=== PATIENT | male | born 1960 | race Caucasian/White ===

== ENCOUNTER 2019-07-23 12:56 | Inpatient (IN) ==
[2019-07-23] MEDS ORDERED: 0.9 % SODIUM CHLORIDE 1,000 ML IV ONE ×2 (13:24→16:03)
[2019-07-23] MEDS ORDERED: cefTRIAXone 2 GM in DEXTROSE 5% IN WATER 50 ML IV ONE (13:26)
--- NOTE | 2019-07-23 13:49 | XRay Report ---
HISTORY: Chest pain, fever and dyspnea FINDINGS: Heart is mildly enlarged and has increased in size since 02/08/17. Lung volumes are relatively small. There is a generalized haziness in the lung parenchyma bilaterally, most apparent around the didi and in the right lower thorax. No pleural effusion is present. There is no lobar consolidation. IMPRESSION: Cardiomegaly with mild congestive heart failure. Superimposed pneumonia cannot be excluded. Interpreted and Authenticated by: Max Chin 07/23/19
--- NOTE | 2019-07-23 13:59 | Emergency Department Note ---
Fever HPI - General Chief Complaint: Fever Stated Complaint: Fever, N/V/D Time Seen by Provider: 07/23/19 13:19 Source: EMS Mode of arrival: ambulatory Limitations: no limitations - History of Present Illness HPI Narrative: 59-year-old patient presenting to the emergency department chief complaint of altered mentation. Historical clues assessed for include recent febrile illness, history of organ failure, patient has been ill recently but per his but more acutely over today. Patient is confused at time of evaluation and history is limited. There are no exacerbating or ameliorating factors identified at this time. Time course is acute significantly worse today. - Related Data Home Medications Medication Instructions Recorded Confirmed Aspirin [Ecotrin] 81 mg PO DAILY 04/10/15 07/21/19 acetaminophen 500 mg tablet 1,000 mg PO Q6H PRN 05/26/15 07/21/19 blood sugar diagnostic See Dose Instructions .ROUTE 05/26/15 07/21/19 .MEDSUPPLY urea 40 % topical cream 1 applic TOPICAL QDAY 05/26/15 07/21/19 tramadol 100 mg tablet,extended 100 mg PO QDAY PRN 01/20/19 07/21/19 release 24 hr insulin glargine 100 unit/mL 45 unit SUB-Q QHS ml 07/21/19 07/21/19 subcutaneous solution Lisinopril [Zestril] 10 mg PO PRN PRN 07/23/19 Previous Rx's Medication Instructions Recorded fenofibrate nanocrystallized 48 mg 48 mg PO QDAY #90 tab 05/21/18 tablet cholecalciferol (vitamin D3) 50 4,000 unit PO QDAY #30 cap 07/21/19 mcg (2,000 unit) capsule furosemide 20 mg tablet 20 mg PO QAM PRN #90 tab 07/21/19 Allergies Allergy/AdvReac Type Severity Reaction Status Date / Time Penicillins Allergy Severe Anaphylaxis Verified 07/21/19 09:01 bisoprolol Allergy Intermediate leg Verified 07/21/19 09:01 swelling and SOB iodine Allergy Mild Hives Verified 07/21/19 09:01 niacin AdvReac Severe Verified 07/23/19 17:06 NSAIDS (Non-Steroidal AdvReac Severe Verified 07/23/19 17:06 Anti-Inflamma Tetanus Vaccines and Toxoid AdvReac Severe Nausea, Verified 07/21/19 09:01 [Tetanus Vaccines & Toxoid] Shortness of breath, Swelling adhesive tape AdvReac Intermediate Rash Verified 07/21/19 09:01 bacitracin AdvReac Intermediate Rash Verified 07/21/19 09:01 codeine AdvReac Intermediate vomit Verified 07/21/19 09:01 doxycycline AdvReac Intermediate Verified 07/23/19 17:06 levofloxacin AdvReac Intermediate Verified 07/23/19 17:06 minocycline AdvReac Intermediate Verified 07/23/19 17:06 Sulfa (Sulfonamide AdvReac Intermediate Verified 07/23/19 17:06 Antibiotics) hydrocodone AdvReac Mild vomit Verified 07/21/19 09:01 Review of Systems All systems ED: reviewed and negative except as stated. Fever PMH - Past Medical History PMFSH Narrative: All Active Problems (Last Reviewed 07/21/19 @ 09:02 by Elba Clement SURGICAL AIDE) Anemia in chronic kidney disease (Chronic) Vitamin D deficiency (Chronic) Chronic kidney disease (CKD) stage G3a/A3, moderately decreased glomerular filtration rate (GFR) between 45-59 mL/min/1.73 square meter and albuminuria creatinine ratio greater than 300 mg/g (Chronic) Community acquired bacterial pneumonia (Acute) Ataxia (Acute) Lower leg edema (Chronic) Pes planus of left foot (Chronic) Pes planus of right foot (Chronic) Chronic skin ulcer (Chronic) Edema, lower extremity (Chronic) Diabetic ulcer of left foot (Chronic) Venous stasis (Chronic) 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 other part of lower leg (Chronic) Bronchitis (Acute) Hypertension (Chronic ~2018) CKD (chronic kidney disease) stage 3, GFR 30-59 ml/min (Chronic) Polyneuropathy in diabetes (Chronic 09/20/10) Nephritis and nephropathy (Chronic) Mononeuritis (Chronic) Hemorrhagic condition (Chronic) Impotence, organic (Chronic) Fatigue (Chronic) Edema (Chronic) Cellulitis (Chronic) Tobacco use (Chronic) Obesity (Chronic) 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) Osteoarthritis (Chronic) Essential (primary) hypertension (Chronic) Onychomycosis (Chronic) Fissure in skin (Chronic) Callus of foot (Chronic) History of amputation of lesser toe of right foot (Chronic) Amputated great toe of left foot (Chronic) Chronic ulcer of left foot limited to breakdown of skin (Chronic) Diabetic neuropathy (Chronic) 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) Laceration of left foot without foreign body (Chronic) Laceration (Acute) Medical history: Reports: DM, hypertension, other Psychiatric history: Reports: no psych history Family history: Reports: no significant family history - Social History smoking status: Never smoker Alcohol use: Reports: None Drug use: Reports: none Physical Exam General: confused, inappropriate; febrile and tachycardic General: Alert, interactive, appropriate Head: Atraumatic, normocephalic Eyes: Extraocular movements intact, sclera anicteric, no conjunctival injection Ears: Pinnae normal, no discharge Mouth: Oral mucosa moist, no acute swelling or evidence of infection Nares: No nasal discharge, patent bilaterally Neck: Trachea midline, full range of motion Chest: Symmetrical chest wall rise, breathing normally; nonlabored respirations Cardiovascular: Patient with excellent perfusion to the extremities; with tachycardia Skin: Patient without area of erythema, patient is without rash, no ascending lymphangitis or lymphadenopathy Extremities: Full range of motion joints, no obvious deformities Neuro: Alert, confused, cranial nerves II through XII grossly intact, patient without lateralizing findings such as weakness, or abnormal reflexes Psychiatric: disoriented, without hallucinations Limitations: no limitations Course Vital Signs Temperature 104.4 F H 07/23/19 12:59 Pulse Rate 127 H 07/23/19 12:59 Respiratory Rate 28 H 07/23/19 12:59 Blood Pressure 121/111 07/23/19 12:59 Pulse Oximetry (%) 94 07/23/19 12:59 Temperature 97.6 F 07/24/19 00:03 Pulse Rate 84 07/24/19 02:01 Respiratory Rate 28 H 07/23/19 21:32 Blood Pressure 138/75 07/24/19 02:01 Pulse Oximetry (%) 97 07/24/19 02:01 Fever - MDM Narrative Medical decision making narrative: 59-year-old patient presenting to the emergency department chief complaint of altered mental status. Patient's recent medical history is evaluated for infectious illnesses, history of organ failure, medication list, drug/alcohol history, and depression patient's mental status made them unable to provide significant clues to current symptoms differential diagnosis included but not limited to stroke, intracranial hemorrhage, electrolyte derangement, DKA/HHS, sepsis, toxicology including alcohol and overdose, status epilepticus. Patient's vital signs as well as what minimal history is available per EMS patient fits criteria for acute sepsis without hypotension/septic shock. Patient is febrile oxygenation in the mid 80s. Full septic work-up is ordered. Bolus of fluid is administered Rocephin 2 g IV is administered as soon as blood cultures were obtained. Supplemental oxygen initiated. Patient was confused on presentation. This case was presented to the hospitalist who came quickly to the emergency department to admit the patient. - Lab Data Result diagrams: 07/23/19 13:40 07/23/19 13:40 Lab Results 07/23/19 07/23/19 07/23/19 Range/Units 13:33 13:40 13:40 WBC 15.7 H (4.50-11.00) K/mcL RBC 4.41 L (4.63-6.08) M/mcL Hgb 13.0 L (13.7-17.5) g/dL Hct 37.8 L (40.1-51.0) % MCV 85.7 (80.0-100.0) fL MCH 29.5 (26.0-34.0) pg MCHC 34.4 (31.0-36.0) g/dL RDW 13.3 (11.5-14.5) % Plt Count 230 (140-440) K/mcL MPV 11.6 H (7.4-10.4) fL Gran % 91.8 H (38.0-78.0) % Lymph % (Auto) 3.2 L (15.5-49.0) % [place] % (Auto) 4.6 (1.0-12.0) % Eos % (Auto) 0.1 (0.0-7.0) % Baso % (Auto) 0.3 (0.0-2.0) % Gran # 14.42 H (1.80-8.00) K/mcL Lymph # (Auto) 0.51 L (1.50-4.80) K/mcL [place] # (Auto) 0.72 (0.10-0.90) K/mcL Eos # (Auto) 0.01 (0.00-0.70) K/mcL Baso # (Auto) 0.04 (0.00-0.30) K/mcL PT (11.9-14.5) sec INR (0.9-1.1) D-Dimer (0.00-0.40) ug/ml ABG Methemoglobin (0.4-1.5) % VBG pH (7.32-7.42) U VBG pCO2 (41.0-51.0) mmHg VBG pO2 (25-40) mmHg VBG HCO3 (24.0-28.0) mmol/L VBG Total CO2 (25.0-29.0) mmol/L VBG O2 Saturation (40.0-70.0) % VBG Base Excess (-2.0-2.0) VBG Lactic Acid (0.5-2.0) mmol/L Carboxyhemoglobin (0.0-1.5) % THgb Total Hemoglobin (13.5-16.5) gm/dL O2 Delivery Level Sodium 139 (133-145) mmol/L Potassium 4.5 (3.3-5.1) mmol/L Chloride 101 (96-108) mmol/L Carbon Dioxide 23 (22-30) mmol/L Anion Gap 15.0 (8-16) BUN 33 H (6-20) mg/dl Creatinine 1.6 H (0.7-1.2) mg/dl GFR Calculation 47 Glucose 272 H (70-105) mg/dL Hemoglobin A1c 12.3 H (4.0-6.0) % HGB Estim Average Glucose 306 mg/dL Calcium 9.2 (8.6-10.4) mg/dl Total Bilirubin 0.5 (0.0-1.0) mg/dL AST 25 (0-37) U/l ALT 20 (0-40) U/l Alkaline Phosphatase 130 H (39-117) U/L NT-Pro-B Natriuret Pep 1456.0 H (0-125) pg/ml Total Protein 6.5 (5.9-8.4) gm/dL Albumin 3.5 (3.2-5.2) gm/dL Globulin 3.0 (2.2-3.7) gm/dL Albumin/Globulin Ratio 1.2 (1.0-2.3) 07/23/19 07/23/19 07/23/19 Range/Units 13:40 13:40 13:40 WBC (4.50-11.00) K/mcL RBC (4.63-6.08) M/mcL Hgb (13.7-17.5) g/dL Hct (40.1-51.0) % MCV (80.0-100.0) fL MCH (26.0-34.0) pg MCHC (31.0-36.0) g/dL RDW (11.5-14.5) % Plt Count (140-440) K/mcL MPV (7.4-10.4) fL Gran % (38.0-78.0) % Lymph % (Auto) (15.5-49.0) % [place] % (Auto) (1.0-12.0) % Eos % (Auto) (0.0-7.0) % Baso % (Auto) (0.0-2.0) % Gran # (1.80-8.00) K/mcL Lymph # (Auto) (1.50-4.80) K/mcL [place] # (Auto) (0.10-0.90) K/mcL Eos # (Auto) (0.00-0.70) K/mcL Baso # (Auto) (0.00-0.30) K/mcL PT 14.7 H (11.9-14.5) sec INR 1.1 (0.9-1.1) D-Dimer 1.09 H (0.00-0.40) ug/ml ABG Methemoglobin 0.3 L (0.4-1.5) % VBG pH 7.40 (7.32-7.42) U VBG pCO2 38.7 L (41.0-51.0) mmHg VBG pO2 40 (25-40) mmHg VBG HCO3 23.5 L (24.0-28.0) mmol/L VBG Total CO2 24.7 L (25.0-29.0) mmol/L VBG O2 Saturation 74.4 H (40.0-70.0) % VBG Base Excess -1.1 (-2.0-2.0) VBG Lactic Acid 1.4 (0.5-2.0) mmol/L Carboxyhemoglobin 3.7 H (0.0-1.5) % THgb Total Hemoglobin 12.7 L (13.5-16.5) gm/dL O2 Delivery Level Not Reportable Sodium (133-145) mmol/L Potassium (3.3-5.1) mmol/L Chloride (96-108) mmol/L Carbon Dioxide (22-30) mmol/L Anion Gap (8-16) BUN (6-20) mg/dl Creatinine (0.7-1.2) mg/dl GFR Calculation Glucose (70-105) mg/dL Hemoglobin A1c (4.0-6.0) % HGB Estim Average Glucose mg/dL Calcium (8.6-10.4) mg/dl Total Bilirubin (0.0-1.0) mg/dL AST (0-37) U/l ALT (0-40) U/l Alkaline Phosphatase (39-117) U/L NT-Pro-B Natriuret Pep (0-125) pg/ml Total Protein (5.9-8.4) gm/dL Albumin (3.2-5.2) gm/dL Globulin (2.2-3.7) gm/dL Albumin/Globulin Ratio (1.0-2.3) Critical Care Time Critical Care Time: Yes Total Critical Care Time: 61 Attestation: This critical care time was direct patient care exclusive of other procedures. Disposition Pt seen by ROTARY CUTTER OPERATOR/PA only: No Clinical Impression: Sepsis Qualifiers: Sepsis type: sepsis due to unspecified organism Sepsis acute organ dysfunction status: with acute organ dysfunction Disposition: Xfer As Inpt ([facility]) Condition: Critical
[2019-07-23 14:08] LABS: ABG Methemoglobin 0.3 % (0.4-1.5); Total Hemoglobin 12.7 gm/dL (13.5-16.5); VBG Base Excess -1.1 (-2.0-2.0); VBG HCO3 23.5 mmol/L (24.0-28.0); VBG Oxygen Saturation 74.4 % (40.0-70.0); VBG PCO2 38.7 mmHg (41.0-51.0); VBG PO2 40 mmHg (25-40); VBG Total CO2 24.7 mmol/L (25.0-29.0)
[2019-07-23 14:15] LABS: Basophils # (Auto) 0.04 K/mcL (0.00-0.30); Basophils % (Auto) 0.3 % (0.0-2.0); Eosinophils # (Auto) 0.01 K/mcL (0.00-0.70); Eosinophils % (Auto) 0.1 % (0.0-7.0); Granulocytes % (Auto) 91.8 % (38.0-78.0); Hematocrit 37.8 % (40.1-51.0); Lymphocytes # (Auto) 0.51 K/mcL (1.50-4.80); Lymphocytes % (Auto) 3.2 % (15.5-49.0); Mean Cell Volume 85.7 fL (80.0-100.0); Mean Corpuscular HGB Conc 34.4 g/dL (31.0-36.0); Mean Platelet Volume 11.6 fL (7.4-10.4); Monocytes # (Auto) 0.72 K/mcL (0.10-0.90); Monocytes % (Auto) 4.6 % (1.0-12.0); Platelet Count 230 K/mcL (140-440); RBC 4.41 M/mcL (4.63-6.08); Red Cell Distribution Width 13.3 % (11.5-14.5); WBC 15.7 K/mcL (4.50-11.00)
[2019-07-23 14:49] LABS: INR 1.1 (0.9-1.1); Prothrombin Time 14.7 sec (11.9-14.5)
[2019-07-23 15:56] LABS: ALT/SGPT 20 U/l (0-40); AST/SGOT 25 U/l (0-37); Albumin 3.5 gm/dL (3.2-5.2); Albumin/Globulin Ratio 1.2 (1.0-2.3); Alkaline Phosphatase 130 U/L (39-117); Bilirubin,Total 0.5 mg/dL (0.0-1.0); Blood Urea Nitrogen 33 mg/dl (6-20); Calcium 9.2 mg/dl (8.6-10.4); Carbon Dioxide 23 mmol/L (22-30); Chloride 101 mmol/L (96-108); Glomerular Filtration Rate 47; Glucose 272 mg/dL (70-105)
[2019-07-23] MEDS ORDERED: ACETAMINOPHEN 325 MG TABLET PO ONE (16:19)
[2019-07-23] MEDS ORDERED: DEXTROSE 31 GM ORAL.SUSP PO PRN ×2 (20:31→21:23)
[2019-07-23] MEDS ORDERED: ONDANSETRON 4 MG/2 ML VIAL IV PRN ×2 (20:31→21:23)
[2019-07-23] MEDS ORDERED: DEXTROSE 50% 50 ML VIAL IV PRN ×2 (20:31→21:23)
[2019-07-23] MEDS ORDERED: cefTRIAXone 2 GM in DEXTROSE 5% IN WATER 50 ML IV SCH (20:45)
[2019-07-23] MEDS ORDERED: HEPARIN 5,000 UNIT/ML VIAL SQ SCH (21:00)
[2019-07-23] MEDS ORDERED: LEVOFLOXACIN 750 MG/150 ML BAG IV SCH ×2 (21:00)
[2019-07-23] MEDS ORDERED: DOCUSATE SODIUM 100 MG CAPSULE PO SCH (21:00)
[2019-07-23] MEDS ORDERED: INSULIN LISPRO 1 UNIT/0.01 ML UNIT SQ SCH (21:00)
--- NOTE | 2019-07-23 21:07 | Internal Med History&Physical ---
Medical - H&P: HPI Patient information: Note initiated : 07/23/19 at 8:56 pm Service Date, if different from initiated Date: [] Patient: Ross Mcgee 59 y/o M admitted on for Fever, N/V/D. Chief Complaint: [ams x 1 day] History of present illness: Mr. Mcgee is a 59 year old M with a past medical history of CKD, CHF, diabetes type 2, high blood pressure, and tobacco use who presented to the ER due to altered mental status. When I saw this patient in the ER, he could answer questions appropriately. Medical history is obtained from the ER physician and patient self. As per patient, he has been having fever over the past couple of days but today he was found to have AMS at times. Otherwise, he denies headache, dizziness, chest pain, shortness of breath, abdominal pain, nausea, vomiting, diarrhea, or dysuria. No cough or sore throat. In the ER, T-max 194.4. Chest x-ray showed CHF and possible pneumonia. 1 dose of ceftriaxone was given. COVID-19 swab was sent. When I saw this patient in the ER, other than the symptoms mentioned above, he was fine. He was allowed to go home and did not want to be admitted. After explanation, patient change his mind. Patient denies recent travel or sick c ontact. Review of systems: positive for fever and ams. all other systems were reviewed and are negative. Medical - H&P: PMH Family history: reviewed and not pertinent (Mother had diabetes and father had a cancer.) Have you smoked in the last 12 months: No Drug use: none Alcohol use: none Medical - H&P: Meds Home Medications Medication Instructions Recorded Confirmed Type Aspirin [Ecotrin] 81 mg PO DAILY 04/10/15 07/21/19 History acetaminophen 500 mg tablet 1,000 mg PO Q6H PRN 05/26/15 07/21/19 History blood sugar diagnostic See Dose Instructions .ROUTE 05/26/15 07/21/19 History .MEDSUPPLY urea 40 % topical cream 1 applic TOPICAL QDAY 05/26/15 07/21/19 History fenofibrate nanocrystallized 48 mg 48 mg PO QDAY #90 tab 05/21/18 07/21/19 Rx tablet tramadol 100 mg tablet,extended 100 mg PO QDAY PRN 01/20/19 07/21/19 History release 24 hr cholecalciferol (vitamin D3) 50 4,000 unit PO QDAY #30 cap 07/21/19 07/21/19 Rx mcg (2,000 unit) capsule furosemide 20 mg tablet 20 mg PO QAM PRN #90 tab 07/21/19 07/21/19 Rx insulin glargine 100 unit/mL 45 unit SUB-Q QHS ml 07/21/19 07/21/19 History subcutaneous solution Lisinopril [Zestril] 10 mg PO PRN PRN 07/23/19 History Allergies Allergy/AdvReac Type Severity Reaction Status Date / Time Penicillins Allergy Severe Anaphylaxis Verified 07/21/19 09:01 bisoprolol Allergy Intermediate leg Verified 07/21/19 09:01 swelling and SOB iodine Allergy Mild Hives Verified 07/21/19 09:01 niacin AdvReac Severe Verified 07/23/19 17:06 NSAIDS (Non-Steroidal AdvReac Severe Verified 07/23/19 17:06 Anti-Inflamma Tetanus Vaccines and Toxoid AdvReac Severe Nausea, Verified 07/21/19 09:01 [Tetanus Vaccines & Toxoid] Shortness of breath, Swelling adhesive tape AdvReac Intermediate Rash Verified 07/21/19 09:01 bacitracin AdvReac Intermediate Rash Verified 07/21/19 09:01 codeine AdvReac Intermediate vomit Verified 07/21/19 09:01 doxycycline AdvReac Intermediate Verified 07/23/19 17:06 levofloxacin AdvReac Intermediate Verified 07/23/19 17:06 minocycline AdvReac Intermediate Verified 07/23/19 17:06 Sulfa (Sulfonamide AdvReac Intermediate Verified 07/23/19 17:06 Antibiotics) hydrocodone AdvReac Mild vomit Verified 07/21/19 09:01 Medical - H&P: Exam - Constitutional Vitals: Temp Pulse Resp BP Pulse Ox 99.3 F H 92 H 28 H 125/69 100 07/23/19 19:11 07/23/19 19:37 07/23/19 12:59 07/23/19 20:16 07/23/19 19:37 - Other Additional findings: General - No acute distress Eyes - PERRLA, EOM intact ENT no rhinorrhea, no noticeable or palpable swelling, no redness or rash around throat or on face Neck supple, no JVD, no thyromegaly Respiratory: Lungs -clear, no wheezing or crackles. Cardiovascular - RRR no m/r/g, GI - Normal bowel sounds, no distended, soft. Extremeties - No edema, cyanosis or clubbing. S/p amputation of right 5th toe and left 1st toe. there is a 5x 4 cm shallow ulcer covered by purulent secretion. Surrounding skin and soft tissue erythema. Hemo/lymphatic/immune no lymphadenopathy Neurological Alert and oriented x 3, no focal neurological deficits. Psychiatry flat affect Medical - H&P: Reslt - Labs CBC & Chem 7: 07/23/19 13:40 07/23/19 13:40 Labs: Short CBC 07/23/19 Range/Units 13:40 WBC 15.7 H (4.50-11.00) K/mcL Hgb 13.0 L (13.7-17.5) g/dL Hct 37.8 L (40.1-51.0) % Plt Count 230 (140-440) K/mcL BMP 07/23/19 13:40 Sodium 139 Potassium 4.5 Chloride 101 Carbon Dioxide 23 BUN 33 H Creatinine 1.6 H Glucose 272 H Calcium 9.2 Liver Function 07/23/19 Range/Units 13:40 Total Bilirubin 0.5 (0.0-1.0) mg/dL AST 25 (0-37) U/l ALT 20 (0-40) U/l Alkaline Phosphatase 130 H (39-117) U/L Albumin 3.5 (3.2-5.2) gm/dL - ABG Interpretation ABG results: 07/23/19 13:40 ABG Methemoglobin 0.3 L VBG pH 7.40 VBG pCO2 38.7 L VBG pO2 40 VBG HCO3 23.5 L VBG Total CO2 24.7 L VBG O2 Saturation 74.4 H VBG Base Excess -1.1 Medical - H&P: A/P - Narrative A/P Narrative: Assessment: 1. Encephalopathy G93.40 2. Sepsis, possibly due to cellulitis of left leg 3. Pneumonia J18.9 4. Elevation of D-dimer R79.89 5. Ulcer and cellulitis of left leg L03.116 6. CKD stage 3A N18.3 7. CHF exacerbation, BNP 1456 I50.9 8. Fever, Covid 19 viral syndrome? 9. 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 Tobacco use Z72.0 11. HTN 12. S/p amputation of right 5th toe and left 1st toe Z89.412 Plan: 1. AMS could be due to sepsis. CT of head UDS 2. Blood culture and wound care Wound care Levaquin 750 milligrams IV every 48 (allergic to penicillin) 3. Chest x-ray showed possible pneumonia Sputum culture Levaquin Covid 19 was sent special precaution. 4. Mild elevation of d-dimer Ultrasound Doppler Legs to r/o DVT Patient has CKD, is not a good candidate for CT angio chest. No V/Q scan available. I feel that the chance of PE is not high. Patient does not like to be transferred to the hospital and agreed to be observed without anticoagulation. 5. BNP 1456 echo troponin Intake and output Daily weight No Lasix at this moment due to sepsis 6. Home medications include Lantus 45 units daily I would like to start him on Lantus 40 units daily insulin ss Hemoglobin A1c in the morning Adjust insulin based on glucose level 7. Smoking cessation counseled. Nicotine patch if necessary 8. Lisinopril 10 mg is on hold in case he has LESVIA Blood pressure is not high now. monitor 9. DVT prophylaxis: Heparin 10. CODE STATUS: DNR/DNI May need to discuss with /family since he has encephalopathy. But I feel he answers my questions appropriately.
[2019-07-23] MEDS ORDERED: ALBUTEROL SULFATE 200 PUFF INHALER INH PRN (21:23)
[2019-07-23] MEDS ORDERED: 0.9 % SODIUM CHLORIDE 10 ML SYRINGE IV SCH (22:00)
[2019-07-23 22:34] LABS: Hemoglobin A1C 12.3 % HGB (4.0-6.0)
[2019-07-23] MEDS: 0.9 % SODIUM CHLORIDE 10 ML SYRINGE IV SCH (23:08)
[2019-07-24] MEDS: 0.9 % SODIUM CHLORIDE 10 ML SYRINGE IV SCH ×3 (05:24→22:17)
[2019-07-24 06:39] LABS: Basophils # (Auto) 0.02 K/mcL (0.00-0.30); Basophils % (Auto) 0.2 % (0.0-2.0); Eosinophils # (Auto) 0.07 K/mcL (0.00-0.70); Eosinophils % (Auto) 0.7 % (0.0-7.0); Hematocrit 34.2 % (40.1-51.0); Hemoglobin 11.6 g/dL (13.7-17.5); Lymphocytes # (Auto) 0.67 K/mcL (1.50-4.80); Lymphocytes % (Auto) 6.8 % (15.5-49.0); Mean Cell Volume 86.8 fL (80.0-100.0); Mean Corpuscular HGB Conc 33.9 g/dL (31.0-36.0); Mean Platelet Volume 11.2 fL (7.4-10.4); Monocytes # (Auto) 0.91 K/mcL (0.10-0.90); Monocytes % (Auto) 9.3 % (1.0-12.0); Platelet Count 190 K/mcL (140-440); RBC 3.94 M/mcL (4.63-6.08); Red Cell Distribution Width 13.3 % (11.5-14.5); WBC 9.8 K/mcL (4.50-11.00)
[2019-07-24 07:07] LABS: ALT/SGPT 16 U/l (0-40); AST/SGOT 23 U/l (0-37); Albumin 2.7 gm/dL (3.2-5.2); Alkaline Phosphatase 100 U/L (39-117); Bilirubin,Total 0.3 mg/dL (0.0-1.0); Blood Urea Nitrogen 30 mg/dl (6-20); C-Reactive Protein 16.4 mg/dl (0.0-0.8); Calcium 8.2 mg/dl (8.6-10.4); Carbon Dioxide 21 mmol/L (22-30); Chloride 100 mmol/L (96-108); Globulin 2.7 gm/dL (2.2-3.7); Glomerular Filtration Rate 55; Glucose 130 mg/dL (70-105); Phosphorous 3.1 mg/dL (2.7-4.5)
[2019-07-24 07:25] LABS: CRP,High Sensitivity 191.4 mg/L (1.0-3.0)
[2019-07-24] MEDS ORDERED: PANTOPRAZOLE 40 MG TABLET PO SCH ×2 (07:30)
[2019-07-24] MEDS ORDERED: INSULIN LISPRO 1 UNIT/0.01 ML UNIT SQ SCH (07:30)
--- NOTE | 2019-07-24 08:01 | Cat Scan Report ---
History: Altered mental status TECHNIQUE: The brain was imaged without contrast at 2.5 mm intervals. The radiation exposure was limited using dose reduction technology. FINDINGS: No evidence of infarct, hemorrhage, edema, mass effect, degenerative change or developmental anomaly. The ventricles and cisterns are normal. The bone windows show no skull lesion. There has been no significant change since 10/11/18. IMPRESSION: normal exam Interpreted and Authenticated by: Max Chin 07/24/19
--- NOTE | 2019-07-24 08:03 | Ultrasound Report ---
History: Elevated serum d-dimer level FINDINGS: There is normal augmentation and compressibility in the deep veins and saphenous veins in both legs from the groin through the calf. Doppler shows normal waveform patterns. The patient was technically difficult to scan due to body habitus. IMPRESSION: No evidence of deep venous thrombosis in either leg Interpreted and Authenticated by: Max Chin 07/24/19
[2019-07-24] MEDS ORDERED: 0.9 % SODIUM CHLORIDE 1,000 ML IV SCH (08:30)
[2019-07-24] MEDS ORDERED: HEPARIN 5,000 UNIT/ML VIAL SQ SCH (09:00)
[2019-07-24] MEDS ORDERED: DOCUSATE SODIUM 100 MG CAPSULE PO SCH (09:00)
[2019-07-24] MEDS ORDERED: INSULIN GLARGINE, HUMAN 1 UNIT/0.01 ML SQ SCH (09:00)
[2019-07-24] MEDS ORDERED: DEXTROSE 31 GM ORAL.SUSP PO PRN (09:50)
[2019-07-24] MEDS ORDERED: DEXTROSE 50% 50 ML VIAL IV PRN (09:50)
[2019-07-24] MEDS ORDERED: ALBUTEROL SULFATE 200 PUFF INHALER INH PRN (09:50)
[2019-07-24] MEDS ORDERED: ONDANSETRON 4 MG/2 ML VIAL IV PRN (09:50)
[2019-07-24] MEDS ORDERED: MAGNESIUM SULFATE 2 GM/50 ML BAG IV ONE (10:09)
[2019-07-24] MEDS: 0.9 % SODIUM CHLORIDE 1,000 ML IV SCH (10:32)
[2019-07-24] MEDS: INSULIN LISPRO 1 UNIT/0.01 ML UNIT SQ SCH ×3 (12:53→21:15)
[2019-07-24] MEDS ORDERED: LEVOFLOXACIN 750 MG/150 ML BAG IV SCH (14:00)
[2019-07-24 14:33] LABS: Amphetamine Screen,Urine NONE DETECTED (NONDETECTED); Barbiturate Screen,Urine NONE DETECTED (NONDETECTED); Benzodiazepines Screen,Urine NONE DETECTED (NONDETECTED); Cannabinoid Screen,Urine NONE DETECTED (NONDETECTED); Cocaine Screen,Urine NONE DETECTED (NONDETECTED); Opiate Screen,Urine NONE DETECTED (NONDETECTED); Oxycodone, Urine Screen NONE DETECTED (NONDETECTED); Phencyclidine Screen,Urine NONE DETECTED (NONDETECTED)
[2019-07-24] MEDS: LEVOFLOXACIN 750 MG/150 ML BAG IV SCH (14:53)
[2019-07-24] MEDS ORDERED: IOPAMIDOL 100 ML BOTTLE IV ONE (14:55)
[2019-07-24 14:56] LABS: Appearance,Urine CLEAR; Bacteria,Urine 0 /hpf (0); Bilirubin,Urine NEG (NEG); Color,Urine YELLOW; Culture Indicated,Urine NO; Glucose,Urine (UA) >=500 mg/dL (NEG); Ketones,Urine NEG (NEG); Leukocyte Esterase,Urine NEG /uL (NEG); Nitrate,Urine NEG (NEG); Protein,Urine >=500 mg/dL (NEG); Specific Gravity,Urine 1.017 (1.000-1.035); Urine Blood 0.2 mg/dL (<0.03); Urine RBC 4 /hpf (0-1); Urine Squamous Epithelial Cell 1 /hpf (0-4); Urine WBC 1 /hpf (0-4); Urobilinogen,Urine NEG (NEG)
--- NOTE | 2019-07-24 15:14 | Cat Scan Report ---
History: Shortness of breath, fever and elevated serum d-dimer level TECHNIQUE: The procedure and risks including allergic reaction and kidney failure following contrast administration were explained to the patient. He understands and consented. Patient was hydrated both orally and intravenously prior to the procedure. 48 cc of nonionic Isovue 370 was injected intravenously. Arterial phase images were acquired. Sagittal, coronal and axial MIPS images were created. The radiation exposure was limited using dose reduction technology. FINDINGS: The pulmonary arteries are normal with no intraluminal filling defects. The aorta is normal in caliber. There are few scattered plaques along the wall of the aorta and in the coronary arteries. Heart size is within normal limits. No pleural or pericardial effusion are present. There are a few linear bands of scar tissue in both lungs and there is mild pleural thickening along the minor fissure. There are couple small calcified granulomata in the lungs. There are large bulky densely calcified lymph nodes in the mediastinum. The largest is in the right upper thorax along the right side of the trachea and it measures 2.4 x 2.5 cm. There are smaller calcified lymph nodes in the didi, right side greater than left. Multiple calcified granulomata are present in the spleen and there are couple in the liver. There is no evidence of pneumonia or pulmonary mass. Arthritis and disc degeneration as present throughout the spine. There are large anterior bridging osteophytes throughout the mid and lower thoracic spine.. IMPRESSION: No evidence of pulmonary emboli Old granulomatous disease which is probably due to a fungal infection or less likely tuberculosis. Mild atherosclerotic coronary artery disease Interpreted and Authenticated by: Max Chin 07/24/19
[2019-07-24] MEDS ORDERED: FUROSEMIDE 20 MG TABLET PO PRN (16:20)
--- NOTE | 2019-07-24 16:25 | Internal Med Progress Note ---
Medical - PN: Subj Patient information: Note initiated : 07/24/19 at 4:21 pm Service Date, if different from initiated Date: [] Patient: Ross Mcgee 59 y/o M admitted on 07/23/19 for Fever, N/V/D. Chief Complaint: [] Interval history: Mr. Mcgee is a 59 year old M with a past medical history of CKD, CHF, diabetes type 2, high blood pressure, and tobacco use who presented to the ER due to altered mental status. When I saw this patient in the ER, he could answer questions appropriately. Medical history is obtained from the ER physician and patient self. As per patient, he has been having fever over the past couple of days but today he was found to have AMS at times. Otherwise, he denies headache, dizziness, chest pain, shortness of breath, abdominal pain, nausea, vomiting, diarrhea, or dysuria. No cough or sore throat. In the ER, T-max 194.4. Chest x-ray showed CHF and possible pneumonia. 1 dose of ceftriaxone was given. COVID-19 swab was sent. When I saw this patient in the ER, other than the symptoms mentioned above, he was fine. He was allowed to go home and did not want to be admitted. After explanation, patient change his mind. Patient denies recent travel or sick contact. 07/23 Today he dose not have any complaints. Denies shortness of breath, headache, dizziness, chest pain, cough, nausea, vomiting, fever, or chills. Blood pressure mildly elevated. Otherwise vital signs are stable. Afebrile. WBC normalized today Creatinine went down to 1.4 Troponin 0 0.05 and 0.04 Review of systems: positive for fever and ams. all other systems were reviewed and are negative. - Constitutional Vitals: Vital Signs Temp Pulse Resp BP Pulse Ox 98.7 F 93 H 16 147/98 98 07/24/19 12:00 07/24/19 04:01 07/24/19 12:00 07/24/19 12:00 07/24/19 12:00 Period Temp Pulse Resp BP Sys/Vincent Pulse Ox Last 24 Hr 97.6 F-104.6 F 79-125 15-28 105-183/60-98 91-100 Intake and Output 07/24/19 07/24/19 07/24/19 05:59 13:59 21:59 Intake Total 570 1010 Output Total 2 1400 Balance 568 -390 Weight 124.511 kg Patient Weight 07/25/19 05:59 Weight 124.511 kg Intake & Output: Intake & Output 07/24/19 07/24/19 07/24/19 05:59 13:59 21:59 Intake Total 570 1010 Output Total 2 1400 Balance 568 -390 Weight 124.511 kg Intake: IV 150 50 Oral 420 960 Output: Void Amount 1400 # of times incontinent of urine 2 Other: Meal Lunch Percent of Meal Consumed 100% Urine Appearance Clear Urine Color Dark April Stool Size Smear # Bowel Movements 2 # of times incontinent of 1 Bowels - Additional findings Additional findings: General - No acute distress Eyes - PERRLA, EOM intact ENT no rhinorrhea, no noticeable or palpable swelling, no redness or rash around throat or on face Neck supple, no JVD, no thyromegaly Respiratory: Lungs -clear, no wheezing or crackles. Cardiovascular - RRR no m/r/g, GI - Normal bowel sounds, no distended, soft. Extremeties - No edema, cyanosis or clubbing. S/p amputation of right 5th toe and left 1st toe. there is a 5x 4 cm shallow ulcer covered by purulent secretion. Surrounding skin and soft tissue erythema (improving). Hemo/lymphatic/immune no lymphadenopathy Neurological Alert and oriented x 3, no focal neurological deficits. Psychiatry flat affect Medical - PN: Obj Da - Labs CBC & Chem 7: 07/24/19 04:45 07/24/19 04:45 Labs: Abnormal Lab Results 07/24/19 07/24/19 07/24/19 13:30 04:45 04:45 WBC RBC Hgb Hct MPV Gran % Lymph % (Auto) Gran # Lymph # (Auto) Dickens # (Auto) PT D-Dimer ABG Methemoglobin VBG pCO2 VBG HCO3 VBG Total CO2 VBG O2 Saturation Carboxyhemoglobin Total Hemoglobin Sodium 132 L Carbon Dioxide 21 L BUN 30 H Creatinine 1.4 H Glucose 130 H Hemoglobin A1c Calcium 8.2 L Magnesium 1.3 L Alkaline Phosphatase Troponin T 0.04 H* C-Reactive Protein 16.4 H C-React Prot High Sens 191.4 H NT-Pro-B Natriuret Pep Total Protein 5.4 L Albumin 2.7 L Urine Protein >=500 A Urine Glucose (UA) >=500 A Urine Occult Blood 0.2 A Urine RBC 4 H 07/24/19 07/23/19 07/23/19 04:45 22:05 13:40 WBC RBC 3.94 L Hgb 11.6 L Hct 34.2 L MPV 11.2 H Gran % 83.0 H Lymph % (Auto) 6.8 L Gran # 8.13 H Lymph # (Auto) 0.67 L Dickens # (Auto) 0.91 H PT D-Dimer ABG Methemoglobin 0.3 L VBG pCO2 38.7 L VBG HCO3 23.5 L VBG Total CO2 24.7 L VBG O2 Saturation 74.4 H Carboxyhemoglobin 3.7 H Total Hemoglobin 12.7 L Sodium Carbon Dioxide BUN Creatinine Glucose Hemoglobin A1c Calcium Magnesium Alkaline Phosphatase Troponin T 0.05 H* C-Reactive Protein C-React Prot High Sens NT-Pro-B Natriuret Pep Total Protein Albumin Urine Protein Urine Glucose (UA) Urine Occult Blood Urine RBC 07/23/19 07/23/19 07/23/19 13:40 13:40 13:40 WBC 15.7 H RBC 4.41 L Hgb 13.0 L Hct 37.8 L MPV 11.6 H Gran % 91.8 H Lymph % (Auto) 3.2 L Gran # 14.42 H Lymph # (Auto) 0.51 L Dick[place] # (Auto) PT 14.7 H D-Dimer 1.09 H ABG Methemoglobin VBG pCO2 VBG HCO3 VBG Total CO2 VBG O2 Saturation Carboxyhemoglobin Total Hemoglobin Sodium Carbon Dioxide BUN 33 H Creatinine 1.6 H Glucose 272 H Hemoglobin A1c Calcium Magnesium Alkaline Phosphatase 130 H Troponin T C-Reactive Protein C-React Prot High Sens NT-Pro-B Natriuret Pep 1456.0 H Total Protein Albumin Urine Protein Urine Glucose (UA) Urine Occult Blood Urine RBC 07/23/19 13:33 WBC RBC Hgb Hct MPV Gran % Lymph % (Auto) Gran # Lymph # (Auto) Dick[place] # (Auto) PT D-Dimer ABG Methemoglobin VBG pCO2 VBG HCO3 VBG Total CO2 VBG O2 Saturation Carboxyhemoglobin Total Hemoglobin Sodium Carbon Dioxide BUN Creatinine Glucose Hemoglobin A1c 12.3 H Calcium Magnesium Alkaline Phosphatase Troponin T C-Reactive Protein C-React Prot High Sens NT-Pro-B Natriuret Pep Total Protein Albumin Urine Protein Urine Glucose (UA) Urine Occult Blood Urine RBC Meds: Medications Albuterol Sulfate (Ventolin) 1 puff INH Q4HP PRN PRN Reason: Shortness Of Breath Carvedilol (Coreg) 6.25 mg PO BIDCC [facility]WAD Dextrose (Dextrose 50%) 0 ml IV UD PRN PRN Reason: Hypoglycemia Diagnostic Test (Pha) (Accu-Chek) 1 each FS ACHS [facility] Last Admin: 07/24/19 12:50 Dose: 1 each Documented by: Docusate Sodium (Colace) 100 mg PO BID [facility] Furosemide (Lasix) 20 mg PO QAM PRN PRN Reason: edema Glucose (Insta-Glucose) 15 gm PO PRN PRN PRN Reason: Hypoglycemia Heparin Sodium (Porcine) (Heparin) 5,000 unit SQ Q12 [facility] Levofloxacin (Levaquin) 750 mg in 150 mls @ 100 mls/hr IV Q24H [facility] Last Admin: 07/24/19 14:53 Dose: 100 mls/hr Documented by: Sodium Chloride (Sodium Chloride 0.9%) 1,000 mls @ 50 mls/hr IV .Q20H [facility] Last Admin: 07/24/19 10:32 Dose: 50 mls/hr Documented by: Insulin Glargine (Lantus) 40 unit SQ DAILY [facility] Insulin Human Lispro (Humalog) 0 unit SQ [facility]; Protocol Last Admin: 07/24/19 12:53 Dose: 3 units Documented by: Non-Formulary Medication (Aspirin [Ecotrin]) 81 mg PO DAILY [facility] Ondansetron HCl (Zofran) 4 mg IV Q6HP PRN; Protocol PRN Reason: Nausea And Vomiting Pantoprazole Sodium (Protonix) 40 mg PO QAMAC [facility] Sodium Chloride (Saline Flush) 10 ml IV Q8 [facility] Last Admin: 07/24/19 14:53 Dose: 10 ml Documented by: - ABG Interpretation ABG results: 07/23/19 13:40 ABG Methemoglobin 0.3 L VBG pH 7.40 VBG pCO2 38.7 L VBG pO2 40 VBG HCO3 23.5 L VBG Total CO2 24.7 L VBG O2 Saturation 74.4 H VBG Base Excess -1.1 Medical - PN: A/P - Time Spent With Patient Total time spent is greater than 50% in coordination of care (as documented) at patient's floor/unit and/or counseling patient: - Narrative A/P Narrative: Assessment: 1. Encephalopathy G93.40 2. Sepsis, possibly due to cellulitis of left leg 3. Pneumonia J18.9 4. Elevation of D-dimer R79.89 5. Ulcer and cellulitis of left leg L03.116 6. CKD stage 3A N18.3 7. CHF exacerbation, BNP 1456 I50.9 8. Fever, Covid 19 viral syndrome? 9. 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 Tobacco use Z72.0 11. HTN 12. S/p amputation of right 5th toe and left 1st toe Z89.412 13. Elevation of troponin Plan: 1. AMS could be due to sepsis, improved/resolved CT of head - negative UDS -negative 2. Blood culture and wound care - Wound care Levaquin 750 milligrams IV every 24hrs (allergic to penicillin) 3. Chest x-ray showed possible pneumonia Sputum culture no growth so far Levaquin Covid 19 was sent special precaution. 4. Mild elevation of d-dimer Ultrasound Doppler Legs to r/o DVT Patient has CKD. Contacted Dr. Ordaz and Dr. Gordon at [facility] for possibility of V/Q scan if they can accept pt to their hospital. They felt pt should have CT angio chest. Discussed with pt who agreed to have CT angio chest. Pt fully understood the risk for renal failure due to contrast. Gentle IVF (he possibly has CHF) CT angio chest - NO PE, but showed old granulomatous disease which is probably due to a fungal infection or less likely tuberculosis. 5. BNP 1456 echo pending Daily weight intake and output 6. troponin 0.05, 0.4. No ST elevation The elevation of trop could most likely be due to LESVIA, sepsis. Continue aspirin and added lipitor Continue home Lasix 20mg po daily 6. Home medications include Lantus 45 units daily I would like to start him on Lantus 40 units daily insulin ss Hemoglobin A1c 12.3 Adjust insulin based on glucose level 7. Smoking cessation counseled. Nicotine patch if necessary 8. Lisinopril 10 mg is on hold in case he has LESVIA Blood pressure is not high now. monitor 9. DVT prophylaxis: Heparin 10. CODE STATUS: DNR/DNI May need to discuss with /family since he has encephalopathy. But I feel he answers my questions appropriately. Medical - PN: Qual - VTE Deep Vein Thrombosis/Pulmonary Embolism Present on Admission: No
[2019-07-24] MEDS: CARVEDILOL 6.25 MG TABLET PO SCH (17:10)
[2019-07-24] MEDS: DOCUSATE SODIUM 100 MG CAPSULE PO SCH (21:15)
[2019-07-24] MEDS: HEPARIN 5,000 UNIT/ML VIAL SQ SCH (22:20)
[2019-07-25] MEDS: 0.9 % SODIUM CHLORIDE 10 ML SYRINGE IV SCH ×2 (05:38→16:52)
[2019-07-25 06:38] LABS: Basophils # (Auto) 0.01 K/mcL (0.00-0.30); Basophils % (Auto) 0.1 % (0.0-2.0); Eosinophils # (Auto) 0.25 K/mcL (0.00-0.70); Eosinophils % (Auto) 3.3 % (0.0-7.0); Granulocytes % (Auto) 71.1 % (38.0-78.0); Hematocrit 33.3 % (40.1-51.0); Hemoglobin 11.1 g/dL (13.7-17.5); Lymphocytes # (Auto) 1.03 K/mcL (1.50-4.80); Lymphocytes % (Auto) 13.5 % (15.5-49.0); Mean Cell Volume 86.9 fL (80.0-100.0); Mean Corpuscular HGB Conc 33.3 g/dL (31.0-36.0); Mean Platelet Volume 11.8 fL (7.4-10.4); Monocytes # (Auto) 0.92 K/mcL (0.10-0.90); Platelet Count 190 K/mcL (140-440); RBC 3.83 M/mcL (4.63-6.08); Red Cell Distribution Width 13.5 % (11.5-14.5); WBC 7.7 K/mcL (4.50-11.00)
[2019-07-25 06:54] LABS: ALT/SGPT 14 U/l (0-40); AST/SGOT 19 U/l (0-37); Albumin 2.4 gm/dL (3.2-5.2); Albumin/Globulin Ratio 0.8 (1.0-2.3); Alkaline Phosphatase 94 U/L (39-117); Bilirubin,Total 0.2 mg/dL (0.0-1.0); Blood Urea Nitrogen 32 mg/dl (6-20); Calcium 8.1 mg/dl (8.6-10.4); Carbon Dioxide 21 mmol/L (22-30); Chloride 98 mmol/L (96-108); Glomerular Filtration Rate 47; Glucose 245 mg/dL (70-105)
[2019-07-25] MEDS ORDERED: PANTOPRAZOLE 40 MG TABLET PO SCH (07:30)
[2019-07-25] MEDS: INSULIN LISPRO 1 UNIT/0.01 ML UNIT SQ SCH ×2 (07:39→12:20)
[2019-07-25] MEDS: CARVEDILOL 6.25 MG TABLET PO SCH (08:22)
[2019-07-25] MEDS: HEPARIN 5,000 UNIT/ML VIAL SQ SCH (08:22)
[2019-07-25] MEDS: DOCUSATE SODIUM 100 MG CAPSULE PO SCH (08:22)
[2019-07-25] MEDS ORDERED: ASPIRIN 81 MG TAB.CHEW PO SCH (09:00)
[2019-07-25] MEDS ORDERED: INSULIN GLARGINE, HUMAN 1 UNIT/0.01 ML SQ SCH (09:00)
[2019-07-25] MEDS ORDERED: ATORVASTATIN 40 MG TABLET PO SCH (09:00)
[2019-07-25] MEDS: 0.9 % SODIUM CHLORIDE 1,000 ML IV SCH (09:43)
--- NOTE | 2019-07-25 12:49 | Discharge Summary ---
Medical - DS: Prov Patient information: Note initiated : 07/25/19 at 12:47 pm Service Date, if different from initiated Date: [] Patient: Ross Mcgee 59 y/o M admitted on 07/23/19 for Fever, N/V/D. Chief Complaint: [] Refer to H&P by Jacqueline Newberry M.D.> 07/23/19 Mr. Mcgee is a 59 year old M with a past medical history of CKD, CHF, diabetes type 2, high blood pressure, and tobacco use who presented to the ER due to altered mental status. When I saw this patient in the ER, he could answer questions appropriately. Medical history is obtained from the ER physician and patient self. As per patient, he has been having fever over the past couple of days but today he was found to have AMS at times. Otherwise, he denies headache, dizziness, chest pain, shortness of breath, abdominal pain, nausea, vomiting, diarrhea, or dysuria. No cough or sore throat. In the ER, T-max 194.4. Chest x-ray showed CHF and possible pneumonia. 1 dose of ceftriaxone was given. COVID-19 swab was sent. When I saw this patient in the ER, other than the symptoms mentioned above, he was fine. He was allowed to go home and did not want to be admitted. After explanation, patient change his mind. Patient denies recent travel or sick contact. Date of admission: 07/23/19 21:16 Discharge date: 07/25/19 Primary care physician: Elba Bridges Consults: 07/23/19 Consult to Physician [CONS] Stat Comment: Consulting Provider: Jacqueline Newebrry Reason For Exam: Physician to Consult Medical - DS: Meds - Discharge Medications Prescriptions: Insulin Lispro [Humalog] See Protocol SQ ACHS #100 unit Transmission Status: Pending to [facility] Cephalexin [Keflex] 500 mg PO QID 7 Days #28 cap Transmission Status: Pending to [facility] Atorvastatin [Lipitor] 40 mg PO DAILY #30 tab Transmission Status: Pending to [facility] Doxycycline [Vibramycin] 100 mg PO Q12H 7 Days #14 tab Transmission Status: Pending to [facility] Active and Home Medications: Home Medications Aspirin [Ecotrin] 81 mg PO DAILY 04/10/15 [History Confirmed 07/24/19 Last Taken 07/23/19 08:00] acetaminophen 500 mg tablet 1,000 mg PO Q6H PRN 05/26/15 [History Confirmed 07/24/19 Last Taken 07/22/19 20:00] blood sugar diagnostic 1 each SQ 5XD 05/26/15 [History Confirmed 07/24/19 Last Taken 07/22/19 20:00] fenofibrate nanocrystallized 48 mg tablet 48 mg PO QDAY #90 tab 05/21/18 [Rx Confirmed 07/24/19 Last Taken 07/22/19 08:00] cholecalciferol (vitamin D3) 50 mcg (2,000 unit) capsule 4,000 unit PO QDAY #30 cap 07/21/19 [Rx Confirmed 07/24/19 Last Taken 07/22/19 08:00] furosemide 20 mg tablet 20 mg PO QAM PRN #90 tab 07/21/19 [Rx Confirmed 07/24/19 Last Taken 07/22/19 08:00] insulin glargine 100 unit/mL subcutaneous solution 40 unit SUB-Q QHS ml 07/21/19 [History Confirmed 07/24/19 Last Taken 07/22/19 08:00] Lisinopril [Zestril] 10 mg PO PRN PRN 07/23/19 [History Confirmed 07/24/19 Last Taken 07/22/19 08:00] Carvedilol [Coreg] 6.25 mg PO BIDCC 07/24/19 [History Confirmed 07/24/19 Last Taken 07/22/19 20:00] Cephalexin [Keflex] 500 mg PO BID 07/24/19 [History Confirmed 07/24/19 Last Taken 07/22/19 08:00] Medical - DS: Hosp Hospital Course: Mr. Mcgee is a 59 year old M with a past medical history of CKD, CHF, diabetes type 2, high blood pressure, and tobacco use who presented to the ER due to altered mental status. When I saw this patient in the ER, he could answer questions appropriately. Medical history is obtained from the ER physician and patient self. As per patient, he has been having fever over the past couple of days but today he was found to have AMS at times. Otherwise, he denies headache, dizziness, chest pain, shortness of breath, abdominal pain, nausea, vomiting, diarrhea, or dysuria. No cough or sore throat. In the ER, T-max 194.4. Chest x-ray showed CHF and possible pneumonia. 1 dose of ceftriaxone was given. COVID-19 swab was sent. When I saw this patient in the ER, other than the symptoms mentioned above, he was fine. He was allowed to go home and did not want to be admitted. After explanation, patient change his mind. Patient denies recent travel or sick contact. 1. Encephalopathy G93.40, resolved. CT of head - negative UDS -negative 2. Sepsis, possibly due to cellulitis of legs 3. Ulcer of left leg and cellulitis of both legs Blood culture - no growth wound culture - presumptive beta strep and staphy aureus. Sensitivity pending Discussed with ID Dr. Frankel, who suggested doxycycline 100mg bid and keflex 500mg qid x 5-7 days. Wound care Discussed with wound care Dr. Clements who will see pt on Saturday (07/26) in office. Discontinued Levaquin 750 milligrams IV every 24hrs (allergic to penicillin) 3. Pneumonia J18.9 Afebrile, SpO2 > 95% on RM. WBC normalized. Chest x-ray showed possible pneumonia Covid 19 was sent, result pending special precaution, He needs to quarantine at home. continue abx mentioned above. 4. Elevation of D-dimer R79.89 Ultrasound Doppler Legs to r/o DVT CT angio chest - NO PE, but showed old granulomatous disease which is probably due to a fungal infection or less likely tuberculosis. f/u with pcp 5. CKD stage 3A N18.3 Creatinine 1.6 today. Creatinine has been 1.3-1.9 since 06/06/2016. avoid nephrotoxic meds monitor renal function 6. CHF exacerbation, BNP 1456 I50.9 echo - EF 60-65% Daily weight intake and output 7. Fever, Covid 19 viral syndrome? afebrile, wbc normalized. 8. 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 Tobacco use Z72.0 Smoking cessation counseled. 10. HTN 11. S/p amputation of right 5th toe and left 1st toe Z89.412 12. Elevation of troponin 6. troponin 0.05, 0.4. No ST elevation The elevation of trop could most likely be due to LESVIA, sepsis. He does not want to be transferred to another hospital for further workup and treatment. Continue aspirin and added lipitor f/u with cardiology magali and pcp 07/23 Today he dose not have any complaints. Denies shortness of breath, headache, dizziness, chest pain, cough, nausea, vomiting, fever, or chills. Blood pressure mildly elevated. Otherwise vital signs are stable. Afebrile. WBC normalized today Creatinine went down to 1.4 Troponin 0 0.05 and 0.04 07/24 Pt feels very fine. Does not have medical complaints. Denies headache, dizziness, chest pain, shortness of breath, abdominal pain, nausea, vomiting, fever, chills, dysuria, or cough. Vital signs are stable. Leukocytosis is resolved. Creatinine 1.6. He really wants to go home. Other than home he does not want to go to anywhere else. He told me that his can take care of him and he has home health available. He is independent and can take care of himself too. COVID-19 test results pending. 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 Clements on 07/27/2019. As per ID Dr. Frankel, he will be dicharged on doxycycline and keflex. wound care positive for presumptive beta strep and staphy aureus. Sensitivity pending. Needs to adjust abx based on sensitivity. he needs to be quarantined at home. Repeat renal function and electrolytes in 3 days. Call pcp for medical issues. Discharge diagnosis: Sepsis and cellulitis of legs - Time Spent with Patient Total time spent providing and/or coordinating discharge services: Greater than 30 minutes Medical - DS: Exam - Constitutional Vitals: Vital Signs Temp Pulse Resp BP Pulse Ox 07/25/19 11:32 97.2 F 74 14 148/82 100 07/25/19 08:18 98.8 F 16 148/88 95 07/25/19 04:01 98.8 F 141/76 95 07/25/19 00:01 136/78 07/24/19 23:58 98.7 F 86 16 130/73 98 07/24/19 23:53 86 130/73 98 07/24/19 20:00 95 07/24/19 18:55 100.5 F H 97 H 18 156/87 07/24/19 18:51 98 H 156/87 98 07/24/19 17:01 169/89 07/24/19 16:55 98.7 F 150/85 Intake and Output 07/24/19 07/25/19 07/25/19 21:59 05:59 13:59 Intake Total 510 0 2180 Output Total 750 375 750 Balance -240 -375 1430 Intake: IV 150 1000 Sodium Chloride 0.9% 1,000 ml @ 1000 50 mls/hr IV .Q20H FAWAD Rx#: [id number] Oral 360 0 1180 Output: Void Amount 750 375 750 Other: Meal Dinner Breakfast Percent of Meal Consumed 100% 100% Feeding Ability Independent Urine Appearance Clear Urine Color Dark Yellow Stool Size Small Stool Color Brown Stool Consistency Soft Formed # Bowel Movements 1 Weight 126.28 kg - Other Additional findings: General - No acute distress Eyes - PERRLA, EOM intact ENT no rhinorrhea, no noticeable or palpable swelling, no redness or rash around throat or on face Neck supple, no JVD, no thyromegaly Respiratory: Lungs -clear, no wheezing or crackles. Cardiovascular - RRR no m/r/g, GI - Normal bowel sounds, no distended, soft. Extremeties - No edema, cyanosis or clubbing. S/p amputation of right 5th toe and left 1st toe. there is a 5x 4 cm shallow ulcer covered by purulent secretion. Surrounding skin and soft tissue erythema (improving). Right lower leg erythema. Hemo/lymphatic/immune no lymphadenopathy Neurological Alert and oriented x 3, no focal neurological deficits. Psychiatry flat affect Medical - DS: Data Labs on day of discharge: Labs from last 24 hours 07/25/19 07/25/19 07/25/19 04:50 04:50 04:50 WBC 7.7 RBC 3.83 L Hgb 11.1 L Hct 33.3 L MCV 86.9 MCH 29.0 MCHC 33.3 RDW 13.5 Plt Count 190 MPV 11.8 H Gran % 71.1 Lymph % (Auto) 13.5 L [place] % (Auto) 12.0 Eos % (Auto) 3.3 Baso % (Auto) 0.1 Gran # 5.44 Lymph # (Auto) 1.03 L [place] # (Auto) 0.92 H Eos # (Auto) 0.25 Baso # (Auto) 0.01 Sodium 131 L Potassium 4.1 Chloride 98 Carbon Dioxide 21 L Anion Gap 12.0 BUN 32 H Creatinine 1.6 H GFR Calculation 47 Glucose 245 H Calcium 8.1 L Magnesium 1.9 Total Bilirubin 0.2 AST 19 ALT 14 Alkaline Phosphatase 94 Total Protein 5.4 L Albumin 2.4 L Globulin 3.0 Albumin/Globulin Ratio 0.8 L Urine Color Urine Appearance Urine pH Ur Specific [place] Urine Protein Urine Glucose (UA) Urine Ketones Urine Occult Blood Urine Nitrate Urine Bilirubin Urine Urobilinogen Ur Leukocyte Esterase Urine RBC Urine WBC Ur Squamous Epith Cells Urine Bacteria Ur Culture Indicated? Urine Opiates Screen Ur Oxycodone Screen Urine Methadone Screen Ur Barbiturates Screen Ur Phencyclidine Scrn Ur Amphetamines Screen U Benzodiazepines Scrn Urine Cocaine Screen U Marijuana (THC) Screen 07/24/19 07/23/19 13:30 13:30 WBC RBC Hgb Hct MCV MCH MCHC RDW Plt Count MPV Gran % Lymph % (Auto) [place] % (Auto) Eos % (Auto) Baso % (Auto) Gran # Lymph # (Auto) [place] # (Auto) Eos # (Auto) Baso # (Auto) Sodium Potassium Chloride Carbon Dioxide Anion Gap BUN Creatinine GFR Calculation Glucose Calcium Magnesium Total Bilirubin AST ALT Alkaline Phosphatase Total Protein Albumin Globulin Albumin/Globulin Ratio Urine Color Yellow Urine Appearance Clear Urine pH 5.0 Ur Specific [place] 1.017 Urine Protein >=500 A Urine Glucose (UA) >=500 A Urine Ketones Neg Urine Occult Blood 0.2 A Urine Nitrate Neg Urine Bilirubin Neg Urine Urobilinogen Neg Ur Leukocyte Esterase Neg Urine RBC 4 H Urine WBC 1 Ur Squamous Epith Cells 1 Urine Bacteria 0 Ur Culture Indicated? No Urine Opiates Screen None detected Ur Oxycodone Screen None detected Urine Methadone Screen None detected Ur Barbiturates Screen None detected Ur Phencyclidine Scrn None detected Ur Amphetamines Screen None detected U Benzodiazepines Scrn None detected Urine Cocaine Screen None detected U Marijuana (THC) Screen None detected Preliminary micro results at discharge 07/24/19 08:45 Wound Culture - Preliminary Leg - Lower Left Presumptive beta strep Staphylococcus aureus 07/23/19 13:40 Blood Culture - Preliminary Blood 07/23/19 14:14 Blood Culture - Preliminary Blood Medical - DS: A/P - Patient/Caregiver Discharge Instructions Activity: increase activity as tolerated Diet: Cardiac, Consistent Carbohydrate - Follow up Plan Follow up with: Elba Bridges ARNP [Primary Care Provider] - cardiology [Other] (in one week or sooner. ) wound care Dr. Clements [Other] (On Saturday (07/27/2019). Need to call his office to confirm a time on Saturday. ) Disposition: Home, Self-Care Prognosis: Fair Rehab Potential: Fair Medical - DS: Qual - VTE Deep Vein Thrombosis/Pulmonary Embolism Present on Admission: No
[2019-07-25] MEDS: LEVOFLOXACIN 750 MG/150 ML BAG IV SCH (14:13)
--- NOTE | 2019-07-26 10:18 | Event Note ---
Wound culture came back today - MRSA, sensitive to clindamycin and resistant to tetracycline. Mr. Mcgee was discharged on doxycycline and Keflex yesterday. Discussed with ID Dr. Frankel, we will discontinue doxycycline and start clindamycin 600 mg every 8 hours. Reached and updated and explained the result to her. Explained the new treatment regimen to her. I also advised her that Mr. Mcgee needs to see these doctors as I told him yesterday. will ask pharmacy to deliver the abx to them and she will call these doctors tomorrow am (today is Saturday). Prescription was sent to pharmacy.
== END 2019-07-25 16:00 | disposition home or self-care (01) | DRG 871 ==
LOC: ED 12:56 → ICU 21:16
PROVIDERS: ADMIT Internal Medicine; ATTEND Internal Medicine

== ENCOUNTER 2021-10-20 07:23 | Inpatient (IN) ==
--- NOTE | 2021-10-20 08:08 | Emergency Department Note ---
HPI General Chief complaint: Urogenital-Male Stated complaint: Swollen testicles Time Seen by Provider: 10/20/21 08:06 Source: EMS Mode of arrival: EMS Limitations: no limitations History of Present Illness HPI Narrative: Narrative: Patient is a 61-year-old male with a complex medical history who presents to the emergency department due to concerns for bleeding from the scrotum. Patient was seen multiple times recently due to penile and scrotal swelling, and concern for cellulitis of the scrotum and perineum. Patient received multiple days of IV antibiotics, and took oral antibiotics after that. Patient states that he had been feeling well, but this morning when he got up noticed a pool of blood in the toilet bowl from his scrotum. He states that the swelling has decreased and stayed the same since decrease of swelling. He does endorse some chills and a brief episode of lightheadedness yesterday. He denies any other symptoms at this time. Importantly, patient previously refused to be admitted, and return to the emergency department for 4 days for IV antibiotics prior to being transitioned to oral antibiotics. At that time patient's erythema and swelling had decreased significantly. Patient states that he took the oral antibiotics as prescribed and through completion of therapy. Related Data Home Medications Medication Instructions Recorded Confirmed blood sugar diagnostic (Contour 05/26/15 04/20/21 Next Test Strips) diltiazem HCl 180 mg capsule,24 180 mg PO QDAY 04/20/21 07/24/21 hr,extended release ondansetron 4 mg disintegrating 4 mg PO Q8H PRN 04/20/21 07/24/21 tablet tamsulosin 0.4 mg capsule 0.8 mg PO QDAY 04/20/21 07/24/21 tramadol 100 mg tablet 50 mg PO Q6H PRN 04/20/21 07/24/21 ascorbic acid (vitamin C) 1,000 mg 1 g PO Q6H 07/24/21 07/24/21 tablet aspirin 81 mg tablet,delayed 81 mg PO QDAY 07/24/21 07/24/21 release atorvastatin 20 mg tablet 20 mg PO QHS 07/24/21 07/24/21 bethanechol chloride 10 mg tablet 30 mg PO QDAY 07/24/21 07/24/21 cholecalciferol (vitamin D3) 125 125 mcg PO QDAY 07/24/21 07/24/21 mcg (5,000 unit) tablet cilostazol 50 mg tablet 50 mg PO BID 07/24/21 07/24/21 clopidogrel 75 mg tablet (Plavix) 75 mg PO QDAY 07/24/21 07/24/21 furosemide 80 mg tablet 80 mg PO QDAY 07/24/21 07/24/21 insulin aspart U-100 100 unit/mL 1 sliding scale dose subcut 07/24/21 07/24/21 (3 mL) subcutaneous pen (Novolog USEASDIRECTD Flexpen U-100 Insulin aspart) insulin glargine 100 unit/mL (3 See Rx Instructions .Route .COMPLEX 07/24/21 07/24/21 mL) subcutaneous pen (Basaglar KwikPen U-100 Insulin) paroxetine HCl 25 mg 75 mg PO QAM 07/24/21 07/24/21 tablet,extended release 24 hr Previous Rx's Medication Instructions Recorded clindamycin HCl 150 mg capsule 450 mg PO TID #45 caps 10/08/21 Allergies Allergy/AdvReac Type Severity Reaction Status Date / Time Penicillins Allergy Severe Anaphylaxis Verified 10/20/21 07:26 bisoprolol Allergy Intermediate leg Verified 10/20/21 07:26 swelling and SOB iodine Allergy Mild Hives Verified 10/20/21 07:26 niacin AdvReac Severe Rash Verified 10/20/21 07:26 NSAIDS (Non-Steroidal AdvReac Severe Gastrointestinal Verified 10/20/21 07:26 Anti-Inflamma Upset Sulfa (Sulfonamide AdvReac Severe Hives Verified 10/20/21 07:26 Antibiotics) Tetanus Vaccines and Toxoid AdvReac Severe Nausea, Verified 10/20/21 07:26 [Tetanus Vaccines & Toxoid] Shortness of breath, Swelling adhesive tape AdvReac Intermediate Rash Verified 10/20/21 07:26 bacitracin AdvReac Intermediate Rash Verified 10/20/21 07:26 codeine AdvReac Intermediate vomit Verified 10/20/21 07:26 hydrocodone AdvReac Mild vomit Verified 10/20/21 07:26 doxycycline AdvReac Unknown Unknown Verified 10/20/21 07:26 levofloxacin AdvReac Unknown Unknown Verified 10/20/21 07:26 minocycline AdvReac Unknown Unknown Verified 10/20/21 07:26 Review of Systems ROS ROS Narrative: Narrative: Constitutional: Denies fever or weakness Eyes: Denies eye pain or vision change ENT ED: Denies throat pain, hearing loss or rhinorrhea Cardiovascular: Denies chest pain, dyspnea on exertion, orthopnea or edema Respiratory: Denies shortness of breath or cough Gastrointestinal: Denies abdominal pain, nausea, vomiting, diarrhea or constipation Genitourinary: Denies dysuria or frequency Musculoskeletal: Denies back pain or myalgia Integumentary: Denies rash or lesions Neurological: Denies headache, weakness, numbness or confusion Psychiatric: Denies anxiety, suicidal thoughts or homicidal thoughts Endocrine: Denies fatigue or polyuria Hematological/Lymphatic: Denies easy bleeding or easy bruising PFSH Narrative Patient History Narrative: Narrative: Medical/Surgical/Family History All Active Problems (Updated 10/20/21 @ 16:27 by Horacio Smith MD) Cellulitis (Acute) Laceration (Acute) Laceration of left foot without foreign body (Chronic) 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) Diabetic neuropathy (Chronic) Chronic ulcer of left foot limited to breakdown of skin (Chronic) Amputated great toe of left foot (Chronic) History of amputation of lesser toe of right foot (Chronic) Callus of foot (Chronic) Fissure in skin (Chronic) Onychomycosis (Chronic) Essential (primary) hypertension (Chronic) Osteoarthritis (Chronic) 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) Obesity (Chronic) Tobacco use (Chronic) Cellulitis (Chronic) Edema (Chronic) Fatigue (Chronic) Impotence, organic (Chronic) Hemorrhagic condition (Chronic) Mononeuritis (Chronic) Nephritis and nephropathy (Chronic) Polyneuropathy in diabetes (Chronic 09/20/10) CKD (chronic kidney disease) stage 3, GFR 30-59 ml/min (Chronic) Hypertension (Chronic ~2017) Bronchitis (Acute) 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 other part of lower leg (Chronic) Venous stasis (Chronic) Diabetic ulcer of left foot (Chronic) Edema, lower extremity (Chronic) Chronic skin ulcer (Chronic) Pes planus of right foot (Chronic) Pes planus of left foot (Chronic) Community acquired bacterial pneumonia (Acute) Lower leg edema (Chronic) Ataxia (Acute) Chronic kidney disease (CKD) stage G3a/A3, moderately decreased glomerular filtration rate (GFR) between 45-59 mL/min/1.73 square meter and albuminuria creatinine ratio greater than 300 mg/g (Chronic) Vitamin D deficiency (Chronic) Anemia in chronic kidney disease (Chronic) Sepsis (Acute) CKD stage G4/A1, GFR 15-29 and albumin creatinine ratio <30 mg/g (Acute) CKD stage G4/A3, GFR 15-29 and albumin creatinine ratio >300 mg/g (Chronic) Nephrotic range proteinuria (Acute) Scrotum swelling (Acute) Balanitis (Acute) Cellulitis (Acute) Cellulitis (Acute) Cellulitis (Acute) Receiving intravenous antibiotic treatment as outpatient (Acute) Cellulitis (Acute) Receiving intravenous antibiotic treatment as outpatient (Acute) Encounter for wound re-check (Acute) Anemia due to stage 4 chronic kidney disease (Acute) Medical History (Updated 10/20/21 @ 16:27 by Horacio Smith MD) Amputated great toe of left foot Bronchitis Callus of foot bilateral Cellulitis Chronic skin ulcer Chronic ulcer of left foot limited to breakdown of skin Diabetic neuropathy Diabetic ulcer of left foot Edema Edema, lower extremity Essential (primary) hypertension Fatigue Fissure in skin Hemorrhagic condition Hypertension (~2017) Impotence, organic Laceration Laceration of left foot without foreign body Methicillin susceptible Staphylococcus aureus infection as the cause of diseases classified elsewhere Mononeuritis Nephritis and nephropathy Obesity Onychomycosis toenails Osteoarthritis Pes planus of left foot Pes planus of right foot Polyneuropathy in diabetes (09/20/10) Tobacco use Type 2 diabetes mellitus with other diabetic neurological complication (~1993) Diabetes diagnosed ~25 years ago. 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 other part of lower leg Venous stasis Surgical History (Updated 05/04/20 @ 08:21 by [employer]) History of amputation of lesser toe of right foot Apr 2008 & Oct 2009 - L great toe (Apr 2008), then R (5th) little toe and distal metatarsal amputation in Oct 2009 History of carpal tunnel release of both wrists 1994 History of knee surgery 1992 & 1993 History of tonsillectomy 1965 Family History Mother Diabetes mellitus Cardiac disease Heart failure Father Malignant neoplasm Grandmother (Maternal) Alzheimer's disease Social History Smoking Status: Never smoker Alcohol Intake Frequency: a few times a week Exam Narrative Narrative: Narrative: General Limitations: no limitations General appearance: Present alert and in no apparent distress; Absent anxious or appears intoxicated Head Head: Present atraumatic and normocephalic Eye Eye: Present PERRL and EOMI; Absent scleral icterus ENT ENT: Present mucous membranes moist; Absent nasal congestion Neck Neck: Present full ROM; Absent tenderness Chest Chest: Present normal inspection and symmetric chest wall rise Respiratory Respiratory: Present normal lung sounds bilaterally; Absent respiratory distress or accessory muscle use Cardiovascular Cardiovascular: Present regular rate, normal rhythm and normal heart sounds Adbominal Abdominal: Present soft and normal bowel sounds; Absent distention or tenderness : Present testicular tenderness, scrotal swelling and other (Erythema of testicles and penis) Extremities Extremities: Present normal inspection and full ROM; Absent tenderness Back Back: Present normal inspection and full ROM; Absent tenderness Neurological Neurological: Present alert, oriented X3, CN II-XII intact, normal gait and reflexes normal; Absent motor sensory deficit Psychiatric Psychiatric: Present normal affect and normal mood Skin Skin: Present warm (WNL), dry and erythema (In the groin and lower abdomen) Course Vital Signs Vital signs: Vital Signs Temperature 98.3 F 10/20/21 07:26 Pulse Rate 99 H 10/20/21 07:26 Respiratory Rate 18 10/20/21 07:26 Blood Pressure 146/68 10/20/21 07:26 Pulse Oximetry (%) 96 10/20/21 07:26 Oxygen Delivery Method 10/20/21 07:26 Temperature 98.3 F 10/20/21 07:26 Pulse Rate 95 H 10/20/21 09:32 Respiratory Rate 18 10/20/21 07:26 Blood Pressure 146/72 10/20/21 07:47 Pulse Oximetry (%) 91 10/20/21 09:32 Oxygen Delivery Method 10/20/21 07:26 [facility] Narrative Medical decision making narrative: Narrative: Patient is a 61-year-old male who presents to the emergency department due to concern for bleeding from his scrotum. Patient is found to have concerning cellulitic infection of the groin and lower abdomen. This has worsened since he was seen previously. Patient at this time he is agreeable to admission, but wants to know how long. I have told him that I am not sure exactly how long he would require admission, but that we could talk to the hospitalist and potentially to a surgical team if he requires surgery. I have started patient on vancomycin, clindamycin, and cefepime. CT scan again does not demonstrate soft tissue gas, but show spread of what appears to be cellulitic infection. I have spoken to Dr. Azevedo who agreed to see the patient. Dr. Azevedo has seen the patient and states that there is not a need for surgical i ntervention at this time. I spoke with Dr. Turcios who is concerned this patient may need an infectious disease specialist. I have spoken to an infectious disease specialist in [place] who feels the patient has been started on appropriate antibiotics and states that she does not feel that patient would benefit from an infectious disease consult at this time. I spoke with Dr. Palomo who agreed to follow along with the patient in case patient required surgical intervention at some time. I again spoke with Dr. Turcios who agreed to see this patient to evaluate for admission. Lab Data Result diagrams: 10/20/21 08:49 Labs: Lab Results 10/20/21 10/20/21 10/20/21 Range/Units 08:25 08:49 08:49 WBC 9.4 (4.5-11.0) K/mcL RBC 3.27 L (4.63-6.08) M/mcL Hgb 8.8 L (13.7-17.5) g/dL Hct 28.6 L (40.1-51.0) % POC Hct 28.0 L (41-55) MCV 87.5 (80.0-100.0) fL MCH 26.9 (26.0-34.0) pg MCHC 30.8 L (31.0-36.0) g/dL RDW 14.6 H (11.5-14.5) % Plt Count 289 (140-440) K/mcL MPV 10.3 (7.4-10.4) fL Immature Gran % (Auto) 0.5 (0.0-0.5) % Neut % (Auto) 79.4 H (38.0-78.0) % Lymph % (Auto) 6.0 L (15.5-49.0) % Finney % (Auto) 7.4 (1.0-12.0) % Eos % (Auto) 6.2 (0.0-7.0) % Baso % (Auto) 0.5 (0.0-2.0) % Lymph # (Auto) 0.57 L (1.50-4.80) K/mcL Finney # (Auto) 0.70 (0.10-0.90) K/mcL Eos # (Auto) 0.58 (0.00-0.70) K/mcL Baso # (Auto) 0.05 (0.00-0.30) K/mcL Immature Gran # 0.05 (0.00-0.05) K/mcl Absolute Neutrophils 7.48 (1.80-8.00) K/mcL POC Sodium 141 (133-145) POC Potassium 4.8 (3.3-5.1) POC Chloride 108 (96-108) POC Total CO2 25.0 (22-30) POC BUN 43 H (6-20) POC Creatinine 2.4 H (0.6-1.2) POC Glucose 124 H (70-105) POC WB Ioniz Calcium 1.21 (1.16-1.32) Procalcitonin 0.14 H (<0.10) ng/mL Urine Color Urine Appearance (Clear) Urine pH (5.0-9.0) Ur Specific [place] (1.000-1.035) Urine Protein (Negative) mg/dL Urine Glucose (UA) (Negative) mg/dL Urine Ketones (Negative) mg/dL Urine Occult Blood (Negative) eduardo/mcL Urine Nitrate (Negative) Urine Bilirubin (Negative) mg/dL Urine Urobilinogen mg/dL Ur Leukocyte Esterase (Negative) /uL Urine RBC (0-1) /hpf Urine WBC (0-4) /hpf Ur Squamous Epith Cells (0-4) /hpf Urine Bacteria (0) /hpf Hyaline Casts (0-2) /lph Ur Culture Indicated? 10/20/21 Range/Units 09:12 WBC (4.5-11.0) K/mcL RBC (4.63-6.08) M/mcL Hgb (13.7-17.5) g/dL Hct (40.1-51.0) % POC Hct (41-55) MCV (80.0-100.0) fL MCH (26.0-34.0) pg MCHC (31.0-36.0) g/dL RDW (11.5-14.5) % Plt Count (140-440) K/mcL MPV (7.4-10.4) fL Immature Gran % (Auto) (0.0-0.5) % Neut % (Auto) (38.0-78.0) % Lymph % (Auto) (15.5-49.0) % Finney % (Auto) (1.0-12.0) % Eos % (Auto) (0.0-7.0) % Baso % (Auto) (0.0-2.0) % Lymph # (Auto) (1.50-4.80) K/mcL Finney # (Auto) (0.10-0.90) K/mcL Eos # (Auto) (0.00-0.70) K/mcL Baso # (Auto) (0.00-0.30) K/mcL Immature Gran # (0.00-0.05) K/mcl Absolute Neutrophils (1.80-8.00) K/mcL POC Sodium (133-145) POC Potassium (3.3-5.1) POC Chloride (96-108) POC Total CO2 (22-30) POC BUN (6-20) POC Creatinine (0.6-1.2) POC Glucose (70-105) POC WB Ioniz Calcium (1.16-1.32) Procalcitonin (<0.10) ng/mL Urine Color Yellow Urine Appearance Clear (Clear) Urine pH 5.0 (5.0-9.0) Ur Specific [place] 1.025 (1.000-1.035) Urine Protein 100 mg/dl A (Negative) mg/dL Urine Glucose (UA) Negative (Negative) mg/dL Urine Ketones Negative (Negative) mg/dL Urine Occult Blood Large A (Negative) eduardo/mcL Urine Nitrate Negative (Negative) Urine Bilirubin Negative (Negative) mg/dL Urine Urobilinogen Normal mg/dL Ur Leukocyte Esterase Negative (Negative) /uL Urine RBC > 182 H (0-1) /hpf Urine WBC 9 H (0-4) /hpf Ur Squamous Epith Cells 0 (0-4) /hpf Urine Bacteria None (0) /hpf Hyaline Casts 1 (0-2) /lph Ur Culture Indicated? No ED POC Tests ED POC Tests: VANNESSA - SARS Antigen Negative Discharge Plan Patient/Caregiver Discharge Instructions Pt seen by [employer]/PA only: No Clinical Impression: Cellulitis Patient Disposition: Xfer As Inpt ([facility]) Follow up with: Elba Bridges ARNP [Primary Care Provider] - Prescriptions: No Action (DME) blood sugar diagnostic [Contour Next Test Strips] strip 1 each SQ 5XD Label Comments: 3-4 times daily and as needed Rx Instructions: check blood sugars before meals and at bed time. tramadol 100 mg tablet 50 mg PO Q6H PRN tamsulosin 0.4 mg capsule 0.8 mg PO QDAY diltiazem HCl 180 mg capsule,extended release 24 hr 180 mg PO QDAY ondansetron 4 mg tablet,disintegrating 4 mg PO Q8H PRN furosemide 80 mg tablet 80 mg PO QDAY insulin aspart U-100 [Novolog Flexpen U-100 Insulin] 100 unit/mL (3 mL) insulin pen 1 sliding scale dose subcut USEASDIRECTD paroxetine HCl 25 mg tablet extended release 24 hr 75 mg PO QAM ascorbic acid (vitamin C) 1,000 mg tablet 1 g PO Q6H Basaglar KwikPen U-100 Insulin 100 unit/mL (3 mL) insulin pen See Rx Instructions .ROUTE .COMPLEX Rx Instructions: Inject 40-50 units SQ HS; cilostazol 50 mg tablet 50 mg PO BID atorvastatin 20 mg tablet 20 mg PO QHS aspirin 81 mg tablet,delayed release (DR/EC) 81 mg PO QDAY cholecalciferol (vitamin D3) 125 mcg (5,000 unit) tablet 125 mcg PO QDAY bethanechol chloride 10 mg tablet 30 mg PO QDAY clopidogrel [Plavix] 75 mg tablet 75 mg PO QDAY clindamycin HCl 150 mg capsule 450 mg PO TID Qty: 45 0RF
[2021-10-20] MEDS ORDERED: CLINDAMYCIN 900 MG in DEXTROSE 5% IN WATER 50 ML IV ONE (08:18)
[2021-10-20] MEDS ORDERED: CEFEPIME 2 GM VIAL IV ONE (08:18)
[2021-10-20] MEDS ORDERED: VANCOMYCIN 2,000 MG in 0.9 % SODIUM CHLORIDE 500 ML IV ONE (08:18)
[2021-10-20 08:29] LABS: POC Calcium, Ionized 1.21 (1.16-1.32); POC Creatinine 2.4 (0.6-1.2); POC Potassium 4.8 (3.3-5.1)
[2021-10-20] MEDS ORDERED: DEXTROSE 5% IN WATER 50 ML IV ONE (08:39)
[2021-10-20] MEDS ORDERED: 0.9 % SODIUM CHLORIDE 500 ML IV ONE (08:46)
[2021-10-20 09:29] LABS: Basophils # (Auto) 0.05 K/mcL (0.00-0.30); Basophils % (Auto) 0.5 % (0.0-2.0); Eosinophils # (Auto) 0.58 K/mcL (0.00-0.70); Eosinophils % (Auto) 6.2 % (0.0-7.0); Hematocrit 28.6 % (40.1-51.0); Hemoglobin 8.8 g/dL (13.7-17.5); Lymphocytes # (Auto) 0.57 K/mcL (1.50-4.80); Mean Cell Volume 87.5 fL (80.0-100.0); Mean Corpuscular HGB Conc 30.8 g/dL (31.0-36.0); Mean Platelet Volume 10.3 fL (7.4-10.4); Monocytes % (Auto) 7.4 % (1.0-12.0); Neutrophils % (Auto) 79.4 % (38.0-78.0); Platelet Count 289 K/mcL (140-440); RBC 3.27 M/mcL (4.63-6.08); Red Cell Distribution Width 14.6 % (11.5-14.5); WBC 9.4 K/mcL (4.5-11.0)
[2021-10-20 10:19] LABS: Appearance,Urine Clear (Clear); Bilirubin,Urine Negative (Negative); Color,Urine Yellow; Culture Indicated,Urine No; Glucose,Urine (UA) Negative (Negative); Ketones,Urine Negative (Negative); Leukocyte Esterase,Urine Negative /uL (Negative); Nitrate,Urine Negative (Negative); Specific Gravity,Urine 1.025 (1.000-1.035); Urine Blood Large ery/mcL (Negative); Urine Hyaline Cast 1 /lph (0-2); Urine RBC > 182 /hpf (0-1); Urine Squamous Epithelial Cell 0 /hpf (0-4); Urine WBC 9 /hpf (0-4); Urobilinogen,Urine Normal
--- NOTE | 2021-10-20 10:59 | Cat Scan Report ---
CLINICAL INFORMATION: Lower abdominal and pelvic wall cellulitis-progressing COMPARISON: Abdomen and pelvic CT 10/05/2021. TECHNIQUE: 0.625 mm helical slices were obtained from the mid heart through the subtrochanteric regions. Following reconstruction, 2.5 mm sagittal, coronal and axial reformatted images were processed and reviewed at bone and soft tissue windows.The exam was performed using radiation dose optimization techniques including, but not limited to, automated exposure control, adjustment of the mA and/or kV according to patient size and use of iterative reconstruction technique. FINDINGS: The lung bases show a new small patchy groundglass infiltrate in the medial posterior basilar segment left lower lobe.. No effusions. The visualized heart is grossly normal. Abdominal images show the noncontrasted gallbladder and bile ducts, liver, both kidneys, adrenal glands, pancreas and aorta are normal in size configuration and attenuation. Calcified granulomas again seen within the spleen-no significant splenic abnormality. There is no free air, free fluid or adenopathy. A vague 11 cm region of increased attenuation seen in the central mesenteric fat may indicate panniculitis. Pelvic images show a Shepherd catheter normally positioned within the urinary bladder which is decompressed-no gross abnormality in the urinary bladder. Prostate and seminal vesicles are unremarkable. Large bilateral hydroceles are unchanged in the scrotal region. There are few sigmoid diverticuli, but no evidence of diverticulitis. The remaining large bowel, appendix region, small bowel and stomach are normal. Bone windows show chronic bilateral L5-S1 spondylolysis with grade 2 spondylolisthesis and anterior/posterior fusion. There is 14 mm of L5 anterior subluxation results in moderate IV foraminal narrowing and impingement exiting L5 nerve roots. Subluxation is unchanged from the preoperative 2017 CT. Moderate subcutaneous edema or inflammation scattered throughout the lower abdominal and pelvic matos shows modest increase since the previous exam. There is no focal fluid collections. No evidence of gas within the inflammation. IMPRESSION: 1. Large bilateral hydroceles within the scrotal region-stable. These may be simple or complicated (i.e. infection). 2. Vague 10 cm region of increased attenuation the central mesenteric fat-possible panniculitis. 3. Moderate cellulitis in Camper's fascia in the lower abdominal and pelvic matos. Moderate increased since previous study. There is no evidence of discrete abscess or gas to suggest gas-forming organism. 4. L5-S1 spondylolysis with grade 2 spondylolisthesis treated with anterior/posterior fusion. There is persistent severe IV foraminal narrowing with impingement of the exiting L5 nerve roots. Interpreted and Authenticated by: Brandon Roy 10/20/21
--- NOTE | 2021-10-20 14:09 | Urology Consult Note ---
HPI Data of Consult Primary Care Provider: Elba Bridges Consult Narrative Patient Information: Note initiated : 10/20/21 at 2:02 pm Service Date, if different from initiated Date: [] Patient: Ross Mcgee 61 y/o M admitted on for Swollen testicles. 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) Diabetic neuropathy (Chronic) Chronic ulcer of left foot limited to breakdown of skin (Chronic) Amputated great toe of left foot (Chronic) History of amputation of lesser toe of right foot (Chronic) Callus of foot (Chronic) Fissure in skin (Chronic) Onychomycosis (Chronic) Essential (primary) hypertension (Chronic) Osteoarthritis (Chronic) 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) Obesity (Chronic) Tobacco use (Chronic) Cellulitis (Chronic) Edema (Chronic) Fatigue (Chronic) Impotence, organic (Chronic) Hemorrhagic condition (Chronic) Mononeuritis (Chronic) Nephritis and nephropathy (Chronic) Polyneuropathy in diabetes (Chronic 09/20/10) CKD (chronic kidney disease) stage 3, GFR 30-59 ml/min (Chronic) Hypertension (Chronic ~2017) Bronchitis (Acute) 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 other part of lower leg (Chronic) Venous stasis (Chronic) Diabetic ulcer of left foot (Chronic) Edema, lower extremity (Chronic) Chronic skin ulcer (Chronic) Pes planus of right foot (Chronic) Pes planus of left foot (Chronic) Community acquired bacterial pneumonia (Acute) Lower leg edema (Chronic) Ataxia (Acute) Chronic kidney disease (CKD) stage G3a/A3, moderately decreased glomerular filtration rate (GFR) between 45-59 mL/min/1.73 square meter and albuminuria creatinine ratio greater than 300 mg/g (Chronic) Vitamin D deficiency (Chronic) Anemia in chronic kidney disease (Chronic) Sepsis (Acute) CKD stage G4/A1, GFR 15-29 and albumin creatinine ratio <30 mg/g (Acute) CKD stage G4/A3, GFR 15-29 and albumin creatinine ratio >300 mg/g (Chronic) Nephrotic range proteinuria (Acute) Scrotum swelling (Acute) Balanitis (Acute) Cellulitis (Acute) Cellulitis (Acute) Cellulitis (Acute) Receiving intravenous antibiotic treatment as outpatient (Acute) Cellulitis (Acute) Receiving intravenous antibiotic treatment as outpatient (Acute) Encounter for wound re-check (Acute) Anemia due to stage 4 chronic kidney disease (Acute) Medical History (Updated 10/19/21 @ 16:17 by Jayme Franco MD) Amputated great toe of left foot Bronchitis Callus of foot bilateral Cellulitis Chronic skin ulcer Chronic ulcer of left foot limited to breakdown of skin Diabetic neuropathy Diabetic ulcer of left foot Edema Edema, lower extremity Essential (primary) hypertension Fatigue Fissure in skin Hemorrhagic condition Hypertension (~2017) Impotence, organic Laceration Laceration of left foot without foreign body Methicillin susceptible Staphylococcus aureus infection as the cause of diseases classified elsewhere Mononeuritis Nephritis and nephropathy Obesity Onychomycosis toenails Osteoarthritis Pes planus of left foot Pes planus of right foot Polyneuropathy in diabetes (09/20/10) Tobacco use Type 2 diabetes mellitus with other diabetic neurological complication (~1993) Diabetes diagnosed ~25 years ago. 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 other part of lower leg Venous stasis Surgical History (Updated 05/04/20 @ 08:21 by [employer]) History of amputation of lesser toe of right foot Apr 2008 & Oct 2009 - L great toe (Apr 2008), then R (5th) little toe and distal metatarsal amputation in Oct 2009 History of carpal tunnel release of both wrists 1994 History of knee surgery 1992 & 1993 History of tonsillectomy 1966 Family History Mother Diabetes mellitus Cardiac disease Heart failure Father Malignant neoplasm Grandmother (Maternal) Alzheimer's disease Social History marital status: occupational status: unemployed smoking status: Never smoker alcohol intake frequency: a few times a week MEDS/ALLERGIES Home Medications and Allergies Home Medications Medication Instructions Recorded Confirmed Type blood sugar diagnostic (Contour 05/26/15 04/20/21 History Next Test Strips) diltiazem HCl 180 mg capsule,24 180 mg PO QDAY 04/20/21 07/24/21 History hr,extended release ondansetron 4 mg disintegrating 4 mg PO Q8H PRN 04/20/21 07/24/21 History tablet tamsulosin 0.4 mg capsule 0.8 mg PO QDAY 04/20/21 07/24/21 History tramadol 100 mg tablet 50 mg PO Q6H PRN 04/20/21 07/24/21 History ascorbic acid (vitamin C) 1,000 mg 1 g PO Q6H 07/24/21 07/24/21 History tablet aspirin 81 mg tablet,delayed 81 mg PO QDAY 07/24/21 07/24/21 History release atorvastatin 20 mg tablet 20 mg PO QHS 07/24/21 07/24/21 History bethanechol chloride 10 mg tablet 30 mg PO QDAY 07/24/21 07/24/21 History cholecalciferol (vitamin D3) 125 125 mcg PO QDAY 07/24/21 07/24/21 History mcg (5,000 unit) tablet cilostazol 50 mg tablet 50 mg PO BID 07/24/21 07/24/21 History clopidogrel 75 mg tablet (Plavix) 75 mg PO QDAY 07/24/21 07/24/21 History furosemide 80 mg tablet 80 mg PO QDAY 07/24/21 07/24/21 History insulin aspart U-100 100 unit/mL 1 sliding scale dose subcut 07/24/21 07/24/21 History (3 mL) subcutaneous pen (Novolog USEASDIRECTD Flexpen U-100 Insulin aspart) insulin glargine 100 unit/mL (3 See Rx Instructions .Route .COMPLEX 07/24/21 07/24/21 History mL) subcutaneous pen (Basaglar KwikPen U-100 Insulin) paroxetine HCl 25 mg 75 mg PO QAM 07/24/21 07/24/21 History tablet,extended release 24 hr clindamycin HCl 150 mg capsule 450 mg PO TID #45 caps 10/08/21 Rx Allergies Allergy/AdvReac Type Severity Reaction Status Date / Time Penicillins Allergy Severe Anaphylaxis Verified 10/20/21 07:26 bisoprolol Allergy Intermediate leg Verified 10/20/21 07:26 swelling and SOB iodine Allergy Mild Hives Verified 10/20/21 07:26 niacin AdvReac Severe Rash Verified 10/20/21 07:26 NSAIDS (Non-Steroidal AdvReac Severe Gastrointestinal Verified 10/20/21 07:26 Anti-Inflamma Upset Sulfa (Sulfonamide AdvReac Severe Hives Verified 10/20/21 07:26 Antibiotics) Tetanus Vaccines and Toxoid AdvReac Severe Nausea, Verified 10/20/21 07:26 [Tetanus Vaccines & Toxoid] Shortness of breath, Swelling adhesive tape AdvReac Intermediate Rash Verified 10/20/21 07:26 bacitracin AdvReac Intermediate Rash Verified 10/20/21 07:26 codeine AdvReac Intermediate vomit Verified 10/20/21 07:26 hydrocodone AdvReac Mild vomit Verified 10/20/21 07:26 doxycycline AdvReac Unknown Unknown Verified 10/20/21 07:26 levofloxacin AdvReac Unknown Unknown Verified 10/20/21 07:26 minocycline AdvReac Unknown Unknown Verified 10/20/21 07:26 Physical Examination Vital Signs Vital signs: Temp Pulse Resp BP Pulse Ox O2 Del Method 98.3 F 95 H 18 146/72 91 10/20/21 07:26 10/20/21 09:32 10/20/21 07:26 10/20/21 07:47 10/20/21 09:32 10/20/21 07:26 Results Labs Result diagrams: 10/20/21 08:49 Labs: Abnormal lab results 10/20/21 10/20/21 10/20/21 Range/Units 08:25 08:49 08:49 RBC 3.27 L (4.63-6.08) M/mcL Hgb 8.8 L (13.7-17.5) g/dL Hct 28.6 L (40.1-51.0) % POC Hct 28.0 L (41-55) MCHC 30.8 L (31.0-36.0) g/dL RDW 14.6 H (11.5-14.5) % Neut % (Auto) 79.4 H (38.0-78.0) % Lymph % (Auto) 6.0 L (15.5-49.0) % Lymph # (Auto) 0.57 L (1.50-4.80) K/mcL POC BUN 43 H (6-20) POC Creatinine 2.4 H (0.6-1.2) POC Glucose 124 H (70-105) Procalcitonin 0.14 H (<0.10) ng/mL Urine Protein (Negative) mg/dL Urine Occult Blood (Negative) eduardo/mcL Urine RBC (0-1) /hpf Urine WBC (0-4) /hpf 10/20/21 Range/Units 09:12 RBC (4.63-6.08) M/mcL Hgb (13.7-17.5) g/dL Hct (40.1-51.0) % POC Hct (41-55) MCHC (31.0-36.0) g/dL RDW (11.5-14.5) % Neut % (Auto) (38.0-78.0) % Lymph % (Auto) (15.5-49.0) % Lymph # (Auto) (1.50-4.80) K/mcL POC BUN (6-20) POC Creatinine (0.6-1.2) POC Glucose (70-105) Procalcitonin (<0.10) ng/mL Urine Protein 100 mg/dl A (Negative) mg/dL Urine Occult Blood Large A (Negative) eduardo/mcL Urine RBC > 182 H (0-1) /hpf Urine WBC 9 H (0-4) /hpf All other labs normal. A/P Assessment and plan (1) Cellulitis: Status: Acute Time Spent With Patient Time: Total time spent is greater than 50% in coordination of care (as documented) at patient's floor/unit and/or counseling patient:
--- NOTE | 2021-10-20 14:16 | Urology Consult Note ---
HPI Data of Consult Primary Care Provider: Elba Bridges Consult Narrative Patient Information: Note initiated : 10/20/21 at 2:14 pm Service Date, if different from initiated Date: [] Patient: Ross Mcgee 61 y/o M admitted on for Swollen testicles. Chief Complaint: [] Patient is a 61-year-old diabetic male seen approximately 2 weeks ago with scrotal edema and cellulitis. He was treated with several days of IV a ntibiotics through the emergency room and then subsequently placed on oral antibiotics. Patient states he finished the oral antibiotics about 5 days ago and at that time things had improved quite a bit. However over the next several days the swelling worsened as well as some pain. Patient has a chronic indwelling Shepherd catheter for somewhat unclear reasons. He states it was mainly because he was having difficulty holding a urinal to his penis due to the swelling. He states that prior to 2 months ago he was voiding on his own without difficulty with a good urinary stream. He has not had a fever. His white count is normal. His creatinine is 2.4. 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) Obesity (Chronic) Tobacco use (Chronic) Cellulitis (Chronic) Edema (Chronic) Fatigue (Chronic) Impotence, organic (Chronic) Hemorrhagic condition (Chronic) Mononeuritis (Chronic) Nephritis and nephropathy (Chronic) Polyneuropathy in diabetes (Chronic 09/20/10) CKD (chronic kidney disease) stage 3, GFR 30-59 ml/min (Chronic) Hypertension (Chronic ~2017) Bronchitis (Acute) 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 other part of lower leg (Chronic) Venous stasis (Chronic) Diabetic ulcer of left foot (Chronic) Edema, lower extremity (Chronic) Chronic skin ulcer (Chronic) Pes planus of right foot (Chronic) Pes planus of left foot (Chronic) Community acquired bacterial pneumonia (Acute) Lower leg edema (Chronic) Ataxia (Acute) Chronic kidney disease (CKD) stage G3a/A3, moderately decreased glomerular filtration rate (GFR) between 45-59 mL/min/1.73 square meter and albuminuria creatinine ratio greater than 300 mg/g (Chronic) Vitamin D deficiency (Chronic) Anemia in chronic kidney disease (Chronic) Sepsis (Acute) CKD stage G4/A1, GFR 15-29 and albumin creatinine ratio <30 mg/g (Acute) CKD stage G4/A3, GFR 15-29 and albumin creatinine ratio >300 mg/g (Chronic) Nephrotic range proteinuria (Acute) Scrotum swelling (Acute) Balanitis (Acute) Cellulitis (Acute) Cellulitis (Acute) Cellulitis (Acute) Receiving intravenous antibiotic treatment as outpatient (Acute) Cellulitis (Acute) Receiving intravenous antibiotic treatment as outpatient (Acute) Encounter for wound re-check (Acute) Anemia due to stage 4 chronic kidney disease (Acute) Medical History (Updated 10/19/21 @ 16:17 by Jayme Franco MD) Amputated great toe of left foot Bronchitis Callus of foot bilateral Cellulitis Chronic skin ulcer Chronic ulcer of left foot limited to breakdown of skin Diabetic neuropathy Diabetic ulcer of left foot Edema Edema, lower extremity Essential (primary) hypertension Fatigue Fissure in skin Hemorrhagic condition Hypertension (~2018) Impotence, organic Laceration Laceration of left foot without foreign body Methicillin susceptible Staphylococcus aureus infection as the cause of diseases classified elsewhere Mononeuritis Nephritis and nephropathy Obesity Onychomycosis toenails Osteoarthritis Pes planus of left foot Pes planus of right foot Polyneuropathy in diabetes (09/20/10) Tobacco use Type 2 diabetes mellitus with other diabetic neurological complication (~1993) Diabetes diagnosed ~25 years ago. 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 other part of lower leg Venous stasis Surgical History (Updated 05/04/20 @ 08:21 by [employer]) History of amputation of lesser toe of right foot Apr 2008 & Oct 2009 - L great toe (Apr 2008), then R (5th) little toe and distal metatarsal amputation in Oct 2009 History of carpal tunnel release of both wrists 1994 History of knee surgery 1992 & 1993 History of tonsillectomy 1966 Family History Mother Diabetes mellitus Cardiac disease Heart failure Father Malignant neoplasm Grandmother (Maternal) Alzheimer's disease Social History marital status: occupational status: unemployed smoking status: Never smoker alcohol intake frequency: a few times a week MEDS/ALLERGIES Home Medications and Allergies Home Medications Medication Instructions Recorded Confirmed Type blood sugar diagnostic (Contour 05/26/15 04/20/21 History Next Test Strips) diltiazem HCl 180 mg capsule,24 180 mg PO QDAY 04/20/21 07/24/21 History hr,extended release ondansetron 4 mg disintegrating 4 mg PO Q8H PRN 04/20/21 07/24/21 History tablet tamsulosin 0.4 mg capsule 0.8 mg PO QDAY 04/20/21 07/24/21 History tramadol 100 mg tablet 50 mg PO Q6H PRN 04/20/21 07/24/21 History ascorbic acid (vitamin C) 1,000 mg 1 g PO Q6H 07/24/21 07/24/21 History tablet aspirin 81 mg tablet,delayed 81 mg PO QDAY 07/24/21 07/24/21 History release atorvastatin 20 mg tablet 20 mg PO QHS 07/24/21 07/24/21 History bethanechol chloride 10 mg tablet 30 mg PO QDAY 07/24/21 07/24/21 History cholecalciferol (vitamin D3) 125 125 mcg PO QDAY 07/24/21 07/24/21 History mcg (5,000 unit) tablet cilostazol 50 mg tablet 50 mg PO BID 07/24/21 07/24/21 History clopidogrel 75 mg tablet (Plavix) 75 mg PO QDAY 07/24/21 07/24/21 History furosemide 80 mg tablet 80 mg PO QDAY 07/24/21 07/24/21 History insulin aspart U-100 100 unit/mL 1 sliding scale dose subcut 07/24/21 07/24/21 History (3 mL) subcutaneous pen (Novolog USEASDIRECTD Flexpen U-100 Insulin aspart) insulin glargine 100 unit/mL (3 See Rx Instructions .Route .COMPLEX 05/09/22 05/09/22 History mL) subcutaneous pen (Basaglar KwikPen U-100 Insulin) paroxetine HCl 25 mg 75 mg PO QAM 07/24/21 07/24/21 History tablet,extended release 24 hr clindamycin HCl 150 mg capsule 450 mg PO TID #45 caps 10/08/21 Rx Allergies Allergy/AdvReac Type Severity Reaction Status Date / Time Penicillins Allergy Severe Anaphylaxis Verified 10/20/21 07:26 bisoprolol Allergy Intermediate leg Verified 10/20/21 07:26 swelling and SOB iodine Allergy Mild Hives Verified 10/20/21 07:26 niacin AdvReac Severe Rash Verified 10/20/21 07:26 NSAIDS (Non-Steroidal AdvReac Severe Gastrointestinal Verified 10/20/21 07:26 Anti-Inflamma Upset Sulfa (Sulfonamide AdvReac Severe Hives Verified 10/20/21 07:26 Antibiotics) Tetanus Vaccines and Toxoid AdvReac Severe Nausea, Verified 10/20/21 07:26 [Tetanus Vaccines & Toxoid] Shortness of breath, Swelling adhesive tape AdvReac Intermediate Rash Verified 10/20/21 07:26 bacitracin AdvReac Intermediate Rash Verified 10/20/21 07:26 codeine AdvReac Intermediate vomit Verified 10/20/21 07:26 hydrocodone AdvReac Mild vomit Verified 10/20/21 07:26 doxycycline AdvReac Unknown Unknown Verified 10/20/21 07:26 levofloxacin AdvReac Unknown Unknown Verified 10/20/21 07:26 minocycline AdvReac Unknown Unknown Verified 10/20/21 07:26 Physical Examination Vital Signs Vital signs: Temp Pulse Resp BP Pulse Ox O2 Del Method 98.3 F 95 H 18 146/72 91 10/20/21 07:26 10/20/21 09:32 10/20/21 07:26 10/20/21 07:47 10/20/21 09:32 10/20/21 07:26 Results Labs Result diagrams: 10/20/21 08:49 Labs: Abnormal lab results 10/20/21 10/20/21 10/20/21 Range/Units 08:25 08:49 08:49 RBC 3.27 L (4.63-6.08) M/mcL Hgb 8.8 L (13.7-17.5) g/dL Hct 28.6 L (40.1-51.0) % POC Hct 28.0 L (41-55) MCHC 30.8 L (31.0-36.0) g/dL RDW 14.6 H (11.5-14.5) % Neut % (Auto) 79.4 H (38.0-78.0) % Lymph % (Auto) 6.0 L (15.5-49.0) % Lymph # (Auto) 0.57 L (1.50-4.80) K/mcL POC BUN 43 H (6-20) POC Creatinine 2.4 H (0.6-1.2) POC Glucose 124 H (70-105) Procalcitonin 0.14 H (<0.10) ng/mL Urine Protein (Negative) mg/dL Urine Occult Blood (Negative) eduardo/mcL Urine RBC (0-1) /hpf Urine WBC (0-4) /hpf 10/20/21 Range/Units 09:12 RBC (4.63-6.08) M/mcL Hgb (13.7-17.5) g/dL Hct (40.1-51.0) % POC Hct (41-55) MCHC (31.0-36.0) g/dL RDW (11.5-14.5) % Neut % (Auto) (38.0-78.0) % Lymph % (Auto) (15.5-49.0) % Lymph # (Auto) (1.50-4.80) K/mcL POC BUN (6-20) POC Creatinine (0.6-1.2) POC Glucose (70-105) Procalcitonin (<0.10) ng/mL Urine Protein 100 mg/dl A (Negative) mg/dL Urine Occult Blood Large A (Negative) eduardo/mcL Urine RBC > 182 H (0-1) /hpf Urine WBC 9 H (0-4) /hpf All other labs normal. A/P Time Spent With Patient Time: Total time spent is greater than 50% in coordination of care (as documented) at patient's floor/unit and/or counseling patient:
--- NOTE | 2021-10-20 14:29 | Urology Consult Note ---
HPI Data of Consult Consult date: 10/20/21 Primary Care Provider: Elba Bridges Consult Narrative Patient Information: Note initiated : 10/20/21 at 2:22 pm Service Date, if different from initiated Date: [] Patient: Ross Mcgee 61 y/o M Chief Complaint: [] Patient is seen and today for genital swelling and lower abdominal/genital cellulitis. He was seen approximately 2 weeks with similar symptoms. He was treated with IV antibiotics as an outpatient through the emergency room and then switched over to oral antibiotics. Patient states the condition improved significantly but he completed the antibiotics about 5 days ago and the last couple days he has worsened. He has increased swelling and pain in the genital area. He had a Shepherd catheter placed (which was changed last ER visit about 2 weeks ago) a couple months ago for unclear reasons. He states prior to that he was voiding spontaneously with a good urinary stream. However he found it very difficult to manage with his swelling as he could not fit his penis into a urinal. He has morbid obesity, diabetes, status post BKA and uses a wheelchair. Mobility is somewhat challenging. He states he has a shower at home he is able to transfer to and bathe. He has not had a fever and is afebrile here in the emergency room. White blood cell count is normal at 9.4 and creatinine stable at 2.4. A CT scan was obtained which shows no subcu air, abscess, or other surgical problem. He is being admitted to internal medicine for management of cellulitis. 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) Diabetic neuropathy (Chronic) Chronic ulcer of left foot limited to breakdown of skin (Chronic) Amputated great toe of left foot (Chronic) History of amputation of lesser toe of right foot (Chronic) Callus of foot (Chronic) Fissure in skin (Chronic) Onychomycosis (Chronic) Essential (primary) hypertension (Chronic) Osteoarthritis (Chronic) 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) Obesity (Chronic) Tobacco use (Chronic) Cellulitis (Chronic) Edema (Chronic) Fatigue (Chronic) Impotence, organic (Chronic) Hemorrhagic condition (Chronic) Mononeuritis (Chronic) Nephritis and nephropathy (Chronic) Polyneuropathy in diabetes (Chronic 09/20/10) CKD (chronic kidney disease) stage 3, GFR 30-59 ml/min (Chronic) Hypertension (Chronic ~2018) Bronchitis (Acute) 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 other part of lower leg (Chronic) Venous stasis (Chronic) Diabetic ulcer of left foot (Chronic) Edema, lower extremity (Chronic) Chronic skin ulcer (Chronic) Pes planus of right foot (Chronic) Pes planus of left foot (Chronic) Community acquired bacterial pneumonia (Acute) Lower leg edema (Chronic) Ataxia (Acute) Chronic kidney disease (CKD) stage G3a/A3, moderately decreased glomerular filtration rate (GFR) between 45-59 mL/min/1.73 square meter and albuminuria creatinine ratio greater than 300 mg/g (Chronic) Vitamin D deficiency (Chronic) Anemia in chronic kidney disease (Chronic) Sepsis (Acute) CKD stage G4/A1, GFR 15-29 and albumin creatinine ratio <30 mg/g (Acute) CKD stage G4/A3, GFR 15-29 and albumin creatinine ratio >300 mg/g (Chronic) Nephrotic range proteinuria (Acute) Scrotum swelling (Acute) Balanitis (Acute) Cellulitis (Acute) Cellulitis (Acute) Cellulitis (Acute) Receiving intravenous antibiotic treatment as outpatient (Acute) Cellulitis (Acute) Receiving intravenous antibiotic treatment as outpatient (Acute) Encounter for wound re-check (Acute) Anemia due to stage 4 chronic kidney disease (Acute) Medical History (Updated 10/19/21 @ 16:17 by Jayme Franco MD) Amputated great toe of left foot Bronchitis Callus of foot bilateral Cellulitis Chronic skin ulcer Chronic ulcer of left foot limited to breakdown of skin Diabetic neuropathy Diabetic ulcer of left foot Edema Edema, lower extremity Essential (primary) hypertension Fatigue Fissure in skin Hemorrhagic condition Hypertension (~2018) Impotence, organic Laceration Laceration of left foot without foreign body Methicillin susceptible Staphylococcus aureus infection as the cause of diseases classified elsewhere Mononeuritis Nephritis and nephropathy Obesity Onychomycosis toenails Osteoarthritis Pes planus of left foot Pes planus of right foot Polyneuropathy in diabetes (09/20/10) Tobacco use Type 2 diabetes mellitus with other diabetic neurological complication (~1993) Diabetes diagnosed ~25 years ago. 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 other part of lower leg Venous stasis Surgical History (Updated 05/04/20 @ 08:21 by cartmi NV) History of amputation of lesser toe of right foot Apr 2008 & Oct 2009 - L great toe (Apr 2008), then R (5th) little toe and distal metatarsal amputation in Oct 2009 History of carpal tunnel release of both wrists 1994 History of knee surgery 1992 & 1993 History of tonsillectomy 1966 Family History Mother Diabetes mellitus Cardiac disease Heart failure Father Malignant neoplasm Grandmother (Maternal) Alzheimer's disease Social History marital status: occupational status: unemployed smoking status: Never smoker alcohol intake frequency: a few times a week MEDS/ALLERGIES Home Medications and Allergies Home Medications Medication Instructions Recorded Confirmed Type blood sugar diagnostic (Contour 05/26/15 04/20/21 History Next Test Strips) diltiazem HCl 180 mg capsule,24 180 mg PO QDAY 04/20/21 07/24/21 History hr,extended release ondansetron 4 mg disintegrating 4 mg PO Q8H PRN 04/20/21 07/24/21 History tablet tamsulosin 0.4 mg capsule 0.8 mg PO QDAY 04/20/21 07/24/21 History tramadol 100 mg tablet 50 mg PO Q6H PRN 04/20/21 07/24/21 History ascorbic acid (vitamin C) 1,000 mg 1 g PO Q6H 07/24/21 07/24/21 History tablet aspirin 81 mg tablet,delayed 81 mg PO QDAY 07/24/21 07/24/21 History release atorvastatin 20 mg tablet 20 mg PO QHS 07/24/21 07/24/21 History bethanechol chloride 10 mg tablet 30 mg PO QDAY 07/24/21 07/24/21 History cholecalciferol (vitamin D3) 125 125 mcg PO QDAY 07/24/21 07/24/21 History mcg (5,000 unit) tablet cilostazol 50 mg tablet 50 mg PO BID 07/24/21 07/24/21 History clopidogrel 75 mg tablet (Plavix) 75 mg PO QDAY 07/24/21 07/24/21 History furosemide 80 mg tablet 80 mg PO QDAY 07/24/21 07/24/21 History insulin aspart U-100 100 unit/mL 1 sliding scale dose subcut 07/24/21 07/24/21 History (3 mL) subcutaneous pen (Novolog USEASDIRECTD Flexpen U-100 Insulin aspart) insulin glargine 100 unit/mL (3 See Rx Instructions .Route .COMPLEX 07/24/21 07/24/21 History mL) subcutaneous pen (Basaglar KwikPen U-100 Insulin) paroxetine HCl 25 mg 75 mg PO QAM 07/24/21 07/24/21 History tablet,extended release 24 hr clindamycin HCl 150 mg capsule 450 mg PO TID #45 caps 10/08/21 Rx Allergies Allergy/AdvReac Type Severity Reaction Status Date / Time Penicillins Allergy Severe Anaphylaxis Verified 10/20/21 07:26 bisoprolol Allergy Intermediate leg Verified 10/20/21 07:26 swelling and SOB iodine Allergy Mild Hives Verified 10/20/21 07:26 niacin AdvReac Severe Rash Verified 10/20/21 07:26 NSAIDS (Non-Steroidal AdvReac Severe Gastrointestinal Verified 10/20/21 07:26 Anti-Inflamma Upset Sulfa (Sulfonamide AdvReac Severe Hives Verified 10/20/21 07:26 Antibiotics) Tetanus Vaccines and Toxoid AdvReac Severe Nausea, Verified 10/20/21 07:26 [Tetanus Vaccines & Toxoid] Shortness of breath, Swelling adhesive tape AdvReac Intermediate Rash Verified 10/20/21 07:26 bacitracin AdvReac Intermediate Rash Verified 10/20/21 07:26 codeine AdvReac Intermediate vomit Verified 10/20/21 07:26 hydrocodone AdvReac Mild vomit Verified 10/20/21 07:26 doxycycline AdvReac Unknown Unknown Verified 10/20/21 07:26 levofloxacin AdvReac Unknown Unknown Verified 10/20/21 07:26 minocycline AdvReac Unknown Unknown Verified 10/20/21 07:26 Physical Examination Vital Signs Vital signs: Temp Pulse Resp BP Pulse Ox O2 Del Method 98.3 F 95 H 18 146/72 91 10/20/21 07:26 10/20/21 09:32 10/20/21 07:26 10/20/21 07:47 10/20/21 09:32 10/20/21 07:26 Genitourinary Genitourinary (Male): Present other (Scrotal and genital exam reveals a significantly swollen and erythematous scrotum which engulfs penis. Examination of the perineum reveals no necrotic skin and I do not palpate any fluctuance.) Integumentary Integumentary: Present other (There is some erythema of the suprapubic skin up several inches on the abdomen. No crepitus or skin breakdown. There is some slight superficial skin breakdown in his left groin area.) Results Labs Result diagrams: 10/20/21 08:49 Labs: Abnormal lab results 10/20/21 10/20/21 10/20/21 Range/Units 08:25 08:49 08:49 RBC 3.27 L (4.63-6.08) M/mcL Hgb 8.8 L (13.7-17.5) g/dL Hct 28.6 L (40.1-51.0) % POC Hct 28.0 L (41-55) MCHC 30.8 L (31.0-36.0) g/dL RDW 14.6 H (11.5-14.5) % Neut % (Auto) 79.4 H (38.0-78.0) % Lymph % (Auto) 6.0 L (15.5-49.0) % Lymph # (Auto) 0.57 L (1.50-4.80) K/mcL POC BUN 43 H (6-20) POC Creatinine 2.4 H (0.6-1.2) POC Glucose 124 H (70-105) Procalcitonin 0.14 H (<0.10) ng/mL Urine Protein (Negative) mg/dL Urine Occult Blood (Negative) eduardo/mcL Urine RBC (0-1) /hpf Urine WBC (0-4) /hpf 10/20/21 Range/Units 09:12 RBC (4.63-6.08) M/mcL Hgb (13.7-17.5) g/dL Hct (40.1-51.0) % POC Hct (41-55) MCHC (31.0-36.0) g/dL RDW (11.5-14.5) % Neut % (Auto) (38.0-78.0) % Lymph % (Auto) (15.5-49.0) % Lymph # (Auto) (1.50-4.80) K/mcL POC BUN (6-20) POC Creatinine (0.6-1.2) POC Glucose (70-105) Procalcitonin (<0.10) ng/mL Urine Protein 100 mg/dl A (Negative) mg/dL Urine Occult Blood Large A (Negative) eduardo/mcL Urine RBC > 182 H (0-1) /hpf Urine WBC 9 H (0-4) /hpf All other labs normal. A/P Assessment and plan (1) Cellulitis: Status: Chronic Plan 61-year-old diabetic male with lower abdominal and genital cellulitis and edema with no evidence of necrotic tissue or abscess. I would recommend: #1 remove and replace Shepherd catheter. Hopefully we can perhaps get rid of this during this admission and perform a voiding trial if his swelling goes down. #2 scrotal elevation with a hand towel #3 local hygiene-showers, baths, or sitz bath's depending on what is available. #4 IV antibiotics and diabetic sisi gement At this time there is no indication for surgical treatment. I will follow him with you Time Spent With Patient Time: Total time spent is greater than 50% in coordination of care (as documented) at patient's floor/unit and/or counseling patient:
--- NOTE | 2021-10-20 16:34 | Internal Med History&Physical ---
HPI History of Present Illness Patient information: Note initiated : 10/20/21 at 4:26 pm Service Date, if different from initiated Date: [] Patient: Ross Mcgee 61 y/o M admitted on for Swollen testicles. Chief Complaint: [Scrotal pain] Chief complaint: Scrotal pain History of present illness: Mr. 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 Of note, the patient does have a chronic Shepherd in place which she states was causing significant pain today. Patient denies any fevers, chills, nausea or vomiting. The patient called EMS today and came to the ER for further management and evaluation. On arrival he was hemodynamically stable and afebrile. The patient was recently hospitalized October 05 for perineal pain and was found to have large bilateral hydrocele within the scrotal region. He was treated with 4 days of parenteral antibiotics and then transition to oral antibiotics. He states that he recently ran out as his oral antibiotic regimen. Thereafter, the infection seem to be coming back he states. Urology assessed the patient this morning and believes that there was no reason for surgical intervention and did not believe that this was necrotizing fasciitis. The ER physician called [facility] and spoke to the infectious disease specialist who did not believe a transfer was warranted and instead recommended care at our hospital. The hospitalist service was asked admit the patient for further management and evaluation of his suspected scrotal cellulitis. Review of Systems All systems: reviewed and no additional remarkable complaints except as stated Constitutional Constitutional: Present as per HPI EENT Eyes: Present as per HPI; Absent blurry vision Cardiovascular Cardiovascular: Present as per HPI; Absent chest pain, dyspnea, dyspnea on exertion, leg edema or palpatations Respiratory Respiratory: Present as per HPI; Absent cough, dyspnea, dyspnea on exertion, wheezing or stridor Gastrointestinal Gastrointestinal: Present as per HPI; Absent abdominal pain, diarrhea, dysphagia, hematemesis, melena, nausea or vomiting Genitourinary Genitourinary: as per HPI, scrotal swelling and testicular pain Musculoskeletal Musculoskeletal: Present as per HPI; Absent joint swelling, limited range of motion, muscle cramps, muscle weakness or myalgias Integumentary Integumentary: Present as per HPI and erythema; Absent new lesions, rash or wounds Neurological Neurological: Present as per HPI; Absent abnormal gait, behavioral changes, focal weakness, headache(s), loss of vision, numbness, sensory deficit or syncope Endocrine Endocrine: Absent change in body appearance, fatigue or heat intolerance Hematologic/Lymphatic Hematologic/Lymphatic: Present as per HPI PFSH PFSH All Active Problems (Updated 10/20/21 @ 16:32 by Carmen Turcios MD) Morbid obesity (Acute) Shepherd catheter in place (Acute) Cellulitis (Acute) Laceration (Acute) Laceration of left foot without foreign body (Chronic) 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) Diabetic neuropathy (Chronic) Chronic ulcer of left foot limited to breakdown of skin (Chronic) Amputated great toe of left foot (Chronic) History of amputation of lesser toe of right foot (Chronic) Callus of foot (Chronic) Fissure in skin (Chronic) Onychomycosis (Chronic) Essential (primary) hypertension (Chronic) Osteoarthritis (Chronic) 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) Obesity (Chronic) Tobacco use (Chronic) Cellulitis (Chronic) Edema (Chronic) Fatigue (Chronic) Impotence, organic (Chronic) Hemorrhagic condition (Chronic) Mononeuritis (Chronic) Nephritis and nephropathy (Chronic) Polyneuropathy in diabetes (Chronic 09/20/10) CKD (chronic kidney disease) stage 3, GFR 30-59 ml/min (Chronic) Hypertension (Chronic ~2017) Bronchitis (Acute) 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 other part of lower leg (Chronic) Venous stasis (Chronic) Diabetic ulcer of left foot (Chronic) Edema, lower extremity (Chronic) Chronic skin ulcer (Chronic) Pes planus of right foot (Chronic) Pes planus of left foot (Chronic) Community acquired bacterial pneumonia (Acute) Lower leg edema (Chronic) Ataxia (Acute) Chronic kidney disease (CKD) stage G3a/A3, moderately decreased glomerular filtration rate (GFR) between 45-59 mL/min/1.73 square meter and albuminuria creatinine ratio greater than 300 mg/g (Chronic) Vitamin D deficiency (Chronic) Anemia in chronic kidney disease (Chronic) Sepsis (Acute) CKD stage G4/A1, GFR 15-29 and albumin creatinine ratio <30 mg/g (Acute) CKD stage G4/A3, GFR 15-29 and albumin creatinine ratio >300 mg/g (Chronic) Nephrotic range proteinuria (Acute) Scrotum swelling (Acute) Balanitis (Acute) Cellulitis (Acute) Cellulitis (Acute) Cellulitis (Acute) Receiving intravenous antibiotic treatment as outpatient (Acute) Cellulitis (Acute) Receiving intravenous antibiotic treatment as outpatient (Acute) Encounter for wound re-check (Acute) Anemia due to stage 4 chronic kidney disease (Acute) Medical History (Updated 10/20/21 @ 16:32 by Carmen Turcios MD) Amputated great toe of left foot Bronchitis Callus of foot bilateral Cellulitis Chronic skin ulcer Chronic ulcer of left foot limited to breakdown of skin Diabetic neuropathy Diabetic ulcer of left foot Edema Edema, lower extremity Essential (primary) hypertension Fatigue Fissure in skin Hemorrhagic condition Hypertension (~2017) Impotence, organic Laceration Laceration of left foot without foreign body Methicillin susceptible Staphylococcus aureus infection as the cause of diseases classified elsewhere Mononeuritis Nephritis and nephropathy Obesity Onychomycosis toenails Osteoarthritis Pes planus of left foot Pes planus of right foot Polyneuropathy in diabetes (09/20/10) Tobacco use Type 2 diabetes mellitus with other diabetic neurological complication (~1993) Diabetes diagnosed ~25 years ago. 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 other part of lower leg Venous stasis Surgical History (Updated 05/04/20 @ 08:21 by [employer]) History of amputation of lesser toe of right foot Apr 2008 & Oct 2009 - L great toe (Apr 2008), then R (5th) little toe and distal metatarsal amputation in Oct 2009 History of carpal tunnel release of both wrists 1994 History of knee surgery 1992 & 1993 History of tonsillectomy 1966 Family History Mother Diabetes mellitus Cardiac disease Heart failure Father Malignant neoplasm Grandmother (Maternal) Alzheimer's disease Social History marital status: occupational status: unemployed smoking status: Never smoker alcohol intake frequency: a few times a week MEDS/ALLERGIES Home Medications and Allergies Home Medications Medication Instructions Recorded Confirmed Type blood sugar diagnostic (Contour 05/26/15 04/20/21 History Next Test Strips) diltiazem HCl 180 mg capsule,24 180 mg PO QDAY 04/20/21 07/24/21 History hr,extended release ondansetron 4 mg disintegrating 4 mg PO Q8H PRN 04/20/21 07/24/21 History tablet tamsulosin 0.4 mg capsule 0.8 mg PO QDAY 04/20/21 07/24/21 History tramadol 100 mg tablet 50 mg PO Q6H PRN 04/20/21 07/24/21 History ascorbic acid (vitamin C) 1,000 mg 1 g PO Q6H 07/24/21 07/24/21 History tablet aspirin 81 mg tablet,delayed 81 mg PO QDAY 07/24/21 07/24/21 History release atorvastatin 20 mg tablet 20 mg PO QHS 07/24/21 07/24/21 History bethanechol chloride 10 mg tablet 30 mg PO QDAY 07/24/21 07/24/21 History cholecalciferol (vitamin D3) 125 125 mcg PO QDAY 07/24/21 07/24/21 History mcg (5,000 unit) tablet cilostazol 50 mg tablet 50 mg PO BID 07/24/21 07/24/21 History clopidogrel 75 mg tablet (Plavix) 75 mg PO QDAY 07/24/21 07/24/21 History furosemide 80 mg tablet 80 mg PO QDAY 07/24/21 07/24/21 History insulin aspart U-100 100 unit/mL 1 sliding scale dose subcut 07/24/21 07/24/21 History (3 mL) subcutaneous pen (Novolog USEASDIRECTD Flexpen U-100 Insulin aspart) insulin glargine 100 unit/mL (3 See Rx Instructions .Route .COMPLEX 07/24/21 07/24/21 History mL) subcutaneous pen (Basaglar KwikPen U-100 Insulin) paroxetine HCl 25 mg 75 mg PO QAM 07/24/21 07/24/21 History tablet,extended release 24 hr clindamycin HCl 150 mg capsule 450 mg PO TID #45 caps 10/08/21 Rx Allergies Allergy/AdvReac Type Severity Reaction Status Date / Time Penicillins Allergy Severe Anaphylaxis Verified 10/20/21 07:26 bisoprolol Allergy Intermediate leg Verified 10/20/21 07:26 swelling and SOB iodine Allergy Mild Hives Verified 10/20/21 07:26 niacin AdvReac Severe Rash Verified 10/20/21 07:26 NSAIDS (Non-Steroidal AdvReac Severe Gastrointestinal Verified 10/20/21 07:26 Anti-Inflamma Upset Sulfa (Sulfonamide AdvReac Severe Hives Verified 10/20/21 07:26 Antibiotics) Tetanus Vaccines and Toxoid AdvReac Severe Nausea, Verified 10/20/21 07:26 [Tetanus Vaccines & Toxoid] Shortness of breath, Swelling adhesive tape AdvReac Intermediate Rash Verified 10/20/21 07:26 bacitracin AdvReac Intermediate Rash Verified 10/20/21 07:26 codeine AdvReac Intermediate vomit Verified 10/20/21 07:26 hydrocodone AdvReac Mild vomit Verified 10/20/21 07:26 doxycycline AdvReac Unknown Unknown Verified 10/20/21 07:26 levofloxacin AdvReac Unknown Unknown Verified 10/20/21 07:26 minocycline AdvReac Unknown Unknown Verified 10/20/21 07:26 EXAM Constitutional Vitals: Temp Pulse Resp BP Pulse Ox O2 Del Method 98.3 F 95 H 18 146/72 91 10/20/21 07:26 10/20/21 09:32 10/20/21 07:26 10/20/21 07:47 10/20/21 09:32 10/20/21 07:26 General appearance: morbidly obese Head Head exam: Present atraumatic, normal inspection and normocephalic Eye Eye exam: Present EOMI, normal appearance and PERRL; Absent conjunctival injection ENT ENT exam: Present normal exam; Absent mucous membranes dry Neck Neck exam: Present full ROM; Absent lymphadenopathy Respiratory Respiratory exam: Present normal respiratory exam and CTAB; Absent decreased breath sounds, respiratory distress or wheezes Cardiovascular Cardiovascular exam: Present normal rate and rhythm and RRR; Absent JVD GI/Abdominal GI/Abdominal exam: Present normal bowel sounds, soft and distended; Absent diminished bowel sounds, guarding, mass, rebound or tenderness exam: Present scrotal swelling External exam: Present erythema Neurological Exam Neurological exam: Present alert, CN II-XII intact and oriented X3 Psychiatric Psychiatric exam: Present normal affect and normal mood Skin Skin exam: Present intact and warm; Absent erythema, pallor, petechiae or rash DATA Data Completed and Pending Labs: Labs from last 24 hours 10/20/21 10/20/21 10/20/21 09:12 08:49 08:49 WBC 9.4 RBC 3.27 L Hgb 8.8 L Hct 28.6 L POC Hct MCV 87.5 MCH 26.9 MCHC 30.8 L RDW 14.6 H Plt Count 289 MPV 10.3 Immature Gran % (Auto) 0.5 Neut % (Auto) 79.4 H Lymph % (Auto) 6.0 L [place] % (Auto) 7.4 Eos % (Auto) 6.2 Baso % (Auto) 0.5 Lymph # (Auto) 0.57 L [place] # (Auto) 0.70 Eos # (Auto) 0.58 Baso # (Auto) 0.05 Immature Gran # 0.05 Absolute Neutrophils 7.48 POC Sodium POC Potassium POC Chloride POC Total CO2 POC BUN POC Creatinine POC Glucose POC WB Ioniz Calcium Procalcitonin 0.14 H Urine Color Yellow Urine Appearance Clear Urine pH 5.0 Ur Specific [place] 1.025 Urine Protein 100 mg/dl A Urine Glucose (UA) Negative Urine Ketones Negative Urine Occult Blood Large A Urine Nitrate Negative Urine Bilirubin Negative Urine Urobilinogen Normal Ur Leukocyte Esterase Negative Urine RBC > 182 H Urine WBC 9 H Ur Squamous Epith Cells 0 Urine Bacteria None Hyaline Casts 1 Ur Culture Indicated? No 10/20/21 08:25 WBC RBC Hgb Hct POC Hct 28.0 L MCV MCH MCHC RDW Plt Count MPV Immature Gran % (Auto) Neut % (Auto) Lymph % (Auto) [place] % (Auto) Eos % (Auto) Baso % (Auto) Lymph # (Auto) [place] # (Auto) Eos # (Auto) Baso # (Auto) Immature Gran # Absolute Neutrophils POC Sodium 141 POC Potassium 4.8 POC Chloride 108 POC Total CO2 25.0 POC BUN 43 H POC Creatinine 2.4 H POC Glucose 124 H POC WB Ioniz Calcium 1.21 Procalcitonin Urine Color Urine Appearance Urine pH Ur Specific [place] Urine Protein Urine Glucose (UA) Urine Ketones Urine Occult Blood Urine Nitrate Urine Bilirubin Urine Urobilinogen Ur Leukocyte Esterase Urine RBC Urine WBC Ur Squamous Epith Cells Urine Bacteria Hyaline Casts Ur Culture Indicated? Impressions Impressions: CT abdomen and pelvis today IMPRESSION: 1. Large bilateral hydroceles within the scrotal region-stable. These may be simple or complicated (i.e. infection). 2. Vague 10 cm region of increased attenuation the central mesenteric fat-possible panniculitis. 3. Moderate cellulitis in Camper's fascia in the lower abdominal and pelvic matos. Moderate increased since previous study. There is no evidence of discrete abscess or gas to suggest gas-forming organism. 4. L5-S1 spondylolysis with grade 2 spondylolisthesis treated with anterior/posterior fusion. There is persistent severe IV foraminal narrowing with impingement of the exiting L5 nerve roots. A/P Assessment and plan (1) Cellulitis: Status: Acute (2) 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 (3) Chronic ulcer of left foot limited to breakdown of skin: Status: Chronic (4) Diabetic neuropathy: Status: Chronic (5) Tobacco use: Status: Chronic (6) Scrotum swelling: Status: Acute (7) Shepherd catheter in place: Status: Acute (8) Morbid obesity: Status: Acute Narrative A/P Narrative: The patient has multiple risk factors for an accelerated and poorly healing unde rlying infection including brittle diabetes, poor hygiene, ongoing cigarette smoking, and likely component of peripheral vascular disease. The patient does not have evidence of systemic disease as he is afebrile with a normal white blood cell count. There is no evidence of gangrene or crepitus on physical examination. General surgery will follow to see if any surgical intervention is necessary in the coming days. Urology believes that surgical intervention was not necessary at this time. We will start the patient on cefepime, clindamycin and vancomycin. The patient does have penicillin allergy. We will follow-up on his urine and blood cultures. Due to scrotal edema he will be started on Lasix 40 mg IV every 8 hours. His home medication list reconciliation is pending. Time Spent With Patient Time: Total time spent is greater than 50% in coordination of care (as documented) at patient's floor/unit and/or counseling patient: Total time spent with greater than 50% in coordination of care (as documented) at patient's floor/unit and/or counseling patient:: Greater than 70 minutes
[2021-10-20] MEDS ORDERED: DEXTROSE 50% 50 ML VIAL IV PRN (17:36)
[2021-10-20] MEDS ORDERED: CLINDAMYCIN 300 MG in DEXTROSE 5% IN WATER 50 ML IV SCH (17:36)
[2021-10-20] MEDS ORDERED: morphine 4 MG/ML VIAL IV PRN (17:36)
[2021-10-20] MEDS ORDERED: DEXTROSE 31 GM ORAL.SUSP PO PRN (17:36)
[2021-10-20] MEDS: INSULIN LISPRO 1 UNIT/0.01 ML UNIT SQ SCH ×2 (17:50→20:28)
[2021-10-20] MEDS: SENNOSIDES 1 TABLET PO SCH (20:07)
[2021-10-20] MEDS: DOCUSATE SODIUM 100 MG CAPSULE PO SCH (20:07)
[2021-10-20] MEDS: CLINDAMYCIN 600 MG in DEXTROSE 5% IN WATER 50 ML IV SCH (20:29)
[2021-10-20] MEDS: CEFEPIME 2 GM VIAL IV SCH (21:28)
[2021-10-20] MEDS: FUROSEMIDE 40 MG/4 ML VIAL IV SCH (21:30)
[2021-10-20] MEDS: ACETAMINOPHEN 325 MG TABLET PO PRN (23:21)
[2021-10-21] MEDS: CLINDAMYCIN 600 MG in DEXTROSE 5% IN WATER 50 ML IV SCH ×2 (00:23→05:59)
[2021-10-21] MEDS: 0.9 % SODIUM CHLORIDE 10 ML SYRINGE IV SCH ×4 (00:23→21:27)
[2021-10-21 06:03] LABS: Basophils # (Auto) 0.03 K/mcL (0.00-0.30); Basophils % (Auto) 0.5 % (0.0-2.0); Eosinophils # (Auto) 0.42 K/mcL (0.00-0.70); Eosinophils % (Auto) 6.4 % (0.0-7.0); Hematocrit 28.7 % (40.1-51.0); Hemoglobin 8.7 g/dL (13.7-17.5); Lymphocytes # (Auto) 0.65 K/mcL (1.50-4.80); Lymphocytes % (Auto) 9.8 % (15.5-49.0); Mean Cell Volume 90.5 fL (80.0-100.0); Mean Corpuscular HGB Conc 30.3 g/dL (31.0-36.0); Mean Platelet Volume 10.3 fL (7.4-10.4); Monocytes % (Auto) 7.6 % (1.0-12.0); Neutrophils % (Auto) 75.2 % (38.0-78.0); Platelet Count 246 K/mcL (140-440); RBC 3.17 M/mcL (4.63-6.08); Red Cell Distribution Width 14.8 % (11.5-14.5); WBC 6.6 K/mcL (4.5-11.0)
[2021-10-21 06:52] LABS: Blood Urea Nitrogen 47 mg/dL (6-20); Calcium 8.7 mg/dL (8.6-10.4); Carbon Dioxide 23 mmol/L (22-30); Chloride 105 mmol/L (96-108); Glomerular Filtration Rate 32; Glucose 180 mg/dL (70-105)
[2021-10-21] MEDS: FUROSEMIDE 40 MG/4 ML VIAL IV SCH ×3 (07:08→21:46)
[2021-10-21] MEDS: INSULIN LISPRO 1 UNIT/0.01 ML UNIT SQ SCH ×5 (07:40→23:25)
[2021-10-21] MEDS ORDERED: VANCOMYCIN PER PHARMACY IV SCH (09:00)
--- NOTE | 2021-10-21 09:19 | Internal Med Progress Note ---
SUBJECTIVE Subjective Patient information: Note initiated : 10/21/21 at 9:17 am Service Date, if different from initiated Date: [] Patient: Ross Mcgee 61 y/o M admitted on 10/20/21 for Swollen testicles. Chief Complaint: [Scrotal pain, edema] Principal diagnosis: Perineal cellulitis, morbid obesity, chronic Shepherd catheter Interval history: The patient was resting in bed. He is wheezing and complaining of a cough. We discussed adding nebulizers. Overall, the patient feels well. Constitutional Vitals: Vital Signs Temp Pulse Resp BP Pulse Ox O2 Del Method O2 Flow Rate 97.9 F 88 16 177/81 94 2 10/21/21 08:00 10/21/21 03:40 10/21/21 08:00 10/21/21 08:00 10/21/21 08:00 10/21/21 08:00 10/21/21 08:00 Period Temp Pulse Resp BP Sys/Vincent Pulse Ox O2 Del Method O2 Flow Rate Last 24 Hr 97.9 F-101.1 F 88-108 16-20 123-177/69-81 90-94 Nasal Cannula-Room Air 2 Intake and Output 10/20/21 10/21/21 10/21/21 21:59 05:59 13:59 Intake Total 534 554 54 Output Total 700 600 Balance -166 -46 54 Weight 148.778 kg Intake & Output: Intake & Output 10/20/21 10/21/21 10/21/21 21:59 05:59 13:59 Intake Total 534 554 54 Output Total 700 600 Balance -166 -46 54 Weight 148.778 kg Intake: IV 54 54 54 Cleocin 600 mg In Dextrose 5% 54 54 54 in Water 50 ml @ 100 mls/hr IV Q6H PENDING SALE TO [facility] Rx#:[id number] Oral 480 500 Output: Urine Catheter Amount 700 600 Other: Meal Dinner Percent of Meal Consumed 100% Feeding Ability Independent Urine Appearance Clear Clear Urine Color Yellow Yellow Head Head exam: Present atraumatic and normal inspection Eye Eye exam: Present normal appearance ENT ENT exam: Present mucous membranes moist, normal exam and normal external ear exam Neck Neck exam: Present normal inspection Respiratory Respiratory exam: Present wheezes Cardiovascular Cardiovascular exam: Present normal rate and rhythm GI/Abdominal GI/Abdominal exam: Present normal bowel sounds and distended Back Exam Back exam: Present normal inspection Neurological Exam Neurological exam: Present alert and oriented X3 Skin Skin exam: Present intact and warm OBJ DATA Labs CBC & Chem 7: 10/21/21 05:05 10/21/21 05:05 Labs: Abnormal Lab Results 10/21/21 10/21/21 10/20/21 05:05 05:05 09:12 RBC 3.17 L Hgb 8.7 L Hct 28.7 L POC Hct MCHC 30.3 L RDW 14.8 H Neut % (Auto) Lymph % (Auto) 9.8 L Lymph # (Auto) 0.65 L POC BUN BUN 47 H Creatinine 2.2 H POC Creatinine Glucose 180 H POC Glucose C-Reactive Protein 8.30 H Procalcitonin Urine Protein 100 mg/dl A Urine Occult Blood Large A Urine RBC > 182 H Urine WBC 9 H 10/20/21 10/20/21 10/20/21 08:49 08:49 08:25 RBC 3.27 L Hgb 8.8 L Hct 28.6 L POC Hct 28.0 L MCHC 30.8 L RDW 14.6 H Neut % (Auto) 79.4 H Lymph % (Auto) 6.0 L Lymph # (Auto) 0.57 L POC BUN 43 H BUN Creatinine POC Creatinine 2.4 H Glucose POC Glucose 124 H C-Reactive Protein Procalcitonin 0.14 H Urine Protein Urine Occult Blood Urine RBC Urine WBC Meds: Medications Acetaminophen (Acetaminophen 325 Mg Tablet) 650 mg PO Q6HP PRN; Protocol PRN Reason: Per Pain Protocol/Fever > 101 Last Admin: 10/20/21 23:21 Dose: 650 mg Albuterol/Ipratropium (Ipratropium/Albuterol 3 Ml Ampul.Neb) 3 ml NEB Q6HRT [facility] Budesonide (Budesonide 0.5 Mg/2 Ml Ampul.Neb) 0.5 mg NEB Q12 [facility] Cefepime HCl (Cefepime 2 Gm Vial) 2 gm IV Q12H [facility]; Protocol Last Admin: 10/20/21 21:28 Dose: 2 gm Clindamycin HCl (Clindamycin 150 Mg Capsule) 600 mg PO Q6H [facility]WAD Dextrose (Dextrose 50% 50 Ml Vial) 0 ml IV UD PRN PRN Reason: Per Sliding Scale Diagnostic Test (Pha) (Accu-Chek 1 Each Strip) 1 each FS ACHS FAWAD Last Admin: 10/21/21 07:40 Dose: 1 each Docusate Sodium (Docusate Sodium 100 Mg Capsule) 100 mg PO BID PENDING SALE TO [facility] Last Admin: 10/20/21 20:07 Dose: Not Given Enoxaparin Sodium (Enoxaparin 40 Mg/0.4 Ml Syringe) 40 mg SQ DAILY PENDING SALE TO [facility] Furosemide (Furosemide 40 Mg/4 Ml Vial) 40 mg IV Q8 PENDING SALE TO [facility] Last Admin: 10/21/21 07:08 Dose: 40 mg Glucose (Dextrose 31 Gm Oral.Susp) 15 gm PO PRN PRN PRN Reason: Hypoglycemia Vancomycin HCl 1,500 mg/ (Sodium Chloride) 500 mls @ 333.3 mls/hr IV Q12H PENDING SALE TO [facility] Insulin Human Lispro (Insulin Lispro 1 Unit/0.01 Ml Unit) 0 unit SQ [facility]; Protocol Last Admin: 10/21/21 07:40 Dose: 2 units Morphine Sulfate (Morphine 4 Mg/Ml Vial) 4 mg IV Q4HP PRN; Protocol PRN Reason: Per Pain Protocol Ondansetron HCl (Ondansetron 4 Mg/2 Ml Vial) 4 mg IV Q6HP PRN PRN Reason: Nausea And Vomiting Senna (Sennosides 1 Tablet) 2 tab PO HS PENDING SALE TO [facility] Last Admin: 10/20/21 20:07 Dose: Not Given Sodium Chloride (0.9 % Sodium Chloride 10 Ml Syringe) 10 ml IV Q8 PENDING SALE TO [facility] Last Admin: 10/21/21 07:08 Dose: 10 ml Vancomycin HCl (Vancomycin Per Pharmacy) 1 order IV UD PENDING SALE TO [facility]; Protocol A/P Assessment and plan (1) Cellulitis: Status: Acute (2) 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 (3) Chronic ulcer of left foot limited to breakdown of skin: Status: Chronic (4) Diabetic neuropathy: Status: Chronic (5) Tobacco use: Status: Chronic (6) Scrotum swelling: Status: Acute (7) Shepherd catheter in place: Status: Acute (8) Morbid obesity: Status: Acute Narrative A/P Narrative: The patient has multiple risk factors for an accelerated and poorly healing underlying infection including brittle diabetes, poor hygiene, ongoing cigarette smoking, and likely component of peripheral vascular disease. The patient does not have evidence of systemic disease as he is afebrile with a normal white blood cell count. There is no evidence of gangrene or crepitus on physical examination. General surgery will follow to see if any surgical intervention is necessary in the coming days. Urology believes that surgical intervention was not necessary at this time. We will start the patient on cefepime, clindamycin and vancomycin. The patient does have penicillin allergy. We will follow-up on his urine and blood cultures. Due to scrotal edema he will be started on Lasix 40 mg IV every 8 hours. His home medication list reconciliation is pending. 10/21: The patient was febrile overnight with a T-max of 101. His white blood cell count remains within normal limits. On examination, it appears as though the swelling and erythema is slowly subsiding. We will continue Lasix 40 mg IV every 8 hours as his creatinine is holding steady at 2.2. As he is a former smoker, we will start duo nebs and Pulmicort. Time Spent With Patient Time: Total time spent is greater than 50% in coordination of care (as documented) at patient's floor/unit and/or counseling patient: Total time spent with greater than 50% in coordination of care (as documented) at patient's floor/unit and/or counseling patient:: 25 - 35 minutes QUALITY VTE Deep Vein Thrombosis/Pulmonary Embolism Present on Admission: No
[2021-10-21] MEDS: CEFEPIME 2 GM VIAL IV SCH ×2 (09:40→21:27)
[2021-10-21] MEDS: ENOXAPARIN 40 MG/0.4 ML SYRINGE SQ SCH (09:41)
[2021-10-21] MEDS: DOCUSATE SODIUM 100 MG CAPSULE PO SCH ×2 (09:41→21:16)
[2021-10-21] MEDS: VANCOMYCIN 1,500 MG in 0.9 % SODIUM CHLORIDE 500 ML IV SCH ×2 (09:42→21:19)
[2021-10-21] MEDS: CLINDAMYCIN 150 MG CAPSULE PO SCH ×3 (12:15→23:30)
[2021-10-21] MEDS: IPRATROPIUM/ALBUTEROL 3 ML AMPUL.NEB NEB SCH ×2 (13:19→18:14)
--- NOTE | 2021-10-21 13:26 | Urology Progress Note ---
SUBJECTIVE Subjective Patient information: Note initiated : 10/21/21 at 1:17 pm Service Date, if different from initiated Date: [] Patient: Ross Mcgee 61 y/o M admitted on 10/20/21 for Swollen testicles. Chief Complaint: [] Pt notes he is feeling significantly better today. Hutchins catheter was changed last pm Principal diagnosis: Perineal cellulitis, morbid obesity, chronic Hutchins catheter Constitutional Vitals: Vital Signs Temp Pulse Resp BP Pulse Ox O2 Del Method O2 Flow Rate 98.9 F 88 20 171/80 96 2 10/21/21 12:00 10/21/21 03:40 10/21/21 12:00 10/21/21 12:00 10/21/21 12:00 10/21/21 12:00 10/21/21 12:00 Period Temp Pulse Resp BP Sys/Vincent Pulse Ox O2 Del Method O2 Flow Rate Last 24 Hr 97.9 F-101.1 F 88-108 16-20 123-177/69-81 91-96 Nasal Cannula- Room Air 2-2 Intake and Output 10/20/21 10/21/21 10/21/21 21:59 05:59 13:59 Intake Total 534 554 794 Output Total 700 600 800 Balance -166 -46 -6 Weight 148.778 kg Intake & Output: Intake & Output 10/20/21 10/21/21 10/21/21 21:59 05:59 13:59 Intake Total 534 554 794 Output Total 700 600 800 Balance -166 -46 -6 Weight 148.778 kg Intake: IV 54 54 554 Cleocin 600 mg In Dextrose 5% 54 54 54 in Water 50 ml @ 100 mls/hr IV Q6H [facility]WAD Rx#:[id number] Vancomycin 1,500 mg In Sodium 500 Chloride 0.9% 500 ml @ 333.3 mls/hr IV Q12H [facility]WAD Rx#: [id number] Oral 480 500 240 Output: Urine Catheter Amount 700 600 800 Other: Meal Dinner Breakfast Percent of Meal Consumed 100% 100% Feeding Ability Independent Independent Urine Appearance Clear Clear Clear Urine Color Yellow Yellow Yellow Additional comments: Redness on pts low abd and scrotum improved. He does have a small pressure necrosis area on L prepuce from hutchins catheter. Edema of scrotum relatively unchanged but less tender on exam. A/P Narrative A/P Narrative: 61 year old diabetic male with scrotal and lower abdominal edema and likely cellulitis. I think the edema is likely largely cardiogenic and he is being diuresed. This will take a long time to resolve if ever. Pt also has edema in lower abdomen and extremities. I think the cellulitis is improving. Local hygiene important as well as scrotal elevation. Ideally is would be best to get rid of hutchins cath although with present swelling voiding into any vessel is difficult for pt. Make sure catheter is not tight in tether causing pressure on penis/foreskin. Time Spent With Patient Time: Total time spent is greater than 50% in coordination of care (as documented) at patient's floor/unit and/or counseling patient:
--- OUTSIDE RECORDS SUMMARY | 2021-10-21 16:39 | External Medical Summary ---
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 K/mcL 70 ' [facility] K/mcL Lab: [address], [place] Whole Baso # 0.03 0.00-0. Final Patholog ists Blood K/mcL 20 ' [facility] K/mcL Lab: [address], [place] 09/02/2020 CMP, Serum or Plasma High Glucose,ran 241 70-105 Final Pathologists Plasma dom mg/dL mg/dL ' [facility]: [address], [place] Plasma High Blood Urea 29 mg/dL 6-20 Final Pat hologists Nitrogen mg/dL ' Region al Lab: [address], [place] Plasma High Creatinine 1.8 0.7-1.2 Final Path ologists mg/dL mg/dL ' [facility]: [address], [place] Plasma Sodium 140 133-145 Final Patholog ists mmol/L mmol/L ' [facility]: [address], [place] Plasma Potassium 4.3 3.3-5.1 Final Patho logists mmol/L mmol/L ' [facility]: [address], [place] Plasma Cl 104 96-108 Final Pathologis ts mmol/L mmol/L ' [facility]: [address], [place] Plasma Carbon 26 22-30 Final Pathologi sts Dioxide mmol/L mmol/L ' [facility] Lab: [address], [place] Plasma Anion Gap 10.0 8.0-16. Final Patho logists 0 ' [facility]: [address], [place] Plasma Calcium 9.1 8.6-10. Final Patholo gists mg/dL 4 mg/dL ' [facility]: [address], [place] Plasma Total 5.9 5.9-8.4 Final Pathologi sts Protein gm/dL gm/dL ' [facility]: [address], [place] Plasma Low Albumin 2.9 3.2-5.2 Final Patholo gists gm/dL gm/dL ' [facility]: [address], [place] Plasma Globulin 3.0 2.2-3.7 Final Pathol ogists gm/dL gm/dL ' [facility]: [address], [place] Plasma Alb/glob 1.0 1.0-2.3 Final Pathol ogists Ratio ' [facility]: [address], [place] Plasma Bilirubin,t <0.2 0.1-1.0 Final Pat hologists otal mg/dL mg/dL ' [facility] Lab: [address], [place] Plasma AST/SGOT 16 U/L <40 U/L Final Pathol ogists ' [facility] Lab: [address], [place] Plasma ALT/SGPT 12 U/L <40 U/L Final Pathol ogists ' [facility]: [address], [place] Plasma High Alkaline 142 U/L 39-117 Final Pathol ogists Phosphatase U/L ' [facility] Lab: [address], [place] Plasma Glomerular 41 Final Patho logists Filtration ' Keisha onal Rate Lab: [address], [place] 09/02/2020 C-reactive Plasma High C-reactive 7.10 0.03-0. Fin al Pathologists Protein, Protein mg/dL 80 ' Regio nal Quantitative mg/dL Lab: [address], [place] 09/02/2020 ESR Whole High Erythrocyte 93 mm/HR 0-15 Final Pathologists (Erythrocyte Blood Sed Rate mm/HR ' [facility] Sedimentation Lab : [address]), [place] 06/24/2020 Culture, No Wound observation recorded. 06/06/2020 Culture, TIS Source bone Final Pat hologists Tissue ' [facility] Lab: [address], [place] TIS Specimen other Final Patholo gists Description ' [facility] Lab: [address], [place] TIS gram Stain Final Patho logists Result ' [facility]: [address], [place] TIS Quantity of Final Path ologists Growth ' [facility]: [address], [place] TIS Result rifampin Final Patholo gists Comment should ' Regiona l not BE Lab: [address], [place] alone for antimicr obial therapy. TIS Quantity of light Final Path ologists Growth growth ' Regional (isolate Lab: [address], [place] TIS Result Final Pathologi sts ' [facility] Lab: [address], [place] 05/30/2020 CMP, Serum or Plasma High Glucose,ran 280 70-105 Final Pathologists Plasma dom mg/dL mg/dL ' [facility]: [address], [place] Plasma High Blood Urea 48 mg/dL 6-20 Final Pat hologists Nitrogen mg/dL ' Region al Lab: [address], [place] Plasma High Creatinine 2.0 0.7-1.2 Final Path ologists mg/dL mg/dL ' [facility]: [address], [place] Plasma Sodium 134 133-145 Final Patholog ists mmol/L mmol/L ' [facility]: [address], [place] Plasma High Potassium 5.7 3.3-5.1 Final Patho logists mmol/L mmol/L ' [facility] Lab: [address], [place] Plasma Chloride 100 96-108 Final Patholo gists mmol/L mmol/L ' [facility]: [address], [place] Plasma Carbon 27 22-30 Final Pathologi sts Dioxide mmol/L mmol/L ' [facility] Lab: [address], [place] Plasma Low Anion Gap 7.0 8.0-16. Final Patho logists 0 ' [facility]: [address], [place] Plasma Calcium 9.4 8.6-10. Final Patholo gists mg/dL 4 mg/dL ' [facility]: [address], [place] Plasma Total 6.2 5.9-8.4 Final Pathologi sts Protein gm/dL gm/dL ' [facility]: [address], [place] Plasma Low Albumin 2.9 3.2-5.2 Final Patholo gists gm/dL gm/dL ' [facility]: [address], [place] Plasma Globulin 3.3 2.2-3.7 Final Pathol ogists gm/dL gm/dL ' [facility]: [address], [place] Plasma Low Alb/glob 0.9 1.0-2.3 Final Pathol ogists Ratio ' [facility]: [address], [place] Plasma Bilirubin,t <0.2 0.1-1.0 Final Pat hologists otal mg/dL mg/dL ' [facility]: [address], [place] Plasma AST/SGOT 17 U/L <40 U/L Final Pathol ogists ' [facility] Lab: [address], [place] Plasma ALT/SGPT 7 U/L <40 U/L Final Pathol ogists ' [facility]: [address], [place] Plasma Alkaline 108 U/L 39-117 Final Pathol ogists Phosphatase U/L ' [facility] Lab: [address], [place] Plasma Glomerular 36 Final Patho logists Filtration ' Keisha onal Rate Lab: [address], [place] 05/30/2020 C-reactive Plasma High C-reactive 12.10 0.03-0. Fin al Pathologists Protein, Protein mg/dL 80 ' Regio nal Quantitative mg/dL Lab: [address], [place] 05/30/2020 CBC W/ Auto Whole Wbc 7.6 4.5-11. Final Pathologists Diff Blood K/mcL 0 K/mcL ' [facility] Lab: [address], [place] Whole Low Rbc 3.35 4.50-5. Final Pathologi sts Blood M/mcL 90 ' Regional M/mcL Lab: [address], [place] Whole Low Hgb 9.7 g/dL 13.5-16 Final Patholo gists Blood .5 g/dL ' [facility] Lab: [address], [place] Whole Low Hct 30.4 % 41.0-55 Final Pathologi sts Blood .0 % ' [facility]: [address], [place] Whole Mcv 90.7 fL 80.0-10 Final Patholog ists Blood 0.0 fL ' [facility]: [address], [place] Whole Mch 29.0 pg 26.0-34 Final Patholog ists Blood .0 pg ' [facility]: [address], [place] Whole Mchc 31.9 31.0-36 Final Pathologi sts Blood g/dL .0 g/dL ' [facility] Lab: [address], [place] Whole Rdw 13.6 % 11.5-14 Final Pathologi sts Blood .5 % ' [facility]: [address], [place] Whole [address]t CT 382 140-440 Final Patholog ists Blood K/mcL K/mcL ' [facility]: [address], [place] Whole High Mpv 10.7 fL 7.4-10. Final Patholog ists Blood 4 fL ' [facility]: [address], [place] Whole Neut % 73.9 % 38.0-78 Final Patholog ists Blood .0 % ' [facility]: [address], [place] Whole Low Lymph % 11.6 % 15.0-49 Final Patholo gists Blood .0 % ' [facility]: [address], [place] Whole Murray % 7.9 % 1.0-12. Final Patholog ists Blood 0 % ' [facility]: [address], [place] Whole Eos % 6.1 % 0.0-7.0 Final Pathologi sts Blood % ' [facility]: [address], [place] Whole Baso % 0.5 % 0.0-2.0 Final Patholog ists Blood % ' [facility]: [address], [place] Whole Absolute 5.60 1.80-8. Final Pathol ogists Blood Neutrophil K/mcL 00 ' Keisha onal Count K/mcL Lab: [address], [place] Whole Low Lymph # 0.88 1.50-4. Final Patholo gists Blood K/mcL 80 ' Regional K/mcL Lab: [address], [place] Whole Murray # 0.60 0.10-0. Final Patholog ists Blood K/mcL 90 ' [facility] K/mcL Lab: [address], [place] Whole Eos # 0.46 0.00-0. Final Pathologi sts Blood K/mcL 70 ' Regional K/mcL Lab: [address], [place] Whole Baso # 0.04 0.00-0. Final Patholog ists Blood K/mcL 20 ' [facility] K/mcL Lab: [address], [place] 05/30/2020 Estradiol, Plasma Estradiol 35.1 11.3-43 Kelsy l Pathologists Serum pg/mL .2 ' Regional pg/mL Lab: [address], [place] 05/05/2020 CMP, Serum or Plasma High Glucose,ran 116 70-105 Final Pathologists Plasma dom mg/dL mg/dL ' [facility]: [address], [place] Plasma High Blood Urea 28 mg/dL 6-20 Final Pat hologists Nitrogen mg/dL ' Region al Lab: [address], [place] Plasma High Creatinine 1.6 0.7-1.2 Final Path ologists mg/dL mg/dL ' [facility]: [address], [place] Plasma Sodium 140 133-145 Final Patholog ists mmol/L mmol/L ' [facility]: [address], [place] Plasma Potassium 4.4 3.3-5.1 Final Patho logists mmol/L mmol/L ' [facility]: [address], [place] Plasma Chloride 105 96-108 Final Patholo gists mmol/L mmol/L ' [facility]: [address], [place] Plasma Carbon 27 22-30 Final Pathologi sts Dioxide mmol/L mmol/L ' [facility] Lab: [address], [place] Plasma Anion Gap 8.0 8.0-16. Final Patho logists 0 ' [facility]: [address], [place] Plasma Calcium 9.2 8.6-10. Final Patholo gists mg/dL 4 mg/dL ' [facility]: [address], [place] Plasma Total 6.3 5.9-8.4 Final Pathologi sts Protein gm/dL gm/dL ' [facility]: [address], [place] Plasma Albumin 3.3 3.2-5.2 Final Patholo gists gm/dL gm/dL ' [facility]: [address], [place] Plasma Globulin 3.0 2.2-3.7 Final Pathol ogists gm/dL gm/dL ' [facility]: [address], [place] Plasma Alb/glob 1.1 1.0-2.3 Final Pathol ogists Ratio ' [facility]: [address], [place] Plasma Bilirubin,t 0.3 0.1-1.0 Final Pat hologists otal mg/dL mg/dL ' [facility] Lab: [address], [place] Plasma AST/SGOT 19 U/L <40 U/L Final Pathol ogists ' [facility]: [address], [place] Plasma ALT/SGPT 15 U/L <40 U/L Final Pathol ogists ' [facility]: [address], [place] Plasma High Alkaline 128 U/L 39-117 Final Pathol ogists Phosphatase U/L ' [facility] Lab: [address], [place] Plasma Glomerular 47 Final Patho logists Filtration ' Keisha onal Rate Lab: [address], [place] 05/05/2020 C-reactive Plasma High C-reactive 2.20 0.03-0. Fin al Pathologists Protein, Protein mg/dL 80 ' Regio nal Quantitative mg/dL Lab: [address], [place] 05/05/2020 Hemoglobin Superna High Hemoglobin 8.6 % 4.0-6.0 Fi nal Pathologists a1C + Average te a1C HGB % HGB ' R egional Glucose, QN, Lab: [address], [place] on Superna Estimated 200 Final Patho logists te Average mg/dL ' Regiona l Glucose Lab: [address], [place] 05/05/2020 ESR Whole High Erythrocyte 51 mm/HR 0-15 Final Pathologists (Erythrocyte Blood Sed Rate mm/HR ' [facility] Sedimentation Lab : [address]), Blood St, [place] 05/05/2020 CBC W/ Manual Whole Wbc 6.5 4.5-11. Final Pathologists Diff Blood K/mcL 0 K/mcL ' [facility] Lab: [address], [place] Whole Low Rbc 4.38 4.50-5. Final Pathologi sts Blood M/mcL 90 ' Regional M/mcL Lab: [address], [place] Whole Low Hgb 12.5 13.5-16 Final Pathologi sts Blood g/dL .5 g/dL ' [facility] Lab: [address], [place] Whole Low Hct 38.8 % 41.0-55 Final Pathologi sts Blood .0 % ' [facility]: [address], [place] Whole Mcv 88.6 fL 80.0-10 Final Patholog ists Blood 0.0 fL ' [facility]: [address], [place] Whole Mch 28.5 pg 26.0-34 Final Patholog ists Blood .0 pg ' [facility] Lab: [address], [place] Whole Mchc 32.2 31.0-36 Final Pathologi sts Blood g/dL .0 g/dL ' [facility] Lab: [address], [place] Whole Rdw 13.4 % 11.5-14 Final Pathologi sts Blood .5 % ' [facility] Lab: [address], [place] Whole [address]t CT 281 140-440 Final Patholog ists Blood K/mcL K/mcL ' [facility] Lab: [address], [place] Whole High Mpv 10.6 fL 7.4-10. Final Patholog ists Blood 4 fL ' [facility] Lab: [address], [place] Whole Segmented 74 % 38-78 % Final Patho logists Blood Neutrophils ' [facility] Lab: [address], [place] Whole Lymphocyte 15 % 15-49 % Final Path ologists Blood ' [facility]: [address], [place] Whole Monocyte 7 % 1-12 % Final Patholo gists Blood ' [facility] Lab: [address], [place] Whole Eosinophil 4 % 0-7 % Final Patho logists Blood ' [facility] Lab: [address], [place] Whole Platelet normal normal Final Patholo gists Blood Estimate ' Region al Lab: [address], [place] Whole RBC normal normal Final Pathologis ts Blood Morphology ' Keisha onal Lab: [address], [place] Past Encounters 10/18/2021 Diabetic Foot Ulcer; Type 2 Diabetes Nora litus; Varicose Veins of Lower Extremity; Peripheral Vascular Disease; At Risk of Nutritional Deficit; Osteomyelitis Missy Thompson, TURPENTINER: [address] [place] [address] [place] [phone], Ph. 10/11/2021 Diabetic Foot Ulcer; Type 2 Diabetes Nora litus; Varicose Veins of Lower Extremity; Peripheral Vascular Disease; At Risk of Nutritional Deficit; Osteomyelitis Missy Thompson, TURPENTINER: [address] [place] [address] [place] [phone], Ph. 10/04/2021 Diabetic Foot Ulcer; Type 2 Diabetes Nora litus; Varicose Veins of Lower Extremity; Peripheral Vascular Disease; At Risk of Nutritional Deficit; Loida Thompson, TURPENTINER: [address] [place] [address] [place] [phone], Ph. 09/27/2021 Stasis Dermatitis and Venous Ulcer of Lo wer Extremity Due to Chronic Peripheral Venous Hypertension Missy Thompson, TURPENTINER: [address] [place] [address] [place] [id number], Ph. 09/15/2021 Stasis Dermatitis and Venous Ulcer of Lo wer Extremity Due to Chronic Peripheral Venous Hypertension; Diabetic Foot Ulcer; Type 2 Diabetes Mellitus; Varicose Veins of Lower Extremity; Peripheral Vascular Disease; At Risk of Nutritional Deficit ; Osteomyelitis Missy Thompson, TURPENTINER: [address] [place], [place] [address], [place] [phone], Ph. 09/08/2021 Diabetic Foot Ulcer; Type 2 Diabetes Nora litus; Varicose Veins of Lower Extremity; Peripheral Vascular Disease; At Risk of Nutritional Deficit; Osteomyelitis Missy Thompson, TURPENTINER: [address] [place], [place] [id number] [phone], Ph. 08/30/2021 Diabetic Foot Ulcer; Type 2 Diabetes Nora litus; Varicose Veins of Lower Extremity; Peripheral Vascular Disease; At Risk of Nutritional Deficit; Osteomyelitis Missy Thompson, TURPENTINER: [address] [place], [place] [id number], [place] [phone], Ph. 08/25/2021 Stasis Dermatitis and Venous Ulcer of Lo wer Extremity Due to Chronic Peripheral Venous Hypertension; Delayed Healing of Surgical Wound Missy Thompson, TURPENTINER: [address] [place], [place] [id number], [place] [phone], Ph. 08/18/2021 Diabetic Foot Ulcer; Type 2 Diabetes Nora litus; Varicose Veins of Lower Extremity; Peripheral Vascular Disease; At Risk of Nutritional Deficit; Osteomyelitis Missy Thompson, TURPENTINER: [address] [place], [place] [id number], [place] [phone], Ph. 08/11/2021 Stasis Dermatitis and Venous Ulcer of Lo wer Extremity Due to Chronic Peripheral Venous Hypertension; Delayed Healing of Surgical Wound Missy Thompson, TURPENTINER: [address] [place], [place] [id number], [place] [phone], Ph. 08/04/2021 Diabetic Foot Ulcer; Type 2 Diabetes Nora litus; Varicose Veins of Lower Extremity; Peripheral Vascular Disease; At Risk of Nutritional Deficit; Osteomyelitis Missy Thompson, TURPENTINER: [address] [place] [id number], [place] [phone], Ph. 08/02/2021 Type 2 Diabetes Mellitus; Varicose Veins of Lower Extremity; Peripheral Vascular Disease; At Risk of Nutritional Deficit; Osteomyelitis; Diabetic Foot Ulcer Missy Thompson TURPENTINER: [address] [place] [id number] [place] [phone], Ph. 07/27/2021 Peripheral Vascular Disease; Diabetic Fo ot Ulcer; Osteomyelitis of Ankle AND/OR Foot; Rupture of Achilles Tendon Suraj Moore MD: [address] [place], [place] [id number] [phone], Ph. 07/25/2021 Delayed Healing of Surgical Wound; Type 2 Diabetes Mellitus; Varicose Veins of Lower Extremity; Peripheral Vascular Disease; At Risk of Nutritional Deficit; Osteomyelitis; Diabetic Foot Ulcer; Local Infection of Wound Missy Thompson NP: [address] [place] [id number] [place] [phone], Ph. 07/18/2021 Type 2 Diabetes Mellitus; Varicose Veins of Lower Extremity; Peripheral Vascular Disease; At Risk of Nutritional Deficit; Osteomyelitis; Diabetic Foot Ulcer Missy Thompson NP: [address] [place] [id number] [place] [phone], Ph. 07/11/2021 Delayed Healing of Surgical Wound; Press ure Ulcer of Heel Missy Thompson NP: [address] [place] [id number] [place] [phone], Ph. 07/04/2021 Delayed Healing of Surgical Wound; Press ure Ulcer of Heel; Type 2 Diabetes Mellitus; Varicose Veins of Lower Extremity; Peripheral Vascular Disease; At Risk of Nutritional Deficit; Osteomyelitis Missy Thompson TURPENTINER: [address] [place] [id number] [place] [phone], Ph. 06/27/2021 Pressure Ulcer of Heel; Delayed Healing of Surgical Wound; Type 2 Diabetes Mellitus; Varicose Veins of Lower Extremity; Peripheral Vascular Disease; At Risk of Nutritional Deficit; Osteomyelitis Missy Thompson TURPENTINER: [address] [place] [id number] [place] [phone], Ph. 06/20/2021 Pressure Ulcer of Heel; Delayed Healing of Surgical Wound; Mixed Arteriovenous Leg Ulcer; Type 2 Diabetes Mellitus; Varicose Veins of Lower Extremity; Peripheral Vascular Disease; At Risk of Nutritional Deficit; Osteomyelitis Missy Thompson TURPENTINER: [address] [place] [id number] [place] [phone], Ph. 06/13/2021 Delayed Healing of Surgical Wound Missy Thompson NP: [address] [place] [id number] [place] [phone], Ph. 06/06/2021 Delayed Healing of Surgical Wound; Press ure Ulcer of Heel; Mixed Arteriovenous Leg Ulcer; Type 2 Diabetes Mellitus; Varicose Veins of Lower Extremity; Peripheral Vascular Disease; At Risk of Nutritional Deficit; Osteomyelitis Missy Thompson TURPENTINER: [address] [place] [address] [place] [phone], Ph. 05/31/2021 Delayed Healing of Surgical Wound; Press ure Ulcer of Heel; Mixed Arteriovenous Leg Ulcer; Type 2 Diabetes Mellitus; Varicose Veins of Lower Extremity; Peripheral Vascular Disease; At Risk of Nutritional Deficit; Osteomyelitis Missy Thompson TURPENTINER: [address] [place] [address] [place] [phone], Ph. 05/22/2021 Peripheral Vascular Disease; Delayed Hea ling of Surgical Wound; Ulcer of Left Foot Due to Type 2 Diabetes Mellitus Suraj Moore MD: [address] [place] [address] [place] [id number], Ph. 05/19/2021 Pressure Ulcer of Heel; Mixed Arterioven ous Leg Ulcer; Delayed Healing of Surgical Wound; Type 2 Diabetes Mellitus; Varicose Veins of Lower Extremity; Peripheral Vascular Disease; At Risk of Nutritional Deficit; Osteomyelitis; Partial Thickness Burn Missy Thompson TURPENTINER: [address] [place] [address] [place] [phone], Ph. 05/11/2021 Pressure Ulcer of Heel; Mixed Arterioven ous Leg Ulcer; Delayed Healing of Surgical Wound; Type 2 Diabetes Mellitus; Varicose Veins of Lower Extremity; Peripheral Vascular Disease; At Risk of Nutritional Deficit; Osteomyelitis Missy Thompson TURPENTINER: [address] [place] [address] [place] [phone], Ph. 05/03/2021 Delayed Healing of Surgical Wound; Mixed Arteriovenous Leg Ulcer; Type 2 Diabetes Mellitus; Varicose Veins of Lower Extremity; Peripheral Vascular Disease; At Risk of Nutritional Deficit; Pressure Ulcer of Heel Missy Thompson TURPENTINER: [address] [place] [address] [place] [phone], Ph. 04/26/2021 Delayed Healing of Surgical Wound; Mixed Arteriovenous Leg Ulcer; Type 2 Diabetes Mellitus; Varicose Veins of Lower Extremity; Peripheral Vascular Disease; At Risk of Nutritional Deficit; Pressure Ulcer of Heel Missy Thompson, TURPENTINER: [address] [place] [address], [place] [phone], Ph. 04/19/2021 Delayed Healing of Surgical Wound; Mixed Arteriovenous Leg Ulcer; Type 2 Diabetes Mellitus; Varicose Veins of Lower Extremity; Peripheral Vascular Disease; At Risk of Nutritional Deficit; Pressure Ulcer of Heel Missy Thompson, TURPENTINER: [address] [place] [id number], [place] [phone], Ph. 04/12/2021 Delayed Healing of Surgical Wound; Mixed Arteriovenous Leg Ulcer; Type 2 Diabetes Mellitus; Varicose Veins of Lower Extremity; Peripheral Vascular Disease; At Risk of Nutritional Deficit; Pressure Ulcer of Heel Missy Thompson, TURPENTINER: [address] [place] [id number], [place] [phone], Ph. 03/27/2021 Delayed Healing of Surgical Wound; Mixed Arteriovenous Leg Ulcer; Type 2 Diabetes Mellitus; Varicose Veins of Lower Extremity; Peripheral Vascular Disease; At Risk of Nutritional Deficit; Pressure Ulcer of Heel Missy Thompson, TURPENTINER: [address] [place] [id number], [place] [phone], Ph. 03/20/2021 Delayed Healing of Surgical Wound; Mixed Arteriovenous Leg Ulcer; Type 2 Diabetes Mellitus; Varicose Veins of Lower Extremity; Peripheral Vascular Disease; At Risk of Nutritional Deficit Missy Ambroseer, TURPENTINER: [address] [place] [id number], [place] [phone], Ph. 02/03/2021 Diabetic Foot Ulcer; Type 2 Diabetes Nora litus; Varicose Veins of Lower Extremity; Peripheral Vascular Disease; At Risk of Nutritional Deficit Missy Thompson, TURPENTINER: [address] [place] [id number], [place] [phone], Ph. 01/27/2021 Diabetic Foot Ulcer; Type 2 Diabetes Nora litus; Varicose Veins of Lower Extremity; Peripheral Vascular Disease; At Risk of Nutritional Deficit Missy Thompson, TURPENTINER: [address] [place] [id number], [place] [phone], Ph. 01/20/2021 Diabetic Foot Ulcer; Type 2 Diabetes Nora litus; Varicose Veins of Lower Extremity; Peripheral Vascular Disease; At Risk of Nutritional Deficit Missy Thompson TURPENTINER: [address] [place], [place] [id number], [place] [phone], Ph. 01/12/2021 Diabetic Foot Ulcer; Type 2 Diabetes Nora litus; Varicose Veins of Lower Extremity; Peripheral Vascular Disease; At Risk of Nutritional Deficit Missy Thompson TURPENTINER: [address] [place], [place] [id number], [place] [phone], Ph. 11/25/2020 Diabetic Foot Ulcer; Methicillin Resista nt Staphylococcus Aureus Infection; Osteomyelitis; Type 2 Diabetes Mellitus; Varicose Veins of Lower Extremity; Peripheral Vascular Disease; At Risk of Nutritional Deficit Missy Thompson TURPENTINER: [address] [place], [place] [id number], [place] [phone], Ph. 11/18/2020 Diabetic Foot Ulcer; Methicillin Resista nt Staphylococcus Aureus Infection; Osteomyelitis; Type 2 Diabetes Mellitus; Varicose Veins of Lower Extremity; Peripheral Vascular Disease; At Risk of Nutritional Deficit Missy Thompson TURPENTINER: [address] [place], [place] [id number], [place] [phone], Ph. 11/18/2020 Osteomyelitis Catrachito Galloway MD: [address] [place] [address] [place] [phone], Ph. 11/11/2020 Diabetic Foot Ulcer; Methicillin Resista nt Staphylococcus Aureus Infection; Osteomyelitis; Type 2 Diabetes Mellitus; Varicose Veins of Lower Extremity; Peripheral Vascular Disease; At Risk of Nutritional Deficit; Onychomycosis Missy Thompson TURPENTINER: [address] [place] [address] [place] [phone], Ph. 11/04/2020 Diabetic Foot Ulcer; Methicillin Resista nt Staphylococcus Aureus Infection; Osteomyelitis; Type 2 Diabetes Mellitus; Varicose Veins of Lower Extremity; Peripheral Vascular Disease; At Risk of Nutritional Deficit Missy Thompson NP: [address] [place], [place] [id number], [place] [id number], Ph. 10/31/2020 Diabetic Foot Ulcer; Methicillin Resista nt Staphylococcus Aureus Infection; Osteomyelitis; Type 2 Diabetes Mellitus; Varicose Veins of Lower Extremity; Peripheral Vascular Disease; At Risk of Nutritional Deficit Missy Thompson TURPENTINER: [address] [place] [address] [place] [phone], Ph. 10/28/2020 Diabetic Foot Ulcer; Methicillin Resista nt Staphylococcus Aureus Infection; Osteomyelitis; Type 2 Diabetes Mellitus; Varicose Veins of Lower Extremity; Peripheral Vascular Disease; At Risk of Nutritiona l Deficit; Stasis Dermatitis and Venous Ulcer of Lower Extremity Due to Chronic Peripheral Venous Hypertension Missy Thompson TURPENTINER: [address] [place] [address] [place] [id number], Ph. 10/28/2020 Osteomyelitis; Dependent Edema; Type 2 D iabetes Mellitus Catrachito Galloway MD: [address] [place] [address] [place] [id number], Ph. 10/21/2020 Diabetic Foot Ulcer; Methicillin Resista nt Staphylococcus Aureus Infection; Osteomyelitis; Type 2 Diabetes Mellitus; Varicose Veins of Lower Extremity; Peripheral Vascular Disease; At Risk of Nutritiona l Deficit; Stasis Dermatitis and Venous Ulcer of Lower Extremity Due to Chronic Peripheral Venous Hypertension Missy Thompson TURPENTINER: [address] [place] [address] [place] [phone], Ph. 10/14/2020 Diabetic Foot Ulcer; Methicillin Resista nt Staphylococcus Aureus Infection; Osteomyelitis; Type 2 Diabetes Mellitus; Varicose Veins of Lower Extremity; Peripheral Vascular Disease; At Risk of Nutritiona l Deficit; Stasis Dermatitis and Venous Ulcer of Lower Extremity Due to Chronic Peripheral Venous Hypertension Missy Thompson TURPENTINER: [address] [place] [address] [place] [id number], Ph. 10/14/2020 Osteomyelitis; Chronic Kidney Disease St age 5; Type 2 Diabetes Mellitus Catrachito Galloway MD: [address] [place] [address] [place] [id number], Ph. 10/03/2020 Diabetic Foot Ulcer; Methicillin Resista nt Staphylococcus Aureus Infection; Osteomyelitis; Type 2 Diabetes Mellitus; Varicose Veins of Lower Extremity; Peripheral Vascular Disease; At Risk of Nutritiona l Deficit; Stasis Dermatitis and Venous Ulcer of Lower Extremity Due to Chronic Peripheral Venous Hypertension Missy Thompson TURPENTINER: [address] [place] [address] [place] [phone], Ph. 10/03/2020 Osteomyelitis; Chronic Kidney Disease St age 5; Dependent Edema; ESR Raised; Type 2 Diabetes Mellitus Catrachito Galloway MD: [address] [place] [address] [place] [id number], Ph. 09/26/2020 Diabetic Foot Ulcer; Peripheral Vascular Disease; Amputated Big Toe Suraj Moore MD: [address] [place], [place] [id number] [id number], Ph. 09/26/2020 Diabetic Foot Ulcer; Methicillin Resista nt Staphylococcus Aureus Infection; Osteomyelitis; Type 2 Diabetes Mellitus; Varicose Veins of Lower Extremity; Peripheral Vascular Disease; At Risk of Nutritiona l Deficit; Stasis Dermatitis and Venous Ulcer of Lower Extremity Due to Chronic Peripheral Venous Hypertension Missy Thompson NP: [address] [place] [id number] [place] [id number], Ph. 09/15/2020 Diabetic Foot Ulcer; Methicillin Resista nt Staphylococcus Aureus Infection; Osteomyelitis; Type 2 Diabetes Mellitus; Varicose Veins of Lower Extremity; Peripheral Vascular Disease; At Risk of Nutritiona l Deficit; Stasis Dermatitis and Venous Ulcer of Lower Extremity Due to Chronic Peripheral Venous Hypertension Leisa Mcneil MD: [address] [place], [place] [id number], [place] [id number], Ph. 09/09/2020 Diabetic Foot Ulcer; Methicillin Resista nt Staphylococcus Aureus Infection; Osteomyelitis; Type 2 Diabetes Mellitus; Varicose Veins of Lower Extremity; Peripheral Vascular Disease; At Risk of Nutritiona l Deficit; Stasis Dermatitis and Venous Ulcer of Lower Extremity Due to Chronic Peripheral Venous Hypertension Missy Thompson NP: [address] [place] [id number] [place] [id number], Ph. 09/02/2020 Diabetic Foot Ulcer; Methicillin Resista nt Staphylococcus Aureus Infection; Osteomyelitis; Type 2 Diabetes Mellitus; Varicose Veins of Lower Extremity; Peripheral Vascular Disease; At Risk of Nutritional Deficit Missy Thompson NP: [address] [place] [id number] [place] [id number], Ph. 08/26/2020 Diabetic Foot Ulcer; Methicillin Resista nt Staphylococcus Aureus Infection; Osteomyelitis; Type 2 Diabetes Mellitus; Varicose Veins of Lower Extremity; Peripheral Vascular Disease; At Risk of Nutritional Deficit Missy Thompson NP: [address] [place], [place] [id number], [place] [phone], Ph. 08/22/2020 Diabetic Foot Ulcer; Cellulitis of Lower Limb; Methicillin Resistant Staphylococcus Aureus Infection; Osteomyelitis; Type 2 Diabetes Mellitus; Varicose Veins of Lower Extremity; Peripheral Vascular Disease; At Risk of Nutritional Deficit Missy Thompson TURPENTINER: [address] [place], [place] [id number], [place] [phone], Ph. 08/01/2020 Diabetic Foot Ulcer; Cellulitis of Lower Limb; Methicillin Resistant Staphylococcus Aureus Infection; Osteomyelitis; Type 2 Diabetes Mellitus; Varicose Veins of Lower Extremity; Peripheral Vascular Disease; At Risk of Nutritional Deficit Missy Thompson TURPENTINER: [address] [place], [place] [id number], [place] [phone], Ph. 07/25/2020 Diabetic Foot Ulcer; Cellulitis of Lower Limb; Methicillin Resistant Staphylococcus Aureus Infection; Osteomyelitis; Type 2 Diabetes Mellitus; Varicose Veins of Lower Extremity; Peripheral Vascular Disease; At Risk of Nutritional Deficit Missy Thompson TURPENTINER: [address] [place] [address] [place] [id number], Ph. 07/25/2020 Osteomyelitis; History of Amputation of Right Lesser Toe; Dependent Edema; Methicillin Resistant Staphylococcus Aureus Infection; Type 2 Diabetes Mellitus; Chronic Kidney Disease Stage 3 Catrachito Galloway MD: [address] [place] [address], [place] [phone], Ph. 07/18/2020 Diabetic Foot Ulcer; Cellulitis of Lower Limb; Methicillin Resistant Staphylococcus Aureus Infection; Osteomyelitis; Type 2 Diabetes Mellitus; Varicose Veins of Lower Extremity; Peripheral Vascular Disease; At Risk of Nutritional Deficit Missy Thompson TURPENTINER: [address] [place] [address] [place] [phone], Ph. 07/11/2020 Diabetic Foot Ulcer; Cellulitis of Lower Limb; Methicillin Resistant Staphylococcus Aureus Infection; Osteomyelitis; Type 2 Diabetes Mellitus; Varicose Veins of Lower Extremity; Peripheral Vascular Disease; At Risk of Nutritional Deficit Missy Thompson TURPENTINER: [address] [place] [address] [place] [phone], Ph. 07/11/2020 Peripheral Vascular Disease; Chronic Kid jerry Disease; Edema of Lower Extremity; Complication Due to Diabetes Mellitus Suraj Moore MD: [address] [place] [place] [id number] [place] [address], Ph. 07/04/2020 Osteomyelitis; Morbid Obesity; Methicill in Resistant Staphylococcus Aureus Infection; Dependent Edema; Chronic Kidney Disease Stage 3 Catrachito Galloway MD: [address] [place] [address], [place] [id number], Ph. 07/04/2020 Diabetic Foot Ulcer; Methicillin Resista nt Staphylococcus Aureus Infection; Osteomyelitis; Type 2 Diabetes Mellitus; Varicose Veins of Lower Extremity; Peripheral Vascular Disease; At Risk of Nutritional Deficit Missy Thompson NP: [address] [place] [address] [place] [phone], Ph. 06/27/2020 Osteomyelitis; Cellulitis of Lower Limb; Diabetic Foot Ulcer; Type 2 Diabetes Mellitus; Varicose Veins of Lower Extremity; Peripheral Vascular Disease; At Risk of Nutritional Deficit; Methicillin Resistant Staphylococcus Aureus Infection Missy Thompson NP: [address] [place] [address] [place] [phone], Ph. 06/22/2020 Osteomyelitis; Methicillin Resistant Sta phylococcus Aureus Infection; Chronic Kidney Disease Stage 3; Type 2 Diabetes Mellitus; Morbid Obesity; ESR Raised Catrachito Galloway MD: [address] [place] [address], [place] [id number], Ph. 06/20/2020 Osteomyelitis; Cellulitis of Lower Limb; Diabetic Foot Ulcer; Type 2 Diabetes Mellitus; Varicose Veins of Lower Extremity; Peripheral Vascular Disease; At Risk of Nutritional Deficit Missy Thompson TURPENTINER: [address] [place] [address], [place] [id number], Ph. 06/13/2020 Diabetic Foot Ulcer; Osteomyelitis; Cell ulitis of Lower Limb; Type 2 Diabetes Mellitus; Varicose Veins of Lower Extremity; Peripheral Vascular Disease; At Risk of Nutritional Deficit; Stasis Dermatitis and Venous Ulcer of Lower Extremity Due to Chronic Peripheral Venous Hypertension Leisa Mcneil MD: [address] [place] [address] [place] [phone], Ph. 06/06/2020 Osteomyelitis; Cellulitis of Lower Limb; Diabetic Foot Ulcer; Type 2 Diabetes Mellitus; Varicose Veins of Lower Extremity; Peripheral Vascular Disease; At Risk of Nutritional Deficit Missy Thompson TURPENTINER: [address] [place] [id number] [place] [address], Ph. 05/30/2020 Cellulitis of Lower Limb; Diabetic Foot Ulcer; Type 2 Diabetes Mellitus; Varicose Veins of Lower Extremity; Peripheral Vascular Disease Missy Thompson TURPENTINER: [address] [place] [address] [place] [address], Ph. 05/16/2020 Diabetic Foot Ulcer; Type 2 Diabetes Nora litus; Varicose Veins of Lower Extremity; Peripheral Vascular Disease Missy Thompson TURPENTINER: [address] [place] [address] [place] [address], Ph. 05/09/2020 Diabetic Foot Ulcer; Type 2 Diabetes Nora litus; Varicose Veins of Lower Extremity; Cellulitis of Lower Limb; Peripheral Vascular Disease Missy Thompson TURPENTINER: [address] [place] [address] [place] [address], Ph. 05/05/2020 Peripheral Vascular Disease; Stasis Derm atitis and Venous Ulcer of Lower Extremity Due to Chronic Peripheral Venous Hypertension Suraj Moore MD: [address] [place] [address] [place] [address], Ph. 05/02/2020 Diabetic Foot Ulcer; Type 2 Diabetes Nora litus; Varicose Veins of Lower Extremity; Onychomycosis; Cellulitis of Lower Limb; Peripheral Vascular Disease; Nausea Missy Thompson TURPENTINER: [address] [place] [address] [place] [address], Ph. 04/25/2020 Diabetic Foot Ulcer; Type 2 Diabetes Nora litus; Varicose Veins of Lower Extremity; Onychomycosis; Cellulitis of Lower Limb; Peripheral Vascular Disease Missy Thompson TURPENTINER: [address] [place] [address] [place] [address], Ph. Social History Tobacco Smoking Status Never Smoker Vaccine List None recorded. Plan of Care Patient Instructions Return to clinic 1 week Elevate your legs above your heart do th is 3-4 times a day for about 10-15 minutes minimum. Get prompt medical attention if any the following occur: An increase in redness or swelling. Red streaks in the skin leading away fro m the wound. An increase in pain or swelling at or ar ound the wound. Fever over 100.0 F orally. New odor or drainage from the wound bed. A compression wrap has been placed on on e or both of your legs today. Keep the wraps on and dry. If compression wraps feel tight or painf ul, it is a signal to elevate your legs to help reduce swelling. If you experience numbness or tingling i n the feet or legs elevate your legs for 30 minutes above the heart. If the sensation does not go away, remov e the compression wraps and notify the wound care clinic. If the compression wrap slides down the leg and causes pain, use blunt and scissors and cut a slit at the top. If the wrap "slips or bunches up" causing pain, remove the wrap and contact the wound care clinic. The wound care clinic staff can be reach ed at [phone] through from8 AM to 4 PMand Saturday from 8 AM to noon. Return to clinic 1 week Elevate your legs above your heart do th is 3-4 times a day for about 10-15 minutes minimum. Get prompt medical attention if any the following occur: An increase in redness or swelling. Red streaks in the skin leading away fro m the wound. An increase in pain or swelling at or ar ound the wound. Fever over 100.0 F orally. New odor or drainage from the wound bed. A compression wrap has been placed on on e or both of your legs today. Keep the wraps on and dry. If compression wraps feel tight or painf ul, it is a signal to elevate your legs to help reduce swelling. If you experience numbness or tingling i n the feet or legs elevate your legs for 30 minutes above the heart. If the sensation does not go away, remov e the compression wraps and notify the wound care clinic. If the compression wrap slides down the leg and causes pain, use blunt and scissors and cut a slit at the top. If the wrap "slips or bunches up" causing pain, remove the wrap and contact the wound care clinic. The wound care clinic staff can be reach ed at [phone] through from8 AM to 4 PMand Saturday from 8 AM to noon. Return to clinic 1 week BMP 09/27/2021 Elevate your legs above your heart do th is 3-4 times a day for about 10-15 minutes minimum. Get prompt medical attention if any the following occur: An increase in redness or swelling. Red streaks in the skin leading away fro m the wound. An increase in pain or swelling at or ar ound the wound. Fever over 100.0 F orally. New odor or drainage from the wound bed. A compression wrap has been placed on on e or both of your legs today. Keep the wraps on and dry. If compression wraps feel tight or painf ul, it is a signal to elevate your legs to help reduce swelling. If you experience numbness or tingling i n the feet or legs elevate your legs for 30 minutes above the heart. If the sensation does not go away, remov e the compression wraps and notify the wound care clinic. If the compression wrap slides down the leg and causes pain, use blunt and scissors and cut a slit at the top. If the wrap "slips or bunches up" causing pain, remove the wrap and contact the wound care clinic. The wound care clinic staff can be reach ed at [phone] through from8 AM to 4 PMand Saturday from 8 AM to noon. Get prompt medical attention if any the following occur: An increase in redness or swelling. Red streaks in the skin leading away fro m the wound. An increase in pain or swelling at or ar ound the wound. Fever over 100.0 F orally. New odor or drainage from the wound bed. Wound VAC patient instructions Remember to keep the wound VAC plugged a nd whenever you are sitting or in bed for a long period of time so the battery stays charged. The battery should last from 8-10 hours. Your wound VAC supplies will be sent to you. Remember to take a sponge and a canister to each of your visits here at the wound care clinic for your wound VAC dressing changes. You may shower but do not get the connor e wet. Leave your dressing in place. You may cover with Saran wrap and secure with tape to further protect the dressing. Do not scrub your dressing. If the machine stops functioning, and yo u are unable to reobtain seal after 2 hours remove foam and apply moistened gauze to the wound bed until the wound VAC dressing can be reapplied. Notify the wound clinic for instructions at [phone] . The clinic is open Saturday through from 8 AM till 5 PM and Saturday from 8 AM until noon. A compression wrap has been placed on on e or both of your legs today. Keep the wraps on and dry. If compression wraps feel tight or painf ul, it is a signal to elevate your legs to help reduce swelling. If you experience numbness or tingling i n the feet or legs elevate your legs for 30 minutes above the heart. If the sensation does not go away, remov e the compression wraps and notify the wound care clinic. If the compression wrap slides down the leg and causes pain, use blunt and scissors and cut a slit at the top. If the wrap "slips or bunches up" causing pain, remove the wrap and contact the wound care clinic. The wound care clinic staff can be reach ed at [phone] Saturday through from 8 AM to 4 PM and Saturday from 8 AM to noon. Return to clinic 1 week Keflex 500 mg four times a day BMP 09/27/2021 Elevate your legs above your heart do th is 3-4 times a day for about 10-15 minutes minimum. Get prompt medical attention if any the following occur: An increase in redness or swelling. Red streaks in the skin leading away fro m the wound. An increase in pain or swelling at or ar ound the wound. Fever over 100.0 F orally. New odor or drainage from the wound bed. A compression wrap has been placed on on e or both of your legs today. Keep the wraps on and dry. If compression wraps feel tight or painf ul, it is a signal to elevate your legs to help reduce swelling. If you experience numbness or tingling i n the feet or legs elevate your legs for 30 minutes above the heart. If the sensation does not go away, remov e the compression wraps and notify the wound care clinic. If the compression wrap slides down the leg and causes pain, use blunt and scissors and cut a slit at the top. If the wrap "slips or bunches up" causing pain, remove the wrap and contact the wound care clinic. The wound care clinic staff can be reach ed at [phone] through from8 AM to 4 PMand Saturday from 8 AM to noon. Wound VAC patient instructions Remember to keep the wound VAC plugged a nd whenever you are sitting or in bed for a long period of time so the battery stays charged. The battery should last from 8-10 hours. Your wound VAC supplies will be sent to you. Remember to take a sponge and a canister to each of your visits here at the wound care clinic for your wound VAC dressing changes. You may shower but do not get the connor e wet. Leave your dressing in place. You may cover with Saran wrap and secure with tape to further protect the dressing. Do not scrub your dressing. If the machine stops functioning, and yo u are unable to reobtain seal after 2 hours remove foam and apply moistened gauze to the wound bed until the wound VAC dressing can be reapplied. Notify the wound clinic for instructions at [phone] . The clinic is open Saturday through from 8 AM till 5PM and Saturday from8 AM until noon. Return to clinic 1 week Keflex 500 mg four times a day Elevate your legs above your heart do th is 3-4 times a day for about 10-15 minutes minimum. Get prompt medical attention if any the following occur: An increase in redness or swelling. Red streaks in the skin leading away fro m the wound. An increase in pain or swelling at or ar ound the wound. Fever over 100.0 F orally. New odor or drainage from the wound bed. A compression wrap has been placed on on e or both of your legs today. Keep the wraps on and dry. If compression wraps feel tight or painf ul, it is a signal to elevate your legs to help reduce swelling. If you experience numbness or tingling i n the feet or legs elevate your legs for 30 minutes above the heart. If the sensation does not go away, remov e the compression wraps and notify the wound care clinic. If the compression wrap slides down the leg and causes pain, use blunt and scissors and cut a slit at the top. If the wrap "slips or bunches up" causing pain, remove the wrap and contact the wound care clinic. The wound care clinic staff can be reach ed at [phone] through from8 AM to 4 PMand Saturday from 8 AM to noon. Wound VAC patient instructions Remember to keep the wound VAC plugged a nd whenever you are sitting or in bed for a long period of time so the battery stays charged. The battery should last from 8-10 hours. Your wound VAC supplies will be sent to you. Remember to take a sponge and a canister to each of your visits here at the wound care clinic for your wound VAC dressing changes. You may shower but do not get the connor e wet. Leave your dressing in place. You may cover with Saran wrap and secure with tape to further protect the dressing. Do not scrub your dressing. If the machine stops functioning, and yo u are unable to reobtain seal after 2 hours remove foam and apply moistened gauze to the wound bed until the wound VAC dressing can be reapplied. Notify the wound clinic for instructions at [phone] . The clinic is open Saturday through from 8 AM till 5PM and Saturday from8 AM until noon. Return to clinic 1 week Keflex 500 mg four times a day Elevate your legs above your heart do th is 3-4 times a day for about 10-15 minutes minimum. Get prompt medical attention if any the following occur: An increase in redness or swelling. Red streaks in the skin leading away fro m the wound. An increase in pain or swelling at or ar ound the wound. Fever over 100.0 F orally. New odor or drainage from the wound bed. A compression wrap has been placed on on e or both of your legs today. Keep the wraps on and dry. If compression wraps feel tight or painf ul, it is a signal to elevate your legs to help reduce swelling. If you experience numbness or tingling i n the feet or legs elevate your legs for 30 minutes above the heart. If the sensation does not go away, remov e the compression wraps and notify the wound care clinic. If the compression wrap slides down the leg and causes pain, use blunt and scissors and cut a slit at the top. If the wrap "slips or bunches up" causing pain, remove the wrap and contact the wound care clinic. The wound care clinic staff can be reach ed at [phone] through from8 AM to 4 PMand Saturday from 8 AM to noon. Wound VAC patient instructions Remember to keep the wound VAC plugged a nd whenever you are sitting or in bed for a long period of time so the battery stays charged. The battery should last from 8-10 hours. Your wound VAC supplies will be sent to you. Remember to take a sponge and a canister to each of your visits here at the wound care clinic for your wound VAC dressing changes. You may shower but do not get the connor e wet. Leave your dressing in place. You may cover with Saran wrap and secure with tape to further protect the dressing. Do not scrub your dressing. If the machine stops functioning, and yo u are unable to reobtain seal after 2 hours remove foam and apply moistened gauze to the wound bed until the wound VAC dressing can be reapplied. Notify the wound clinic for instructions at [phone] . The clinic is open Saturday through from 8 AM till 5PM and Saturday from8 AM until noon. Return to clinc as scheduled Get prompt medical attention if any the following occur: An increase in redness or swelling. Red streaks in the skin leading away fro m the wound. An increase in pain or swelling at or ar ound the wound. Fever over 100.0 F orally. New odor or drainage from the wound bed. Return to clinic 1 week Continue on your ciprofloxacin as instru cted Elevate your legs above your heart do th is 3-4 times a day for about 10-15 minutes minimum. Get prompt medical attention if any the following occur: An increase in redness or swelling. Red streaks in the skin leading away fro m the wound. An increase in pain or swelling at or ar ound the wound. Fever over 100.0 F orally. New odor or drainage from the wound bed. A compression wrap has been placed on on e or both of your legs today. Keep the wraps on and dry. If compression wraps feel tight or painf ul, it is a signal to elevate your legs to help reduce swelling. If you experience numbness or tingling i n the feet or legs elevate your legs for 30 minutes above the heart. If the sensation does not go away, remov e the compression wraps and notify the wound care clinic. If the compression wrap slides down the leg and causes pain, use blunt and scissors and cut a slit at the top. If the wrap "slips or bunches up" causing pain, remove the wrap and contact the wound care clinic. The wound care clinic staff can be reach ed at [phone] through from8 AM to 4 PMand Saturday from 8 AM to noon. Wound VAC patient instructions Remember to keep the wound VAC plugged a nd whenever you are sitting or in bed for a long period of time so the battery stays charged. The battery should last from 8-10 hours. Your wound VAC supplies will be sent to you. Remember to take a sponge and a canister to each of your visits here at the wound care clinic for your wound VAC dressing changes. You may shower but do not get the connor e wet. Leave your dressing in place. You may cover with Saran wrap and secure with tape to further protect the dressing. Do not scrub your dressing. If the machine stops functioning, and yo u are unable to reobtain seal after 2 hours remove foam and apply moistened gauze to the wound bed until the wound VAC dressing can be reapplied. Notify the wound clinic for instructions at [phone] . The clinic is open Saturday through from 8 AM till 5PM and Saturday from8 AM until noon. Return to clinic 1 week Continue on your ciprofloxacin as instru cted Elevate your legs above your heart do th is 3-4 times a day for about 10-15 minutes minimum. Get prompt medical attention if any the following occur: An increase in redness or swelling. Red streaks in the skin leading away fro m the wound. An increase in pain or swelling at or ar ound the wound. Fever over 100.0 F orally. New odor or drainage from the wound bed. A compression wrap has been placed on on e or both of your legs today. Keep the wraps on and dry. If compression wraps feel tight or painf ul, it is a signal to elevate your legs to help reduce swelling. If you experience numbness or tingling i n the feet or legs elevate your legs for 30 minutes above the heart. If the sensation does not go away, remov e the compression wraps and notify the wound care clinic. If the compression wrap slides down the leg and causes pain, use blunt and scissors and cut a slit at the top. If the wrap "slips or bunches up" causing pain, remove the wrap and contact the wound care clinic. The wound care clinic staff can be reach ed at [phone] through from8 AM to 4 PMand Saturday from 8 AM to noon. Wound VAC patient instructions Remember to keep the wound VAC plugged a nd whenever you are sitting or in bed for a long period of time so the battery stays charged. The battery should last from 8-10 hours. Your wound VAC supplies will be sent to you. Remember to take a sponge and a canister to each of your visits here at the wound care clinic for your wound VAC dressing changes. You may shower but do not get the connor e wet. Leave your dressing in place. You may cover with Saran wrap and secure with tape to further protect the dressing. Do not scrub your dressing. If the machine stops functioning, and yo u are unable to reobtain seal after 2 hours remove foam and apply moistened gauze to the wound bed until the wound VAC dressing can be reapplied. Notify the wound clinic for instructions at [phone] . The clinic is open Saturday through from 8 AM till 5PM and Saturday from8 AM until noon. Return to clinic 1 week Continue on your ciprofloxacin as instru cted Elevate your legs above your heart do th is 3-4 times a day for about 10-15 minutes minimum. Get prompt medical attention if any the following occur: An increase in redness or swelling. Red streaks in the skin leading away fro m the wound. An increase in pain or swelling at or ar ound the wound. Fever over 100.0 F orally. New odor or drainage from the wound bed. A compression wrap has been placed on on e or both of your legs today. Keep the wraps on and dry. If compression wraps feel tight or painf ul, it is a signal to elevate your legs to help reduce swelling. If you experience numbness or tingling i n the feet or legs elevate your legs for 30 minutes above the heart. If the sensation does not go away, remov e the compression wraps and notify the wound care clinic. If the compression wrap slides down the leg and causes pain, use blunt and scissors and cut a slit at the top. If the wrap "slips or bunches up" causing pain, remove the wrap and contact the wound care clinic. The wound care clinic staff can be reach ed at [phone] through from8 AM to 4 PMand Saturday from 8 AM to noon. Wound VAC patient instructions Remember to keep the wound VAC plugged a nd whenever you are sitting or in bed for a long period of time so the battery stays charged. The battery should last from 8-10 hours. Your wound VAC supplies will be sent to you. Remember to take a sponge and a canister to each of your visits here at the wound care clinic for your wound VAC dressing changes. You may shower but do not get the connor e wet. Leave your dressing in place. You may cover with Saran wrap and secure with tape to further protect the dressing. Do not scrub your dressing. If the machine stops functioning, and yo u are unable to reobtain seal after 2 hours remove foam and apply moistened gauze to the wound bed until the wound VAC dressing can be reapplied. Notify the wound clinic for instructions at [phone] . The clinic is open Saturday through from 8 AM till 5PM and Saturday from8 AM until noon. Return to clinic 1 week Continue on your ciprofloxacin as instru cted Elevate your legs above your heart do th is 3-4 times a day for about 10-15 minutes minimum. Get prompt medical attention if any the following occur: An increase in redness or swelling. Red streaks in the skin leading away fro m the wound. An increase in pain or swelling at or ar ound the wound. Fever over 100.0 F orally. New odor or drainage from the wound bed. A compression wrap has been placed on on e or both of your legs today. Keep the wraps on and dry. If compression wraps feel tight or painf ul, it is a signal to elevate your legs to help reduce swelling. If you experience numbness or tingling i n the feet or legs elevate your legs for 30 minutes above the heart. If the sensation does not go away, remov e the compression wraps and notify the wound care clinic. If the compression wrap slides down the leg and causes pain, use blunt and scissors and cut a slit at the top. If the wrap "slips or bunches up" causing pain, remove the wrap and contact the wound care clinic. The wound care clinic staff can be reach ed at [phone] through from8 AM to 4 PMasaturday from 8 AM to noon. Return to clinic 1 week MRI tomorrow as scheduled start cefdinir as instructed Elevate your legs above your heart do th is 3-4 times a day for about 10-15 minutes minimum. You have been prescribed Cefdinir today: Take this medication by mouth with or wi thout food as directed For the best effect, take this antibioti c at evenly spaced times. To help you remember, take this medication at the same time(s) every day. Continue to use this medication until th e full prescribed amount is finished even if symptoms disappear after a few days. Stopping the medication too early may allow bacteria to continue to grow, which may result in a relapse of the infection. Some medications can bind with cefdinir preventing its full absorption. If you take antacids containing magnesium or aluminum, iron supplements, or vitamin/mineral products, take them at least 2 hours apart from cefdinir. Get prompt medical attention if any the following occur: An increase in redness or swelling. Red streaks in the skin leading away fro m the wound. An increase in pain or swelling at or ar ound the wound. Fever over 100.0 F orally. New odor or drainage from the wound bed. A compression wrap has been placed on on e or both of your legs today. Keep the wraps on and dry. If compression wraps feel tight or painf ul, it is a signal to elevate your legs to help reduce swelling. If you experience numbness or tingling i n the feet or legs elevate your legs for 30 minutes above the heart. If the sensation does not go away, remov e the compression wraps and notify the wound care clinic. If the compression wrap slides down the leg and causes pain, use blunt and scissors and cut a slit at the top. If the wrap "slips or bunches up" causing pain, remove the wrap and contact the wound care clinic. The wound care clinic staff can be reach ed at [phone] through from8 AM to 4 PMand Saturday from 8 AM to noon. Return to clinic as scheduled-1 week Home health will continue to change her dressings in between clinic visits A compression wrap has been placed on on e or both of your legs today. Keep the wraps on and dry. If compression wraps feel tight or painf ul, it is a signal to elevate your legs to help reduce swelling. If you experience numbness or tingling i n the feet or legs elevate your legs for 30 minutes above the heart. If the sensation does not go away, remov e the compression wraps and notify the wound care clinic. If the compression wrap slides down the leg and causes pain, use blunt and scissors and cut a slit at the top. If the wrap "slips or bunches up" causing pain, remove the wrap and contact the wound care clinic. The wound care clinic staff can be reach ed at [phone] through from8 AM to 4 PMasaturday from 8 AM to noon. Get prompt medical attention if any the following occur: An increase in redness or swelling. Red streaks in the skin leading away fro m the wound. An increase in pain or swelling at or ar ound the wound. Fever over 100.0 F orally. New odor or drainage from the wound bed. Return to clinic as scheduled-1 week Home health will continue to change her dressings in between clinic visits A compression wrap has been placed on on e or both of your legs today. Keep the wraps on and dry. If compression wraps feel tight or painf ul, it is a signal to elevate your legs to help reduce swelling. If you experience numbness or tingling i n the feet or legs elevate your legs for 30 minutes above the heart. If the sensation does not go away, remov e the compression wraps and notify the wound care clinic. If the compression wrap slides down the leg and causes pain, use blunt and scissors and cut a slit at the top. If the wrap "slips or bunches up" causing pain, remove the wrap and contact the wound care clinic. The wound care clinic staff can be reach ed at [phone] through from8 AM to 4 PMand Saturday from 8 AM to noon. Return to clinic as scheduled-1 week Home health will continue to change her dressings in between clinic visits Make Appointment with [facility] for prosthetic to right leg. A compression wrap has been placed on on e or both of your legs today. Keep the wraps on and dry. If compression wraps feel tight or painf ul, it is a signal to elevate your legs to help reduce swelling. If you experience numbness or tingling i n the feet or legs elevate your legs for 30 minutes above the heart. If the sensation does not go away, remov e the compression wraps and notify the wound care clinic. If the compression wrap slides down the leg and causes pain, use blunt and scissors and cut a slit at the top. If the wrap "slips or bunches up" causing pain, remove the wrap and contact the wound care clinic. The wound care clinic staff can be reach ed at [phone] through from8 AM to 4 PMasaturday from 8 AM to noon. Return to clinic as scheduled-1 week Home health will continue to change her dressings in between clinic visits Make Appointment with [facility] for prosthetic to right leg. A compression wrap has been placed on on e or both of your legs today. Keep the wraps on and dry. If compression wraps feel tight or painf ul, it is a signal to elevate your legs to help reduce swelling. If you experience numbness or tingling i n the feet or legs elevate your legs for 30 minutes above the heart. If the sensation does not go away, remov e the compression wraps and notify the wound care clinic. If the compression wrap slides down the leg and causes pain, use blunt and scissors and cut a slit at the top. If the wrap "slips or bunches up" causing pain, remove the wrap and contact the wound care clinic. The wound care clinic staff can be reach ed at [phone] through from8 AM to 4 PMand Saturday from 8 AM to noon. Return to clinic as scheduled Home health will continue to change her dressings in between clinic visits Make Appointment with [facility] for prosthetic to right leg. A compression wrap has been placed on on e or both of your legs today. Keep the wraps on and dry. If compression wraps feel tight or painf ul, it is a signal to elevate your legs to help reduce swelling. If you experience numbness or tingling i n the feet or legs elevate your legs for 30 minutes above the heart. If the sensation does not go away, remov e the compression wraps and notify the wound care clinic. If the compression wrap slides down the leg and causes pain, use blunt and scissors and cut a slit at the top. If the wrap "slips or bunches up" causing pain, remove the wrap and contact the wound care clinic. The wound care clinic staff can be reach ed at [phone] through from8 AM to 4 PMasaturday from 8 AM to noon. Return to clinic as scheduled Home health will continue to change her dressings in between clinic visits A compression wrap has been placed on on e or both of your legs today. Keep the wraps on and dry. If compression wraps feel tight or painf ul, it is a signal to elevate your legs to help reduce swelling. If you experience numbness or tingling i n the feet or legs elevate your legs for 30 minutes above the heart. If the sensation does not go away, remov e the compression wraps and notify the wound care clinic. If the compression wrap slides down the leg and causes pain, use blunt and scissors and cut a slit at the top. If the wrap "slips or bunches up" causing pain, remove the wrap and contact the wound care clinic. The wound care clinic staff can be reach ed at [phone] through from8 AM to 4 PMand Saturday from 8 AM to noon. Return to clinic as scheduled Home health will continue to change her dressings in between clinic visits A compression wrap has been placed on on e or both of your legs today. Keep the wraps on and dry. If compression wraps feel tight or painf ul, it is a signal to elevate your legs to help reduce swelling. If you experience numbness or tingling i n the feet or legs elevate your legs for 30 minutes above the heart. If the sensation does not go away, remov e the compression wraps and notify the wound care clinic. If the compression wrap slides down the leg and causes pain, use blunt and scissors and cut a slit at the top. If the wrap "slips or bunches up" causing pain, remove the wrap and contact the wound care clinic. The wound care clinic staff can be reach ed at [phone] through from8 AM to 4 PMand Saturday from 8 AM to noon. return to clinic 1 week Home health will continue to dress in be tween clinic visits. A compression wrap has been placed on on e or both of your legs today. Keep the wraps on and dry. If compression wraps feel tight or painf ul, it is a signal to elevate your legs to help reduce swelling. If you experience numbness or tingling i n the feet or legs elevate your legs for 30 minutes above the heart. If the sensation does not go away, remov e the compression wraps and notify the wound care clinic. If the compression wrap slides down the leg and causes pain, use blunt and scissors and cut a slit at the top. If the wrap "slips or bunches up" causing pain, remove the wrap and contact the wound care clinic. The wound care clinic staff can be reach ed at [phone] through from8 AM to 4 PMand Saturday from 8 AM to noon. return to clinic 1 week Home health will continue to dress in be tween clinic visits. A compression wrap has been placed on on e or both of your legs today. Keep the wraps on and dry. If compression wraps feel tight or painf ul, it is a signal to elevate your legs to help reduce swelling. If you experience numbness or tingling i n the feet or legs elevate your legs for 30 minutes above the heart. If the sensation does not go away, remov e the compression wraps and notify the wound care clinic. If the compression wrap slides down the leg and causes pain, use blunt and scissors and cut a slit at the top. If the wrap "slips or bunches up" causing pain, remove the wrap and contact the wound care clinic. The wound care clinic staff can be reach ed at [phone] through from8 AM to 4 PMand Saturday from 8 AM to noon. return to clinic 1 week A compression wrap has been placed on on e or both of your legs today. Keep the wraps on and dry. If compression wraps feel tight or painf ul, it is a signal to elevate your legs to help reduce swelling. If you experience numbness or tingling i n the feet or legs elevate your legs for 30 minutes above the heart. If the sensation does not go away, remov e the compression wraps and notify the wound care clinic. If the compression wrap slides down the leg and causes pain, use blunt and scissors and cut a slit at the top. If the wrap "slips or bunches up" causing pain, remove the wrap and contact the wound care clinic. The wound care clinic staff can be reach ed at [phone] through from8 AM to 4 PMand Saturday from 8 AM to noon. return to clinic 1 week A compression wrap has been placed on on e or both of your legs today. Keep the wraps on and dry. If compression wraps feel tight or painf ul, it is a signal to elevate your legs to help reduce swelling. If you experience numbness or tingling i n the feet or legs elevate your legs for 30 minutes above the heart. If the sensation does not go away, remov e the compression wraps and notify the wound care clinic. If the compression wrap slides down the leg and causes pain, use blunt and scissors and cut a slit at the top. If the wrap "slips or bunches up" causing pain, remove the wrap and contact the wound care clinic. The wound care clinic staff can be reach ed at [phone] through from8 AM to 4 PMand Saturday from 8 AM to noon. return to clinic 1 week Wound VAC patient instructions Remember to keep the wound VAC plugged a nd whenever you are sitting or in bed for a long period of time so the battery stays charged. The battery should last from 8-10 hours. Your wound VAC supplies will be sent to you. Remember to take a sponge and a canister to each of your visits here at the wound care clinic for your wound VAC dressing changes. You may shower but do not get the connor e wet. Leave your dressing in place. You may cover with Saran wrap and secure with tape to further protect the dressing. Do not scrub your dressing. If the machine stops functioning, and yo u are unable to re obtain seal after 2 hours remove foam and apply moistened gauze to the wound bed until the wound VAC dressing can be reapplied. Notify the wo d clinic for instructions at 551 9. The clinic is open Saturday through from 8 AM till 5PM and Saturday from8 AM until noon. A compression wrap has been placed on on e or both of your legs today. Keep the wraps on and dry. If compression wraps feel tight or painf ul, it is a signal to elevate your legs to help reduce swelling. If you experience numbness or tingling i n the feet or legs elevate your legs for 30 minutes above the heart. If the sensation does not go away, remov e the compression wraps and notify the wound care clinic. If the compression wrap slides down the leg and causes pain, use blunt and scissors and cut a slit at the top. If the wrap "slips or bunches up" causing pain, remove the wrap and contact the wound care clinic. The wound care clinic staff can be reach ed at [phone] through from8 AM to 4 PMand Saturday from 8 AM to noon. return to clinic 2 weeks Wound VAC patient instructions Remember to keep the wound VAC plugged a nd whenever you are sitting or in bed for a long period of time so the battery stays charged. The battery should last from 8-10 hours. Your wound VAC supplies will be sent to you. Remember to take a sponge and a canister to each of your visits here at the wound care clinic for your wound VAC dressing changes. You may shower but do not get the connor e wet. Leave your dressing in place. You may cover with Saran wrap and secure with tape to further protect the dressing. Do not scrub your dressing. If the machine stops functioning, and yo u are unable to re obtain seal after 2 hours remove foam and apply moistened gauze to the wound bed until the wound VAC dressing can be reapplied. Notify the wo d clinic for instructions at 762 9. The clinic is open Saturday through from 8 AM till 5PM and Saturday from8 AM until noon. A compression wrap has been placed on on e or both of your legs today. Keep the wraps on and dry. If compression wraps feel tight or painf ul, it is a signal to elevate your legs to help reduce swelling. If you experience numbness or tingling i n the feet or legs elevate your legs for 30 minutes above the heart. If the sensation does not go away, remov e the compression wraps and notify the wound care clinic. If the compression wrap slides down the leg and causes pain, use blunt and scissors and cut a slit at the top. If the wrap "slips or bunches up" causing pain, remove the wrap and contact the wound care clinic. The wound care clinic staff can be reach ed at [phone] through from8 AM to 4 PMand Saturday from 8 AM to noon. return to clinic 2 weeks Wound VAC patient instructions Remember to keep the wound VAC plugged a nd whenever you are sitting or in bed for a long period of time so the battery stays charged. The battery should last from 8-10 hours. Your wound VAC supplies will be sent to you. Remember to take a sponge and a canister to each of your visits here at the wound care clinic for your wound VAC dressing changes. You may shower but do not get the connor e wet. Leave your dressing in place. You may cover with Saran wrap and secure with tape to further protect the dressing. Do not scrub your dressing. If the machine stops functioning, and yo u are unable to re obtain seal after 2 hours remove foam and apply moistened gauze to the wound bed until the wound VAC dressing can be reapplied. Notify the woun d clinic for instructions at [phone]. The clinic is open Saturday through from 8 AM till 5PM and Saturday from8 AM until noon. A compression wrap has been placed on on e or both of your legs today. Keep the wraps on and dry. If compression wraps feel tight or painf ul, it is a signal to elevate your legs to help reduce swelling. If you experience numbness or tingling i n the feet or legs elevate your legs for 30 minutes above the heart. If the sensation does not go away, remov e the compression wraps and notify the wound care clinic. If the compression wrap slides down the leg and causes pain, use blunt and scissors and cut a slit at the top. If the wrap "slips or bunches up" causing pain, remove the wrap and contact the wound care clinic. The wound care clinic staff can be reach ed at [phone] through from8 AM to 4 PMand Saturday from 8 AM to noon. return to clinic 2 weeks Wound VAC patient instructions Remember to keep the wound VAC plugged a nd whenever you are sitting or in bed for a long period of time so the battery stays charged. The battery should last from 8-10 hours. Your wound VAC supplies will be sent to you. Remember to take a sponge and a canister to each of your visits here at the wound care clinic for your wound VAC dressing changes. You may shower but do not get the connor e wet. Leave your dressing in place. You may cover with Saran wrap and secure with tape to further protect the dressing. Do not scrub your dressing. If the machine stops functioning, and yo u are unable to re obtain seal after 2 hours remove foam and apply moistened gauze to the wound bed until the wound VAC dressing can be reapplied. Notify the woun d clinic for instructions at /[id number] 9. The clinic is open Saturday through from 8 AM till 5PM and Saturday from8 AM until noon. A compression wrap has been placed on on e or both of your legs today. Keep the wraps on and dry. If compression wraps feel tight or painf ul, it is a signal to elevate your legs to help reduce swelling. If you experience numbness or tingling i n the feet or legs elevate your legs for 30 minutes above the heart. If the sensation does not go away, remov e the compression wraps and notify the wound care clinic. If the compression wrap slides down the leg and causes pain, use blunt and scissors and cut a slit at the top. If the wrap "slips or bunches up" causing pain, remove the wrap and contact the wound care clinic. The wound care clinic staff can be reach ed at [phone] through from8 AM to 4 PMand Saturday from 8 AM to noon. return to clinic 1 week Wound VAC patient instructions Remember to keep the wound VAC plugged a nd whenever you are sitting or in bed for a long period of time so the battery stays charged. The battery should last from 8-10 hours. Your wound VAC supplies will be sent to you. Remember to take a sponge and a canister to each of your visits here at the wound care clinic for your wound VAC dressing changes. You may shower but do not get the connor e wet. Leave your dressing in place. You may cover with Saran wrap and secure with tape to further protect the dressing. Do not scrub your dressing. If the machine stops functioning, and yo u are unable to reobtain seal after 2 hours remove foam and apply moistened gauze to the wound bed until the wound VAC dressing can be reapplied. Notify the wound clinic for instructions at [phone] . The clinic is open Saturday through from 8 AM till 5PM and Saturday from8 AM until noon. A compression wrap has been placed on on e or both of your legs today. Keep the wraps on and dry. If compression wraps feel tight or painf ul, it is a signal to elevate your legs to help reduce swelling. If you experience numbness or tingling i n the feet or legs elevate your legs for 30 minutes above the heart. If the sensation does not go away, remov e the compression wraps and notify the wound care clinic. If the compression wrap slides down the leg and causes pain, use blunt and scissors and cut a slit at the top. If the wrap "slips or bunches up" causing pain, remove the wrap and contact the wound care clinic. The wound care clinic staff can be reach ed at [phone] through from8 AM to 4 PMand Saturday from 8 AM to noon. Return to clinic as scheduled. 02-18-20 at 10:00 AM Leave dressing in place for home health/ wound care Get prompt medical attention if any the following occur: An increase in redness or swelling. Red streaks in the skin leading away fro m the wound. An increase in pain or swelling at or ar ound the wound. Fever over 100.0 F orally. New odor or drainage from the wound bed. Return to clinic as scheduled. 02-04-20 at 10:30 AM for nurse visit Dressing supplies have been sent to [facility] Leave dressing in place for home health/ wound care Get prompt medical attention if any the following occur: An increase in redness or swelling. Red streaks in the skin leading away fro m the wound. An increase in pain or swelling at or ar ound the wound. Fever over 100.0 F orally. New odor or drainage from the wound bed. Return to clinic as scheduled at 9:30AM Leave your dressing in place until home health changes it on Saturday Get prompt medical attention if any the following occur: An increase in redness or swelling. Red streaks in the skin leading away fro m the wound. An increase in pain or swelling at or ar ound the wound. Fever over 100.0 F orally. New odor or drainage from the wound bed. Return to clinic: 01-20-2021 at 9:45 AM Leave dressing in place for home health/ wound care. A compression wrap has been placed on on e or both of your legs today. Keep the wraps on and dry. If compression wraps feel tight or painf ul, it is a signal to elevate your legs to help reduce swelling. If you experience numbness or tingling i n the feet or legs elevate your legs for 30 minutes above the heart. If the sensation does not go away, remov e the compression wraps and notify the wound care clinic. If the compression wrap slides down the leg and causes pain, use blunt and scissors and cut a slit at the top. If the wrap "slips or bunches up" causing pain, remove the wrap and contact the wound care clinic. The wound care clinic staff can be reach ed at [phone] through from8 AM to 4 PMand Saturday from 8 AM to noon. Leave your dressings in place for two w eeks for protection. Please call the clinic if your wound reo pens, new wounds develop, or if you have any questions or concerns. CONGRATULATIONS on all of your hard work and dedication to the healing of your wound; you are discharged from wound care services as o f today. Return to clinic as scheduled on 021 at 10:00AM Finish your clindamycin as ordered by Tanisha black. Limit activity for the first [address] cast is applied. The Darco shoe must be always worn when walking. If the cast is loose or rubbing or causi ng pain, please call provider it may need to be changed. The first cast change will take place 2- 3 days after the cast is first applied. Subsequent cast changes will take place from 1-2 times per week as instructed by her clinician. If you develop a fever, chills, nausea, or vomiting, the cast must be removed to check the wound. Keep yur cast dry. If the cast gets wet, it must be changed immediately. You may use a protective cast pad when bathing. If the cast is removed in a hospital or emergency room, the cast medical record technician must be notified there is only padding on the front over the smith, on the ankles, and over the foot and toes. These are the on ly places where the cast can be cut with a saw to remove it. You will need to wear a cast for an silvino tional 1-2 weeks after your wound has healed or until your skin has returned to normal thickness. Please keep the emergency removal instru ctions with you in case someone other than your provider must remove the cast. This is a nontraditional cast and must be removed in a different manner. Get prompt medical attention if any the following occur: An increase in redness or swelling. Red streaks in the skin leading away fro m the wound. An increase in pain or swelling at or ar ound the wound. Fever over 100.0 F orally. New odor or drainage from the wound bed. Get prompt medical attention if any the following occur: An increase in redness or swelling. Red streaks in the skin leading away fro m the wound. An increase in pain or swelling at or ar ound the wound. Fever over 100.0 F orally. New odor or drainage from the wound bed. Return to clinic on 11/18/2020 at 10:00AM Limit activity for the first [address] cast is applied. The Darco shoe must be always worn when walking. If the cast is loose or rubbing or causi ng pain, please call provider it may need to be changed. The first cast change will take place 2- 3 days after the cast is first applied. Subsequent cast changes will take place from 1-2 times per week as instructed by her clinician. If you develop a fever, chills, nausea, or vomiting, the cast must be removed to check the wound. Keep your cast dry. If the cast gets wet , it must be changed immediately. You may use a protective cast pad when bathing. If the cast is removed in a hospital or emergency room, the cast medical record technician must be notified there is only padding on the front over the smith, on the ankles, and over the foot and toes. These are the on ly places where the cast can be cut with a saw to remove it. You will need to wear a cast for an silvino tional 1-2 weeks after your wound has healed or until your skin has returned to normal thickness. Please keep the emergency removal instru ctions with you in case someone other than your provider must remove the cast. This is a nontraditional cast and must be removed in a different manner. New odor or drainage from the wound bed. Get prompt medical attention if any the following occur: An increase in redness or swelling. Red streaks in the skin leading away fro m the wound. An increase in pain or swelling at or ar ound the wound. Fever over 100.0 F orally. New odor or drainage from the wound bed. Return to clinic on 11/11/2020 at 10:30A M Limit activity for the first [address] cast is applied. The Darco shoe must be always worn when walking. If the cast is loose or rubbing or causi ng pain, please call provider it may need to be changed. The first cast change will take place 2- 3 days after the cast is first applied. Subsequent cast changes will take place from 1-2 times per week as instructed by her clinician. If you develop a fever, chills, nausea, or vomiting, the cast must be removed to check the wound. Keep your cast dry. If the cast gets wet , it must be changed immediately. You may use a protective cast pad when bathing. If the cast is removed in a hospital or emergency room, the cast medical record technician must be notified there is only padding on the front over the smith, on the ankles, and over the foot and toes. These are the on ly places where the cast can be cut with a saw to remove it. You will need to wear a cast for an silvino tional 1-2 weeks after your wound has healed or until your skin has returned to normal thickness. Please keep the emergency removal instru ctions with you in case someone other than your provider must remove the cast. This is a nontraditional cast and must be removed in a different manner. New odor or drainage from the wound bed. Get prompt medical attention if any the following occur: An increase in redness or swelling. Red streaks in the skin leading away fro m the wound. An increase in pain or swelling at or ar ound the wound. Fever over 100.0 F orally. New odor or drainage from the wound bed. Return to clinic as scheduled on at 10:30AM Continue your antibiotic as ordered Please your cast in place as we have garcía tierra a skin substitute to your foot. Limit activity for the first [address] cast is applied. The Gian shoe must be always worn when walking. If the cast is loose or rubbing or causi ng pain, please call provider it may need to be changed. The first cast change will take place 2- 3 days after the cast is first applied. Subsequent cast changes will take place from 1-2 times per week as instructed by her clinician. If you develop a fever, chills, nausea, or vomiting, the cast must be removed to check the wound. Keep your cast dry. If the cast gets wet , it must be changed immediately. You may use a protective cast pad when bathing. If the cast is removed in a hospital or emergency room, the cast medical record technician must be notified there is only padding on the front over the smith, on the ankles, and over the foot and toes. These are the on ly places where the cast can be cut with a saw to remove it. You will need to wear a cast for an silvino tional 1-2 weeks after your wound has healed or until your skin has returned to normal thickness. Please keep the emergency removal instru ctions with you in case someone other than your provider must remove the cast. This is a nontraditional cast and must be removed in a different manner. An increase in redness or swelling. Red streaks in the skin leading away fro m the wound. An increase in pain or swelling at or ar ound the wound. Fever over 100.0 F orally. New odor or drainage from the wound bed. Return to clinic as scheduled on at 10:30AM Continue your antibiotic as ordered Please your cast in place as we have garcía tierra a skin substitute to your foot. Limit activity for the first [address] cast is applied. The Gian shoe must be always worn when walking. If the cast is loose or rubbing or causi ng pain, please call provider it may need to be changed. The first cast change will take place 2- 3 days after the cast is first applied. Subsequent cast changes will take place from 1-2 times per week as instructed by her clinician. If you develop a fever, chills, nausea, or vomiting, the cast must be removed to check the wound. Keep your cast dry. If the cast gets wet , it must be changed immediately. You may use a protective cast pad when bathing. If the cast is removed in a hospital or emergency room, the cast medical record technician must be notified there is only padding on the front over the smith, on the ankles, and over the foot and toes. These are the on ly places where the cast can be cut with a saw to remove it. You will need to wear a cast for an silvino tional 1-2 weeks after your wound has healed or until your skin has returned to normal thickness. Please keep the emergency removal instru ctions with you in case someone other than your provider must remove the cast. This is a nontraditional cast and must be removed in a different manner. An increase in redness or swelling. Red streaks in the skin leading away fro m the wound. An increase in pain or swelling at or ar ound the wound. Fever over 100.0 F orally. New odor or drainage from the wound bed. Return to clinic as scheduled on 021 10:30AM Continues with his clindamycin as ordere d. Limit activity for the first [address] cast is applied. The Darco shoe must be always worn when walking. If the cast is loose or rubbing or causing pain, please call provider it may need to be lamont webber. The first cast change will take garcía ce 2-3 days after the cast is first applied. Subsequent cast changes will take place from 1-2 times per week as instructed by her clinician. If you develop a feve r, chills, nausea, or vomiting, the cast must be removed to check the wound. Keep your cast dry. If the cast gets wet, it must be changed immediately. You may use a protective cast pad when bathing. If the cast is removed in a hospital or [facility] room, the cast medical record technician must be notified there is only padding on the front over the smith, on the ankles, and over the foot and toes. These are the only places where the cast can be cut with a saw to remove it. You will need to wear a cast for an additional 1-2 weeks after your wound has healed or until your skin has returned to normal thickness. Please keep the emergency removal instructions with you in case someone other than your provider must remove the cast. This is a nontraditional cast and must be removed in a different manner. Get prompt medic al attention if any the following occur: An increase in redness or swelling. Red streaks in the skin leading away from the wound. An increase in pain or swelling at or around the wound. Fever over 100.0 F orally. New odor or drainage from the wound bed. Return to clinic as scheduled on 10/22/19 21 at 10:30AM Continue your antibiotics as ordered. Limit activity for the first [address] cast is applied. The Darco shoe must be always worn when walking. If the cast is loose or rubbing or causing pain, please call provider it may need to be lamont webber. The first cast change will take garcía ce 2-3 days after the cast is first applied. Subsequent cast changes will take place from 1-2 times per week as instructed by her clinician. If you develop a feve r, chills, nausea, or vomiting, the cast must be removed to check the wound. Keep your cast dry. If the cast gets wet, it must be changed immediately. You may use a protective cast pad when bathing. If the cast is removed in a hospital or [facility] room, the cast medical record technician must be notified there is only padding on the front over the smith, on the ankles, and over the foot and toes. These are the only places where the cast can be cut with a saw to remove it. You will need to wear a cast for an additional 1-2 weeks after your wound has healed or until your skin has returned to normal thickness. Please keep the emergency removal instructions with you in case someone other than your provider must remove the cast. This is a nontraditional cast and must be removed in a different manner. Get prompt medic al attention if any the following occur: An increase in redness or swelling. Red streaks in the skin leading away from the wound. An increase in pain or swelling at or around the wound. Fever over 100.0 F orally. New odor or drainage from the wound bed. Get prompt medical attention if any the following occur: An increase in redness or swelling. Red streaks in the skin leading away fro m the wound. An increase in pain or swelling at or ar ound the wound. Fever over 100.0 F orally. New odor or drainage from the wound bed. Weekly casting maintained. Return to clinic as scheduled on 021 at 1000AM Continue with your antibiotics as ordere d Limit activity for the first [address] cast is applied. The Darco shoe must be always worn when walking. If the cast is loose or rubbing or causi ng pain, please call provider it may need to be changed. The first cast change will take place 2- 3 days after the cast is first applied. Subsequent cast changes will take place from 1-2 times per week as instructed by her clinician. If you develop a fever, chills, nausea, or vomiting, the cast must be removed to check the wound. Keep your cast dry. If the cast gets wet , it must be changed immediately. You may use a protective cast pad when bathing. If the cast is removed in a hospital or emergency room, the cast medical record technician must be notified there is only padding on the front over the smith, on the ankles, and over the foot and toes. These are the on ly places where the cast can be cut with a saw to remove it. You will need to wear a cast for an silvino tional 1-2 weeks after your wound has healed or until your skin has returned to normal thickness. Please keep the emergency removal instru ctions with you in case someone other than your provider must remove the cast. This is a nontraditional cast and must be removed in a different manner. Get prompt medical attention if any the following occur: An increase in redness or swelling. Red streaks in the skin leading away fro m the wound. An increase in pain or swelling at or ar ound the wound. Fever over 100.0 F orally. New odor or drainage from the wound bed. Return to clinic as scheduled on 021 at 1:30PM Continue with your antibiotics as ordere d Limit activity for the first [address] cast is applied. The Darco shoe must be always worn when walking. If the cast is loose or rubbing or causi ng pain, please call provider it may need to be changed. The first cast change will take place 2- 3 days after the cast is first applied. Subsequent cast changes will take place from 1-2 times per week as instructed by her clinician. If you develop a fever, chills, nausea, or vomiting, the cast must be removed to check the wound. Keep your cast dry. If the cast gets wet , it must be changed immediately. You may use a protective cast pad when bathing. If the cast is removed in a hospital or emergency room, the cast medical record technician must be notified there is only padding on the front over the smith, on the ankles, and over the foot and toes. These are the on ly places where the cast can be cut with a saw to remove it. You will need to wear a cast for an silvino tional 1-2 weeks after your wound has healed or until your skin has returned to normal thickness. Please keep the emergency removal instru ctions with you in case someone other than your provider must remove the cast. This is a nontraditional cast and must be removed in a different manner. Get prompt medical attention if any the following occur: An increase in redness or swelling. Red streaks in the skin leading away fro m the wound. An increase in pain or swelling at or ar ound the wound. Fever over 100.0 F orally. New odor or drainage from the wound bed. Return to clinic as scheduled. 09-27-19 21 at 10:30 AM Change the dressing to your left foot ev eduardo other day. Continue cephalexin 1000mg (two 500mg pi lls) twice a day for another 14 days. Limit activity for the first [address] cast is applied. The Gian shoe must be always worn when walking. If the cast is loose or rubbing or causi ng pain, please call provider it may need to be changed. The first cast change will take place 2- 3 days after the cast is first applied. Subsequent cast changes will take place from 1-2 times per week as instructed by her clinician. If you develop a fever, chills, nausea, or vomiting, the cast must be removed to check the wound. Keep your cast dry. If the cast gets wet , it must be changed immediately. You may use a protective cast pad when bathing. If the cast is removed in a hospital or emergency room, the cast medical record technician must be notified there is only padding on the front over the smith, on the ankles, and over the foot and toes. These are the on ly places where the cast can be cut with a saw to remove it. You will need to wear a cast for an silvino tional 1-2 weeks after your wound has healed or until your skin has returned to normal thickness. Please keep the emergency removal instru ctions with you in case someone other than your provider must remove the cast. This is a nontraditional cast and must be removed in a different manner. Get prompt medical attention if any the following occur: An increase in redness or swelling. Red streaks in the skin leading away fro m the wound. An increase in pain or swelling at or ar ound the wound. Fever over 100.0 F orally. New odor or drainage from the wound bed. Return to clinic as scheduled. 09-27-19 21 at 10:30 AM Limit activity for the first [address] cast is applied. The Gian shoe must be always worn when walking. If the cast is loose or rubbing or causi ng pain, please call provider it may need to be changed. The first cast change will take place 2- 3 days after the cast is first applied. Subsequent cast changes will take place from 1-2 times per week as instructed by her clinician. If you develop a fever, chills, nausea, or vomiting, the cast must be removed to check the wound. Keep your cast dry. If the cast gets wet , it must be changed immediately. You may use a protective cast pad when bathing. If the cast is removed in a hospital or emergency room, the cast medical record technician must be notified there is only padding on the front over the smith, on the ankles, and over the foot and toes. These are the on ly places where the cast can be cut with a saw to remove it. You will need to wear a cast for an silvino tional 1-2 weeks after your wound has healed or until your skin has returned to normal thickness. Please keep the emergency removal instru ctions with you in case someone other than your provider must remove the cast. This is a nontraditional cast and must be removed in a different manner. Get prompt medical attention if any the following occur: An increase in redness or swelling. Red streaks in the skin leading away fro m the wound. An increase in pain or swelling at or ar ound the wound. Fever over 100.0 F orally. New odor or drainage from the wound bed. Get prompt medical attention if any the following occur: An increase in redness or swelling. Red streaks in the skin leading away from the wound. An increase in pain or swelling at or around the wound. Fever over 100.0 F orally. New odor or d rainage from the wound bed. 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 -->For physical therapy, your cast is me ant to be a walking cast only, please do not put excess pressure on the right leg. Limit activity for the first [address] cast is applied. The Darco shoe must be always worn when walking. If the cast is loose or rubbing or causi ng pain, please call provider it may need to be changed. The first cast change will take place 2- 3 days after the cast is first applied. Subsequent cast changes will take place from 1-2 times per week as instructed by her clinician. If you develop a fever, chills, nausea, or vomiting, the cast must be removed to check the wound. Keep your cast dry. If the cast gets wet , it must be changed immediately. You may use a protective cast pad when bathing. If the cast is removed in a hospital or emergency room, the cast medical record technician must be notified there is only padding on the front over the smith, on the ankles, and over the foot and toes. These are the on ly places where the cast can be cut with a saw to remove it. You will need to wear a cast for an silvino tional 1-2 weeks after your wound has healed or until your skin has returned to normal thickness. Please keep the emergency removal instru ctions with you in case someone other than your provider must remove the cast. This is a nontraditional cast and must be removed in a different manner. Get prompt medical attention if any the following occur: An increase in redness or swelling. Red streaks in the skin leading away fro m the wound. An increase in pain or swelling at or ar ound the wound. Fever over 100.0 F orally. New odor or drainage from the wound bed. Return to clinic 09-02-2020 at 10:00 AM Get an appointment with Dr. Pb lentz for next as planned; we will see you the following day. Please limit your activity and weight bearing to the right foot while out of the cast. Limit activity for the first [address] cast is applied. The [employer] shoe must be always worn when walking. If the cast is loose or rubbing or causi ng pain, please call provider it may need to be changed. The first cast change will take place 2- 3 days after the cast is first applied. Subsequent cast changes will take place from 1-2 times per week as instructed by her clinician. If you develop a fever, chills, nausea, or vomiting, the cast must be removed to check the wound. Keep your cast dry. If the cast gets wet , it must be changed immediately. You may use a protective cast pad when bathing. If the cast is removed in a hospital or emergency room, the cast medical record technician must be notified there is only padding on the front over the smith, on the ankles, and over the foot and toes. These are the on ly places where the cast can be cut with a saw to remove it. You will need to wear a cast for an silvino tional 1-2 weeks after your wound has healed or until your skin has returned to normal thickness. Please keep the emergency removal instru ctions with you in case someone other than your provider must remove the cast. This is a nontraditional cast and must be removed in a different manner. Get prompt medical attention if any the following occur: An increase in redness or swelling. Red streaks in the skin leading away fro m the wound. An increase in pain or swelling at or ar ound the wound. Fever over 100.0 F orally. New odor or drainage from the wound bed. Return to clinic Saturday 08/26 @1000 Limit activity for the first [address] cast is applied. The Darco shoe must be always worn when walking. If the cast is loose or rubbing or causi ng pain, please call provider it may need to be changed. The first cast change will take place 2- 3 days after the cast is first applied. Subsequent cast changes will take place from 1-2 times per week as instructed by her clinician. If you develop a fever, chills, nausea, or vomiting, the cast must be removed to check the wound. Keep your cast dry. If the cast gets wet , it must be changed immediately. You may use a protective cast pad when bathing. If the cast is removed in a hospital or emergency room, the cast medical record technician must be notified there is only padding on the front over the smith, on the ankles, and over the foot and toes. These are the on ly places where the cast can be cut with a saw to remove it. You will need to wear a cast for an silvino tional 1-2 weeks after your wound has healed or until your skin has returned to normal thickness. Please keep the emergency removal instru ctions with you in case someone other than your provider must remove the cast. This is a nontraditional cast and must be removed in a different manner. Get prompt medical attention if any the following occur: An increase in redness or swelling. Red streaks in the skin leading away fro m the wound. An increase in pain or swelling at or ar ound the wound. Fever over 100.0 F orally. New odor or drainage from the wound bed. Return to clinic 08-09-2020 at 1:00 PM Leave dressing in place for home health/ wound care. Continue IV antibiotics as ordered by Dr Tammy Galloway Get prompt medical attention if any the following occur: An increase in redness or swelling. Red streaks in the skin leading away fro m the wound. An increase in pain or swelling at or ar ound the wound. Fever over 100.0 F orally. New odor or drainage from the wound bed. A compression wrap has been placed on on e or both of your legs today. Keep the wraps on and dry. If compression wraps feel tight or painf ul, it is a signal to elevate your legs to help reduce swelling. If you experience numbness or tingling i n the feet or legs elevate your legs for 30 minutes above the heart. If the sensation does not go away, remov e the compression wraps and notify the wound care clinic. If the compression wrap slides down the leg and causes pain, use blunt and scissors and cut a slit at the top. If the wrap "slips or bunches up" causing pain, remove the wrap and contact the wound care clinic. The wound care clinic staff can be reach ed at [phone] Saturday through from 8 AM to 4 PM and Saturday from 8 AM to noon. Elevate your legs above your heart do th is 3-4 times a day for about 10-15 minutes minimum. Return to clinic as scheduled at 1:15 PM Continue IV antibiotics as ordered. Get prompt medical attention if any the following occur: An increase in redness or swelling. Red streaks in the skin leading away fro m the wound. An increase in pain or swelling at or ar ound the wound. Fever over 100.0 F orally. New odor or drainage from the wound bed. A compression wrap has been placed on on e or both of your legs today. Keep the wraps on and dry. If compression wraps feel tight or painf ul, it is a signal to elevate your legs to help reduce swelling. If you experience numbness or tingling i n the feet or legs elevate your legs for 30 minutes above the heart. If the sensation does not go away, remov e the compression wraps and notify the wound care clinic. If the compression wrap slides down the leg and causes pain, use blunt and scissors and cut a slit at the top. If the wrap "slips or bunches up" causing pain, remove the wrap and contact the wound care clinic. The wound care clinic staff can be reach ed at [phone] Saturday through from 8 AM to 4 PM and Saturday from 8 AM to noon. Elevate your legs above your heart do th is 3-4 times a day for about 10-15 minutes minimum. Return to clinic as scheduled at 1:30 PM Continue IV antibiotics as ordered. Get prompt medical attention if any the following occur: An increase in redness or swelling. Red streaks in the skin leading away fro m the wound. An increase in pain or swelling at or ar ound the wound. Fever over 100.0 F orally. New odor or drainage from the wound bed. A compression wrap has been placed on on e or both of your legs today. Keep the wraps on and dry. If compression wraps feel tight or painf ul, it is a signal to elevate your legs to help reduce swelling. If you experience numbness or tingling i n the feet or legs elevate your legs for 30 minutes above the heart. If the sensation does not go away, remov e the compression wraps and notify the wound care clinic. If the compression wrap slides down the leg and causes pain, use blunt and scissors and cut a slit at the top. If the wrap "slips or bunches up" causing pain, remove the wrap and contact the wound care clinic. The wound care clinic staff can be reach ed at [phone] Saturday through from 8 AM to 4 PM and Saturday from 8 AM to noon. Elevate your legs above your heart do th is 3-4 times a day for about 10-15 minutes minimum. Return to clinic as scheduled 3:00PM Follow up with Dr. Ambriz and Dr. Tanisha black as scheduled. Continue IV antibiotics as ordered. Get prompt medical attention if any the following occur: An increase in redness or swelling. Red streaks in the skin leading away fro m the wound. An increase in pain or swelling at or ar ound the wound. Fever over 100.0 F orally. New odor or drainage from the wound bed. A compression wrap has been placed on on e or both of your legs today. Keep the wraps on and dry. If compression wraps feel tight or painf ul, it is a signal to elevate your legs to help reduce swelling. If you experience numbness or tingling i n the feet or legs elevate your legs for 30 minutes above the heart. If the sensation does not go away, remov e the compression wraps and notify the wound care clinic. If the compression wrap slides down the leg and causes pain, use blunt and scissors and cut a slit at the top. If the wrap "slips or bunches up" causing pain, remove the wrap and contact the wound care clinic. The wound care clinic staff can be reach ed at [phone] Saturday through from 8 AM to 4 PM and Saturday from 8 AM to noon. Elevate your legs above your heart do th is 3-4 times a day for about 10-15 minutes minimum. Return to clinic as scheduled 3:00PM Follow up with Dr. Ambriz and Dr. Tanisha black as scheduled. Continue IV antibiotics as ordered. Get prompt medical attention if any the following occur: An increase in redness or swelling. Red streaks in the skin leading away fro m the wound. An increase in pain or swelling at or ar ound the wound. Fever over 100.0 F orally. New odor or drainage from the wound bed. A compression wrap has been placed on on e or both of your legs today. Keep the wraps on and dry. If compression wraps feel tight or painf ul, it is a signal to elevate your legs to help reduce swelling. If you experience numbness or tingling i n the feet or legs elevate your legs for 30 minutes above the heart. If the sensation does not go away, remov e the compression wraps and notify the wound care clinic. If the compression wrap slides down the leg and causes pain, use blunt and scissors and cut a slit at the top. If the wrap "slips or bunches up" causing pain, remove the wrap and contact the wound care clinic. The wound care clinic staff can be reach ed at [phone] Saturday through from 8 AM to 4 PM and Saturday from 8 AM to noon. Elevate your legs above your heart do th is 3-4 times a day for about 10-15 minutes minimum. Return to clinic as scheduled 1 8:45 AM Follow up with Dr. Ambriz and Dr. Tanisah black as scheduled. Continue IV antibiotics as ordered. Get prompt medical attention if any the following occur: An increase in redness or swelling. Red streaks in the skin leading away fro m the wound. An increase in pain or swelling at or ar ound the wound. Fever over 100.0 F orally. New odor or drainage from the wound bed. A compression wrap has been placed on on e or both of your legs today. Keep the wraps on and dry. If compression wraps feel tight or painf ul, it is a signal to elevate your legs to help reduce swelling. If you experience numbness or tingling i n the feet or legs elevate your legs for 30 minutes above the heart. If the sensation does not go away, remov e the compression wraps and notify the wound care clinic. If the compression wrap slides down the leg and causes pain, use blunt and scissors and cut a slit at the top. If the wrap "slips or bunches up" causing pain, remove the wrap and contact the wound care clinic. The wound care clinic staff can be reach ed at [phone] Saturday through from 8 AM to 4 PM and Saturday from 8 AM to noon. Elevate your legs above your heart do th is 3-4 times a day for about 10-15 minutes minimum. Return to clinic as scheduled at 1:30 PM Follow up with Dr. Ambriz and Dr. Tanisha black as scheduled. Continue IV antibiotics as ordered. Get prompt medical attention if any the following occur: An increase in redness or swelling. Red streaks in the skin leading away fro m the wound. An increase in pain or swelling at or ar ound the wound. Fever over 100.0 F orally. New odor or drainage from the wound bed. A compression wrap has been placed on on e or both of your legs today. Keep the wraps on and dry. If compression wraps feel tight or painf ul, it is a signal to elevate your legs to help reduce swelling. If you experience numbness or tingling i n the feet or legs elevate your legs for 30 minutes above the heart. If the sensation does not go away, remov e the compression wraps and notify the wound care clinic. If the compression wrap slides down the leg and causes pain, use blunt and scissors and cut a slit at the top. If the wrap "slips or bunches up" causing pain, remove the wrap and contact the wound care clinic. The wound care clinic staff can be reach ed at [phone] Saturday through from 8 AM to 4 PM and Saturday from 8 AM to noon. Elevate your legs above your heart do th is 3-4 times a day for about 10-15 minutes minimum. Return to clinic as scheduled at 1:15 PM Get prompt medical attention if any the following occur: An increase in redness or swelling. Red streaks in the skin leading away fro m the wound. An increase in pain or swelling at or ar ound the wound. Fever over 100.0 F orally. New odor or drainage from the wound bed. A compression wrap has been placed on on e or both of your legs today. Keep the wraps on and dry. If compression wraps feel tight or painf ul, it is a signal to elevate your legs to help reduce swelling. If you experience numbness or tingling i n the feet or legs elevate your legs for 30 minutes above the heart. If the sensation does not go away, remov e the compression wraps and notify the wound care clinic. If the compression wrap slides down the leg and causes pain, use blunt and scissors and cut a slit at the top. If the wrap "slips or bunches up" causing pain, remove the wrap and contact the wound care clinic. The wound care clinic staff can be reach ed at [phone] Saturday through from 8 AM to 4 PM and Saturday from 8 AM to noon. Elevate your legs above your heart do th is 3-4 times a day for about 10-15 minutes minimum. Return to clinic as scheduled at 1:30 PM Go get your PICC line following your vis it today Go to [facility] after getting your PICC for I V antibiotic infusion Begin drink 1-2 boost/ensure drinks a da y Get prompt medical attention if any the following occur: An increase in redness or swelling. Red streaks in the skin leading away fro m the wound. An increase in pain or swelling at or ar ound the wound. Fever over 100.0 F orally. New odor or drainage from the wound bed. A compression wrap has been placed on on e or both of your legs today. Keep the wraps on and dry. If compression wraps feel tight or painf ul, it is a signal to elevate your legs to help reduce swelling. If you experience numbness or tingling i n the feet or legs elevate your legs for 30 minutes above the heart. If the sensation does not go away, remov e the compression wraps and notify the wound care clinic. If the compression wrap slides down the leg and causes pain, use blunt and scissors and cut a slit at the top. If the wrap "slips or bunches up" causing pain, remove the wrap and contact the wound care clinic. The wound care clinic staff can be reach ed at [phone] Saturday through from 8 AM to 4 PM and Saturday from 8 AM to noon. Elevate your legs above your heart do th is 3-4 times a day for about 10-15 minutes minimum. Return to clinic as schedule. Get prompt medical attention if any the following occur: An increase in redness or swelling. Red streaks in the skin leading away fro m the wound. An increase in pain or swelling at or ar ound the wound. Fever over 100.0 F orally. New odor or drainage from the wound bed. A compression wrap has been placed on on e or both of your legs today. Keep the wraps on and dry. If compression wraps feel tight or painf ul, it is a signal to elevate your legs to help reduce swelling. If you experience numbness or tingling i n the feet or legs elevate your legs for 30 minutes above the heart. If the sensation does not go away, remov e the compression wraps and notify the wound care clinic. If the compression wrap slides down the leg and causes pain, use blunt and scissors and cut a slit at the top. If the wrap "slips or bunches up" causing pain, remove the wrap and contact the wound care clinic. The wound care clinic staff can be reach ed at [phone] Saturday through from 8 AM to 4 PM and Saturday from 8 AM to noon. Elevate your legs above your heart do th is 3-4 times a day for about 10-15 minutes minimum. We will have home health see you Saturday 05/20 and Wednesday 05/24. Return to clinic 05/27/2020 @1015 Get prompt medical attention if any the following occur: An increase in redness or swelling. Red streaks in the skin leading away fro m the wound. An increase in pain or swelling at or ar ound the wound. Fever over 100.0 F orally. New odor or drainage from the wound bed. A compression wrap has been placed on on e or both of your legs today. Keep the wraps on and dry. If compression wraps feel tight or painf ul, it is a signal to elevate your legs to help reduce swelling. If you experience numbness or tingling i n the feet or legs elevate your legs for 30 minutes above the heart. If the sensation does not go away, remov e the compression wraps and notify the wound care clinic. If the compression wrap slides down the leg and causes pain, use blunt and scissors and cut a slit at the top. If the wrap "slips or bunches up" causing pain, remove the wrap and contact the wound care clinic. The wound care clinic staff can be reach ed at [phone] Saturday through from 8 AM to 4 PM and Saturday from 8 AM to noon. Elevate your legs above your heart do th is 3-4 times a day for about 10-15 minutes minimum. Leave dressings in place for home healt h/wound care. We have sent an order to [facility] to do your dressing change Saturday of this week. We have sent orders for arterial studies ; we will call you to schedule these. Get prompt medical attention if any the following occur: An increase in redness or swelling. Red streaks in the skin leading away fro m the wound. An increase in pain or swelling at or ar ound the wound. Fever over 100.0 F orally. New odor or drainage from the wound bed. A compression wrap has been placed on on e or both of your legs today. Keep the wraps on and dry. If compression wraps feel tight or painf ul, it is a signal to elevate your legs to help reduce swelling. If you experience numbness or tingling i n the feet or legs elevate your legs for 30 minutes above the heart. If the sensation does not go away, remov e the compression wraps and notify the wound care clinic. If the compression wrap slides down the leg and causes pain, use blunt and scissors and cut a slit at the top. If the wrap "slips or bunches up" causing pain, remove the wrap and contact the wound care clinic. The wound care clinic staff can be reach ed at [phone] Saturday through from 8 AM to 4 PM and Saturday from 8 AM to noon. Elevate your legs above your heart do th is 3-4 times a day for about 10-15 minutes minimum. Return to clinic as scheduled at 3:00 PM Leave dressings in place for home health /wound care. We have sent an order to [facility] to do your dressing change Saturday of this week. We have sent orders for arterial studies ; we will call you to schedule these. Get prompt medical attention if any the following occur: An increase in redness or swelling. Red streaks in the skin leading away fro m the wound. An increase in pain or swelling at or ar ound the wound. Fever over 100.0 F orally. New odor or drainage from the wound bed. A compression wrap has been placed on on e or both of your legs today. Keep the wraps on and dry. If compression wraps feel tight or painf ul, it is a signal to elevate your legs to help reduce swelling. If you experience numbness or tingling i n the feet or legs elevate your legs for 30 minutes above the heart. If the sensation does not go away, remov e the compression wraps and notify the wound care clinic. If the compression wrap slides down the leg and causes pain, use blunt and scissors and cut a slit at the top. If the wrap "slips or bunches up" causing pain, remove the wrap and contact the wound care clinic. The wound care clinic staff can be reach ed at [phone] Saturday through from 8 AM to 4 PM and Saturday from 8 AM to noon. Elevate your legs above your heart do th is 3-4 times a day for about 10-15 minutes minimum. Return to clinic as scheduled Leave dressings in place for home health /wound care. We have sent an order to [facility] to do your dressing change Saturday of this week. We have sent orders for arterial studies ; we will call you to schedule these. Get prompt medical attention if any the following occur: An increase in redness or swelling. Red streaks in the skin leading away fro m the wound. An increase in pain or swelling at or ar ound the wound. Fever over 100.0 F orally. New odor or drainage from the wound bed. A compression wrap has been placed on on e or both of your legs today. Keep the wraps on and dry. If compression wraps feel tight or painf ul, it is a signal to elevate your legs to help reduce swelling. If you experience numbness or tingling i n the feet or legs elevate your legs for 30 minutes above the heart. If the sensation does not go away, remov e the compression wraps and notify the wound care clinic. If the compression wrap slides down the leg and causes pain, use blunt and scissors and cut a slit at the top. If the wrap "slips or bunches up" causing pain, remove the wrap and contact the wound care clinic. The wound care clinic staff can be reach ed at [phone] Saturday through from 8 AM to 4 PM and Saturday from 8 AM to noon. Elevate your legs above your heart do th is 3-4 times a day for about 10-15 minutes minimum. Reminders Provider Appointments None recorded. Lab None recorded. Referral None recorded. Procedures None recorded. Surgeries None recorded. Imaging None recorded. Vitals 10/18/2021 10:30AM Established Patient 30 Height Weight BMI Blood Pressure 5 ft 7 in 305 lbs 47.8 kg/m2 158/87 mm[Hg] 10/11/2021 11:00AM Established Patient 30 Height Blood Pressure 5 ft 7 in 188/91 mm[Hg] 10/04/2021 10:00AM Established Patient 30 Height Weight BMI Blood Pressure 5 ft 7 in 308 lbs 48.2 kg/m2 112/63 mm[Hg] 09/27/2021 10:30AM Wound Care-Nurse Visit 30 Height Weight BMI Blood Pressure 5 ft 7 in 308 lbs 48.2 kg/m2 149/74 mm[Hg] 09/15/2021 11:00AM Established Patient 30 Height Weight BMI Blood Pressure 5 ft 7 in 306 lbs 47.9 kg/m2 134/69 mm[Hg] 09/08/2021 09:30AM Established Patient 30 Height Weight BMI Blood Pressure 5 ft 7 in 306 lbs 47.9 kg/m2 146/74 mm[Hg] 08/30/2021 11:00AM Established Patient 30 Height Weight BMI Blood Pressure 5 ft 7 in 303.5 lbs 47.5 kg/m2 145/82 mm[Hg] 08/25/2021 10:00AM Wound Care-Nurse Visit 30 Height Blood Pressure 5 ft 7 in 139/84 mm[Hg] 08/18/2021 09:00AM Established Patient 30 Height Blood Pressure 5 ft 7 in 148/115 mm[Hg] 08/11/2021 10:15AM Established Patient 30 Height Weight BMI 5 ft 7 in 296 lbs 46.4 kg/m2 08/04/2021 08:00AM Established Patient 30 Height Blood Pressure 5 ft 7 in 185/86 mm[Hg] 08/02/2021 10:30AM Established Patient 30 Height Blood Pressure 5 ft 7 in 146/69 mm[Hg] 07/27/2021 11:20AM IR- ESTABLISHED Height Weight BMI Blood Pressure 5 ft 7 in 265 lbs 41.5 kg/m2 (1) 162/123 mm[ Hg] (2) 180/84 mm[Hg ] 07/25/2021 10:30AM Established Patient 15 Height Blood Pressure 5 ft 7 in 132/72 mm[Hg] 07/18/2021 10:00AM Established Patient 30 Height Blood Pressure 5 ft 7 in 142/79 mm[Hg] 07/11/2021 10:00AM Established Patient 30 Height Weight BMI Blood Pressure 5 ft 7 in 300 lbs 47 kg/m2 161/88 mm[Hg] 07/04/2021 10:00AM Established Patient 30 Height Weight BMI Blood Pressure 5 ft 7 in 300 lbs 47 kg/m2 147/66 mm[Hg] 06/27/2021 10:00AM Established Patient 30 Height Blood Pressure 5 ft 7 in 133/61 mm[Hg] 06/20/2021 10:00AM Established Patient 30 Height Blood Pressure 5 ft 7 in 125/92 mm[Hg] 06/13/2021 10:00AM Wound Care-Nurse Visit 30 Height Weight BMI Blood Pressure 5 ft 7 in 300 lbs 47 kg/m2 126/61 mm[Hg] 06/06/2021 10:15AM Established Patient 30 Height Weight BMI Blood Pressure 5 ft 7 in 300 lbs 47 kg/m2 149/100 mm[Hg] 05/31/2021 03:00PM Established Patient 30 Height Weight BMI Blood Pressure 5 ft 7 in 300 lbs 47 kg/m2 161/82 mm[Hg] 05/22/2021 08:20AM IR- ESTABLISHED Height Weight Blood Pressure 5 ft 7 in 152/83 mm[Hg] 05/19/2021 08:00AM Established Patient 30 Height Weight BMI Blood Pressure 5 ft 7 in 300 lbs 47 kg/m2 152/84 mm[Hg] 05/11/2021 10:15AM URGENT Height Blood Pressure 5 ft 7 in 178/79 mm[Hg] 05/03/2021 03:00PM Established Patient 30 Height Weight BMI Blood Pressure 5 ft 7 in 300 lbs 47 kg/m2 121/65 mm[Hg] 04/26/2021 02:30PM Established Patient 30 Height Weight BMI Blood Pressure 5 ft 7 in 300 lbs 47 kg/m2 125/74 mm[Hg] 04/19/2021 11:00AM Established Patient 30 Height Weight BMI Blood Pressure 5 ft 7 in 300 lbs 47 kg/m2 132/74 mm[Hg] 04/12/2021 10:00AM Established Patient 30 Height Weight BMI Blood Pressure 5 ft 7 in 54.3 lbs 8.5 kg/m2 128/71 mm[Hg] 03/27/2021 09:30AM Established Patient 30 Height Weight Blood Pressure 5 ft 7 in 150/78 mm[Hg] 03/20/2021 09:30AM Established Patient 30 Height Weight Blood Pressure 5 ft 7 in 153/71 mm[Hg] 02/03/2021 10:30AM Nurse Visit Height Weight BMI Blood Pressure 5 ft 7 in 301.5 lbs 47.2 kg/m2 121/72 mm[Hg] 01/27/2021 09:30AM Established Patient 30 Height Weight BMI Blood Pressure 5 ft 7 in 297.2 lbs 46.5 kg/m2 142/80 mm[Hg] 01/20/2021 09:45AM Established Patient 30 Height Weight BMI Blood Pressure 5 ft 7 in 293 lbs 45.9 kg/m2 149/86 mm[Hg] 01/12/2021 11:00AM Established Patient 30 Height Weight BMI Blood Pressure 5 ft 7 in 296.1 lbs 46.4 kg/m2 158/91 mm[Hg] 11/25/2020 10:00AM Wound Care Height Weight BMI Blood Pressure 5 ft 7 in 295.1 lbs 46.2 kg/m2 145/75 mm[Hg] 11/18/2020 10:00AM Established Patient 30 Height Blood Pressure 5 ft 7 in 144/97 mm[Hg] 11/18/2020 10:00AM Established Patient 30 Height Weight BMI Blood Pressure 5 ft 7 in 293.2 lbs 45.9 kg/m2 144/97 mm[Hg] 11/11/2020 10:30AM Established Patient 30 Height Weight BMI Blood Pressure 5 ft 7 in 293.7 lbs 46 kg/m2 164/92 mm[Hg] 11/04/2020 10:30AM Established Patient 30 Height Weight BMI Blood Pressure 5 ft 7 in 293.8 lbs 46 kg/m2 127/76 mm[Hg] 10/31/2020 09:30AM Established Patient 30 Height Weight BMI Blood Pressure 5 ft 7 in 155/86 mm[Hg] 10/28/2020 10:30AM Established Patient 30 Height Weight BMI Blood Pressure 5 ft 7 in 293 lbs 45.9 kg/m2 155/82 mm[Hg] 10/28/2020 10:30AM Established Patient 30 Height Weight BMI Blood Pressure 5 ft 7 in 293 lbs 45.9 kg/m2 155/82 mm[Hg] 10/21/2020 10:30AM Established Patient 30 Height Weight BMI Blood Pressure 5 ft 7 in 295.4 lbs 46.3 kg/m2 130/70 mm[Hg] 10/14/2020 10:00AM Established Patient 30 Height Weight BMI Blood Pressure 5 ft 7 in 291.8 lbs 45.7 kg/m2 142/82 mm[Hg] 10/14/2020 10:00AM Established Patient 30 Height Weight BMI Blood Pressure 5 ft 7 in 291.8 lbs 45.7 kg/m2 142/82 mm[Hg] 10/03/2020 01:30PM Established Patient 30 Height Weight BMI Blood Pressure 5 ft 7 in 292 lbs 45.7 kg/m2 160/80 mm[Hg] 10/03/2020 01:30PM Established Patient 30 Height Weight BMI Blood Pressure 5 ft 7 in 292 lbs 45.7 kg/m2 160/80 mm[Hg] 09/26/2020 10:30AM Established Patient 30 Height Weight BMI Blood Pressure 5 ft 7 in 288.5 lbs 45.2 kg/m2 156/87 mm[Hg] 09/26/2020 04:00PM IR- ESTABLISHED Height Weight BMI Blood Pressure 5 ft 7 in 288 lbs 45.1 kg/m2 (1) 150/87 mm[H g] (2) 162/85 mm[Hg ] 09/15/2020 01:00PM Established Patient 30 Height Weight BMI Blood Pressure 5 ft 7 in 153/79 mm[Hg] 09/09/2020 10:00AM Established Patient 30 Height Weight BMI Blood Pressure 5 ft 7 in 291.1 lbs 45.6 kg/m2 168/90 mm[Hg] 09/02/2020 10:00AM Established Patient 30 Height Weight BMI Blood Pressure 5 ft 7 in 290.2 lbs 45.5 kg/m2 160/88 mm[Hg] 08/26/2020 10:00AM Established Patient 30 Height Weight BMI Blood Pressure 5 ft 7 in 309 lbs 48.4 kg/m2 158/96 mm[Hg] 08/22/2020 03:00PM Established Patient 30 Height Weight BMI Blood Pressure 5 ft 7 in 190/90 mm[Hg] 08/01/2020 01:15PM Established Patient 30 Height Weight BMI Blood Pressure 5 ft 7 in 321 lbs 50.3 kg/m2 160/82 mm[Hg] 07/25/2020 01:30PM Established Patient 30 Height Weight BMI Blood Pressure 5 ft 7 in 148/79 mm[Hg] 07/25/2020 01:30PM Established Patient 30 Height Blood Pressure 5 ft 7 in 148/79 mm[Hg] 07/18/2020 01:00PM Established Patient 30 Height Weight BMI Blood Pressure 5 ft 7 in 280 lbs 43.9 kg/m2 158/84 mm[Hg] 07/11/2020 11:00AM Established Patient 30 Height Weight BMI Blood Pressure 5 ft 7 in 278 lbs 43.5 kg/m2 160/84 mm[Hg] 07/11/2020 10:00AM IR- ESTABLISHED Height Weight BMI Blood Pressure 5 ft 7 in 278 lbs 43.5 kg/m2 162/83 mm[Hg] 07/04/2020 09:00AM Established Patient 30 Height Blood Pressure 5 ft 7 in 148/88 mm[Hg] 07/04/2020 08:45AM Established Patient 30 Height Blood Pressure 5 ft 7 in 148/88 mm[Hg] 06/27/2020 01:30PM Established Patient 30 Height Weight BMI Blood Pressure 5 ft 7 in 296 lbs 46.4 kg/m2 151/89 mm[Hg] 06/20/2020 01:15PM Established Patient 30 Height Weight BMI Blood Pressure 5 ft 7 in 298.2 lbs 46.7 kg/m2 153/88 mm[Hg] 06/13/2020 01:30PM Established Patient 30 Height Blood Pressure 5 ft 7 in 140/76 mm[Hg] 06/06/2020 01:15PM Established Patient 30 Height Weight BMI Blood Pressure 5 ft 7 in 299.2 lbs 46.9 kg/m2 218/108 mm[Hg] 05/30/2020 01:00PM Established Patient 30 Height Weight BMI Blood Pressure 5 ft 7 in 301 lbs 47.1 kg/m2 147/86 mm[Hg] 05/16/2020 02:00PM Established Patient 30 Height Weight BMI Blood Pressure 5 ft 7 in 288 lbs 45.1 kg/m2 170/98 mm[Hg] 05/09/2020 03:00PM Established Patient 30 Height Weight BMI Blood Pressure 5 ft 7 in 293.3 lbs 45.9 kg/m2 147/83 mm[Hg] 05/05/2020 10:40AM IR- NEW PATIENT Height Weight BMI Blood Pressure 5 ft 7 in 291 lbs 45.6 kg/m2 (1) 165/110 mm[ Hg] (2) 165/92 mm[Hg ] 05/02/2020 02:00PM Established Patient 30 Height Weight BMI Blood Pressure 5 ft 7 in 248.9 lbs 39 kg/m2 158/79 mm[Hg] 04/25/2020 02:30PM Established Patient 30 Height Weight BMI Blood Pressure 5 ft 7 in 289 lbs 45.3 kg/m2 163/101 mm[Hg] 04/19/2020 01:30PM Established Patient 30 Height Weight BMI Blood Pressure 5 ft 7 in 287.7 lbs 45.1 kg/m2 129/85 mm[Hg] 04/11/2020 02:00PM Nurse Visit Height Weight BMI Blood Pressure 5 ft 7 in 290.5 lbs 45.5 kg/m2 160/98 mm[Hg] 04/07/2020 09:30AM New Patient 60 Height Weight BMI Blood Pressure 5 ft 7 in 288.8 lbs 45.2 kg/m2 141/99 mm[Hg]
--- OUTSIDE RECORDS SUMMARY | 2021-10-21 16:39 | External Medical Summary | Encounter Summary ---
:1960 Author Care Team Providers Name Role Phone Elba Cyrus PROGRAM DIRECTOR SCOUTING Primary Care Provider [phone] Gaston Ambriz DPM Referring Provider [phone] Sherri Thompson ANIMAL HEALTH TECHNICIAN OTHER [phone] [facility] OTHER Brandon Dumas MD Interventional Radiologist [phone] Reason for Visit Stasis dermatitis and venous ulcer of lo wer extremity due to chronic peripheral venous hypertension; Delayed healing of surgical wound [facility] chart no vilma after visit [id number] Assessment and Plan Assessment Note Ross presents today for continued fo llow-up of Diabetic Foot Ulceration, chronic. We are currently treating this with negative pressure wound therapy to stabilize the ruptured Achilles tendon and th is is facilitating more granular tissue formation. He will be finishing his p.o. Cipro in 2 days. new diabetic shoes were obtained mid Feb,follows with Harish Chan for prosthetic for right BKA Patient has history of intermittent epis odes of lower extremity cellulitis right greater than left, history of osteomyelitis along with MSSA, left fifth toe osteomyelitis history of sepsis with hospital ization in July 2019. Patient has surgica lly absent left great toe and right fifth toe. 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 Diabetic foot ulcer LEFT stage 4, chronic non healing, DIAB ETIC FOOT ULCERATION with venous stasis component Stable with some more granulation tissue noted in the wound beds along with no periwound inflammatory or infection signs and symptoms. -At this time we will continue with curr ent plan of care. -Patient will continue to meet with Dr. Ambriz from podiatry as this is a very high risk wound and patient is at great risk for loss of limb. Intervention has been performed so his v ascular status has been optimized, 05/[address] Dumas, followed again with Dr. Dumas on July 27, 2021 Continue with the heel protector boot reinforced offloading of this along with severity and s/s to report Return to clinic 1 week, home health [facility] assist with dressing changes in between clinic visits 2. Type 2 diabetes mellitus poorly controlled, Reinforced diabetes and control of will improve wound healing/affect wound healing 3. Varicose veins of lower extremity See above 4. Peripheral vascular disease continue Vitamin C 1000 mg daily. No claudication, or elevational pain rep orted today -Is taking aspirin 81 mg daily -Is taking atorvastatin -blood pressure management includes carv edilol, furosemide lisinopril -diabetes is being managed with insulin -Counseled on lifestyle modifications, d iet, exercise, medications and s/e. -Intervention was performed 05/30/[address] Dumas, followed again 07/27/21 5. At risk of nutritional deficit Reinforced nutritional concepts and naveed jackson with patient, he is utilizing claire and multivitamin 6. Osteomyelitis Per results of MRI Patient will continue on ciprofloxacin P O at this time. Consider PO antibiotics for up to 6 months, patient will finish his 6-week course in 2 days this was discussed in great detail and a referral to i nfectious disease was offered and declin ed. At this time patient will finish in 2 days and we will watch for returning signs and symptoms. 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 will continue to utilize topical gentamy alisha Reinforced that there is a poor prognosi s for healing, discussed surgical options including cupcake like to utilize all options/exhaust all options prior to amputation. These options include antibiotics , local wound care, use of negative pres sure wound therapy to stabilize the ruptured Achilles and hyperbarics. Patient does meet the indication for hyperbarics related to refractory osteomyelitis. I did reinforce with Ross that even with t hese interventions he still is at very high risk for a limb threatening infection and BKA. Discussion Note Thank you for this referral and opportu feliciay to care for your patient. If there are any questions or concerns please feel free to contact me at . ENM for osteomyelitis management, discus sed with podiatry. Patient educational handouts: No information available. Plan of Care Patient Instructions Return to clinic 1 week Continue on [...] clinic staff can be reach ed at [phone] through from8 AM to 4 PMand Saturday [...] Notify the wound clinic for instructions at [phone] . The clinic is open Saturday through from 8 AM till 5PM and Saturday from8 AM until noon. Reminders Provider Appointments Established Patient 30 10/25/2021 10:30AM Jarvis Thompson NP New Patient 45 11/16/2021 11:00AM [facility] None recorded. Referral None recorded. Procedures None recorded. Surgeries None recorded. Imaging None recorded. Medications Name Start Date Asprin Ec Low Dose 81 mg tablet,delayed release Take 1 tablet every day by oral route. Basaglar KwikPen U-100 Insulin 100 unit/mL (3 mL) subc utaneous BETWEEN 45-50 UNITS Q HS bethanechol chloride 10 mg tablet Take 3 tablets every day by oral route for 30 days. calcium acetate(phosphate binders) 667 mg capsule carvedilol 6.25 mg tablet cilostazol 50 mg tablet Take 1 tablet every day by oral route as directed for 30 days. clopidogrel 75 mg tablet Take 1 tablet every day by oral route for 30 days. diltiazem ER 180 mg capsule,24 hr,extended release Take 1 capsule every day by oral route as directed fo r 30 days. fenofibrate nanocrystallized 48 mg tablet Take 1 tablet every day by oral route at bedtime. furosemide 80 mg tablet Take 1 tablet every day by oral route for 30 days. gentamicin 0.1 % topical cream apply 3 GM to wound twice a week lisinopril 10 mg tablet Take 1 tablet every day by oral route as directed. Novolog Flexpen U-100 Insulin 10 units and sliding scale TID Novolog Flexpen U-100 Insulin aspart 100 unit/mL (3 mL ) subcutaneous ondansetron 4 mg disintegrating tablet tamsulosin 0.4 mg capsule Take 1 capsule every day by oral route as directed fo r 30 days. tramadol 50 mg tablet Take 1 tablet every 6 hours by oral route as needed. TRUEplus Pen Needle 32 gauge x 5/32" PRN Tylenol 500 mg tablet Take 2 tablets every 6 hours by oral route. Vitamin C 1,000 mg tablet Take 1 tablet every day by oral route as directed. Vitamin D3 125 mcg (5,000 unit) tablet Take 1 tablet every day by oral route as directed. Notes: Reviewed medication list verbal ly with patient at appt. -FP, PULLER MACHINE 07/27/21 Medications Administered None recorded. Vitals Height Blood Pressure 5 ft 7 in 148/115 mm[Hg] Results Lab Results None recorded. Allergies Code Code System Name Reaction Severity Onset Adhesive Tape Other Rash Moderate 1291 RxNorm Bacitracin Other 174112 RxNorm Bactrim Rash 2670 RxNorm Codeine Vomiting 5489 RxNorm Hydrocodone Vomiting 5933 RxNorm Iodine Rash 46427 RxNorm Levofloxacin Nausea Rash 6980 RxNorm Minocycline Nausea Rash Nsaids (Non-steroidal Vomiting Anti-inflammatory Drug) Penicillins Anaphylaxis Severe Sulfa (Sulfonamide Antibiotics) Rash Tetanus Vaccines and Toxoid Anaphylaxis Severe Notes: GI intolerance to Keflex. Problems Name Status Onset Date Source Methicillin [...] Arthroscopy of Knee Information not avai lable Vaccine List None recorded. Social History Tobacco Smoking Status Never Smoker What type of diet are you REGULAR following? Are you able to walk? YESWOREST Are you able to care for Y Notes: HOME H EALTH yourself? Are you currently employed? N Have you processed blood or body N fluids from an Ebola virus disease patient without appropriate PPE? How much tobacco do you chew? none What is your relationship Notes: Shobha status? What is your level of alcohol None consumption? Do you have any pets? N Education 12 Which illicit or recreational denies drugs have you used? Have you been to an area known N to be high risk for COVID-19? What type of child welfare manager do you none use? Are you deaf or do you have N serious difficulty hearing? Are you passively exposed to N smoke? Do you use your seat belt or car Y seat routinely? Do you or have you ever used any N other forms of tobacco or nicotine? At what age did you start 0 smoking tobacco? Legally blind in one or both N eyes? What is the highest grade or LP91453-7 level of school you have completed or the highest degree you have received? How many children do you have? 2 Has tobacco cessation counseling Y been provided? Are you blind or do you have N difficulty seeing? Do you have smoke and carbon Y monoxide detectors in your home? In the 14 days before symptom N onset, have you had close contact with a person who is under investigation for COVID-19 while that person was ill? Do you reside in or have you N traveled to an area where Ebola virus transmission is active? What was the date of your most 10/11/2021 recent tobacco screening? Do you or have you ever used Never used electronic e-cigarettes or vape? cigarettes Do you have an advanced N directive? General stress level Medium Do you use any illicit or N recreational drugs? How many years have you smoked 0 tobacco? What is your exercise level? None In the 14 days before symptom N onset, have you had close contact with a laboratory-confirmed COVID-19 while that case was ill? Live alone or with others? with others Notes: - shobha Do you or have you ever used Never used smokeless tobacco smokeless tobacco? On what date was tobacco 10/04/2021 cessation counseling provided? Hard of hearing or deaf in one N or both ears? What is your level of caffeine Heavy Notes: tea and 1 pot consumption? of coffee daily Do you feel stressed (tense, LP63043-5 restless, nervous, or anxious, or unable to sleep at night)? 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 Past Encounters 08/18/2021 Diabetic Foot Ulcer; Type 2 Diabetes Nora litus; Varicose Veins of Lower Extremity; Peripheral Vascular Disease; At Risk of Nutritional Deficit; Osteomyelitis Sherri Thompson ANIMAL HEALTH TECHNICIAN: [address] [place] [address] [place] [phone], Ph. 08/11/2021 Stasis Dermatitis and Venous Ulcer of Lo wer Extremity Due to Chronic Peripheral Venous Hypertension; Delayed Healing of Surgical Wound Sherri Thompson ANIMAL HEALTH TECHNICIAN: [address] [place] [address] [place] [phone], Ph. 08/04/2021 Diabetic Foot Ulcer; Type 2 Diabetes Nora litus; Varicose Veins of Lower Extremity; Peripheral Vascular Disease; At Risk of Nutritional Deficit; Osteomyelitis Sherri Thompson ANIMAL HEALTH TECHNICIAN: [address] [place] [address] [place] [phone], Ph. 08/02/2021 Type 2 Diabetes Mellitus; Varicose Veins of Lower Extremity; Peripheral Vascular Disease; At Risk of Nutritional Deficit; Osteomyelitis; Diabetic Foot Ulcer Sherri Thompson ANIMAL HEALTH TECHNICIAN: [address] [place] [address] [place] [phone], Ph. 07/27/2021 Peripheral Vascular Disease; Diabetic Fo ot Ulcer; Osteomyelitis of Ankle AND/OR Foot; Rupture of Achilles Tendon Brandon Dumas MD: [address] [place], [place] [address] [phone], Ph. 07/25/2021 Delayed Healing of Surgical Wound; Type 2 Diabetes Mellitus; Varicose Veins of Lower Extremity; Peripheral Vascular Disease; At Risk of Nutritional Deficit; Osteomyelitis; Diabetic Foot Ulcer; Local Infection of Wound Sherri Thompson NP: [address] [place], [place] [address] [phone], Ph. 07/18/2021 Type 2 Diabetes Mellitus; Varicose Veins of Lower Extremity; Peripheral Vascular Disease; At Risk of Nutritional Deficit; Osteomyelitis; Diabetic Foot Ulcer Sherri Thompson ANIMAL HEALTH TECHNICIAN: [address] [place], [place] [address] [phone], Ph. History of Present Illness Note: <div>08/02/21: Ross returns to clinic for follow up treatment to his left heel ulcer. Patient continues on ciprofloxacin. He had an MRI and met with Dr Dumas on 07/27. MRI confirms a rupture to the left achilles tendon. Also followed thao Ambriz from Podiatry earlier today. </div>&lt ;div>
</div><div>08/04/2021: Ross returns to the clinic today for follow-up of his left heel ulcer, negative pressure wound therapy is available to be placed. He continues on ciprofloxacin for his osteomyelitis.</div><div>
</div><div>08/18/21: Ross returns to the clinic for continued treatment of his left heel ulcer. Home Health will manage NPWT dressing changes</div>Review of Systems: ROS as noted in the HPI Review of Systems Comprehensive General Adult ROS Reported By: Patient Constitutional: Constitutional: no fever, no night sweats, no significant weight gain, no significant weight loss, no exercise intolerance, no chills, no m alaise Eyes: Eyes: no dry eyes, no vision change, no irritation, no eye disease/injury ENMT: Ears: no difficulty hearing, no ear pain. Nose: no frequent nosebleeds, no nose problems , no sinus problems. Mouth/Throat: no sore throat, no bleeding gums, no snoring, no dry mouth, no mouth ulcers, no oral abnorm alities, no teeth problems, no ringing in the ears, no sinu sitis Cardiovascular: Cardiovascular: no chest mali n, no arm pain on exertion, no shortness of breath when wal blayne, no shortness of breath when lying down, no palpitations, no known heart murmur, no ankle swelling Respiratory: Respiratory: no cough, no wh eezing, no shortness of breath, no coughing up blood, no sleep apnea Gastrointestinal: Gastrointestinal: no abdomin al pain, no nausea, no vomiting, no constipation, normal appe tite, no diarrhea, not vomiting blood, no dyspepsia, no GERD ; D/T ABOS Musculoskeletal: Musculoskeletal: no muscle a ches, no muscle weakness, no arthralgias/joint pain, no s welling in the extremities, no neck pain, no cramps, no ost eoporosis, no fractures, difficulty walking Integumentary: Skin: no abnormal mole, no j aundice, no rashes, no laceration, no psoriasis, no change in s kin color, no breast lump, non-healing areas, changes i n hair/nails, change in skin color Endocrine: Endocrine: no fatigue Hematologic/Lymphatic: Hematologic/Lymphatic no swo llen glands, no bruising, no excessive bleeding, no anemi a, no phlebitis Notes: <p><strong>PAIN ASSESSMENT</ strong></p><p>1. Pain assessed rating </p><div>{{0*|1|2|3|4 |5|6|7|8|9|10}}/10 using standard pain scale.</div><div>2. Int ervention for pain {{n/a|yes|no*}} </ div><div>3. Pain reassessed at minutes as {{0*|1|2|3 |4|5|6|7|8|9|10}} using standard pain scale.</div><div><stron g>SAFETY / ABUSE SCREENING ASSESSMENT </strong></div><d iv>1. Have you fallen in the last 30 days? {{yes|no*}}</div><d iv>2. Are you currently in a relationship where you feel threatened or afraid? {{yes|no*}}</div><div>3. [place] se / neglect symptoms observed by clinician? {{yes|no*}} If ye s, was a referral made to an agency </div><div>
</div> Physical Exam General Adult Exam- Male Reported By: Patient Constitutional: General Appearance: obese. L evel of Distress: NAD. Ambulation: in wheelchair Psychiatric: Mental Status: active and al ert, normal mood, normal affect. Orientation: to time, to garcía ce, to person. Memory: recent memory normal, remote memory normal Head: Head: normocephalic, atrauma tic Eyes: Pupils: PERRLA. EOM: EOMI. L ens: clear. Sclerae: non-icteric. Vision: peripheral vision gr ossly intact, acuity grossly intact ENMT: Ears: no lesions on external ear, EACs clear. Hearing: no hearing loss Lungs: Respiratory effort: no dyspn ea. Auscultation: breath sounds normal, good air movement, no rales/ crackles, no rhonchi Cardiovascular: Apical Impulse: not displace d. Heart Auscultation: RRR, no murmurs. Pulses including femoral / p edal: ; DP and PT palp Abdomen: Bowel Sounds: normal. Inspec tion and Palpation: soft, non-distended, no tenderness , no guarding, no rebound tenderness, no masses Musculoskeletal:: Joints, Bones, and Muscles: normal movement of all extremities; Left great toe and right fif th toe surgically absentRight BKA. Extremities: no cyanosis, no edema, varicosities Neurologic: Sensation: ; Monofilament te sting:Left: 5 /10, insensate to dorsum, lateral footRight: 7/10 inse nsate to lateral dorsum Skin: Inspection and palpation: go od turgor, no jaundice, ulcer; 08/04/2021:Left heel superior along the Achilles where this is ruptured: superior 3.6 x 3.0 x 2.0 cm_, inferior _6.5 x 6.0 x 0.4 cmLeft web fourth and fifth: 2.0 x 0.7 x 0.05cmLeft second toe: 1.0 x 1.7 x 0.05 cm08/11/21:left superior heel wound:3.3 x 3.0 x 2.0 cmleft inferior heel wound: 7.0 x 6.0 x 0.2cmleft 2nd toe: 0.7 x 0.1 x 0.05left webbing of 4t h and 5th toe; 2.0 x 0.8 x 0.05 cm08/18/21: left superior heel wound: 3.2 x 3.0 x 0.2 cm, was excisionally debrided full-t hickness postdebridement this measures 3.2 x 3.0 x 0.25 cmleft infe rior heel wound: 7.2 x 6.9 x 0.1 cm, this was excisionally debrid ed postdebridement measures 7.3 x 7.0 x 0.2 cmleft 2nd toe: 1.2 x 1. 0 x 0.05 cm, this was not debridedleft webbing of 4th and 5th toe: 1.9 x 0.8 x 0.05cm. excisional full thickness, 0.2 centimeters d epth (post debridement)5th toe 0.8x 0.8 x 0.02cm, areas of eschar on top of toe
--- OUTSIDE RECORDS SUMMARY | 2021-10-21 16:39 | External Medical Summary | Encounter Summary ---
:1960 Author Care Team Providers Name Role Phone Elba Jamarzach DYE RANGE FEEDER Primary Care Provider [phone] Gaston Ambriz DPM Referring Provider [phone] Sherri Thompson MECHANIC DRIVER OTHER [phone] [facility] OTHER Brandon Dumas MD Interventional Radiologist [phone] Reason for Visit Stasis dermatitis and venous ulcer of lo wer extremity due to chronic peripheral venous hypertension; Delayed healing of surgical wound; 1 WK FOLLOW-UP [facility] chart no vilma after visit [id number] Assessment and Plan Assessment Note Follow up Patient has history of intermittent epis odes of lower extremity cellulitis right greater than left, history of osteomyelitis along with MSSA, left fifth toe osteomyelitis history of sepsis with hospital ization in July 2019. Patient has surgica lly absent left great toe and right fifth toe. 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 Diabetic foot ulcer LEFT stage 4, chronic DIABETIC FOOT ULC ERATION with venous stasis component Continued improvement in sq cm affected 100% granulation tissue noted in the wound beds along with no periwound inflammatory or infection signs and symptoms. NO exposed tendon noted today. Debridement performed of all wounds. partial thickness. -Continue with gentamicin with Hydrofera Blue and compression wrap. Request for Apligraf skin substitute sent awaiting approval. This will expedite closure in an effort to prevent infection/colonization/complication in high risk patient. -Patient will continue to meet with Dr. Ambriz from podiatry along with the wound healing center as this is a very high risk wound and patient is at great risk for loss of limb. Intervention has been performed so his v ascular status has been optimized, 05/[address] Dumas, followed again with Dr. Dumas on July 27, 2021 Continue with the heel protector boot reinforced offloading of this along with severity and s/s to report Return to clinic as scheduled, home heal th will assist with dressing changes in between clinic visits home health order* - Right medial blake mp wound Silver med Mepilex LEFT leg: Wash leg with soap and water rinse pat dry Cl eanse wounds with VASHE vigorously Skin repair to intact skin of leg and heel sk in prep to periwound antifungal powder to foot Skin prep to periwounds Collagen po wder Gentamicin and gauze to toe wounds hydrofera blue PROFORE compression light ly applied from toes to knee FREQUENCY of dressing change ALL wounds: saturday//saturday 2. Type 2 diabetes mellitus poorly controlled, [...] 6. Osteomyelitis Per results of MRI Patient has finished Keflex 500 mg QID ( renal dosed creatinine 2.2, would prefer 1000 mg QID). 6 months -has finished this. Consider life long chronic suppressive therapy if any s/s begin to reoccur, none at this time. 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 Cultures obtained in podiatry returned with Klebsiella pneumonia I again reinforced with Ross that su n with these interventions he still is at very high risk for a limb threatening infection and BKA. Discussion Note Thank you for this referral and opportu feliciay to care for your patient. If there are any questions or concerns please feel fr ee to contact me at . Patient educational handouts: No information available. Plan [...] clinic staff can be reach ed at [phone] through from8 AM to 4 PMand Saturday from 8 AM to noon. Reminders Provider Appointments Established Patient 30 10/25/2021 10:30AM Jarvis Thompson NP New Patient 47 11/16/2021 11:00AM June GUIDO [facility] None recorded. Referral None recorded. Procedures [...] list verbal ly with patient at appt. -FPALFRED 07/27/21 Medications Administered None recorded. Vitals Height Weight BMI Blood Pressure 5 ft 7 in 305 lbs 47.8 kg/m2 158/87 mm[Hg] Results Lab Results None recorded. Allergies Code Code System Name Reaction Severity Onset Adhesive Tape Other Rash Moderate 1291 RxNorm Bacitracin Other 352982 RxNorm Bactrim Rash 2670 RxNorm Codeine Vomiting 5489 RxNorm Hydrocodone Vomiting 5933 RxNorm Iodine Rash 01016 RxNorm Levofloxacin Nausea Rash 6980 RxNorm Minocycline [...] high risk for COVID-19? What type of children's ministry director do you none use? Are you deaf [...] eyes? What is the highest grade or OS99811-7 level of school you have completed or [...] coffee daily Do you feel stressed (tense, AC14413-8 restless, nervous, or anxious, or unable to sleep at night)? 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 Past Encounters 10/18/2021 Diabetic Foot Ulcer; Type 2 Diabetes Nora litus; Varicose Veins of Lower Extremity; Peripheral Vascular Disease; At Risk of Nutritional Deficit; Osteomyelitis Sherri Thompson, MECHANIC DRIVER: [address] [place] [address], [place] [address], Ph. 10/11/2021 Diabetic Foot Ulcer; Type 2 Diabetes Nora litus; Varicose Veins of Lower Extremity; Peripheral Vascular Disease; At Risk of Nutritional Deficit; Osteomyelitis Sherri Thompson, MECHANIC DRIVER: [address] [place] [address], [place] [address], Ph. 10/04/2021 Diabetic Foot Ulcer; Type 2 Diabetes Nora litus; Varicose Veins of Lower Extremity; Peripheral Vascular Disease; At Risk of Nutritional Deficit; Osteomyelitis Sherri Thompson, MECHANIC DRIVER: [address] [place] [address], [place] [address], Ph. 09/27/2021 Stasis Dermatitis and Venous Ulcer of Lo wer Extremity Due to Chronic Peripheral Venous Hypertension Sherri Thompson, MECHANIC DRIVER: [address] [place] [address], [place] [phone], Ph. History of Present Illness Note: <div>10/04/21: Ross returns to the wound healing center for continued treatment on Chronic left heel ulcers. Patient finished his antibiotics ast for UTI due to bladder blockage. Still waiting to see the urologist. Patient still has a hutchins placed at this time. 6 month course Cephalexin 500mg QID ended 09/28/21.</div><div>
</div><div>10/11/21: Rosslenin to the wound healing center for continued treatment on a chronic left heel ulcers.He finished iv antibiotics on Saturday. He was hospitalized last Saturday and he was started on clindamycin not related to his wound. </div><div>
</div><div>10/18/21: Ross returnsto the wound healing center for continued treatment on chronic left heel ulcers. Awaiting apligraf approval. </div>Review of Systems: ROS as noted in the [...] varicosities Neurologic: Sensation: ; Monofilament te sting:Left: , insensate to dorsum, lateral footRight: 09/24 inse nsate to lateral dorsum Skin: Inspection and palpation: go od turgor, no jaundice, ulcer; 10/11/21:Left anterior ankle: 0.8 x 1.7 closedleft superior heel wound: 3.2 x 2.7 x 0.05cmlef t inferior heel wound: 6.8 x 4.4 x 0.05cmLeft medial great toe: 2.0 x 2.1 x covered in stable escharleft 2nd toe: 1.2 x 1. 0 x 0.1cm5th toe:resolved, bruising10/18/21:Left superior heel wound: 3.1 x 2.5 x 0.05 cmLeft inferior heel wound: 6.0 x 4 .0 x 0.05 cmLeft medial great toe: 2.0 x 2.0 x 0.05 cmLeft 2nd toe: 1.0 x 0.7 x 0.05cm
--- OUTSIDE RECORDS SUMMARY | 2021-10-21 16:39 | External Medical Summary | Encounter Summary ---
:1960 Author Care Team Providers Name Role Phone Elba Jamarzach ASSOCIATE PASTOR Primary Care Provider [phone] Gaston Ambriz DPM Referring Provider [phone] Sherri Thompson LOCAL COMBINATION TRUCK DRIVER OTHER [phone] [facility] OTHER Brandon Dumas MD Interventional Radiologist [phone] Reason for Visit Stasis dermatitis and venous ulcer of lo wer extremity due to chronic peripheral venous hypertension; Delayed healing of surgical wound; 1 WK FOLLOW-UP [facility] chart no vilma after visit [id number] Assessment and Plan Assessment Note Follow up [...] component Continued improvement in sq cm affected and more granulation tissue noted in the wound beds along with no periwound inflammatory or infection signs and symptoms. very little exposed tendon noted again t key. Debridement performed of all wound s. partial thickness. -Continue with gentamicin with Hydrofera Blue and compression wrap. Request for Apligraf skin substitute sent today. This will expedite closure in an effort [...] Return to clinic as scheduled, home heal will assist with dressing changes in between clinic visits home health order* - 10/11/21: Right m edial stump wound Silver med Mepilex LEFT leg: Wash leg with soap and water rinse pat dry Cleanse wounds with VASHE vigorously Skin repair to intact skin of leg and he el skin prep to periwound antifungal powder to foot Skin prep to periwounds Collagen powder Gentamicin and gauze to toe wounds hydrofera [...] clinic staff can be reach ed at [phone] through from8 AM to 4 PMand Saturday [...] list verbal ly with patient at appt. -ALFRED DAI 07/27/21 Medications Administered None recorded. Vitals Height Blood Pressure 5 ft 7 in 188/91 mm[Hg] Results Lab Results None recorded. Allergies Code Code System Name Reaction Severity Onset Adhesive Tape Other Rash Moderate 1291 RxNorm Bacitracin Other 426106 RxNorm Bactrim Rash 2670 RxNorm Codeine Vomiting 5489 RxNorm Hydrocodone Vomiting 5933 RxNorm Iodine Rash 19100 RxNorm Levofloxacin Nausea Rash 6980 RxNorm Minocycline [...] or recreational denies drugs have you used? What type of children's service supervisor do you none use? Have you been to an area known N to be high risk for COVID-19? Are you deaf or do you have N serious difficulty hearing? Do you use your seat belt or car Y seat routinely? Are you passively exposed to N smoke? Do you or have you ever used any N other forms of tobacco or nicotine? At what age did you start 0 smoking tobacco? Legally blind in one or both N eyes? What is the highest grade or [id number] level of school you have completed or [...] coffee daily Do you feel stressed (tense, [id number] restless, nervous, or anxious, or unable to sleep at night)? 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 Past Encounters 10/11/2021 Diabetic Foot Ulcer; Type 2 Diabetes Nora litus; Varicose Veins of Lower Extremity; Peripheral Vascular Disease; At Risk of Nutritional Deficit; Osteomyelitis Sherri Thompson LOCAL COMBINATION TRUCK DRIVER: [address] [place] [address], [place] [phone], Ph. 10/04/2021 Diabetic Foot Ulcer; Type 2 Diabetes Nora litus; Varicose Veins of Lower Extremity; Peripheral Vascular Disease; At Risk of Nutritional Deficit; Osteomyelitis Sherri Thompson LOCAL COMBINATION TRUCK DRIVER: [address] [place] [address], [place] [phone], Ph. 09/27/2021 Stasis Dermatitis and Venous Ulcer of Lo wer Extremity Due to Chronic Peripheral Venous Hypertension Sherri Thompson LOCAL COMBINATION TRUCK DRIVER: [address] [place] [address], [place] [phone], Ph. 09/15/2021 Stasis Dermatitis and Venous Ulcer of Lo wer Extremity Due to Chronic Peripheral Venous Hypertension; Diabetic Foot Ulcer; Type 2 Diabetes Mellitus; Varicose Veins of Lower Extremity; Peripheral Vascular Disease; At Risk of Nutritional Deficit ; Osteomyelitis Sherri Thompson, LOCAL COMBINATION TRUCK DRIVER: [address] [place] [address], [place] [phone], Ph. History of Present Illness Note: <div>09/08/21: Ross returns to the wound clinic for continued treatment of his left heel ulcer. He was started on Cephalexin 500mg 4 times a day for 21 days at his last appointment.</div><div>
</div><div>09/15/21: Ross returns to clinic for NPWT dressing change and 2 step wrap for left heel ulcerations. Patient still taking Cephalexin 500mg QID.</div><div>
</div><div>10/04/21: Ross returns to the wound healing center for continued treatment on Chronic left heel ulcers. Patient finished his antibiotics ast for UTIdue to bladder blockage. Still waiting to see the urologist. Patient still has a hutchins placed at this time. 6 month course Cephalexin 500mg QID ended 09/28/21.</div><div>
</div><div>10/11/21: Ross returns to the wound healing center for continued treatment on a chronic left heel ulcers.He finished iv antibiotics on Saturday. He was hospitalized last Saturday and he was started on clindamycin not related to his wound. </div>Review of Systems: ROS as noted in [...] palpation: go od turgor, no jaundice, ulcer; 10/04/21: Bottom of heel is maceratedl eft superior heel wound: 3.3 x 2.0 x 0.05cmleft inferior heel wou nd: 7.0 x 4.0 x0.05cmLeft medial great toe: 1.7 x 1.7 x 0.05cmleft 2nd toe: 1.3 x 1.0 x0.05cmleft webbing of 4th and 5th toe: [id number] h toe: Covered in stable escharRight leg amputation: resolved10/11:Left anterior ankle: 0.8 x 1.7 closedleft superior heel wou nd: 3.2 x 2.7 x 0.05cmleft inferior heel wound: 6.8 x 4.4 x 0.05 cmLeft medial great toe: 2.0 x 2.1 x covered in stable escharleft 2nd toe: 1.2 x 1.0 x 0.1cm5th toe:resolved, bruising
--- OUTSIDE RECORDS SUMMARY | 2021-10-21 16:39 | External Medical Summary | Encounter Summary ---
:1960 Author Care Team Providers Name Role Phone Elba Cyrus TRACTOR EXPERT Primary Care Provider [phone] Gaston Ambriz DPM Referring Provider [phone] Sherri Thompson CHIEF DIETITIAN OTHER [phone] [facility] OTHER Brandon Dumas MD Interventional Radiologist [phone] Reason for Visit Stasis dermatitis and venous ulcer of lo wer extremity due to chronic peripheral venous hypertension; Delayed healing of surgical wound [facility] chart no vilma after visit [id number] Assessment and Plan Assessment Note Follow up [...] periwound inflammatory or infection signs and symptoms. Much less exposed tendon noted again today. Debridement performed of all wounds.. -At this time we will discharge negative pressure wound therapy and utilize gentamicin with Hydrofera Blue and compression wrap. -Patient will continue to meet with Dr. [...] between clinic visits home health order* - 10/04/21: Right m edial stump wound Silver med [...] knee FREQUENCY of dressing change ALL wounds: saturday/satne /saturday Discharge wound vac organogenesis apligraf 2. Type 2 diabetes mellitus poorly controlled, [...] Osteomyelitis Per results of MRI Patient will utilize Keflex 500 mg QID ( renal dosed creatinine 2.2, would prefer 1000 mg QID). Consider PO antibiotics for up to 6 months -has finished this. Consider life long chronic suppressive therapy if any s/s begin to reoccur Referral to infectious disease was offer ed (again today) and declined. 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 Cultures obtained in podiatry returned with Klebsiella pneumonia I have reviewed the sensitivities and taken patient's allergies into consideration will continue to utilize topical gentamy alisha until wound closure. I again reinforced with Ross that su n with these interventions he still is at very high risk for a limb threatening infection and BKA. Discussion Note Thank you for this referral and opportu nity to care for your patient. If there are any questions or concerns please feel fr ee to contact me at . Patient educational handouts: No information available. Plan of Care Patient Instructions Return to clinic 1 week BMP 09/27/2021 [...] clinic staff can be reach ed at [phone] through from8 AM to 4 PMand Saturday [...] TRUEplus Pen Needle 32 gauge x 532" PRN Tylenol 500 mg tablet Take 2 [...] in 308 lbs 48.2 kg/m2 112/63 mm[Hg] Results Lab Results None recorded. Allergies Code Code System Name Reaction Severity Onset Adhesive Tape Other Rash Moderate 1291 RxNorm Bacitracin Other 035033 RxNorm Bactrim Rash 2670 RxNorm Codeine Vomiting 5489 RxNorm Hydrocodone Vomiting 5933 RxNorm Iodine Rash 62447 RxNorm Levofloxacin Nausea Rash 6980 RxNorm Minocycline [...] risk for COVID-19? What type of children's zoo caretaker do you none use? Are you deaf [...] eyes? What is the highest grade or [id number] level of school you have completed or [...] coffee daily Do you feel stressed (tense, [id number] restless, nervous, or anxious, or unable to sleep at night)? 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 Past Encounters 10/04/2021 Diabetic Foot Ulcer; Type 2 Diabetes Nora litus; Varicose Veins of Lower Extremity; Peripheral Vascular Disease; At Risk of Nutritional Deficit; Osteomyelitis Sherri Thompson, CHIEF DIETITIAN: [address] [place] [address], [place] [address], Ph. 09/27/2021 Stasis Dermatitis and Venous Ulcer of Lo wer Extremity Due to Chronic Peripheral Venous Hypertension Sherri Thompson CHIEF DIETITIAN: [address] [place] [address], [place] [phone], Ph. 09/15/2021 Stasis Dermatitis and Venous Ulcer of Lo wer Extremity Due to Chronic Peripheral Venous Hypertension; Diabetic Foot Ulcer; Type 2 Diabetes Mellitus; Varicose Veins of Lower Extremity; Peripheral Vascular Disease; At Risk of Nutritional Deficit ; Osteomyelitis Sherri Thompson CHIEF DIETITIAN: [address] [place] [address], [place] [address], Ph. 09/08/2021 Diabetic Foot Ulcer; Type 2 Diabetes Nora litus; Varicose Veins of Lower Extremity; Peripheral Vascular Disease; At Risk of Nutritional Deficit; Osteomyelitis Sherri Thompson CHIEF DIETITIAN: [address] [place] [address], [place] [phone], Ph. History of Present Illness Note: <div>09/08/21: Ross returns to the wound clinic for continued treatment of his left heel ulcer. He was started on Cephalexin 500mg 4 times a day for 21 days at his last appointment.</div><div>
</div><div>09/15/21: Rsos returns to clinic for NPWT dressing change [...] 6 month course Cephalexin 500mg QID ended 09/28/21.</div> Review of Systems: ROS as noted in the [...] palpation: go od turgor, no jaundice, ulcer; 09/15/21:left superior heel wo und: 3.7 x 3.3 x 0.2cmleft inferior heel wound: 7.0 x 5.0 x 0.3c mLeft medial great toe: 2.0 x 1.2 x 0.1cmleft 2nd toe: 1.6 x 1.0 x 0.1cmleft webbing of 4th and 5th toe: 2.2 x 1.5 x 0.18ab7mo t oe: Covered in stable escharRight medial amputation site: thin ly epithealizedRt lateral le.7 x 1.0 x 0.05cm10/04/21: Bottom of heel is maceratedleft superior heel wound: 3.3 x 2.0 x 0.05cmlef t inferior heel wound: 7.0 x 4.0 x0.05cmLeft medial great toe : 1.7 x 1.7 x 0.05cmleft 2nd toe: 1.3 x 1.0 x0.05cmleft webbing of 4 th and 5th toe: [id number] toe: Covered in stable escharRight leg am putation: resolved
--- OUTSIDE RECORDS SUMMARY | 2021-10-21 16:39 | External Medical Summary | Encounter Summary ---
:1960 Author Care Team Providers Name Role Phone Elba Cyrus HUC Primary Care Provider [phone] Gaston Ambriz DPM Referring Provider [phone] Sherri Thompson BORDER MACHINE OPERATOR OTHER [phone] [facility] OTHER Brandon Dumas MD Interventional Radiologist [phone] Reason for Visit Stasis dermatitis and venous ulcer of lo wer extremity due to chronic peripheral venous hypertension; Delayed healing of surgical wound [facility] chart no vilma after visit [phone] Assessment and Plan Assessment Note Follow up Patient has history of intermittent epis odes of lower extremity cellulitis right greater than left, history of osteomyelitis along with MSSA, left fifth toe osteomyelitis history of sepsis with hospital ization in July 2019. Patient has surgica lly absent left great toe and right fifth toe. 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 Stasis dermatitis and venous ulcer o f lower extremity due to chronic peripheral venous hypertension Nurse visit 2. Diabetic foot ulcer LEFT stage 4, chronic DIABETIC FOOT ULC ERATION with venous stasis component Stable with some improvement in sq cm af fected and more granulation tissue noted in the wound beds along with no periwound inflammatory or infection signs and symptoms. Much less exposed tendon noted ag ain today. Debridement performed of all wounds.. -At this time we will continue with [...] clinic visits home health order* - Right Stump: Con tinue to monitor LEFT leg: Wash leg with soap and water rinse pat dry Cleanse wounds w ith VASHE vigorously Skin repair to intact skin of leg and heel Skin prep to periwo unds Collagen powder Gentamicin and gauze to toe wounds Drape to periwound skin of he el and Achilles area wounds White foam to wound beds A very large black foam bolst er over these wounds Drape Track pad make sure this is tract out from the wrap so this does not create new pressure somewhere else Pressure to be set at 150 mmHg PROF ORE compression lightly applied from toes to knee FREQUENCY of dressing change ALL wo unds: saturday/saturday/saturday Wound VAC canister to be changed on Saturday and Sat or as needed Return to clinic weekly 3. Type 2 diabetes mellitus poorly controlled, Reinforced diabetes and control of will improve wound healing/affect wound healing 4. Varicose veins of lower extremity See above 5. Peripheral vascular disease continue Vitamin C 1000 mg daily. No claudication, or elevational pain rep orted today -Is taking aspirin 81 mg daily -Is taking atorvastatin -blood pressure management includes carv edilol, furosemide lisinopril -diabetes is being managed with insulin -Counseled on lifestyle modifications, d iet, exercise, medications and s/e. -Intervention was performed 05/30/[address] Dumas, followed again 07/27/21 6. At risk of nutritional deficit Reinforced nutritional concepts and naveed jackson with patient, he is utilizing claire and multivitamin 7. Osteomyelitis Per results of MRI Patient will utilize Keflex 500 mg QID ( renal dosed creatinine 2.2, would prefer 1000 mg QID). Consider PO antibiotics for up to 6 months or chronic suppressive therapy. check CMP 2 weeks last performed 09/11, this was reviewed today Referral to infectious disease was offer ed (again today) and declined. 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 Cultures obtained in podiatry returned with Klebsiella pneumonia I have reviewed the sensitivities and taken patient's allergies into consideration will continue to utilize topical gentamy alisha I again reinforced with Ross that su n with these interventions he still is at very high risk for a limb threatening infection and BKA. BMP, serum or plasma - needs done 09/15 06/06 Discussion Note Thank you for this referral and opportu alexus to care for your patient. If there are any questions or concerns please feel fr ee to contact me at . Patient educational handouts: No information available. Plan of Care Patient Instructions Return to clinic 1 week Keflex 500 [...] clinic staff can be reach ed at [phone] through from8 AM to 4 PMand Saturday [...] Notify the wound clinic for instructions at [phone] . The clinic is open Saturday through from 8 AM till 5PM and Saturday from8 AM until noon. Reminders Provider Appointments Established Patient 30 10/25/2021 Cecily Thompson NP 10:30AM New Patient 47 11/16/2021June GUIDO Herrera 11:00AM Lab BMP, Serum or Plasma 09/15/2021 [facility] Only Referral None recorded. Procedures None recorded. Surgeries [...] needed. TRUEplus Pen Needle 32 gauge x 32" PRN Tylenol 500 mg tablet Take 2 [...] in 306 lbs 47.9 kg/m2 134/69 mm[Hg] Results Lab Results None recorded. Allergies Code Code System Name Reaction Severity Onset Adhesive Tape Other Rash Moderate 1291 RxNorm Bacitracin Other 593378 RxNorm Bactrim Rash 2670 RxNorm Codeine Vomiting 5489 RxNorm Hydrocodone Vomiting 5933 RxNorm Iodine Rash 81497 RxNorm Levofloxacin Nausea Rash 6980 RxNorm Minocycline [...] high risk for COVID-19? What type of residential child care counselor do you none use? Are you deaf [...] eyes? What is the highest grade or PN20646-8 level of school you have completed or [...] coffee daily Do you feel stressed (tense, [id number] restless, nervous, or anxious, or unable to sleep at night)? 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 Past Encounters 09/15/2021 Stasis Dermatitis and Venous Ulcer of Lo wer Extremity Due to Chronic Peripheral Venous Hypertension; Diabetic Foot Ulcer; Type 2 Diabetes Mellitus; Varicose Veins of Lower Extremity; Peripheral Vascular Disease; At Risk of Nutritional Deficit ; Osteomyelitis Sherri Thompson NP: [address] [place], [place] [address] [address], Ph. 09/08/2021 Diabetic Foot Ulcer; Type 2 Diabetes Nora litus; Varicose Veins of Lower Extremity; Peripheral Vascular Disease; At Risk of Nutritional Deficit; Osteomyelitis Sherri Thompson BORDER MACHINE OPERATOR: [address] [place], [place] [address] [address], Ph. 08/30/2021 Diabetic Foot Ulcer; Type 2 Diabetes Nora litus; Varicose Veins of Lower Extremity; Peripheral Vascular Disease; At Risk of Nutritional Deficit; Osteomyelitis Sherri Thompson BORDER MACHINE OPERATOR: [address] [place], [place] [address], [place] [address], Ph. 08/25/2021 Stasis Dermatitis and Venous Ulcer of Lo wer Extremity Due to Chronic Peripheral Venous Hypertension; Delayed Healing of Surgical Wound Sherri Thompson BORDER MACHINE OPERATOR: [address] [place], [place] [address], [place] [address], Ph. 08/18/2021 Diabetic Foot Ulcer; Type 2 Diabetes Nora litus; Varicose Veins of Lower Extremity; Peripheral Vascular Disease; At Risk of Nutritional Deficit; Osteomyelitis Sherri Thompson, BORDER MACHINE OPERATOR: [address] [place], [place] [address], [place] [address], Ph. History of Present Illness Note: <div>08/25/21NURSE VISIT Ross returns to the clinic for continued treatment of his left heel ulcer. Home Health will manage NPWT dressing changes. </div><div>
</div><div>08/30/21: Ross returns to the Wound Care Clinic for continuation of care of left heel ulcer. Home health continues to change dressings in between clinic visits. Ross had a podiatry appointment this morning and he was placed on Keflex and his wound cultures returned with Klebsiella pneumonia.</div><div>
</div><div>09/08/21: Ross returns to the wound clinic for continued treatment of his left heel ulcer. He was started on Cephalexin 500mg 4 times a day for 21 days at his last appointment.</div><div>
</div><div>09/15/21: Ross returns to clinic for NPWT dressing change and 2 step wrap for left heel ulcerations. Patient still taking Cephalexin 500mg QID.</div><div>
</div>Review of Systems: ROS as noted in [...] palpation: go od turgor, no jaundice, ulcer; 09/08/21:left superior heel w ound: 3.2 x 2.8 x 2cm post 4.0 x 2.9 x 3.0 cmleft inferior heel wou nd: 7.0 x 5.8 x 0.2cm post 8.0 x 6.0 x 0.2Left medial great toe: 1. 8 x 1.8 x 0.05cm Post 2.0 x 1.7 x 0.05cmleft 2nd toe: 1.7 x 1. 0 x 0.05cm Post 1.7 x 1.0 x 0.05 cmleft webbing of 4th and 5th toe: 1.9 x 0.4 x 0.37fy2hd toe: Covered in stable escharRight leg amput ation: 0.8 x 1 x 0.05 cm09/15/21:left superior heel wound: 3.7 x 3 .3 x 0.2cmleft inferior heel wound: 7.0 x 5.0 x 0.3cmLeft medial gre at toe: 2.0 x 1.2 x 0.1cmleft 2nd toe: 1.6 x 1.0 x 0.1cmleft webbin g of 4th and 5th toe: 2.2 x 1.5 x 0.44lp8rv toe: Covered in st able escharRight medial amputation site: thinly epithealizedRt lateral le.7 x 1.0 x 0.05cm
--- OUTSIDE RECORDS SUMMARY | 2021-10-21 16:39 | External Medical Summary | Encounter Summary ---
:1960 Author Care Team Providers Name Role Phone Elba Cyrus INSIDE SALES ENGINEER Primary Care Provider [phone] Gaston Ambriz DPM Referring Provider [phone] Sherri Thompson BLADDER TIER OTHER [phone] [facility] OTHER Brandon Dumas MD Interventional Radiologist [phone] Reason for Visit Stasis dermatitis and venous ulcer of lo wer extremity due to chronic peripheral venous hypertension; Delayed healing of surgical wound [facility] chart no vilma after visit [phone] Assessment and Plan Assessment Note Ross presents today for continued fo llow-up of Diabetic Foot Ulceration, chronic. We are currently treating this with negative pressure wound therapy to stabilize the ruptured Achilles tendon and th is is facilitating more granular tissue formation. He will be finishing his p.o. Cipro in 2 days. new diabetic shoes were obtained mid Feb ember,follows with [facility] for prosthetic for right [...] infection signs and symptoms. Much less exposed tendon. -At this time we will continue with [...] to clinic 1 week, home health [facility] luna assist with dressing changes in between clinic visits cephalexin 500 mg tablet CMP, serum or plasma home health order* - LEFT leg: Wash l eg with soap and water rinse pat dry Cleanse wounds with VASHE vigorously Skin repair to intact skin of leg and heel Skin prep to periwounds Collagen powder Gentamicin an d gauze to toe wounds Drape to periwound skin of heel and Achilles area wounds White f oam to wound beds A very large black foam bolster over these wounds Drape Track pa d make sure this is tract out from the wrap so this does not create new pressure philippe ewhere else Pressure to be set at 150 mmHg PROFORE compression lightly applied from toes to knee FREQUENCY of dressing change ALL wounds: saturday/saturday/saturday Woun d VAC canister to be changed on Saturday and Saturday or as needed Return to clinic anat ewing next appointments September 08 2. Type 2 diabetes mellitus poorly controlled, [...] chronic suppressive therapy. check CMP 2 weeks Referral to infectious disease was offer ed and declined. Patient does have a previous [...] clinic staff can be reach ed at [phone] through from8 AM to 4 PMand Saturday [...] Notify the wound clinic for instructions at [phone] . The clinic is open Saturday through from 8 AM till 5PM and Saturday from8 AM until noon. Reminders Provider Appointments Established Patient 30 10/25/2021 Cecily Thompson NP 10:30AM New Patient 47 11/16/2021June GUIDO Herrera 11:00AM Lab CMP, Serum or Plasma 08/30/2021 [facility] Only Referral None recorded. Procedures None recorded. [...] in 303.5 lbs 47.5 kg/m2 145/82 mm[Hg] Results Lab Results Date Name Specimen Result Interpretation Description Value Range Status Address 09/11/2021 CMP, Serum or No observation [facility] Plasma recorded. Center: [address] [place] [address] Allergies Code Code System Name Reaction Severity Onset Adhesive Tape Other Rash Moderate 1291 RxNorm Bacitracin Other 851981 RxNorm Bactrim Rash 2670 RxNorm Codeine Vomiting 5489 RxNorm Hydrocodone Vomiting 5933 RxNorm Iodine Rash 55121 RxNorm Levofloxacin Nausea Rash 6980 RxNorm Minocycline [...] risk for COVID-19? What type of child care team lead do you none use? Are you deaf [...] eyes? What is the highest grade or [id number] level of school you have completed or [...] coffee daily Do you feel stressed (tense, [id number] restless, nervous, or anxious, or unable to sleep at night)? 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 Past Encounters 08/30/2021 Diabetic Foot Ulcer; Type 2 Diabetes Nora litus; Varicose Veins of Lower Extremity; Peripheral Vascular Disease; At Risk of Nutritional Deficit; Osteomyelitis Sherri Thompson BLADDER TIER: [address] [place], [place] [address], [place] [address], Ph. 08/25/2021 Stasis Dermatitis and Venous Ulcer of Lo wer Extremity Due to Chronic Peripheral Venous Hypertension; Delayed Healing of Surgical Wound Sherri Thompson BLADDER TIER: [address] [place], [place] [address], [place] [address], Ph. 08/18/2021 Diabetic Foot Ulcer; Type 2 Diabetes Nora litus; Varicose Veins of Lower Extremity; Peripheral Vascular Disease; At Risk of Nutritional Deficit; Osteomyelitis Sherri Thompson BLADDER TIER: [address] [place] [address] [place] [address], Ph. 08/11/2021 Stasis Dermatitis and Venous Ulcer of Lo wer Extremity Due to Chronic Peripheral Venous Hypertension; Delayed Healing of Surgical Wound Sherri Thompson BLADDER TIER: [address] [place] [address] [place] [address], Ph. 08/04/2021 Diabetic Foot Ulcer; Type 2 Diabetes Nora litus; Varicose Veins of Lower Extremity; Peripheral Vascular Disease; At Risk of Nutritional Deficit; Osteomyelitis Sherri Thompson BLADDER TIER: [address] [place], [place] [address], [place] [address], Ph. 08/02/2021 Type 2 Diabetes Mellitus; Varicose Veins of Lower Extremity; Peripheral Vascular Disease; At Risk of Nutritional Deficit; Osteomyelitis; Diabetic Foot Ulcer Sherri Thompson BLADDER TIER: [address] [place], [place] [address], [place] [address], Ph. History of Present Illness Note: <div>08/25/21NURSE [...] his wound cultures returned with Klebsiella pneumonia.</div><div>
</div>Review of Systems: ROS as noted in [...] standard pain scale.</div><div>2. Int ervention for pain {{n/a|yes|no}} </ div><div>3. Pain reassessed at minutes as {{0|1|2|3| 4|5|6|7|8|9|10}} using standard pain scale.</div><div><st germaine>SAFETY / ABUSE SCREENING ASSESSMENT </strong></div><d iv>1. Have you fallen in the last 30 days? {{yes|no}}</div><di v>2. Are you currently in a relationship where you feel threatened or afraid? {{yes|no}}</div><div>3. Abus e / neglect symptoms observed by clinician? {{yes|no*}} If ye s, was a referral made to an agency </div><div>
</d iv>

<p><strong>PAIN ASSESSMENT</strong></p><p>1. Pain assessed rating </p><div>{{0*|1|2|3|4|5|6|7| 8|9|10}}/10 using standard pain scale.</div><div>2. Interven tion for pain {{n/a|yes|no*}} </ div><div>3. Pain reassessed at minutes as {{0*|1|2|3 |4|5|6|7|8|9|10}} using standard pain scale.</div><div><stron g>SAFETY / ABUSE SCREENING ASSESSMENT </strong></div ><div>1. Have you fallen in the last 30 days? {{yes|no*}}</d iv><div>2. Are you currently in a relationship where you feel threatened or afraid? {{yes|no*}}</div><div>3. Abuse / neglect symptoms observed by clinician? {{yes|no*}} If yes, was a referral made to an agency [...] palpation: go od turgor, no jaundice, ulcer; 08/18/21: left superior heel wound: 3. 2 x 3.0 x 0.2 cm, was excisionally debrided full-thickness post debridement this measures 3.2 x 3.0 x 0.25 cmleft inferior heel wo und: 7.2 x 6.9 x 0.1 cm, this was excisionally debrided postde bridement measures 7.3 x 7.0 x 0.2 cmleft 2nd toe: 1.2 x 1.0 x 0.05 cm, this was not debridedleft webbing of 4th and 5th toe: 1.9 x 0.8 x 0.05cm. excisional full thickness, 0.2 centimeters d epth (post debridement)5th toe 0.8x 0.8 x 0.02cm, areas of eschar on top of toe08/30/21:left superior heel wound: much less tendon expo sed 3.2 x 3.0 x 2cmleft inferior heel wound: red granular tissue 7 .0 x 5.7 x 0.3cmLeft medial great toe: covered in stable eschar lef t 2nd toe: 1.0 x 1.0 x 0.1 cmleft webbing of 4th and 5th toe: 1.3 x 1.0 x 0.1cm5th toe: covered in eschar
--- OUTSIDE RECORDS SUMMARY | 2021-10-21 16:39 | External Medical Summary | Encounter Summary ---
:1960 Author Care Team Providers Name Role Phone Elba Jamarzach SHEET METAL WORKER HELPER Primary Care Provider [phone] Gaston Ambriz DPM Referring Provider [phone] Sherri Thompson AIRFIELD DEFENCE GUARD OTHER [phone] [facility] OTHER Brandon Dumas MD Interventional Radiologist [phone] Reason for Visit Stasis dermatitis and venous ulcer of lo wer extremity due to chronic peripheral venous hypertension; Delayed healing of surgical wound [facility] chart no vilma after visit [id number] Assessment and Plan Assessment Note Follow up [...] noted again today. Debridement performed of all wounds today. -At this time we will continue with [...] to intact skin of leg and heel Sk in prep to periwounds Collagen powder Gentamicin and gauze to toe wounds Drape to periwound skin of heel and Achilles area wounds White foam to wound beds A very l arge black foam bolster over these wounds Drape Track pad make sure this is tract out from the wrap so this does not create new pressure somewhere else Pressure to be s et at 150 mmHg PROFORE compression lightly applied from toes to knee FREQUENCY of d ressing change ALL wounds: saturday/saturday/saturday Wound VAC canist er to be changed on Saturday and Saturday or as needed Return to clinic weekly 2. Type 2 diabetes mellitus poorly controlled, [...] clinic staff can be reach ed at [phone] through from8 AM to 4 PMand Saturday [...] Notify the wound clinic for instructions at [phone] . The clinic is open Saturday through from 8 AM till 5PM and Saturday from8 AM until noon. Reminders Provider Appointments Established Patient 30 10/25/2021 10:30AM Jarvis Thompson NP New Patient 47 11/16/2021 11:00AM Daniela LINETTE CarmonaP Lab None recorded. Referral None recorded. Procedures [...] in 306 lbs 47.9 kg/m2 146/74 mm[Hg] Results Lab Results None recorded. Allergies Code Code System Name Reaction Severity Onset Adhesive Tape Other Rash Moderate 1291 RxNorm Bacitracin Other 618129 RxNorm Bactrim Rash 2670 RxNorm Codeine Vomiting 5489 RxNorm Hydrocodone Vomiting 5933 RxNorm Iodine Rash 79657 RxNorm Levofloxacin Nausea Rash 6980 RxNorm Minocycline [...] drugs have you used? What type of early childhood director do you none use? Have you been [...] eyes? What is the highest grade or [id number] level of school you have completed or [...] for COVID-19 while that person was ill? What was the date of your most 10/11/2021 recent tobacco screening? Do you reside in or have you N traveled to an area where Ebola virus transmission is active? Do you have an advanced N directive? Do you or have you ever used Never used electronic e-cigarettes or vape? cigarettes General stress level Medium Do you use any illicit or N recreational drugs? In the 14 days before symptom N onset, have you had close contact with a laboratory-confirmed COVID-19 while that case was ill? What is your exercise level? None How many years have you smoked 0 tobacco? Live alone or with others? with others [...] coffee daily Do you feel stressed (tense, [id number] restless, nervous, or anxious, or unable to sleep at night)? 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 Past Encounters 09/08/2021 Diabetic Foot Ulcer; Type 2 Diabetes Nora litus; Varicose Veins of Lower Extremity; Peripheral Vascular Disease; At Risk of Nutritional Deficit; Osteomyelitis Sherri Thompson AIRFIELD DEFENCE GUARD: [address] [place] [address] [place] [address], Ph. 08/30/2021 Diabetic Foot Ulcer; Type 2 Diabetes Nora litus; Varicose Veins of Lower Extremity; Peripheral Vascular Disease; At Risk of Nutritional Deficit; Osteomyelitis Sherri Thompson AIRFIELD DEFENCE GUARD: [address] [place] [address], [place] [address], Ph. 08/25/2021 Stasis Dermatitis and Venous Ulcer of Lo wer Extremity Due to Chronic Peripheral Venous Hypertension; Delayed Healing of Surgical Wound Sherri Thompson AIRFIELD DEFENCE GUARD: [address] [place] [address], [place] [address], Ph. 08/18/2021 Diabetic Foot Ulcer; Type 2 Diabetes Nora litus; Varicose Veins of Lower Extremity; Peripheral Vascular Disease; At Risk of Nutritional Deficit; Osteomyelitis Sherri Thompson, AIRFIELD DEFENCE GUARD: [address], [place] [address], Ph. 08/11/2021 Stasis Dermatitis and Venous Ulcer of Lo wer Extremity Due to Chronic Peripheral Venous Hypertension; Delayed Healing of Surgical Wound Sherri Thompson, AIRFIELD DEFENCE GUARD: [address], [place] [address], Ph. History of Present Illness Note: <div>08/25/21NURSE [...] for 21 days at his last appointment.</div><div>
</div>Review of Systems: ROS as noted in [...] palpation: go od turgor, no jaundice, ulcer; 08/30/21:left superior heel w ound: much less tendon exposed 3.2 x 3.0 x 2cmleft inferior heel wound: red granular tissue 7.0 x 5.7 x 0.3cmLeft medial great toe: covered in stable eschar left 2nd toe: 1.0 x 1.0 x 0.1 cmleft webbi ng of 4th and 5th toe: 1.3 x 1.0 x 0.1cm5th toe: covered in esc har09/08/21:left superior heel wound: 3.2 x 2.8 x 2cm post 4.0 x 2 .9 x 3.0 cmleft inferior heel wound: 7.0 x 5.8 x 0.2cm post 8.0 x 6.0 x 0.2Left medial great toe: 1.8 x 1.8 x 0.05cm Post 2.0 x 1.7 x 0.05cmleft 2nd toe: 1.7 x 1.0 x 0.05cm Post 1.7 x 1.0 x 0.05 cmleft webbing of 4th and 5th toe: 1.9 x 0.4 x 0.06vj1iw toe: Cover ed in stable escharRight leg amputation: 0.8 x 1 x 0.05 c m
--- OUTSIDE RECORDS SUMMARY | 2021-10-21 16:39 | External Medical Summary | Encounter Summary ---
:1960 Author Care Team Providers Name Role Phone Elbadanica Bridges CHEF SAUCIER Primary Care Provider [phone] Gaston Ambriz DPM Referring Provider [phone] Sherri Thompson PRESS TECHNICIAN OTHER [phone] [facility] OTHER Brandon Dumas MD Interventional Radiologist [phone] Reason for Visit Stasis dermatitis and venous ulcer of lo wer extremity due to chronic peripheral venous hypertension; Delayed healing of surgical wound [facility] chart no vilma after visit [id number] Assessment and Plan 1. Stasis dermatitis and venous ulcer o f lower extremity due to chronic peripheral venous hypertension Nurse visit 2. Delayed healing of surgical wound Nurse visit home health order* - LEFT leg: Wash [...] needed Return to clinic anat ewing next appointment is August 30 Discussion Note: None recorded.Patient educational handouts: No information available. Plan of Care Patient Instructions Return to clinc as scheduled Get prompt medical attention if any the following occur: An increase in redness or swelling. Red streaks in the skin leading away fro m the wound. An increase in pain or swelling at or ar ound the wound. Fever over 100.0 F orally. New odor or drainage from the wound bed. Reminders Provider Appointments Established Patient 30 10/25/2021 [...] verbal ly with patient at appt. -FP, WATER TANKER DRIVER 07/27/21 Medications Administered None recorded. Vitals Height Blood Pressure 5 ft 7 in 139/84 mm[Hg] Results Lab Results None recorded. Allergies Code Code System Name Reaction Severity Onset Adhesive Tape Other Rash Moderate 1291 RxNorm Bacitracin Other 976381 RxNorm Bactrim Rash 2670 RxNorm Codeine Vomiting 5489 RxNorm Hydrocodone Vomiting 5933 RxNorm Iodine Rash 12867 RxNorm Levofloxacin Nausea Rash 6980 RxNorm Minocycline [...] high risk for COVID-19? What type of early childhood educator aide do you none use? Are you deaf [...] eyes? What is the highest grade or [id number] level of school you have completed or [...] coffee daily Do you feel stressed (tense, [id number] restless, nervous, or anxious, or unable to sleep at night)? 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 Past Encounters 08/25/2021 Stasis Dermatitis and Venous Ulcer of Lo wer Extremity Due to Chronic Peripheral Venous Hypertension; Delayed Healing of Surgical Wound Sherri Thompson PRESS TECHNICIAN: [address] [place] [address] [place] [address], Ph. 08/18/2021 Diabetic Foot Ulcer; Type 2 Diabetes Nora litus; Varicose Veins of Lower Extremity; Peripheral Vascular Disease; At Risk of Nutritional Deficit; Osteomyelitis Sherri Thompson PRESS TECHNICIAN: [address] [place] [address] [place] [address], Ph. 08/11/2021 Stasis Dermatitis and Venous Ulcer of Lo wer Extremity Due to Chronic Peripheral Venous Hypertension; Delayed Healing of Surgical Wound Sherri Thompson PRESS TECHNICIAN: [address] [place] [address] [place] [address], Ph. 08/04/2021 Diabetic Foot Ulcer; Type 2 Diabetes Nora litus; Varicose Veins of Lower Extremity; Peripheral Vascular Disease; At Risk of Nutritional Deficit; Osteomyelitis Sherri Thompson PRESS TECHNICIAN: [address] [place], [place] [address] [address], Ph. 08/02/2021 Type 2 Diabetes Mellitus; Varicose Veins of Lower Extremity; Peripheral Vascular Disease; At Risk of Nutritional Deficit; Osteomyelitis; Diabetic Foot Ulcer Sherri Thompson PRESS TECHNICIAN: [address] [place], [place] [address] [address], Ph. 07/27/2021 Peripheral Vascular Disease; Diabetic Fo ot Ulcer; Osteomyelitis of Ankle AND/OR Foot; Rupture of Achilles Tendon Brandon Dumas MD: [address] [place], [place] [address] [address], Ph. 07/25/2021 Delayed Healing of Surgical Wound; Type 2 Diabetes Mellitus; Varicose Veins of Lower Extremity; Peripheral Vascular Disease; At Risk of Nutritional Deficit; Osteomyelitis; Diabetic Foot Ulcer; Local Infection of Wound Sherri Thompson PRESS TECHNICIAN: [address] [place], [place] [address], [place] [address], Ph. History of Present Illness Note: <div>08/25/21NURSE VISIT Ross returns to the clinic for continued treatment of his left heel ulcer. Home Health will manage NPWT dressing changes. </div><div>
</div> Review of Systems Comprehensive General Adult ROS [...] to an agency </div><div>
</div> Physical Exam Notes: <div>08/25/21:</div><div>left superior heel wound: 3.2 x 2.8 x 0.2cm tendon exposed</div><div>left in ferior heel wound: 6.0 x 6.0 x 0.2cm, red granular tissue</div><div>Left med ial great toe: 2.0 x 2.0 covered in stable eschar</div><div>left 2nd to e: 1.0x 1.0 x 0.05cm</div><div>left webbing of 4th and 5th toe: 2.0 x 1.0 x 0.0 5cm</div><div>5th toe: 0.2 x 0.3 cm</div>
--- OUTSIDE RECORDS SUMMARY | 2021-10-21 16:39 | External Medical Summary | Encounter Summary ---
:1960 Author Care Team Providers Name Role Phone Elba Bridges SENIOR PORTFOLIO ANALYST Primary Care Provider [phone] Gaston Ambriz DPM Referring Provider [phone] Sherri Thompson DESK CLERK OTHER [phone] [facility] OTHER Brandon Dumas MD Interventional Radiologist [phone] Reason for Visit Stasis dermatitis and venous ulcer of lo wer extremity due to chronic peripheral venous hypertension; Delayed healing of surgical wound [facility] chart no vilma after visit [id number] Assessment and Plan Assessment Note *NURSE VISIT* 1. Stasis dermatitis and venous ulcer o f lower extremity due to chronic peripheral venous hypertension home health order* - Right medial blake [...] FREQUENCY of d ressing change ALL wounds: Saturday/Saturday/Saturday Wound VAC canist er to be changed on Saturday and Saturday or as needed Discussion Note: None recorded.Patient educational handouts: No information available. Plan of Care Patient Instructions Get prompt medical attention if any the [...] Notify the wound clinic for instructions at [phone] . The clinic is open Saturday through [...] clinic staff can be reach ed at [phone] Saturday through from 8 AM to 4 PM and Saturday from 8 AM to noon. Reminders [...] in 308 lbs 48.2 kg/m2 149/74 mm[Hg] Results Lab Results None recorded. Allergies Code Code System Name Reaction Severity Onset Adhesive Tape Other Rash Moderate 1291 RxNorm Bacitracin Other 190342 RxNorm Bactrim Rash 2670 RxNorm Codeine Vomiting 5489 RxNorm Hydrocodone Vomiting 5933 RxNorm Iodine Rash 12134 RxNorm Levofloxacin Nausea Rash 6980 RxNorm Minocycline [...] for COVID-19? What type of child care supervisor do you none use? Are you deaf [...] eyes? What is the highest grade or [id number] level of school you have completed or [...] coffee daily Do you feel stressed (tense, [id number] restless, nervous, or anxious, or unable to sleep at night)? 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 Past Encounters 09/27/2021 Stasis Dermatitis and Venous Ulcer of Lo wer Extremity Due to Chronic Peripheral Venous Hypertension Sherri Thompson DESK CLERK: [address] [place] [address] [place] [address], Ph. 09/15/2021 Stasis Dermatitis and Venous Ulcer of Lo wer Extremity Due to Chronic Peripheral Venous Hypertension; Diabetic Foot Ulcer; Type 2 Diabetes Mellitus; Varicose Veins of Lower Extremity; Peripheral Vascular Disease; At Risk of Nutritional Deficit ; Osteomyelitis Sherri Thompson DESK CLERK: [address] [place] [address] [place] [address], Ph. 09/08/2021 Diabetic Foot Ulcer; Type 2 Diabetes Nora litus; Varicose Veins of Lower Extremity; Peripheral Vascular Disease; At Risk of Nutritional Deficit; Osteomyelitis Sherri Thompson DESK CLERK: [address] [place] [address], [place] [address], Ph. 08/30/2021 Diabetic Foot Ulcer; Type 2 Diabetes Nora litus; Varicose Veins of Lower Extremity; Peripheral Vascular Disease; At Risk of Nutritional Deficit; Osteomyelitis Sherri Thopmson DESK CLERK: [address] [place] [address], [place] [address], Ph. History of Present Illness Note: <div>09/08/21: Ross returns to the wound clinic for continued treatment of his left heel ulcer. He was started on Cephalexin 500mg 4 times a day for 21 days at his last appointment.</div><div>
</div><div>09/15/21: Ross returns to clinic for NPWT dressing change and 2 step wrap for left heel ulcerations. Patient still taking Cephalexin 500mg QID.</div><div>
</div><div>09/27/21 *NURSE VISIT: [facility] dressing change to his NPWT on the right heel wound.</div><div>
</div>Review of Systems: ROS as noted in [...] an agency </div><div>
</div> Physical Exam Notes: <div>09/15/21:</div><div>left superior heel wound: 3.7 x 3.3 x 0.2cm</div><div>left inferio r heel wound: 7.0 x 5.0 x 0.3cm</div><div>Left medial great toe: 2.0 x 1.2 x 0.1cm</div><div>left 2nd toe: 1.6 x 1.0 x 0.1cm</div><div>left webbing of 4th and 5th toe: 2.2 x 1.5 x 0.05cm</div><div>5th toe: Co rylee in stable eschar</div><div>Right medial amputation site: thinly epit healized</div><div>Rt lateral le.7 x 1.0 x 0.05cm</div><div>
</div>< div>09/27/21:</div><div>left superior heel wound: 3.5x2.4x0.1cm granular tissu e in wound bed</div><div>left inferior heel wound: 7.2x5x0.1cm granular tissue in wound bed</div><div>Left medial great toe: 1.3x1.2x0.1cm</div><div>left 2nd toe: 1.2x1x0.05cm</div><div>left webbing of 4th and 5th toe: closed</div ><div>5th toe: Covered in stable eschar</div><div>Right me dial amputation site: thinly epithelialized</div><div>Rt lateral leg:closed</div>
--- OUTSIDE RECORDS SUMMARY | 2021-10-21 16:40 | External Medical Summary | Encounter Summary ---
:1960 Author Care Team Providers Name Role Phone Elba Bridges DETECTOR CAR OPERATOR Primary Care Provider [phone] Gaston Ambriz DPM Referring Provider [phone] Sherri Thompson GSA COORDINATOR OTHER [phone] [facility] OTHER Brandon Dumas MD Interventional Radiologist [phone] Reason for Visit Stasis dermatitis and venous ulcer of lo wer extremity due to chronic peripheral venous hypertension; Delayed healing of surgical wound [facility] chart no vilma after visit [id number] Assessment and Plan 1. Stasis dermatitis and venous ulcer o f lower extremity due to chronic peripheral venous hypertension Nurse visit cast cover gentamicin 0.1 % topical cream home health order* - LEFT leg: Wash [...] Saturday or as needed Return to clinic -saturday's 2. Delayed healing of surgical wound Nurse visit Discussion Note: None recorded.Patient educational handouts: No [...] clinic staff can be reach ed at [phone] through from8 AM to 4 PMand Saturday [...] Notify the wound clinic for instructions at [phone] . The clinic is open Saturday through [...] with patient at appt. -FP, ALFRED 07/27/21 Medications Administered None recorded. Vitals Height Weight BMI 5 ft 7 in 296 lbs 46.4 kg/m2 Results Lab Results None recorded. Allergies Code Code System Name Reaction Severity Onset Adhesive Tape Other Rash Moderate 1291 RxNorm Bacitracin Other 645220 RxNorm Bactrim Rash 2670 RxNorm Codeine Vomiting 5489 RxNorm Hydrocodone Vomiting 5933 RxNorm Iodine Rash 67103 RxNorm Levofloxacin Nausea Rash 6980 RxNorm Minocycline [...] risk for COVID-19? What type of children's tutor do you none use? Are you deaf [...] eyes? What is the highest grade or [id number] level of school you have completed or [...] coffee daily Do you feel stressed (tense, [id number] restless, nervous, or anxious, or unable to sleep at night)? 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 Past Encounters 08/11/2021 Stasis Dermatitis and Venous Ulcer of Lo wer Extremity Due to Chronic Peripheral Venous Hypertension; Delayed Healing of Surgical Wound Sherri Thompson NP: [address] [place] [address] [place] [address], Ph. 08/04/2021 Diabetic Foot Ulcer; Type 2 Diabetes Nora litus; Varicose Veins of Lower Extremity; Peripheral Vascular Disease; At Risk of Nutritional Deficit; Osteomyelitis Sherri Thompson GSA COORDINATOR: [address] [place] [address] [place] [address], Ph. 08/02/2021 Type 2 Diabetes Mellitus; Varicose Veins of Lower Extremity; Peripheral Vascular Disease; At Risk of Nutritional Deficit; Osteomyelitis; Diabetic Foot Ulcer Sherri Thompson NP: [address] [place] [address] [place] [address], Ph. 07/27/2021 Peripheral Vascular Disease; Diabetic Fo ot Ulcer; Osteomyelitis of Ankle AND/OR Foot; Rupture of Achilles Tendon Brandon Dumas MD: [address] [place], [place] [address] [phone], Ph. 07/25/2021 Delayed Healing of Surgical Wound; Type 2 Diabetes Mellitus; Varicose Veins of Lower Extremity; Peripheral Vascular Disease; At Risk of Nutritional Deficit; Osteomyelitis; Diabetic Foot Ulcer; Local Infection of Wound Sherri Thompson GSA COORDINATOR: [address] [place], [place] [address], [place] [address], Ph. 07/18/2021 Type 2 Diabetes Mellitus; Varicose Veins of Lower Extremity; Peripheral Vascular Disease; At Risk of Nutritional Deficit; Osteomyelitis; Diabetic Foot Ulcer Sherri Thompson GSA COORDINATOR: [address] [place] [address], [place] [address], Ph. History of Present Illness Note: <div>08/02/21: [...] He continues on ciprofloxacin for his osteomyelitis.</div><div>
</div><div>08/11/2021: Nurse visit, Ross returns today for continued follow-up of left heel ulcer with negative pressure wound therapy dressing change continues on ciprofloxacin for osteomyelitis</div>Review of Systems: ROS as noted in the HPI Review of Systems None recorded. Physical Exam Notes: <div>08/04/2021:</div><div>Le ft heel superior along the Achilles where this is ruptured: superior 3.6 x 3.0 x 2.0 cm_, inferior _6.5 x 6.0 x 0.4 cm</div><div>Left web fourth and fifth:2.0 x 0.7 x 0.05cm</div><div>Left second toe: 1.0 x 1.7 x 0.05 cm</div><div>
</div><div>08/11/21:left superior heel wound:3.3 x 3. 0 x 2.0 cm</div><div>left inferior heel wound: 7.0 x 6.0 x 0.2cm</div><div>left 2nd toe: 0.7 x 0.1 x 0.05</div><div>left webbing of 4th and 5th toe; 2.0 x 0. 8 x 0.05 cm</div><div>
</div>
--- OUTSIDE RECORDS SUMMARY | 2021-10-21 16:40 | External Medical Summary | Encounter Summary ---
:1960 Author Care Team Providers Name Role Phone Elba Cyrus KAIAKO KOHANGA REO Primary Care Provider [phone] Gaston Ambriz DPM Referring Provider [phone] Sherri Thompson SALES MARKET LEADER OTHER [phone] [facility] OTHER Brandon Dumas MD Interventional Radiologist [phone] Reason for Visit Diabetic foot ulcer; Peripheral vascular disease; Procedure Follow-up Patient is here to f/u from angio proced ure on 05/30/21. Patient also has had a LE MRI on 07/26/21. Assessment and Plan Assessment Note Ross Mcgee is a very pleasant 61-ye ar-old gentleman who has diabetic disease, peripheral vascular disease, heel ulcer, calcaneal osteomyelitis and now full/partial thickness tear of the Achilles te ndon. This is a poor prognosis for heali maryjane as there would be no significant treatment for his Achilles tendon rupture with calcaneal osteomyelitis that is still persistent. I called Dr. Ambriz. He will speak to the patient sometime today. Thank you for the pleasure of participat ing in his care and I will keep you updated with any progress. 1. Peripheral vascular disease 2. Diabetic foot ulcer 3. Osteomyelitis of ankle AND/OR foot 4. Rupture of Achilles tendon Discussion Note: None recorded.Patient educational handouts: No information available. Plan of Care Reminders Provider Appointments Established Patient 30 10/25/2021 10:30AM Jarvis Thompson NP New Patient 45 11/16/2021 11:00AM Daniela GUIDO [facility] None recorded. Referral None [...] 162/123 mm[ Hg] (2) 180/84 mm[Hg ] Results Lab Results None recorded. Allergies Code Code System Name Reaction Severity Onset Adhesive Tape Other Rash Moderate 1291 RxNorm Bacitracin Other 297453 RxNorm Bactrim Rash 2670 RxNorm Codeine Vomiting 5489 RxNorm Hydrocodone Vomiting 5933 RxNorm Iodine Rash 97583 RxNorm Levofloxacin Nausea Rash 6980 RxNorm Minocycline [...] for COVID-19? What type of early childhood education coordinator do you none use? Are you deaf [...] eyes? What is the highest grade or [id number] level of school you have completed or [...] coffee daily Do you feel stressed (tense, [id number] restless, nervous, or anxious, or unable to sleep at night)? 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 Past Encounters 07/27/2021 Peripheral Vascular Disease; Diabetic Fo ot Ulcer; Osteomyelitis of Ankle AND/OR Foot; Rupture of Achilles Tendon Brandon Dumas MD: [address] [place] [address], [place] [id number], Ph. 07/25/2021 Delayed Healing of Surgical Wound; Type 2 Diabetes Mellitus; Varicose Veins of Lower Extremity; Peripheral Vascular Disease; At Risk of Nutritional Deficit; Osteomyelitis; Diabetic Foot Ulcer; Local Infection of Wound Sherri Thompson NP: [address] [place] [address] [place] [id number], Ph. 07/18/2021 Type 2 Diabetes Mellitus; Varicose Veins of Lower Extremity; Peripheral Vascular Disease; At Risk of Nutritional Deficit; Osteomyelitis; Diabetic Foot Ulcer Sherri Thompson SALES MARKET LEADER: [address] [place] [address] [place] [id number], Ph. 07/11/2021 Delayed Healing of Surgical Wound; Press ure Ulcer of Heel Sherri Thompson NP: [address] [place] [address] [place] [phone], Ph. 07/04/2021 Delayed Healing of Surgical Wound; Press ure Ulcer of Heel; Type 2 Diabetes Mellitus; Varicose Veins of Lower Extremity; Peripheral Vascular Disease; At Risk of Nutritional Deficit; Osteomyelitis Sherri Thompson NP: [address] [place], [place] [address], [place] [phone], Ph. 06/27/2021 Pressure Ulcer of Heel; Delayed Healing of Surgical Wound; Type 2 Diabetes Mellitus; Varicose Veins of Lower Extremity; Peripheral Vascular Disease; At Risk of Nutritional Deficit; Osteomyelitis Sherri Thompson SALES MARKET LEADER: [address] [place], [place] [address], [place] [phone], Ph. History of Present Illness Note: <p>Ross Mcgee is a very pleasant 59-year-old gentleman with a past medical history of 20+years of diabetes mellitus. He is currently on insulin. His lowest A1c he states is approximately 9.He is not well controlled with his blood sugars. He developed ulceration of the left great toe with amputation approximately 20 years ago. Approximately 10 years ago he developed a nonhealing ulcer ulcer over the right fifth toe and required amputation and partial ray removal. He has now developed an ulceration over the right great toe which appears to be shoe related as well as a chronic ulceration over the lateral aspect of the right foot immediately on top of the metatarsal remnant. Pictures wereprovided. He states that he has been going to wound care for approximately 1 month. His past medicalhistory significant for diabetes hypertension and chronic issues with nausea. He status post right fifth toe and ray amputation left great toe amputation. He is allergic to multiple medications seen onhis history and physical. He is . He has had 1 child from sepsis. He is a non-smoker and not currently drinking alcohol.</p><div>
</div><p>July 11, 2020: Mr. Mcgee is a very pleasant 60-year-old gentleman who has multiple bilateral lower extremity ulcerations clearly of arterial etiology. He had ultrasound which demonstrates ankle- brachial index of 0.5 on the right and 0.6 on the left. Angiography was performed which demonstrates a two-vessel runoff on the right with occlusion of the posterior tibial artery shortly after the origin. Interventionwas not performed at that time due to the theoretical sufficiency of the anterior tibial and peroneal arteries and supplying blood flow to the foot. We then deferred treatment until wound care had goodcontrol of his blood sugar as well as his infection. He returns today for follow-up. He states that the wound is slowly healing. He is in a wound VAC. Images cannot be obtained. We will obtain images from his last wound care visit.</p><div>
</div><p>September 26, 2020: Mr. Mcgee is a very pleasant 60-year-old gentleman who had right lower extremity diabetic ulceration. Angiography was performed which demonstrates occlusion of the posterior tibial artery but patency of the anterior tibial artery and peroneal artery. Given the location of this wound which is on the lateral aspect of the right foot on top of a Charcot formation I elected not to recanalize the posterior tibial artery. Over the last several months he is started to heal. He still has a small ulcer over the lateral aspect of the foot. It is healing according to him.</p><div>
</div><div>May 22, 2021: Ross Mcgee is a very pleasant 60-year-old gentleman who has had a history of diabetes. He is currently on insulin. He recently had an amputation of the right lower extremity due to worsening ulceration of the foot. At the same time he developed toe ulcers on the left sideand a large heel ulcer. He was referred urgently for possible intervention. He has had ultrasounds which demonstrate possible difficulty in visualization of the femoral arteries. He has been going to wound care for at least 6 months.</div><div>
</div><div>July 27, 2021:Ross Mcgee is a very pleasant 61-year-old gentleman who underwent left lower extremity revascularization with angioplasty of the anterior tibial artery and stenting of the tibioperoneal trunk. He returns today for follow-up. He states that his left heel wound is getting smaller. However he now hasa wound over the Achilles tendon region. The patient also had an MRI ordered by Dr. Ambriz. This demonstrates persistent osteomyelitis of the left heel and a new finding of partial-thickness if notfull-thickness tear of the left Achilles tendon.</div> Review of Systems Comprehensive General Adult Interventional Radiology ROS Reported By: Patient Constitutional: Constitutional: no [...] oral abnorm alities, no teeth problems, no sinusitis Cardiovascular: Cardiovascular: no chest mali n, no arm pain on exertion, no shortness of breath when wal blayne, no shortness of breath when lying down, no palpitations, no known heart murmur. Pulses Left DP D, Left PT D, Right DP D, Right PT D Respiratory: Respiratory: no wheezing, no shortness of breath, no coughing up blood, no sleep apnea Gastrointestinal: Gastrointestinal: no abdomin al pain, no vomiting, no constipation, normal appetit e, not vomiting blood, no dyspepsia, no GERD Genitourinary: Genitourinary: no difficulty urinating, no hematuria, urinary loss of control, increased u rinary frequency Musculoskeletal: Musculoskeletal: no muscle a ches, no arthralgias/joint pain, no swelling in the extremiti es, no neck pain, no cramps, no osteoporosis, no fractures, difficulty walking Integumentary: Skin: no abnormal mole, no j aundice, no rashes, no laceration, no changes in hair/nails, no psoriasis, no change in skin color, no breast lump, non-h ealing areas, change in skin color Neurologic: Neurologic: no loss of consc iousness, no weakness, no numbness, no seizures, no di zziness, no tremor, no gait dysfunction, no paralysis Psychiatric: Psych: no depression, feelin g safe in a relationship, no alcohol abuse, no anxiety, n o hallucinations, no suicidal thoughts, no mood swings, no memory loss, no agitation, no dementia, no delirium Hematologic/Lymphatic: Hematologic/Lymphatic no swo llen glands, no excessive bleeding, no anemia, no phle bitis Allergic/Immunologic: Allergy/Immunologic: no runn y nose, no itching, no hives, no frequent sneezing Physical Exam Interventional Radiology Exa m Reported By: Patient Constitutional: General Appearance: well-nou rished, well-developed, appears stated age. Level of Distress: comf ortable Psychiatric: Mental Status: alert, normal affect. Orientation: oriented to time, place, and person. Ins ight: good judgment Eyes: Lids and Conjunctivae: non-i njected, anicteric, no discharge, no pallor, no arcus senilis, no xanthelasma. Pupils: PERRLA ENMT: Lips, Teeth, and Gums: tania l dentition. Ears: no lesions on external ear, EACs clear, TM s clear, TM mobility normal. Nose: no lesions on external nose, na res patent, no septal deviation, nasal passages clear, no sinus ten derness, no nasal discharge. Oropharynx: no cyanosis, no pallor Neck: Neck: suppleness, trachea mi dline, no masses, FROM. Carotid Arteries: bilateral normal u pstroke, no bruits, no thrills. Jugular Veins: normal jugula r venous pressure, Kussmaul's sign absent. Cervical Lymph Nodes : non tender, not enlarged. Thyroid: not enlarged, non tender, no nodules Lungs: Respiratory Effort: unlabore d. Chest Exam: normal curvature, no thoracic deformity, no chest wall tenderness. Percussion: resonant. Auscultation: harriet r, no wheezing, no rales, no rhonchi Cardiovascular: Rate And Rhythm: regular. He art Sounds: normal S1, no rub, no murmurs, no gallop, no click . Extremities: no cyanosis, no edema, no peripheral signs of embol i Peripheral Pulses: Femoral Pulse: Left non-palp able. Popliteal Pulse: Right non-palpable, Left non-palpa ble; Status post right below the knee amputation. Dorsalis Pedis P ulse: Right Doppler Exam: absent, Left Doppler Exam: . Peroneal Pul se Right Doppler Exam: absent. Posterior Tibialis Pulse Lef t Doppler Exam: Abdomen: Inspection and Palpation: so ft, non distended, normal aorta, no bruit, non tender, no masses . Liver: non tender, no hepatomegaly. Spleen: non tender, no splen omegaly Musculoskeletal: Inspection: no joint tendern ess, no joint swelling, no erythema Neurologic: Gait: normal gait. Motor: no rmal strength, normal tone. Sensation no lateralizing focal sensor y or motor deficits, normal speech Notes: <p>
</p>
--- OUTSIDE RECORDS SUMMARY | 2021-10-21 16:40 | External Medical Summary | Encounter Summary ---
:1960 Author Care Team Providers Name Role Phone Elba Cyrus MACHINE CEMENTER AND FOLDER Primary Care Provider [phone] Gaston Ambriz DPM Referring Provider [phone] Sherri Thompson MAP PLOTTER OTHER [phone] [facility] OTHER Brandon Dumas MD Interventional Radiologist [phone] Reason for Visit Delayed healing of surgical wound [facility] chart no vilma after visit [id number] Assessment and Plan Assessment Note Ross presents today for continued fo llow-up of Diabetic Foot Ulceration, chronic. Today we will be placing negative pressure wound therapy to stabilize the ruptured Achilles tendon and to facilitate closure of the posterior calcaneus wound. new diabetic shoes were obtained mid Feb,follows [...] FOOT ULCERATION with venous stasis component Stable Changes to plan of care today we placed negative pressure wound therapy utilizing white foam and black foam this will accelerate granular tissue formation, remove infectious materials and provide some d rainage management along with stabilizat ion of the area. Frequency of dressing change be Saturday, Saturday and Saturday. Toe ulcerations will continue to be dressed with gentamicin and gauze, Profore wrap is also being utilized on the left lower leg. Patient has met with Dr. Ambriz and will continue to follow with podiatry, this is a very high risk wound and patient is at great risk for loss of limb. Reinforced this with patient today, see above Intervention has been performed so his v ascular status has been optimized, 05/[address] Dumas, followed again with Dr. Dumas on July 27, 2021 Continue with the heel protector boot reinforced offloading of this along with severity and s/s to report Return to clinic 1 week, home health [facility] assist with dressing changes in between clinic visits home health order* - 08/04/2021: LEFT leg: Wash leg with soap and water rinse pat dry Cleanse wounds with VASHE vigorously Skin repair to intact skin of leg and heel Skin prep to periwounds Collagen powder Gentamicin and gauze to toe wounds Drape to periwound skin of heel and Achilles area wounds White foam to wound beds A very large black foam bolster over these wounds Michelle pe Track pad make sure this is tract out from the wrap so this does not create new pre ssure somewhere else Pressure to be set at 150 mmHg PROFORE compression lightly pedrito lied from toes to knee FREQUENCY of dressing change ALL wounds: saturday/saturday/ ay Wound VAC canister to be changed on Saturday and Saturday or as needed Return to clinic weekly-saturday's 2. Type 2 diabetes mellitus poorly controlled, [...] PO antibiotics for up to 6 months Patient does have a previous history of [...] Note Thank you for this referral and opjonathanu alexus to care for your patient. If there are any questions or concerns please feel free to contact me at . Patient is in need of prosthetics to m aintain any functional level. 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 Patient is in great need of a stronger foot along with his larger si ze, currently with a BMI of 41.5. With stronger foot he would be able to complete these activities and this would give him great potential to return to normal for him ADLs. Currently he is a level 3 whe elchair-bound. Patient educational handouts: No information available. Plan [...] clinic staff can be reach ed at [phone] through from8 AM to 4 PMand Saturday [...] Notify the wound clinic for instructions at [phone] . The clinic is open Saturday through from 8 AM till 5PM and Saturday from8 AM until noon. Reminders Provider Appointments Established Patient 30 10/25/2021 10:30AM Jarvis Thompson NP New Patient 47 11/16/2021 11:00AM June GUIDO [facility] None recorded. Referral None recorded. Procedures [...] Pressure 5 ft 7 in 185/86 mm[Hg] Results Lab Results None recorded. Allergies Code Code System Name Reaction Severity Onset Adhesive Tape Other Rash Moderate 1291 RxNorm Bacitracin Other 020982 RxNorm Bactrim Rash 2670 RxNorm Codeine Vomiting 5489 RxNorm Hydrocodone Vomiting 5933 RxNorm Iodine Rash 82804 RxNorm Levofloxacin Nausea Rash 6980 RxNorm Minocycline [...] high risk for COVID-19? What type of school childcare attendant do you none use? Are you deaf [...] eyes? What is the highest grade or WM83080-1 level of school you have completed or [...] coffee daily Do you feel stressed (tense, [id number] restless, nervous, or anxious, or unable to sleep at night)? 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 Past Encounters 08/04/2021 Diabetic Foot Ulcer; Type 2 Diabetes Nora litus; Varicose Veins of Lower Extremity; Peripheral Vascular Disease; At Risk of Nutritional Deficit; Osteomyelitis Sherri Thompson MAP PLOTTER: [address] [place], [place] [address], [place] [address], Ph. 08/02/2021 Type 2 Diabetes Mellitus; Varicose Veins of Lower Extremity; Peripheral Vascular Disease; At Risk of Nutritional Deficit; Osteomyelitis; Diabetic Foot Ulcer Sherri Thompson MAP PLOTTER: [address] [place], [place] [address], [place] [address], Ph. 07/27/2021 Peripheral Vascular Disease; Diabetic Fo ot Ulcer; Osteomyelitis of Ankle AND/OR Foot; Rupture of Achilles Tendon Brandon Dumas MD: [address] [place], [place] [address] [phone], Ph. 07/25/2021 Delayed Healing of Surgical Wound; Type 2 Diabetes Mellitus; Varicose Veins of Lower Extremity; Peripheral Vascular Disease; At Risk of Nutritional Deficit; Osteomyelitis; Diabetic Foot Ulcer; Local Infection of Wound Sherri Thompson MAP PLOTTER: [address] [place], [place] [address], [place] [address], Ph. 07/18/2021 Type 2 Diabetes Mellitus; Varicose Veins of Lower Extremity; Peripheral Vascular Disease; At Risk of Nutritional Deficit; Osteomyelitis; Diabetic Foot Ulcer Sherri Thompson MAP PLOTTER: [address] [place], [place] [address], [place] [address], Ph. 07/11/2021 Delayed Healing of Surgical Wound; Press ure Ulcer of Heel Sherri Thompson MAP PLOTTER: [address] [place], [place] [address], [place] [address], Ph. History of Present Illness Note: <div>08/02/21: Ross returns to clinic for follow up treatment to his left heel ulcer. Patient continues on ciprofloxacin. He had an MRI and met with Dr Dumas on 07/27. MRI confirms a rupture to the left achilles tendon. Also followed thao Ambirz from Podiatry earlier today. </div>&lt ;div>
</div><div>08/04/2021: Ross returns to the clinic today for follow-up of his left heel ulcer, negative pressure wound therapy is available to be placed. He continues on ciprofloxacin for his osteomyelitis. </div> Review of Systems Comprehensive General Adult [...] palpation: go od turgor, no jaundice, ulcer; 07/25/21: No drainage on bandage, just was rewrapped by podiatry there is a very strong odor but no puru lence or erythema or warmthLeft posterior ankle: 3.5 x 3.0 x 1.0 cm, exposed tendonLeft posterior heel: 6.5 x 6.3 x 0.2cm expo sed tendonLeft Great MTH-4th toes: eschar coveredLeft between and : 2.0 x 0.7 x0.05cmSee changes to POC below08/02/21: Left heel superior 3.6 x 3.0 x 1.0 cm inferior 6.5 x 6.0 x 0.4Left between 4th and 5th 2.0 x 0.7cmLeft 2nd toe: 1.0 x 1.7 x 0.05 cm 08/04/2021:Left heel superior along the Achilles where this is ruptu red: superior 3.6 x 3.0 x 2.0 cm_, inferior _6.5 x 6.0 x 0.4 cm Left web fourth and fifth:2.0 x 0.7 x 0.05cmLeft second toe: 1.0 x 1.7 x 0.05 cm Notes: <p>
</p>
--- OUTSIDE RECORDS SUMMARY | 2021-10-21 16:40 | External Medical Summary | Encounter Summary ---
:1960 Author Care Team Providers Name Role Phone Elba Bridges HISTOLOGY TECH Primary Care Provider [phone] Gaston Ambriz DPM Referring Provider [phone] Sherri Thompson AIR DISPATCHER OTHER [phone] [facility] OTHER Brandon Dumas MD Interventional Radiologist [phone] Reason for Visit Delayed healing of surgical wound [facility] chart no vilma after visit [id number] Assessment and Plan Assessment Note Ross presents today for continued fo llow-up of Diabetic Foot Ulceration, chronic. Finished Cefdinir. 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 Delayed healing of surgical wound Nurse visit 2. Type 2 diabetes mellitus poorly controlled, [...] s/e. -Intervention was performed 05/30/[address] Dumas 5. At risk of nutritional deficit Reinforced nutritional concepts and naveed jackson with patient, he is utilizing claire and multivitamin 6. 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 Consider PO antibiotics for up to 6 ron hs at conclusion of vancomycin given the heel ulceration status unfortunately he is allergic to PO antibiotics that organisms are sensitive to so will utilize top ical gentamycin and if no s/s or reoccur ence will utilize Apligraft 7. Diabetic foot ulcer LEFT stage 4, chronic non healing, DIAB ETIC FOOT ULCERATION with venous stasis component REGRESSED with new wound as noted last v isit, malodor is rather siggnificant Will continue with current POC , increas ing frequency of dressing changes there is concern that the dressings are saturated in urine Patient has met with Dr. Ambriz and will continue to follow with podiatry, this is a very high risk wound and patient is at great risk for loss of limb. Reinforced this with patient today Intervention has been performed so his v ascular status has been optimized, 05/[address] Dumas Continue with the heel protector boot reinforced offloading of this along with severity and s/s to report Return to clinic 1 week, home health chester luna assist with dressing changes in between clinic visits home health order* - 07/25/2021: LEFT leg: Wash leg with soap and water rinse pat dry Cleanse wounds with VASHE vigorously Skin repair to intact skin of leg and heel Skin prep to periwounds Collagen powder Gentamicin and gauze to all wounds (heel, 4, 5th , toes) gauze Gauze in between toes black offloading foam to heel/achilles PROFORE compression lightly applied from toes to knee FREQUENCY of dressing change ALL wounds: saturday/saturday in clinic/f riday Return to clinic weekly 8. Local infection of wound malodor and a reported increase in keri velazquez by home health and patient start cefdinir MRI scheduled for tomorrow culture taken at podiatry pending results of the above would consi scotty IV antibiotics will discuss with podiatry, patient has MANY ALLERGIES that will need to be taken into consideration. High risk for limb threatening infection. Will request labs from dialysis center t o review- Dr Pop cefdinir 300 mg capsule Discussion Note Thank you for this referral and opportu feliciay to care for your patient. If there are any questions or concerns please feel fr ee to contact me at . Patient educational handouts: No information available. Plan of Care Patient Instructions Return to clinic 1 week MRI tomorrow [...] clinic staff can be reach ed at [phone] through from8 AM to 4 PMand Saturday [...] verbal ly with patient at appt. -FP, FILTER OPERATOR 07/27/21 Medications Administered None recorded. Vitals Height Blood Pressure 5 ft 7 in 132/72 mm[Hg] Results Lab Results None recorded. Allergies Code Code System Name Reaction Severity Onset Adhesive Tape Other Rash Moderate 1291 RxNorm Bacitracin Other 569750 RxNorm Bactrim Rash 2670 RxNorm Codeine Vomiting 5489 RxNorm Hydrocodone Vomiting 5933 RxNorm Iodine Rash 86880 RxNorm Levofloxacin Nausea Rash 6980 RxNorm Minocycline [...] drugs have you used? What type of child's nurse do you none use? Have you been [...] eyes? What is the highest grade or [id number] level of school you have completed or [...] coffee daily Do you feel stressed (tense, [id number] restless, nervous, or anxious, or unable to sleep at night)? 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 Past Encounters 07/25/2021 Delayed Healing of Surgical Wound; Type 2 Diabetes Mellitus; Varicose Veins of Lower Extremity; Peripheral Vascular Disease; At Risk of Nutritional Deficit; Osteomyelitis; Diabetic Foot Ulcer; Local Infection of Wound Sherri Thompson AIR DISPATCHER: [address] [place] [address] [place] [id number], Ph. 07/18/2021 Type 2 Diabetes Mellitus; Varicose Veins of Lower Extremity; Peripheral Vascular Disease; At Risk of Nutritional Deficit; Osteomyelitis; Diabetic Foot Ulcer Sherri Thompson AIR DISPATCHER: [address] [place] [address] [place] [id number], Ph. 07/11/2021 Delayed Healing of Surgical Wound; Press ure Ulcer of Heel Sherri Thompson AIR DISPATCHER: [address] [place] [address] [place] [id number], Ph. 07/04/2021 Delayed Healing of Surgical Wound; Press ure Ulcer of Heel; Type 2 Diabetes Mellitus; Varicose Veins of Lower Extremity; Peripheral Vascular Disease; At Risk of Nutritional Deficit; Osteomyelitis Sherri Thompson AIR DISPATCHER: [address] [place] [address] [place] [id number], Ph. 06/27/2021 Pressure Ulcer of Heel; Delayed Healing of Surgical Wound; Type 2 Diabetes Mellitus; Varicose Veins of Lower Extremity; Peripheral Vascular Disease; At Risk of Nutritional Deficit; Osteomyelitis Sherri Thompson, AIR DISPATCHER: [address] [place], [place] [address], [place] [id number], Ph. History of Present Illness Note: <div>06/27/21: Ross presents to wound care today for follow up evaluation on left heel venous stasis ulcer and delayed healing surgical wound on right BKA. Home health continues to change dressings in between visits with us. He finished his IV antibiotics 06/22. Picc line removed today by clinic RN.</div><div>
</div><div>07/04/21: Ross returns to the clinic today for continued wound care to his left heel ulcer. Home health continues to assist with dressing changes. Apligraf has been requested for his heel wound at previous appointment, awaiting approval. </div><div>
</div><div>07/17/21: Ross returns to the clinic today forcontinued wound care to his left heel ulcer. He had a fall on Saturday, transferring from the wheelchair to the bed. His new wheelchair tires slid sideways. </div><div>
</div> <div>
</div><div>07/25/21: Ross returns to the clinic for continued cody tment of his left heel ulcer. Patient has home health assisting with dressing changes between clinicvisits. Patient was not approved for apligraf, but is for Puraply. He had an appointment with Dr. Ambriz today he took a culture and scheduled for a MRI tomorrow. No medication changes.</div> Review of Systems Comprehensive General Adult ROS [...] skin color, no breast lump, non-h ealing areas Endocrine: Endocrine: no fatigue Hematologic/Lymphatic: Hematologic/Lymphatic no [...] palpation: go od turgor, no jaundice, ulcer; 07/17/21: Moderate serousanquinous cliev inage great MTH: Closed, eschar [id number] Toe: eschar cover ed3rd toe: eschar aqrtidb3cn toe: eschar coveredbetween 4th an d 5th toe: 2.0 x 1.5 x 0.05 cm5th toe: 0.5 x 0.5 cmleft heel: 6.8 x 6.5 x 0.2 cm exosed tendon, NEW* left posterior ankle: 3.0 x 2.0 x 1.0 cm, exposed tendon,07/25/21: No drainage on bandage, just wa s rewrapped by podiatry there is a very strong odor but no purulence or erythema or warmthLeft posterior ankle: 3.5 x 3.0 x 1.0 cm, e xposed tendonLeft posterior heel: 6.5 x 6.3 x 0.2cm exposed tendonLe ft Great MTH-4th toes: eschar coveredLeft between 4th and 5th: 2.0 x 0.7 x0.05cmSee changes to POC below Notes: <p>
</p>
--- OUTSIDE RECORDS SUMMARY | 2021-10-21 16:40 | External Medical Summary | Encounter Summary ---
:1960 Author Care Team Providers Name Role Phone Elba Bridges ENERGY TECHNICIAN Primary Care Provider [phone] Gaston Ambriz DPM Referring Provider [phone] Sherri Thompson IN FLIGHT REFUELING OPERATOR OTHER [phone] [facility] OTHER Brandon Dumas MD Interventional Radiologist [phone] Reason for Visit Delayed healing of surgical wound [facility] chart no vilma after visit [id number] Assessment and Plan Assessment Note Ross presents today for continued fo llow-up of Diabetic Foot Ulceration, chronic. 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 Type 2 diabetes mellitus poorly controlled, Reinforced diabetes and control of will improve wound healing/affect wound healing 2. Varicose veins of lower extremity See above 3. Peripheral vascular disease continue Vitamin C 1000 mg daily. No claudication, or elevational pain rep orted today -Is taking aspirin 81 mg daily -Is taking atorvastatin -blood pressure management includes carv edilol, furosemide lisinopril -diabetes is being managed with insulin -Counseled on lifestyle modifications, d iet, exercise, medications and s/e. -Intervention was performed 05/30/[address] Dumas, followed again 07/27/21 4. At risk of nutritional deficit Reinforced nutritional concepts and naveed jackson with patient, he is utilizing claire and multivitamin 5. 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 Consider PO antibiotics for up to 6 ron hs will continue to utilize topical gentamy alisha Discussed that there is a poor prognosis for healing, discussed surgical options including cupcake like to utilize all options/exhaust all options prior to amputation. These options include antibiotics, local wound care, use of negative press ure wound therapy to stabilize the ruptured Achilles and hyperbarics. Patient does meet the indication for hyperbarics related to refractory osteomyelitis. I did reinforce with Ross that even with th ghada interventions he still is at very high risk for a limb threatening infection and BKA. undersea & hyperbaric medicine referr al 6. Diabetic foot ulcer LEFT stage 4, chronic non healing, DIAB ETIC FOOT ULCERATION with venous stasis component Stable I did excisionally debride alexa lized/ tendon today Will continue with current POC , increas ing frequency of dressing changes there is concern that the dressings are saturated in urine. I have also requested negative pressure wound therapy to stabilize t he ruptured Achilles tendon and calcaneu s ulcerations. Patient has met with Dr. Ambriz and [...] between clinic visits home health order* - LEFT leg: Wash l eg with soap and water rinse pat dry Cleanse wounds with VASHE vigorously Skin repair to intact skin of leg and heel Skin prep to periwounds Collagen powder Gentamicin an d gauze to all wounds (heel, 4, 5th , toes) gauze Gauze in between toes black offloa ding foam to heel/achilles PROFORE compression lightly applied from toes to knee FREQUENCY of dressing change ALL wounds: saturday/saturday/saturday Return t o clinic weekly Discussion Note Thank you for this referral and opportu feliciay to care for your patient. If there are any questions or concerns please feel free to contact me at . Thank you for this referral and opportun ity to care for your patient. If there are any questions or concerns please feel free to contact me at [phone]. 30 minutes were spent today this include s preparing to see the patient including review of available prior records, obtaining and reviewing separately obtained history, performing medically appropriate exam/evaluation, counseling and educatio n with patient/family/caregivers, ordering medications, tests or procedures, referring and communicating with other healthcare professionals, documentation of cli nical information in the health record, and independently interpreting results that are not already separately reported. This also includes communication of results to the patient/family/caregiver, care coordination that is not separately rep orted. This also includes procedures and dressings applied as notated in the chart. Patient educational handouts: No information available. Plan [...] clinic staff can be reach ed at [phone] through from8 AM to 4 PMand Saturday from 8 AM to noon. Reminders Provider Appointments Established Patient 30 10/25/2021 Cecily Thompson NP 10:30AM New Patient 47 11/16/2021June B GUIDO Edwards 11:00AM Lab None recorded. Referral Undersea & Hyperbaric 08/02/2021 [facility] Procedures None recorded. Surgeries None recorded. Imaging [...] Pressure 5 ft 7 in 146/69 mm[Hg] Results Lab Results None recorded. Allergies Code Code System Name Reaction Severity Onset Adhesive Tape Other Rash Moderate 1291 RxNorm Bacitracin Other [id number] RxNorm Bactrim Rash 2670 RxNorm Codeine Vomiting 5489 RxNorm Hydrocodone Vomiting 5933 RxNorm Iodine Rash 27032 RxNorm Levofloxacin Nausea Rash 6980 RxNorm Minocycline [...] for COVID-19? What type of child welfare consultant do you none use? Are you deaf [...] eyes? What is the highest grade or [id number] level of school you have completed or [...] coffee daily Do you feel stressed (tense, [id number] restless, nervous, or anxious, or unable to sleep at night)? 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 Past Encounters 08/02/2021 Type 2 Diabetes Mellitus; Varicose Veins of Lower Extremity; Peripheral Vascular Disease; At Risk of Nutritional Deficit; Osteomyelitis; Diabetic Foot Ulcer Sherri Thompson NP: [address] [place], [place] [address], [place] [phone], Ph. 07/27/2021 Peripheral Vascular Disease; Diabetic Fo ot Ulcer; Osteomyelitis of Ankle AND/OR Foot; Rupture of Achilles Tendon Brandon Dumas MD: [address] [place], [place] [address] [address], Ph. 07/25/2021 Delayed Healing of Surgical Wound; Type 2 Diabetes Mellitus; Varicose Veins of Lower Extremity; Peripheral Vascular Disease; At Risk of Nutritional Deficit; Osteomyelitis; Diabetic Foot Ulcer; Local Infection of Wound Sherri Thompson NP: [address] [place], [place] [address], [place] [address], Ph. 07/18/2021 Type 2 Diabetes Mellitus; Varicose Veins of Lower Extremity; Peripheral Vascular Disease; At Risk of Nutritional Deficit; Osteomyelitis; Diabetic Foot Ulcer Sherri Thompson NP: [address] [place], [place] [address], [place] [address], Ph. 07/11/2021 Delayed Healing of Surgical Wound; Press ure Ulcer of Heel Sherri Thompson, IN FLIGHT REFUELING OPERATOR: [address] [place] [address], Ph. 07/04/2021 Delayed Healing of Surgical Wound; Press ure Ulcer of Heel; Type 2 Diabetes Mellitus; Varicose Veins of Lower Extremity; Peripheral Vascular Disease; At Risk of Nutritional Deficit; Osteomyelitis Sherri Thompson, IN FLIGHT REFUELING OPERATOR: [address] [place] [address], Ph. History of Present Illness Note: <div>07/17/21: Ross returns to the clinic today for continued wound care to his left heel ulcer. He had a fall on Saturday, transferring from the wheelchair to the bed. His new wheelchair tiresslid sideways. </div><div>
</div><div>07/25/21: Ross returns to the clinic for continued treatment of his left heel ulcer. Patient has home health assisting with dress ing changes between clinic visits. Patient was not approved for apligraf, but is for Puraply. He hadan appointment with Dr. Ambriz today he took a culture and scheduled for a MRI tomorrow. No medication changes.</div><div>
</div><div>08/02/21: Ross returns to clinic for follow up treatment to his left heel ulcer. Patient continues on ciprofloxacin. He had an MRI and met with Dr Dumas on 07/27. MRI confirms a rupture to the left achilles tendon. Also followed thao Ambriz from Podiatry earlier today. </div> Review of Systems Comprehensive General Adult [...] no vomiting, no constipation, normal appetit e, no diarrhea, not vomiting blood, no dyspepsia, no GERD , nausea; D/T ABOS Musculoskeletal: Musculoskeletal: no muscle a [...] tendonLeft Great MTH-4th toes: eschar coveredLeft between 4 and 5th: 2.0 x 0.7 x0.05cmSee changes to POC below08/02/21: Left heel superior 3.6 x 3.0 x 1.0 cm inferior 6.5 x 6.0 x 0.4Left between 4th and 5th 2.0 x 0.7cmLeft 2nd toe: 1.0 x 1.7 x 0.05 cm Notes: <p>
</p>
[2021-10-21] MEDS: CARVEDILOL 6.25 MG TABLET PO SCH (18:02)
[2021-10-21] MEDS: BUDESONIDE 0.5 MG/2 ML AMPUL.NEB NEB SCH ×3 (18:14→22:16)
[2021-10-21] MEDS: SENNOSIDES 1 TABLET PO SCH (21:17)
[2021-10-21] MEDS: ACETAMINOPHEN 325 MG TABLET PO PRN (21:45)
[2021-10-22] MEDS: IPRATROPIUM/ALBUTEROL 3 ML AMPUL.NEB NEB SCH ×4 (01:22→18:15)
[2021-10-22] MEDS: INSULIN LISPRO 1 UNIT/0.01 ML UNIT SQ SCH ×5 (01:25→21:31)
[2021-10-22] MEDS: ACETAMINOPHEN 325 MG TABLET PO PRN ×2 (05:59→21:31)
[2021-10-22] MEDS: 0.9 % SODIUM CHLORIDE 10 ML SYRINGE IV SCH ×3 (05:59→21:32)
[2021-10-22] MEDS: CLINDAMYCIN 150 MG CAPSULE PO SCH ×4 (05:59→23:43)
[2021-10-22] MEDS: FUROSEMIDE 40 MG/4 ML VIAL IV SCH ×3 (05:59→21:31)
[2021-10-22] MEDS: BUDESONIDE 0.5 MG/2 ML AMPUL.NEB NEB SCH ×3 (07:31→19:19)
[2021-10-22] MEDS: ASPIRIN 81 MG TAB.CHEW CHEWED SCH (07:52)
[2021-10-22] MEDS: DOCUSATE SODIUM 100 MG CAPSULE PO SCH ×2 (07:53→22:57)
[2021-10-22] MEDS: CLOPIDOGREL 75 MG TABLET PO SCH (07:53)
[2021-10-22] MEDS: TAMSULOSIN 0.4 MG CAPSULE PO SCH (07:53)
[2021-10-22] MEDS: CARVEDILOL 6.25 MG TABLET PO SCH ×2 (07:53→16:11)
[2021-10-22] MEDS: ENOXAPARIN 40 MG/0.4 ML SYRINGE SQ SCH (07:54)
[2021-10-22] MEDS: CEFEPIME 2 GM VIAL IV SCH ×2 (09:21→21:37)
--- NOTE | 2021-10-22 10:13 | Internal Med Progress Note ---
SUBJECTIVE Subjective Patient information: Note initiated : 10/22/21 at 10:10 am Service Date, if different from initiated Date: [] Patient: Ross Mcgee 61 y/o M admitted on 10/20/21 for Swollen testicles. Chief Complaint: [] Principal diagnosis: Perineal cellulitis, morbid obesity, chronic Shepherd catheter Interval history: The patient was sitting up in his chair today. He is feeling well. He is eager to return home as he helps look after his . He states that he feels less pressure in his abdomen. Discussed the case with the urology attending yesterday. Constitutional Vitals: Vital Signs Temp Pulse Resp BP Pulse Ox O2 Del Method O2 Flow Rate 97.4 F 80 18 135/63 95 2 10/22/21 07:23 10/22/21 07:32 10/22/21 07:32 10/22/21 07:23 10/22/21 07:32 10/22/21 07:32 10/21/21 18:15 Period Temp Pulse Resp BP Sys/Vincent Pulse Ox O2 Del Method O2 Flow Rate Last 24 Hr 97.4 F-99.1 F 79-96 16-20 135-171/63-80 92-97 Nasal Cannula- Room Air 2-2 Intake and Output 10/21/21 10/22/21 10/22/21 21:59 05:59 13:59 Intake Total 1070 1040 Output Total 1000 1300 Balance 70 -260 Weight 151.318 kg Intake & Output: Intake & Output 10/21/21 10/22/21 10/22/21 21:59 05:59 13:59 Intake Total 1070 1040 Output Total 1000 1300 Balance 70 -260 Weight 151.318 kg Intake: IV 500 Vancomycin 1,500 mg In Sodium 500 Chloride 0.9% 500 ml @ 333.3 mls/hr IV Q12H [facility] Rx#: [id number] Oral 1070 540 Output: Urine Catheter Amount 1000 1300 Other: Meal Lunch cheese stick x1 OJ & cheese stick x1 Percent of Meal Consumed 100% 100% 100% Feeding Ability Independent Independent Independent Urine Appearance Clear Clear Urine Color Light April Yellow Urine Odor Normal Head Head exam: Present atraumatic and normal inspection Eye Eye exam: Present normal appearance ENT ENT exam: Present mucous membranes moist, normal exam and normal external ear exam Neck Neck exam: Present normal inspection Respiratory Respiratory exam: Present normal respiratory exam Cardiovascular Cardiovascular exam: Present normal rate and rhythm GI/Abdominal GI/Abdominal exam: Present normal bowel sounds Back Exam Back exam: Present normal inspection Neurological Exam Neurological exam: Present alert and oriented X3 Skin Skin exam: Present intact and warm OBJ DATA Labs CBC & Chem 7: 10/21/21 05:05 10/21/21 05:05 Labs: Abnormal Lab Results 10/22/21 10/21/21 10/21/21 08:03 05:05 05:05 RBC 3.17 L Hgb 8.7 L Hct 28.7 L POC Hct MCHC 30.3 L RDW 14.8 H Neut % (Auto) Lymph % (Auto) 9.8 L Lymph # (Auto) 0.65 L POC BUN BUN 47 H Creatinine 2.2 H POC Creatinine Glucose 180 H POC Glucose C-Reactive Protein 8.30 H Procalcitonin Urine Protein Urine Occult Blood Urine RBC Urine WBC Vancomycin Trough 26.5 H* 10/20/21 10/20/21 10/20/21 09:12 08:49 08:49 RBC 3.27 L Hgb 8.8 L Hct 28.6 L POC Hct MCHC 30.8 L RDW 14.6 H Neut % (Auto) 79.4 H Lymph % (Auto) 6.0 L Lymph # (Auto) 0.57 L POC BUN BUN Creatinine POC Creatinine Glucose POC Glucose C-Reactive Protein Procalcitonin 0.14 H Urine Protein 100 mg/dl A Urine Occult Blood Large A Urine RBC > 182 H Urine WBC 9 H Vancomycin Trough 10/20/21 08:25 RBC Hgb Hct POC Hct 28.0 L MCHC RDW Neut % (Auto) Lymph % (Auto) Lymph # (Auto) POC BUN 43 H BUN Creatinine POC Creatinine 2.4 H Glucose POC Glucose 124 H C-Reactive Protein Procalcitonin Urine Protein Urine Occult Blood Urine RBC Urine WBC Vancomycin Trough Meds: Medications Acetaminophen (Acetaminophen 325 Mg Tablet) 650 mg PO Q6HP PRN; Protocol PRN Reason: Per Pain Protocol/Fever > 101 Last Admin: 10/22/21 05:59 Dose: 650 mg Albuterol/Ipratropium (Ipratropium/Albuterol 3 Ml Ampul.Neb) 3 ml NEB Q6HRT [facility] Last Admin: 10/22/21 07:31 Dose: 3 ml Aspirin (Aspirin 81 Mg Tab.Chew) 81 mg CHEWED DAILY [facility] Last Admin: 10/22/21 07:52 Dose: 81 mg Budesonide (Budesonide 0.5 Mg/2 Ml Ampul.Neb) 0.5 mg NEB Q12 [facility] Last Admin: 10/22/21 07:31 Dose: 0.5 mg Carvedilol (Carvedilol 6.25 Mg Tablet) 6.25 mg PO BIDCC [facility] Last Admin: 10/22/21 07:53 Dose: 6.25 mg Cefepime HCl (Cefepime 2 Gm Vial) 2 gm IV Q12H [facility]; Protocol Last Admin: 10/22/21 09:21 Dose: 2 gm Clindamycin HCl (Clindamycin 150 Mg Capsule) 600 mg PO Q6H [facility] Last Admin: 10/22/21 05:59 Dose: 600 mg Clopidogrel Bisulfate (Clopidogrel 75 Mg Tablet) 75 mg PO QDAY [facility] Last Admin: 10/22/21 07:53 Dose: 75 mg Dextrose (Dextrose 50% 50 Ml Vial) 0 ml IV UD PRN PRN Reason: Per Sliding Scale Diagnostic Test (Pha) (Accu-Chek 1 Each Strip) 1 each FS [facility] Last Admin: 10/22/21 07:52 Dose: 1 each Docusate Sodium (Docusate Sodium 100 Mg Capsule) 100 mg PO BID [facility] Last Admin: 10/22/21 07:53 Dose: 100 mg Enoxaparin Sodium (Enoxaparin 40 Mg/0.4 Ml Syringe) 40 mg SQ DAILY [facility] Last Admin: 10/22/21 07:54 Dose: 40 mg Furosemide (Furosemide 40 Mg/4 Ml Vial) 40 mg IV Q8 [facility] Last Admin: 10/22/21 05:59 Dose: 40 mg Glucose (Dextrose 31 Gm Oral.Susp) 15 gm PO PRN PRN PRN Reason: Hypoglycemia Insulin Human Lispro (Insulin Lispro 1 Unit/0.01 Ml Unit) 0 unit SQ [facility]; Protocol Last Admin: 10/22/21 07:44 Dose: Not Given Morphine Sulfate (Morphine 4 Mg/Ml Vial) 4 mg IV Q4HP PRN; Protocol PRN Reason: Per Pain Protocol Ondansetron HCl (Ondansetron 4 Mg/2 Ml Vial) 4 mg IV Q6HP PRN PRN Reason: Nausea And Vomiting Senna (Sennosides 1 Tablet) 2 tab PO HS [facility] Last Admin: 10/21/21 21:17 Dose: Not Given Sodium Chloride (0.9 % Sodium Chloride 10 Ml Syringe) 10 ml IV Q8 [facility] Last Admin: 10/22/21 05:59 Dose: 10 ml Tamsulosin HCl (Tamsulosin 0.4 Mg Capsule) 0.8 mg PO QDAY [facility] Last Admin: 10/22/21 07:53 Dose: 0.8 mg Vancomycin HCl (Vancomycin Per Pharmacy) 1 order IV UD [facility]; Protocol A/P Assessment and plan (1) Cellulitis: Status: Acute (2) 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 (3) Chronic ulcer of left foot limited to breakdown of skin: Status: Chronic (4) Diabetic neuropathy: Status: Chronic (5) Tobacco use: Status: Chronic (6) Scrotum swelling: Status: Acute (7) Shepherd catheter in place: Status: Acute (8) Morbid obesity: Status: Acute Narrative A/P Narrative: The patient has multiple risk factors for an accelerated and poorly healing underlying infection including brittle diabetes, poor hygiene, ongoing cigarette smoking, and likely component of peripheral vascular disease. The patient does not have evidence of systemic disease as he is afebrile with a normal white blood cell count. There is no evidence of gangrene or crepitus on physical examination. General surgery will follow to see if any surgical intervention is necessary in the coming days. Urology believes that surgical intervention was not necessary at this time. We will start the patient on cefepime, clindamycin and vancomycin. The patient does have penicillin allergy. We will follow-up on his urine and blood cultures. Due to scrotal edema he will be started on Lasix 40 mg IV every 8 hours. His home medication list reconciliation is pending. 10/21: The patient was febrile overnight with a T-max of 101. His white blood cell count remains within normal limits. On examination, it appears as though the swelling and erythema is slowly subsiding. We will continue Lasix 40 mg IV every 8 hours as his creatinine is holding steady at 2.2. As he is a former smoker, we will start duo nebs and Pulmicort. 10/22: The patient's Shepherd will stay in place as he is being aggressively diuresed and the patient has trouble using a urinal in the setting of a furrowed penis. He has now defervesced and the scrotal erythema/edema is improving. He will likely remain in the hospital for 2 additional days possibly. Time Spent With Patient Time: Total time spent is greater than 50% in coordination of care (as documented) at patient's floor/unit and/or counseling patient: Total time spent with greater than 50% in coordination of care (as documented) at patient's floor/unit and/or counseling patient:: 25 - 35 minutes QUALITY VTE Deep Vein Thrombosis/Pulmonary Embolism Present on Admission: No
[2021-10-22] MEDS: VANCOMYCIN 1,500 MG in 0.9 % SODIUM CHLORIDE 500 ML IV SCH (10:21)
--- NOTE | 2021-10-22 13:55 | Urology Progress Note ---
SUBJECTIVE Subjective Patient information: Note initiated : 10/22/21 at 1:50 pm Service Date, if different from initiated Date: [] Patient: Ross Mcgee 61 y/o M admitted on 10/20/21 for Swollen testicles. Chief Complaint: [] Principal diagnosis: Perineal cellulitis, morbid obesity, chronic Hutchins catheter Interval history: Pt continues to feel that he is symptomatically improved. I discussed with him trying hutchins out and see if he is able to void. He is willing to try. Constitutional Vitals: Vital Signs Temp Pulse Resp BP Pulse Ox O2 Del Method O2 Flow Rate 98.1 F 85 16 135/65 95 2 10/22/21 11:39 10/22/21 11:39 10/22/21 11:39 10/22/21 11:39 10/22/21 11:39 10/22/21 11:39 10/21/21 18:15 Period Temp Pulse Resp BP Sys/Vincent Pulse Ox O2 Del Method O2 Flow Rate Last 24 Hr 97.4 F-99.1 F 79-96 16-20 135-167/63-78 92-97 Nasal Cannula- Room Air 2-2 Intake and Output 10/21/21 10/22/21 10/22/21 21:59 05:59 13:59 Intake Total 1070 1040 Output Total 1000 1300 1150 Balance 70 -260 -1150 Weight 151.318 kg Intake & Output: Intake & Output 10/21/21 10/22/21 10/22/21 21:59 05:59 13:59 Intake Total 1070 1040 Output Total 1000 1300 1150 Balance 70 -260 -1150 Weight 151.318 kg Intake: IV 500 Vancomycin 1,500 mg In Sodium 500 Chloride 0.9% 500 ml @ 333.3 mls/hr IV Q12H [facility] Rx#: [id number] Oral 1070 540 Output: Urine Catheter Amount 1000 1300 1150 Uretheral (Hutchins) 1150 Other: Meal Lunch cheese stick x1 OJ & cheese stick x1 Percent of Meal Consumed 100% 100% 100% Feeding Ability Independent Independent Independent Urine Appearance Clear Clear Uretheral (Hutchins) Clear Urine Color Light April Yellow Uretheral (Hutchins) Yellow Urine Odor Normal Additional comments: Scrotal swelling about the same, perhaps slightly improved. redness improved. A/P Narrative A/P Narrative: 61 y/o diabetic male with genital and lower abdomen edema and cellulitis. I think much of his brawny edema in these areas is chronic. Pt willing to try voiding so will remove hutchins today and see how it goes. Can replace if needed. Time Spent With Patient Time: Total time spent is greater than 50% in coordination of care (as documented) at patient's floor/unit and/or counseling patient:
[2021-10-22] MEDS: ONDANSETRON 4 MG/2 ML VIAL IV PRN (18:12)
[2021-10-22] MEDS: SENNOSIDES 1 TABLET PO SCH (22:57)
[2021-10-23] MEDS: IPRATROPIUM/ALBUTEROL 3 ML AMPUL.NEB NEB SCH ×4 (01:32→19:19)
[2021-10-23] MEDS: FUROSEMIDE 40 MG/4 ML VIAL IV SCH ×3 (05:17→21:25)
[2021-10-23] MEDS: 0.9 % SODIUM CHLORIDE 10 ML SYRINGE IV SCH ×3 (05:18→20:37)
[2021-10-23] MEDS: CLINDAMYCIN 150 MG CAPSULE PO SCH ×3 (05:18→16:58)
[2021-10-23] MEDS: ONDANSETRON 4 MG/2 ML VIAL IV PRN ×2 (06:16→12:05)
[2021-10-23 06:21] LABS: Vancomycin,Random 21.8 ug/mL
[2021-10-23 06:36] LABS: Blood Urea Nitrogen 51 mg/dL (6-20); Calcium 8.7 mg/dL (8.6-10.4); Carbon Dioxide 21 mmol/L (22-30); Chloride 104 mmol/L (96-108); Glomerular Filtration Rate 33; Glucose 215 mg/dL (70-105)
[2021-10-23] MEDS: INSULIN LISPRO 1 UNIT/0.01 ML UNIT SQ SCH ×4 (07:23→20:35)
[2021-10-23] MEDS: CARVEDILOL 6.25 MG TABLET PO SCH ×2 (07:23→16:58)
[2021-10-23] MEDS: BUDESONIDE 0.5 MG/2 ML AMPUL.NEB NEB SCH ×2 (07:34→19:19)
[2021-10-23] MEDS: TAMSULOSIN 0.4 MG CAPSULE PO SCH (08:25)
[2021-10-23] MEDS: ASPIRIN 81 MG TAB.CHEW CHEWED SCH (08:26)
[2021-10-23] MEDS: CLOPIDOGREL 75 MG TABLET PO SCH (08:26)
[2021-10-23] MEDS: DOCUSATE SODIUM 100 MG CAPSULE PO SCH ×2 (08:26→20:36)
[2021-10-23] MEDS: ENOXAPARIN 40 MG/0.4 ML SYRINGE SQ SCH (08:27)
[2021-10-23] MEDS: CEFEPIME 2 GM VIAL IV SCH ×2 (08:27→20:40)
--- NOTE | 2021-10-23 10:33 | Internal Med Progress Note ---
SUBJECTIVE Subjective Patient information: Note initiated : 10/23/21 at 10:31 am Service Date, if different from initiated Date: [] Patient: Ross Mcgee 61 y/o M admitted on 10/20/21 for Swollen testicles. Chief Complaint: [] Principal diagnosis: Perineal cellulitis, morbid obesity, chronic Shepherd catheter Interval history: The patient was resting comfortably in bed. We discussed disposition, wound care, and ongoing diuresis. All of his questions were answered to his satisfaction. Constitutional Vitals: Vital Signs Temp Pulse Resp BP Pulse Ox O2 Del Method O2 Flow Rate 97.8 F 92 H 16 169/84 94 95 10/23/21 07:06 10/23/21 07:35 10/23/21 07:35 10/23/21 07:06 10/23/21 07:35 10/23/21 07:35 10/22/21 13:47 Period Temp Pulse Resp BP Sys/Vincent Pulse Ox O2 Del Method O2 Flow Rate Last 24 Hr 97.8 F-99.7 F 85-94 16-20 133-169/65-85 91-95 Room Air-Room Air 95 Intake and Output 10/22/21 10/23/21 10/23/21 21:59 05:59 13:59 Intake Total 1640 200 Output Total 1050 2200 2250 Balance 590 -2000 -2250 Weight 149.141 kg Intake & Output: Intake & Output 10/22/21 10/23/21 10/23/21 21:59 05:59 13:59 Intake Total 1640 200 Output Total 1050 2200 2250 Balance 590 -2000 -2250 Weight 149.141 kg Intake: Oral 1640 200 Output: Urine Catheter Amount 1050 2200 2250 Uretheral (Shepherd) 1000 Other: Meal Sherbert Percent of Meal Consumed 100% Feeding Ability Independent Urine Appearance Clear Clear Uretheral (Shepherd) Clear Urine Color Yellow Pale Uretheral (Shepherd) Yellow Head Head exam: Present atraumatic and normal inspection Eye Eye exam: Present normal appearance ENT ENT exam: Present mucous membranes moist, normal exam and normal external ear exam Neck Neck exam: Present normal inspection Respiratory Respiratory exam: Present normal respiratory exam Cardiovascular Cardiovascular exam: Present normal rate and rhythm GI/Abdominal GI/Abdominal exam: Present normal bowel sounds Back Exam Back exam: Present normal inspection Neurological Exam Neurological exam: Present alert and oriented X3 Skin Skin exam: Present intact and warm OBJ DATA Labs CBC & Chem 7: 10/21/21 05:05 10/23/21 05:15 Labs: Abnormal Lab Results 10/23/21 10/22/21 10/21/21 05:15 08:03 05:05 RBC Hgb Hct MCHC RDW Lymph % (Auto) Lymph # (Auto) Carbon Dioxide 21 L BUN 51 H 47 H Creatinine 2.1 H 2.2 H Glucose 215 H 180 H C-Reactive Protein 8.30 H Vancomycin Trough 26.5 H* 10/21/21 05:05 RBC 3.17 L Hgb 8.7 L Hct 28.7 L MCHC 30.3 L RDW 14.8 H Lymph % (Auto) 9.8 L Lymph # (Auto) 0.65 L Carbon Dioxide BUN Creatinine Glucose C-Reactive Protein Vancomycin Trough Meds: Medications Acetaminophen (Acetaminophen 325 Mg Tablet) 650 mg PO Q6HP PRN; Protocol PRN Reason: Per Pain Protocol/Fever > 101 Last Admin: 10/22/21 21:31 Dose: 650 mg Albuterol/Ipratropium (Ipratropium/Albuterol 3 Ml Ampul.Neb) 3 ml NEB Q6HRT [facility] Last Admin: 10/23/21 07:34 Dose: 3 ml Aspirin (Aspirin 81 Mg Tab.Chew) 81 mg CHEWED DAILY [facility] Last Admin: 10/23/21 08:26 Dose: 81 mg Budesonide (Budesonide 0.5 Mg/2 Ml Ampul.Neb) 0.5 mg NEB Q12 [facility] Last Admin: 10/23/21 07:34 Dose: 0.5 mg Carvedilol (Carvedilol 6.25 Mg Tablet) 6.25 mg PO BIDCC [facility] Last Admin: 10/23/21 07:23 Dose: 6.25 mg Cefepime HCl (Cefepime 2 Gm Vial) 2 gm IV Q12H [facility]; Protocol Last Admin: 10/23/21 08:27 Dose: 2 gm Clindamycin HCl (Clindamycin 150 Mg Capsule) 600 mg PO Q6H [facility] Last Admin: 10/23/21 05:18 Dose: 600 mg Clopidogrel Bisulfate (Clopidogrel 75 Mg Tablet) 75 mg PO QDAY [facility] Last Admin: 10/23/21 08:26 Dose: 75 mg Dextrose (Dextrose 50% 50 Ml Vial) 0 ml IV UD PRN PRN Reason: Per Sliding Scale Diagnostic Test (Pha) (Accu-Chek 1 Each Strip) 1 each FS [facility] Last Admin: 10/23/21 07:22 Dose: 1 each Docusate Sodium (Docusate Sodium 100 Mg Capsule) 100 mg PO BID [facility] Last Admin: 10/23/21 08:26 Dose: 100 mg Enoxaparin Sodium (Enoxaparin 40 Mg/0.4 Ml Syringe) 40 mg SQ DAILY [facility] Last Admin: 10/23/21 08:27 Dose: 40 mg Furosemide (Furosemide 40 Mg/4 Ml Vial) 40 mg IV Q8 [facility] Last Admin: 10/23/21 05:17 Dose: 40 mg Glucose (Dextrose 31 Gm Oral.Susp) 15 gm PO PRN PRN PRN Reason: Hypoglycemia Insulin Human Lispro (Insulin Lispro 1 Unit/0.01 Ml Unit) 0 unit SQ [facility]; Protocol Last Admin: 10/23/21 07:23 Dose: 6 units Morphine Sulfate (Morphine 4 Mg/Ml Vial) 4 mg IV Q4HP PRN; Protocol PRN Reason: Per Pain Protocol Ondansetron HCl (Ondansetron 4 Mg/2 Ml Vial) 4 mg IV Q6HP PRN PRN Reason: Nausea And Vomiting Last Admin: 10/23/21 06:16 Dose: 4 mg Senna (Sennosides 1 Tablet) 2 tab PO HS [facility] Last Admin: 10/22/21 22:57 Dose: Not Given Sodium Chloride (0.9 % Sodium Chloride 10 Ml Syringe) 10 ml IV Q8 [facility] Last Admin: 10/23/21 05:18 Dose: 10 ml Tamsulosin HCl (Tamsulosin 0.4 Mg Capsule) 0.8 mg PO QDAY [facility] Last Admin: 10/23/21 08:25 Dose: 0.8 mg Vancomycin HCl (Vancomycin Per Pharmacy) 1 order IV UD [facility]; Protocol A/P Assessment and plan (1) Cellulitis: Status: Acute (2) 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 (3) Chronic ulcer of left foot limited to breakdown of skin: Status: Chronic (4) Diabetic neuropathy: Status: Chronic (5) Tobacco use: Status: Chronic (6) Scrotum swelling: Status: Acute (7) Shepherd catheter in place: Status: Acute (8) Morbid obesity: Status: Acute Narrative A/P Narrative: The patient has multiple risk factors for an accelerated and poorly healing underlying infection including brittle diabetes, poor hygiene, ongoing cigarette smoking, and likely component of peripheral vascular disease. The patient does not have evidence of systemic disease as he is afebrile with a normal white blood cell count. There is no evidence of gangrene or crepitus on physical examination. General surgery will follow to see if any surgical intervention is necessary in the coming days. Urology believes that surgical intervention was not necessary at this time. We will start the patient on cefepime, clindamycin and vancomycin. The patient does have penicillin allergy. We will follow-up on his urine and blood cultures. Due to scrotal edema he will be started on Lasix 40 mg IV every 8 hours. His home medication list reconciliation is pending. 10/21: The patient was febrile overnight with a T-max of 101. His white blood cell count remains within normal limits. On examination, it appears as though the swelling and erythema is slowly subsiding. We will continue Lasix 40 mg IV every 8 hours as his creatinine is holding steady at 2.2. As he is a former smoker, we will start duo nebs and Pulmicort. 10/22: The patient's Shepherd will stay in place as he is being aggressively diuresed and the patient has trouble using a urinal in the setting of a furrowed penis. He has now defervesced and the scrotal erythema/edema is improving. He will likely remain in the hospital for 2 additional days possibly. 10/23: The patient will like to have Dr. Ambriz, his glass fitter, Antonio Buckley at his foot. I called and messaged him today. We will continue aggressive diuresis as his creatinine is holding steady at 2.1. I will increase his Lasix to 80 mg IV 3 times daily. We will continue parenteral antibiotics for his scrotal cellulitis. There is no evidence of necrotizing fasciitis. Time Spent With Patient Time: Total time spent is greater than 50% in coordination of care (as documented) at patient's floor/unit and/or counseling patient: Total time spent with greater than 50% in coordination of care (as documented) at patient's floor/unit and/or counseling patient:: 25 - 35 minutes QUALITY VTE Deep Vein Thrombosis/Pulmonary Embolism Present on Admission: No
[2021-10-23] MEDS ORDERED: ONDANSETRON 4 MG/2 ML VIAL IV PRN (17:15)
[2021-10-23] MEDS: SENNOSIDES 1 TABLET PO SCH (20:36)
[2021-10-23] MEDS: ACETAMINOPHEN 325 MG TABLET PO PRN (23:32)
[2021-10-24] MEDS: CLINDAMYCIN 150 MG CAPSULE PO SCH ×2 (00:49→05:23)
[2021-10-24] MEDS: IPRATROPIUM/ALBUTEROL 3 ML AMPUL.NEB NEB SCH ×4 (00:50→19:50)
[2021-10-24] MEDS: FUROSEMIDE 40 MG/4 ML VIAL IV SCH ×3 (05:23→21:00)
[2021-10-24] MEDS: 0.9 % SODIUM CHLORIDE 10 ML SYRINGE IV SCH ×3 (05:23→20:58)
[2021-10-24 07:06] LABS: Vancomycin,Random 15.8 ug/mL
[2021-10-24 07:18] LABS: Blood Urea Nitrogen 50 mg/dL (6-20); Calcium 8.5 mg/dL (8.6-10.4); Carbon Dioxide 26 mmol/L (22-30); Chloride 103 mmol/L (96-108); Glomerular Filtration Rate 32; Glucose 297 mg/dL (70-105)
[2021-10-24] MEDS: BUDESONIDE 0.5 MG/2 ML AMPUL.NEB NEB SCH ×2 (07:19→19:50)
[2021-10-24] MEDS: CARVEDILOL 6.25 MG TABLET PO SCH ×2 (07:23→16:41)
[2021-10-24] MEDS: INSULIN LISPRO 1 UNIT/0.01 ML UNIT SQ SCH ×4 (07:23→20:55)
[2021-10-24] MEDS: ASPIRIN 81 MG TAB.CHEW CHEWED SCH (08:02)
[2021-10-24] MEDS: CLOPIDOGREL 75 MG TABLET PO SCH (08:03)
[2021-10-24] MEDS: DOCUSATE SODIUM 100 MG CAPSULE PO SCH ×2 (08:03→20:58)
[2021-10-24] MEDS: TAMSULOSIN 0.4 MG CAPSULE PO SCH (08:03)
[2021-10-24] MEDS: ENOXAPARIN 40 MG/0.4 ML SYRINGE SQ SCH (08:04)
[2021-10-24] MEDS: CEFEPIME 2 GM VIAL IV SCH ×2 (08:05→20:55)
--- NOTE | 2021-10-24 09:29 | Urology Progress Note ---
SUBJECTIVE Subjective Patient information: Note initiated : 10/24/21 at 9:28 am Service Date, if different from initiated Date: [] Patient: Ross Mcgee 61 y/o M admitted on 10/20/21 for Swollen testicles. Chief Complaint: [] Principal diagnosis: Perineal cellulitis, morbid obesity, chronic Hutchins catheter Interval history: Pt continues to diurese. He notes decreased genital swelling Constitutional Vitals: Vital Signs Temp Pulse Resp BP Pulse Ox O2 Del Method O2 Flow Rate 97.9 F 95 H 18 152/68 92 95 10/24/21 07:28 10/24/21 07:28 10/24/21 07:28 10/24/21 07:28 10/24/21 07:28 10/24/21 07:28 10/22/21 13:47 Period Temp Pulse Resp BP Sys/Vincent Pulse Ox O2 Del Method O2 Flow Rate Last 24 Hr 97.6 F-99.6 F 87-95 14-24 128-173/68-81 91-93 Room Air-Room Air Intake and Output 10/23/21 10/24/21 10/24/21 21:59 05:59 13:59 Intake Total 237 1220 Output Total 1650 975 650 Balance -1413 245 -650 Weight 147.191 kg Intake & Output: Intake & Output 10/23/21 10/24/21 10/24/21 21:59 05:59 13:59 Intake Total 237 1220 Output Total 1650 975 650 Balance -1413 245 -650 Weight 147.191 kg Intake: Oral 237 1220 Output: Urine Catheter Amount 1650 975 650 Uretheral (Hutchins) 650 Other: Urine Appearance Clear Clear Uretheral (Hutchins) Clear Clear Urine Color Yellow Yellow Uretheral (Hutchins) Yellow Yellow Urine Odor Normal Normal Additional comments: Scrotum considerably less swollen. Brawny edema of lower abdomen minimally improved. A/P Narrative Plan of Treatment: Genital cellulitis is much improved. No necrosis or observable abscess noted. Ideally would try removing hutchins for voiding trial prior to discharge and when diuresis appears near completion. Time Spent With Patient Time: Total time spent is greater than 50% in coordination of care (as documented) at patient's floor/unit and/or counseling patient:
--- NOTE | 2021-10-24 09:58 | Internal Med Progress Note ---
SUBJECTIVE Subjective Patient information: Note initiated : 10/24/21 at 9:56 am Service Date, if different from initiated Date: [] Patient: Ross Mcgee 61 y/o M admitted on 10/20/21 for Swollen testicles. Chief Complaint: [Scrotal edema] Principal diagnosis: Perineal cellulitis, morbid obesity, chronic Hutchins catheter Interval history: The patient is in good spirits. He is doing fairly well. He has no active complaints or concerns. Constitutional Vitals: Vital Signs Temp Pulse Resp BP Pulse Ox O2 Del Method O2 Flow Rate 97.9 F 95 H 18 152/68 92 95 10/24/21 07:28 10/24/21 07:28 10/24/21 07:28 10/24/21 07:28 10/24/21 07:28 10/24/21 07:28 10/22/21 13:47 Period Temp Pulse Resp BP Sys/Vincent Pulse Ox O2 Del Method O2 Flow Rate Last 24 Hr 97.6 F-99.6 F 87-95 14-24 128-173/68-81 91-93 Room Air-Room Air Intake and Output 10/23/21 10/24/21 10/24/21 21:59 05:59 13:59 Intake Total 237 1220 Output Total 1650 975 650 Balance -1413 245 -650 Weight 147.191 kg Intake & Output: Intake & Output 10/23/21 10/24/21 10/24/21 21:59 05:59 13:59 Intake Total 237 1220 Output Total 1650 975 650 Balance -1413 245 -650 Weight 147.191 kg Intake: Oral 237 1220 Output: Urine Catheter Amount 1650 975 650 Uretheral (Hutchins) 650 Other: Urine Appearance Clear Clear Uretheral (Hutchins) Clear Clear Urine Color Yellow Yellow Uretheral (Hutchins) Yellow Yellow Urine Odor Normal Normal Head Head exam: Present atraumatic and normal inspection Eye Eye exam: Present normal appearance ENT ENT exam: Present mucous membranes moist, normal exam and normal external ear exam Neck Neck exam: Present normal inspection Respiratory Respiratory exam: Present normal respiratory exam Cardiovascular Cardiovascular exam: Present normal rate and rhythm GI/Abdominal GI/Abdominal exam: Present normal bowel sounds Back Exam Back exam: Present normal inspection Neurological Exam Neurological exam: Present alert and oriented X3 Skin Skin exam: Present intact and warm OBJ DATA Labs CBC & Chem 7: 10/21/21 05:05 10/24/21 06:10 Labs: Abnormal Lab Results 10/24/21 10/23/21 10/22/21 06:10 05:15 08:03 Carbon Dioxide 21 L BUN 50 H 51 H Creatinine 2.2 H 2.1 H Glucose 297 H 215 H Calcium 8.5 L Vancomycin Trough 26.5 H* Meds: Medications Acetaminophen (Acetaminophen 325 Mg Tablet) 650 mg PO Q6HP PRN; Protocol PRN Reason: Per Pain Protocol/Fever > 101 Last Admin: 10/23/21 23:32 Dose: 650 mg Albuterol/Ipratropium (Ipratropium/Albuterol 3 Ml Ampul.Neb) 3 ml NEB Q6HRT [facility] Last Admin: 10/24/21 07:19 Dose: 3 ml Aspirin (Aspirin 81 Mg Tab.Chew) 81 mg CHEWED DAILY [facility] Last Admin: 10/24/21 08:02 Dose: 81 mg Budesonide (Budesonide 0.5 Mg/2 Ml Ampul.Neb) 0.5 mg NEB Q12 [facility] Last Admin: 10/24/21 07:19 Dose: 0.5 mg Carvedilol (Carvedilol 6.25 Mg Tablet) 6.25 mg PO BIDCC [facility] Last Admin: 10/24/21 07:23 Dose: 6.25 mg Cefepime HCl (Cefepime 2 Gm Vial) 2 gm IV Q12H [facility]; Protocol Last Admin: 10/24/21 08:05 Dose: 2 gm Clindamycin HCl (Clindamycin 150 Mg Capsule) 600 mg PO Q6H [facility] Last Admin: 10/24/21 05:23 Dose: 600 mg Clopidogrel Bisulfate (Clopidogrel 75 Mg Tablet) 75 mg PO QDAY [facility] Last Admin: 10/24/21 08:03 Dose: 75 mg Dextrose (Dextrose 50% 50 Ml Vial) 0 ml IV UD PRN PRN Reason: Per Sliding Scale Diagnostic Test (Pha) (Accu-Chek 1 Each Strip) 1 each FS A[facility]S [facility] Last Admin: 10/24/21 07:23 Dose: 1 each Docusate Sodium (Docusate Sodium 100 Mg Capsule) 100 mg PO BID [facility] Last Admin: 10/24/21 08:03 Dose: 100 mg Enoxaparin Sodium (Enoxaparin 40 Mg/0.4 Ml Syringe) 40 mg SQ DAILY [facility] Last Admin: 10/24/21 08:04 Dose: 40 mg Furosemide (Furosemide 40 Mg/4 Ml Vial) 80 mg IV Q8 [facility] Last Admin: 10/24/21 05:23 Dose: 80 mg Glucose (Dextrose 31 Gm Oral.Susp) 15 gm PO PRN PRN PRN Reason: Hypoglycemia Vancomycin HCl 1,500 mg/ (Sodium Chloride) 500 mls @ 333.3 mls/hr IV 1000 [facility] Stop: 10/24/21 13:00 Last Admin: 10/24/21 09:54 Dose: 333.3 mls/hr Insulin Human Lispro (Insulin Lispro 1 Unit/0.01 Ml Unit) 0 unit SQ [facility]; Protocol Last Admin: 10/24/21 07:23 Dose: 8 units Morphine Sulfate (Morphine 4 Mg/Ml Vial) 4 mg IV Q4HP PRN; Protocol PRN Reason: Per Pain Protocol Ondansetron HCl (Ondansetron 4 Mg/2 Ml Vial) 8 mg IV Q6HP PRN PRN Reason: Nausea And Vomiting Senna (Sennosides 1 Tablet) 2 tab PO HS [facility] Last Admin: 10/23/21 20:36 Dose: Not Given Sodium Chloride (0.9 % Sodium Chloride 10 Ml Syringe) 10 ml IV Q8 [facility] Last Admin: 10/24/21 05:23 Dose: 10 ml Tamsulosin HCl (Tamsulosin 0.4 Mg Capsule) 0.8 mg PO QDAY [facility] Last Admin: 10/24/21 08:03 Dose: 0.8 mg Vancomycin HCl (Vancomycin Per Pharmacy) 1 order IV UD [facility]; Protocol A/P Assessment and plan (1) Cellulitis: Status: Acute (2) 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 The patient does not have evidence of systemic disease as he is afebrile with a normal white blood cell count. There is no evidence of gangrene or crepitus on physical examination. General surgery will follow to see if any surgical intervention is necessary in the coming days. Urology believes that surgical intervention was not necessary at this time. We will start the patient on cefepime, clindamycin and vancomycin. The patient does have penicillin allergy. We will follow-up on his urine and blood cultures. Due to scrotal edema he will be started on Lasix 40 mg IV every 8 hours. His home medication list reconciliation is pending. 10/21: The patient was febrile overnight with a T-max of 101. His white blood cell count remains within normal limits. On examination, it appears as though the swelling and erythema is slowly subsiding. We will continue Lasix 40 mg IV every 8 hours as his creatinine is holding steady at 2.2. As he is a former smoker, we will start duo nebs and Pulmicort. 10/22: The patient's Hutchins will stay in place as he is being aggressively diuresed and the patient has trouble using a urinal in the setting of a furrowed penis. He has now defervesced and the scrotal erythema/edema is improving. He will likely remain in the hospital for 2 additional days possibly. 10/23: The patient will like to have Dr. Ambriz, his typist, Antonio Buckley at his foot. I called and messaged him today. We will continue aggressive diuresis as his creatinine is holding steady at 2.1. I will increase his Lasix to 80 mg IV 3 times daily. We will continue parenteral antibiotics for his scrotal cellulitis. There is no evidence of necrotizing fasciitis. 10/23: As there is no longer any concern for necrotizing fasciitis, we will discontinue his clindamycin and continue vancomycin and cefepime. His scrotal cellulitis has greatly improved. His kidney function is holding up we will continue the aggressive Lasix. His abdomen is much softer on palpation. Discussed the case with Dr. Ambriz from podiatry who placed wound care orders. He will likely be able to go home with home health in 1 to 2 days. Plan of Treatment: Genital cellulitis is much improved. No necrosis or observable abscess noted. Ideally would try removing hutchins for voiding trial prior to discharge and when diuresis appears near completion. Time Spent With Patient Time: Total time spent is greater than 50% in coordination of care (as documented) at patient's floor/unit and/or counseling patient: Total time spent with greater than 50% in coordination of care (as documented) at patient's floor/unit and/or counseling patient:: 25 - 35 minutes QUALITY VTE Deep Vein Thrombosis/Pulmonary Embolism Present on Admission: No
[2021-10-24] MEDS ORDERED: VANCOMYCIN 1,500 MG in 0.9 % SODIUM CHLORIDE 500 ML IV SCH (10:00)
--- NOTE | 2021-10-24 12:51 | Internal Med Progress Note ---
SUBJECTIVE Subjective Patient information: Note initiated : 10/24/21 at 12:41 pm Service Date, if different from initiated Date: [] Patient: Ross Mcgee 61 y/o M admitted on 10/20/21 for Swollen testicles. Chief Complaint: [] Principal diagnosis: Perineal cellulitis, morbid obesity, chronic Shepherd catheter Interval history: History of present illness: Mr. 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 Of note, the patient does have a chronic Shepherd in place which she states was causing significant pain today. Patient denies any fevers, chills, nausea or vomiting. The patient called EMS today and came to the ER for further management and evaluation. On arrival he was hemodynamically stable and afebrile. The patient was recently hospitalized October 05 for perineal pain and was found to have large bilateral hydrocele within the scrotal region. He was treated with 4 days of parenteral antibiotics and then transition to oral antibiotics. He states that he recently ran out as his oral antibiotic regimen. Thereafter, the infection seem to be coming back he states. Urology assessed the patient this morning and believes that there was no reason for surgical intervention and did not believe that this was necrotizing fasciitis. The ER physician called [facility] and spoke to the infectious disease specialist who did not believe a transfer was warranted and instead recommended care at our hospital. The hospitalist service was asked admit the patient for further management and evaluation of his suspected scrotal cellulitis. 10/21: The patient was febrile overnight with a T-max of 101. His white blood cell count remains within normal limits. On examination, it appears as though the swelling and erythema is slowly subsiding. We will continue Lasix 40 mg IV every 8 hours as his creatinine is holding steady at 2.2. As he is a former smoker, we will start duo nebs and Pulmicort. 10/22: The patient's Shepherd will stay in place as he is being aggressively diuresed and the patient has trouble using a urinal in the setting of a furrowed penis. He has now defervesced and the scrotal erythema/edema is improving. He will likely remain in the hospital for 2 additional days possibly. 10/23: The patient will like to have Dr. Ambriz, his brick mason, Antonio Buckley at his foot. I called and messaged him today. We will continue aggressive diuresis as his creatinine is holding steady at 2.1. I will increase his Lasix to 80 mg IV 3 times daily. We will continue parenteral antibiotics for his scrotal cellulitis. There is no evidence of necrotizing fasciitis. 10/24: As there is no longer any concern for necrotizing fasciitis, we will discontinue his clindamycin and continue vancomycin and cefepime. His scrotal cellulitis has greatly improved. His kidney function is holding up we will continue the aggressive Lasix. His abdomen is much softer on palpation. Discussed the case with Dr. Ambriz from podiatry who placed wound care orders. He will likely be able to go home with home health in 1 to 2 days. Constitutional Vitals: Vital Signs Temp Pulse Resp BP Pulse Ox O2 Del Method O2 Flow Rate 97.9 F 95 H 18 152/68 92 95 10/24/21 07:28 10/24/21 07:28 10/24/21 07:28 10/24/21 07:28 10/24/21 07:28 10/24/21 07:28 10/22/21 13:47 Period Temp Pulse Resp BP Sys/Vincent Pulse Ox O2 Del Method O2 Flow Rate Last 24 Hr 97.6 F-99.6 F 87-95 16-24 128-173/68-81 91-93 Room Air-Room A ir Intake and Output 10/23/21 10/24/21 10/24/21 21:59 05:59 13:59 Intake Total 237 1220 500 Output Total 1650 975 650 Balance -1413 245 -150 Weight 147.191 kg Intake & Output: Intake & Output 10/23/21 10/24/21 10/24/21 21:59 05:59 13:59 Intake Total 237 1220 500 Output Total 1650 975 650 Balance -1413 245 -150 Weight 147.191 kg Intake: IV 500 Vancomycin 1,500 mg In Sodium 500 Chloride 0.9% 500 ml @ 333.3 mls/hr IV 1000 [facility] Rx#: [id number] Oral 237 1220 Output: Urine Catheter Amount 1650 975 650 Uretheral (Shepherd) 650 Other: Urine Appearance Clear Clear Uretheral (Shepherd) Clear Clear Urine Color Yellow Yellow Uretheral (Shepherd) Yellow Yellow Urine Odor Normal Normal Exam: General: Alert, Awake, No acute Distress, obese Eyes/N/T: EOMI, Head/Neck: neck supple, CV: RRR, No murmurs, Pulm: Clear b/l, no wheezing/rhonchi/rales Abd: soft, nontender, +BS x4 Ext: no clubbing/cyanosis/ Neuro: Alert, no focal deficits, moves all extremities, Skin: warm/dry OBJ DATA Labs CBC & Chem 7: 10/21/21 05:05 10/24/21 06:10 Labs: Abnormal Lab Results 10/24/21 10/23/21 10/22/21 06:10 05:15 08:03 Carbon Dioxide 21 L BUN 50 H 51 H Creatinine 2.2 H 2.1 H Glucose 297 H 215 H Calcium 8.5 L Vancomycin Trough 26.5 H* Meds: Medications Acetaminophen (Acetaminophen 325 Mg Tablet) 650 mg PO Q6HP PRN; Protocol PRN Reason: Per Pain Protocol/Fever > 101 Last Admin: 10/23/21 23:32 Dose: 650 mg Albuterol/Ipratropium (Ipratropium/Albuterol 3 Ml Ampul.Neb) 3 ml NEB Q6HRT [facility] Last Admin: 10/24/21 07:19 Dose: 3 ml Aspirin (Aspirin 81 Mg Tab.Chew) 81 mg CHEWED DAILY [facility] Last Admin: 10/24/21 08:02 Dose: 81 mg Budesonide (Budesonide 0.5 Mg/2 Ml Ampul.Neb) 0.5 mg NEB Q12 [facility] Last Admin: 10/24/21 07:19 Dose: 0.5 mg Carvedilol (Carvedilol 6.25 Mg Tablet) 6.25 mg PO BIDCC [facility] Last Admin: 10/24/21 07:23 Dose: 6.25 mg Cefepime HCl (Cefepime 2 Gm Vial) 2 gm IV Q12H [facility]; Protocol Last Admin: 10/24/21 08:05 Dose: 2 gm Clopidogrel Bisulfate (Clopidogrel 75 Mg Tablet) 75 mg PO QDAY [facility] Last Admin: 10/24/21 08:03 Dose: 75 mg Dextrose (Dextrose 50% 50 Ml Vial) 0 ml IV UD PRN PRN Reason: Per Sliding Scale Diagnostic Test (Pha) (Accu-Chek 1 Each Strip) 1 each FS [facility] Last Admin: 10/24/21 11:24 Dose: 1 each Docusate Sodium (Docusate Sodium 100 Mg Capsule) 100 mg PO BID [facility] Last Admin: 10/24/21 08:03 Dose: 100 mg Enoxaparin Sodium (Enoxaparin 40 Mg/0.4 Ml Syringe) 40 mg SQ DAILY [facility] Last Admin: 10/24/21 08:04 Dose: 40 mg Furosemide (Furosemide 40 Mg/4 Ml Vial) 80 mg IV Q8 [facility] Last Admin: 10/24/21 05:23 Dose: 80 mg Glucose (Dextrose 31 Gm Oral.Susp) 15 gm PO PRN PRN PRN Reason: Hypoglycemia Vancomycin HCl 1,500 mg/ (Sodium Chloride) 500 mls @ 333.3 mls/hr IV 1000 [facility] Stop: 10/24/21 13:00 Last Infusion: 10/24/21 11:57 Dose: Infused Insulin Human Lispro (Insulin Lispro 1 Unit/0.01 Ml Unit) 0 unit SQ [facility]; Protocol Last Admin: 10/24/21 11:23 Dose: 10 units Morphine Sulfate (Morphine 4 Mg/Ml Vial) 4 mg IV Q4HP PRN; Protocol PRN Reason: Per Pain Protocol Ondansetron HCl (Ondansetron 4 Mg/2 Ml Vial) 8 mg IV Q6HP PRN PRN Reason: Nausea And Vomiting Senna (Sennosides 1 Tablet) 2 tab PO HS [facility] Last Admin: 10/23/21 20:36 Dose: Not Given Sodium Chloride (0.9 % Sodium Chloride 10 Ml Syringe) 10 ml IV Q8 [facility] Last Admin: 10/24/21 05:23 Dose: 10 ml Tamsulosin HCl (Tamsulosin 0.4 Mg Capsule) 0.8 mg PO QDAY [facility] Last Admin: 10/24/21 08:03 Dose: 0.8 mg Vancomycin HCl (Vancomycin Per Pharmacy) 1 order IV [facility]; Protocol A/P Narrative A/P Narrative: A: *Genital cellulitis: No necrosis/abscess *Diabetes type 2 with neuropathy: *Tobacco abuse *Chronic left foot wound: *Obesity: BMI 51 *PVD: on cilostazol/asa/plavix *HTN: on coreg/dilt/lasix *CKD IV: *Anemia, chronic P: -Urology following -Continue antibiotics -Continue IV lasix, monitor renal function -Case discussed with Dr. Ambriz who placed wound care orders -cont home IH's -cont plavix -basal & SSI -cont BB/CCB -ppx: Lovenox Time Spent With Patient Time: Total time spent is greater than 50% in coordination of care (as documented) at patient's floor/unit and/or counseling patient: QUALITY VTE Deep Vein Thrombosis/Pulmonary Embolism Present on Admission: No
[2021-10-24] MEDS: INSULIN GLARGINE, HUMAN 1 UNIT/0.01 ML SQ SCH (20:56)
[2021-10-24] MEDS: SENNOSIDES 1 TABLET PO SCH (20:58)
[2021-10-25] MEDS: IPRATROPIUM/ALBUTEROL 3 ML AMPUL.NEB NEB SCH ×4 (01:34→18:00)
[2021-10-25] MEDS: 0.9 % SODIUM CHLORIDE 10 ML SYRINGE IV SCH ×3 (05:38→20:37)
[2021-10-25] MEDS: FUROSEMIDE 40 MG/4 ML VIAL IV SCH ×3 (05:38→21:04)
--- NOTE | 2021-10-25 07:24 | Internal Med Progress Note ---
SUBJECTIVE Subjective Patient information: Note initiated : 10/25/21 at 7:23 am Service Date, if different from initiated Date: [] Patient: Ross Mcgee 61 y/o M admitted on 10/20/21 for Swollen testicles. Chief Complaint: [] Principal diagnosis: Perineal cellulitis, morbid obesity, chronic Shepherd catheter Interval history: History of present illness: Mr. 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 Of note, the patient does have a chronic Shepherd in place which she states was causing significant pain today. Patient denies any fevers, chills, nausea or vomiting. The patient called EMS today and came to the ER for further management and evaluation. On arrival he was hemodynamically stable and afebrile. The patient was recently hospitalized October 05 for perineal pain and was found to have large bilateral hydrocele within the scrotal region. He was treated with 4 days of parenteral antibiotics and then transition to oral antibiotics. He states that he recently ran out as his oral antibiotic regimen. Thereafter, the infection seem to be coming back he states. Urology assessed the patient this morning and believes that there was no reason for surgical intervention and did not believe that this was necrotizing fasciitis. The ER physician called [facility] and spoke to the infectious disease specialist who did not believe a transfer was warranted and instead recommended care at our hospital. The hospitalist service was asked admit the patient for further management and evaluation of his suspected scrotal cellulitis. 10/21: The patient was febrile overnight with a T-max of 101. His white blood cell count remains within normal limits. On examination, it appears as though the swelling and erythema is slowly subsiding. We will continue Lasix 40 mg IV every 8 hours as his creatinine is holding steady at 2.2. As he is a former smoker, we will start duo nebs and Pulmicort. 10/22: The patient's Shepherd will stay in place as he is being aggressively diuresed and the patient has trouble using a urinal in the setting of a furrowed penis. He has now defervesced and the scrotal erythema/edema is improving. He will likely remain in the hospital for 2 additional days possibly. 10/23: The patient will like to have Dr. Ambriz, his foil stamp operator, Antonio Buckley at his foot. I called and messaged him today. We will continue aggressive diuresis as his creatinine is holding steady at 2.1. I will increase his Lasix to 80 mg IV 3 times daily. We will continue parenteral antibiotics for his scrotal cellulitis. There is no evidence of necrotizing fasciitis. 10/24: As there is no longer any concern for necrotizing fasciitis, we will discontinue his clindamycin and continue vancomycin and cefepime. His scrotal cellulitis has greatly improved. His kidney function is holding up we will continue the aggressive Lasix. His abdomen is much softer on palpation. Discussed the case with Dr. Ambriz from podiatry who placed wound care orders. He will likely be able to go home with home health in 1 to 2 days. 10/25 Patient states he can feel scrotal edema improving. Patient has had good urine output. No overnight event or new complaints. Pending follow-up laboratory work. Review of Systems: denies headache/fever/chills/nausea/vomiting/chest or abdominal pain/cough/dyspnea/diarrhea. Otherwise see above. Constitutional Vitals: Vital Signs Temp Pulse Resp BP Pulse Ox O2 Del Method O2 Flow Rate 97.8 F 98 H 20 139/72 92 95 10/25/21 03:24 10/25/21 03:24 10/25/21 03:24 10/25/21 03:24 10/25/21 03:24 10/25/21 03:24 10/22/21 13:47 Period Temp Pulse Resp BP Sys/Vincent Pulse Ox O2 Del Method O2 Flow Rate Last 24 Hr 97.3 F-98.7 F 72-98 16-20 134-182/67-92 90-92 Room Air-Room Air Intake and Output 10/24/21 10/25/21 10/25/21 21:59 05:59 13:59 Intake Total 240 800 Output Total 2450 1725 Balance -22095 Weight 146.737 kg Intake & Output: Intake & Output 10/24/21 10/25/21 10/25/21 21:59 05:59 13:59 Intake Total 240 800 Output Total 2450 1725 Balance -3790 -417 Weight 146.737 kg Intake: Oral 240 800 Output: Urine Catheter Amount 2450 1725 Other: Meal Dinner Percent of Meal Consumed 100% Urine Appearance Clear Clear Uretheral (Shepherd) Clear Urine Color Yellow Yellow Uretheral (Shepherd) Yellow Urine Odor Normal Normal Exam: General: Alert, Awake, No acute Distress, obese Eyes/N/T: EOMI, Head/Neck: neck supple, CV: RRR, No murmurs, Pulm: Clear b/l, no wheezing/rhonchi/rales Abd: soft, nontender, +BS x4 : Scrotal edema improved per patient Ext: no clubbing/cyanosis, mild b/l LE edema Neuro: Alert, no focal deficits, moves all extremities, Skin: warm/dry OBJ DATA Labs CBC & Chem 7: 10/21/21 05:05 10/24/21 06:10 Labs: Abnormal Lab Results 10/24/21 10/23/21 10/22/21 06:10 05:15 08:03 Carbon Dioxide 21 L BUN 50 H 51 H Creatinine 2.2 H 2.1 H Glucose 297 H 215 H Calcium 8.5 L Vancomycin Trough 26.5 H* Meds: Medications Acetaminophen (Acetaminophen 325 Mg Tablet) 650 mg PO Q6HP PRN; Protocol PRN Reason: Per Pain Protocol/Fever > 101 Last Admin: 10/23/21 23:32 Dose: 650 mg Albuterol/Ipratropium (Ipratropium/Albuterol 3 Ml Ampul.Neb) 3 ml NEB Q6HRT [facility] Last Admin: 10/25/21 01:34 Dose: 3 ml Aspirin (Aspirin 81 Mg Tab.Chew) 81 mg CHEWED DAILY [facility] Last Admin: 10/24/21 08:02 Dose: 81 mg Budesonide (Budesonide 0.5 Mg/2 Ml Ampul.Neb) 0.5 mg NEB Q12 [facility] Last Admin: 10/24/21 19:50 Dose: 0.5 mg Carvedilol (Carvedilol 6.25 Mg Tablet) 6.25 mg PO BIDCC [facility] Last Admin: 10/24/21 16:41 Dose: 6.25 mg Cefepime HCl (Cefepime 2 Gm Vial) 2 gm IV Q12H [facility]; Protocol Last Admin: 10/24/21 20:55 Dose: 2 gm Cilostazol (Cilostazol 100 Mg Tablet) 100 mg PO DAILY [facility] Clopidogrel Bisulfate (Clopidogrel 75 Mg Tablet) 75 mg PO QDAY [facility] Last Admin: 10/24/21 08:03 Dose: 75 mg Dextrose (Dextrose 50% 50 Ml Vial) 0 ml IV UD PRN PRN Reason: Per Sliding Scale Diagnostic Test (Pha) (Accu-Chek 1 Each Strip) 1 each FS [facility] Last Admin: 10/24/21 20:45 Dose: 1 each Diltiazem HCl (Diltiazem 180 Mg Cap.Xl.24h) 180 mg PO QDAY [facility] Docusate Sodium (Docusate Sodium 100 Mg Capsule) 100 mg PO BID [facility] Last Admin: 10/24/21 20:58 Dose: Not Given Enoxaparin Sodium (Enoxaparin 40 Mg/0.4 Ml Syringe) 40 mg SQ DAILY [facility] Last Admin: 10/24/21 08:04 Dose: 40 mg Furosemide (Furosemide 40 Mg/4 Ml Vial) 80 mg IV Q8 [facility] Last Admin: 10/25/21 05:38 Dose: 80 mg Glucose (Dextrose 31 Gm Oral.Susp) 15 gm PO PRN PRN PRN Reason: Hypoglycemia Insulin Glargine (Insulin Glargine, Human 1 Unit/0.01 Ml) 60 unit SQ [facility] Last Admin: 10/24/21 20:56 Dose: 60 appful Insulin Human Lispro (Insulin Lispro 1 Unit/0.01 Ml Unit) 0 unit SQ [facility]; Protocol Last Admin: 10/24/21 20:55 Dose: 8 units Morphine Sulfate (Morphine 4 Mg/Ml Vial) 4 mg IV Q4HP PRN; Protocol PRN Reason: Per Pain Protocol Ondansetron HCl (Ondansetron 4 Mg/2 Ml Vial) 8 mg IV Q6HP PRN PRN Reason: Nausea And Vomiting Senna (Sennosides 1 Tablet) 2 tab PO [facility] Last Admin: 10/24/21 20:58 Dose: Not Given Sodium Chloride (0.9 % Sodium Chloride 10 Ml Syringe) 10 ml IV Q8 [facility] Last Admin: 10/25/21 05:38 Dose: 10 ml Tamsulosin HCl (Tamsulosin 0.4 Mg Capsule) 0.8 mg PO QDAY [facility] Last Admin: 10/24/21 08:03 Dose: 0.8 mg Vancomycin HCl (Vancomycin Per Pharmacy) 1 order IV UD [facility]; Protocol A/P Narrative A/P Narrative: A: *Genital cellulitis: No necrosis/abscess *Diabetes type 2 with neuropathy: -A1c *Chronic left foot wound: *Obesity: BMI 51 *PVD: on cilostazol/asa/plavix *HTN: on coreg/dilt/lasix *CKD IV: *Anemia, chronic P: -Urology following -Continue antibiotics -Continue IV lasix, monitor renal function, metolazone today -Case discussed with Dr. Ambriz who placed wound care orders for foot -cont home IH's -cont plavix -basal (titrate) & SSI, pendin a1c -cont BB/CCB -ppx: Lovenox Time Spent With Patient Time: Total time spent is greater than 50% in coordination of care (as documented) at patient's floor/unit and/or counseling patient: Total time spent with greater than 50% in coordination of care (as documented) at patient's floor/unit and/or counseling patient:: 25 - 35 minutes QUALITY VTE Deep Vein Thrombosis/Pulmonary Embolism Present on Admission: No
[2021-10-25] MEDS: BUDESONIDE 0.5 MG/2 ML AMPUL.NEB NEB SCH ×3 (07:41→20:46)
[2021-10-25] MEDS: INSULIN LISPRO 1 UNIT/0.01 ML UNIT SQ SCH ×4 (07:45→20:31)
[2021-10-25] MEDS: ASPIRIN 81 MG TAB.CHEW CHEWED SCH (08:26)
[2021-10-25] MEDS: CILOSTAZOL 100 MG TABLET PO SCH (08:26)
[2021-10-25] MEDS: CARVEDILOL 6.25 MG TABLET PO SCH ×2 (08:26→17:02)
[2021-10-25] MEDS: DILTIAZEM 180 MG CAP.XL.24H PO SCH (08:26)
[2021-10-25] MEDS: DOCUSATE SODIUM 100 MG CAPSULE PO SCH ×2 (08:26→20:31)
[2021-10-25] MEDS: TAMSULOSIN 0.4 MG CAPSULE PO SCH (08:26)
[2021-10-25] MEDS: CLOPIDOGREL 75 MG TABLET PO SCH (08:26)
[2021-10-25] MEDS: ENOXAPARIN 40 MG/0.4 ML SYRINGE SQ SCH ×3 (08:28→20:30)
[2021-10-25] MEDS: CEFEPIME 2 GM VIAL IV SCH ×2 (08:33→20:37)
[2021-10-25 08:44] LABS: Vancomycin,Random 22.6 ug/mL
[2021-10-25 08:46] LABS: ALT/SGPT 12 U/L (<40); AST/SGOT 17 U/L (<40); Albumin 2.9 gm/dL (3.2-5.2); Alkaline Phosphatase 116 U/L (39-117); Bilirubin,Direct < 0.2 mg/dL (0-0.3); Bilirubin,Total 0.2 mg/dL (0.1-1.0); Blood Urea Nitrogen 49 mg/dL (6-20); Calcium 8.9 mg/dL (8.6-10.4); Carbon Dioxide 28 mmol/L (22-30); Chloride 101 mmol/L (96-108); Globulin 2.8 gm/dL (2.2-3.7); Glomerular Filtration Rate 32; Glucose 269 mg/dL (70-105); Lactate Dehydrogenase 253 U/L (135-225); Triglycerides 103 mg/dL (<150)
[2021-10-25] MEDS ORDERED: METOLAZONE 2.5 MG TABLET PO SCH (09:00)
[2021-10-25 09:22] LABS: Hemoglobin A1C 8.4 % Hgb (4.0-6.0)
--- NOTE | 2021-10-25 09:53 | Discharge Summary ---
Discharge Provider Provider IMPORTANT FOLLOW-UP INFORMATION FOR PCP: Patient information: Note initiated : 10/25/21 at 9:50 am Service Date, if different from initiated Date: [] Patient: Ross Mcgee 61 y/o M admitted on 10/20/21 for Swollen testicles. Chief Complaint: [] Date of admission: 10/20/21 16:47 Discharge date: 10/26/21 Primary care physician: Elba Bridges Consults: 10/20/21 Consult to Physician [CONS] Stat Comment: Consulting Provider: Carmen Turcios Reason For Exam: Physician to Consult Consult to Physician [CONS] Stat Comment: Consulting Provider: Catrachito Azevedo Reason For Exam: Physician to Consult 10/23/21 09:59 Consult to Physician [CONS] Routine Comment: Consulting Provider: Gaston Ambriz Reason For Exam: Physician to Consult COURSE Hospital Course Hospital course: History of present illness: Mr. 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 Of note, the patient does have a chronic Shepherd in place which she states was causing significant pain today. Patient denies any fevers, chills, nausea or vomiting. The patient called EMS today and came to the ER for further management and evaluation. On arrival he was hemodynamically stable and afebrile. The patient was recently hospitalized October 05 for perineal pain and was found to have large bilateral hydrocele within the scrotal region. He was treated with 4 days of parenteral antibiotics and then transition to oral antibiotics. He states that he recently ran out as his oral antibiotic regimen. Thereafter, the infection seem to be coming back he states. Urology assessed the patient this morning and believes that there was no reason for surgical intervention and did not believe that this was necrotizing fasciitis. The ER physician called [facility] and spoke to the infectious disease specialist who did not believe a transfer was warranted and instead recommended care at our hospital. The hospitalist service was asked admit the patient for further management and evaluation of his suspected scrotal cellulitis. 10/21: The patient was febrile overnight with a T-max of 101. His white blood cell count remains within normal limits. On examination, it appears as though the swelling and erythema is slowly subsiding. We will continue Lasix 40 mg IV every 8 hours as his creatinine is holding steady at 2.2. As he is a former smoker, we will start duo nebs and Pulmicort. 10/22: The patient's Shepherd will stay in place as he is being aggressively diuresed and the patient has trouble using a urinal in the setting of a furrowed penis. He has now defervesced and the scrotal erythema/edema is improving. He will l ikely remain in the hospital for 2 additional days possibly. 10/23: The patient will like to have Dr. Ambriz, his manager epic, Antonio Buckley at his foot. I called and messaged him today. We will continue aggressive diuresis as his creatinine is holding steady at 2.1. I will increase his Lasix to 80 mg IV 3 times daily. We will continue parenteral antibiotics for his scrotal cellulitis. There is no evidence of necrotizing fasciitis. 10/24: As there is no longer any concern for necrotizing fasciitis, we will discontinue his clindamycin and continue vancomycin and cefepime. His scrotal cellulitis has greatly improved. His kidney function is holding up we will continue the aggressive Lasix. His abdomen is much softer on palpation. Discussed the case with Dr. Ambriz from podiatry who placed wound care orders. He will likely be able to go home with home health in 1 to 2 days. 10/25 Patient states he can feel scrotal edema improving. Patient has had good urine output. No overnight event or new complaints. Pending follow-up laboratory work. 10/26 We will remove Shepherd this morning and see how he does without it and if does fine we will remain out and follow-up with PCP and urology. A: *Genital cellulitis: No necrosis/abscess *Diabetes type 2 with neuropathy: -A1c 8.4 *Chronic left foot wound: *Obesity: BMI 51 *PVD: on cilostazol/asa/plavix *HTN: on coreg/dilt/lasix *CKD IV: *Anemia, chronic P: -f/u with Urology -transition to oral antibiotics -f/u with Dr. Ambriz for foot Discharge diagnosis: General cellulitis volume overload Secondary discharge diagnosis: Obesity peripheral vascular disease hypertension chronic kidney disease chronic anemia diabetes left foot wound Time Spent with Patient Time attestation: Total time spent providing and/or coordinating discharge services: Time spent: Greater than 30 minutes EXAM Constitutional Vitals: Temp Pulse Resp BP Pulse Ox O2 Del Method O2 Flow Rate 97.6 F 90 20 138/68 90 0 10/25/21 07:43 10/25/21 07:43 10/25/21 07:43 10/25/21 07:43 10/25/21 07:43 10/25/21 07:43 10/25/21 07:41 Discharge Data Data Completed and Pending Labs on day of discharge: Labs from last 24 hours 10/25/21 10/25/21 10/25/21 07:41 07:41 07:41 Sodium 139 Potassium 4.4 Chloride 101 Carbon Dioxide 28 Anion Gap 10.0 BUN 49 H Creatinine 2.2 H GFR Calculation 32 Glucose 269 H Hemoglobin A1c 8.4 H Estim Average Glucose 194 Uric Acid 8.0 Calcium 8.9 Phosphorus 4.0 Magnesium 2.1 Total Bilirubin 0.2 Direct Bilirubin < 0.2 GGT 14 AST 17 ALT 12 Alkaline Phosphatase 116 Lactate Dehydrogenase 253 H Total Protein 5.7 L Albumin 2.9 L Globulin 2.8 Albumin/Globulin Ratio 1.0 Triglycerides 103 Random Vancomycin 22.6 Discharge Plan Patient/Caregiver Discharge Instructions Activity: increase activity as tolerated Diet: Consistent Carbohydrate Prescriptions: New cefpodoxime 200 mg tablet 400 mg PO BID Qty: 12 0RF Rx Instructions: must administer with a meal/food Continued (DME) blood sugar diagnostic [Contour Next Test Strips] strip 1 each SQ 5XD Label Comments: 3-4 times daily and as needed Rx Instructions: check blood sugars before meals and at bed time. tramadol 100 mg tablet 50 mg PO Q6H PRN (Reason: Nausea) tamsulosin 0.4 mg capsule 0.8 mg PO QDAY diltiazem HCl 180 mg capsule,extended release 24 hr 180 mg PO QDAY ondansetron 4 mg tablet,disintegrating 4 mg PO Q8H PRN (Reason: Nausea) furosemide 80 mg tablet 80 mg PO QDAY insulin aspart U-100 [Novolog Flexpen U-100 Insulin] 100 unit/mL (3 mL) i nsulin pen 1 sliding scale dose subcut USEASDIRECTD ascorbic acid (vitamin C) 1,000 mg tablet 2 g PO DAILY Basaglar KwikPen U-100 Insulin 100 unit/mL (3 mL) insulin pen See Rx Instructions .ROUTE .COMPLEX Rx Instructions: Inject 60 units SQ HS; cilostazol 50 mg tablet 100 mg PO DAILY aspirin 81 mg tablet,delayed release (DR/EC) 81 mg PO QDAY cholecalciferol (vitamin D3) 125 mcg (5,000 unit) tablet 125 mcg PO QDAY bethanechol chloride 10 mg tablet 30 mg PO BID clopidogrel [Plavix] 75 mg tablet 75 mg PO QDAY carvedilol 6.25 mg tablet 1 tab PO BID Follow Up Plan Follow up with: Elba Bridges ARNP [Primary Care Provider] - Catrachito Azevedo MD [Physician] - Patient Disposition: Home Health Service Prognosis: Fair Rehab Potential: Fair Overall status at discharge: patient is progressing back to baseline Discharge Orders: Discharge Order (Routine); Ordered 10/26/21 Ordered By: Augustine Gonzales [facility] VTE Deep Vein Thrombosis/Pulmonary Embolism Present on Admission: No
[2021-10-25] MEDS: INSULIN GLARGINE, HUMAN 1 UNIT/0.01 ML SQ SCH (20:31)
[2021-10-25] MEDS: SENNOSIDES 1 TABLET PO SCH (20:32)
[2021-10-26] MEDS: IPRATROPIUM/ALBUTEROL 3 ML AMPUL.NEB NEB SCH ×3 (00:41→13:06)
[2021-10-26] MEDS: FUROSEMIDE 40 MG/4 ML VIAL IV SCH (05:32)
[2021-10-26] MEDS: 0.9 % SODIUM CHLORIDE 10 ML SYRINGE IV SCH ×2 (05:33→13:36)
[2021-10-26 07:06] LABS: Vancomycin,Random 17.6 ug/mL
[2021-10-26 07:17] LABS: Blood Urea Nitrogen 56 mg/dL (6-20); Carbon Dioxide 29 mmol/L (22-30); Chloride 102 mmol/L (96-108); Glomerular Filtration Rate 27; Glucose 180 mg/dL (70-105)
[2021-10-26] MEDS: INSULIN LISPRO 1 UNIT/0.01 ML UNIT SQ SCH ×2 (07:39→11:13)
[2021-10-26] MEDS: CILOSTAZOL 100 MG TABLET PO SCH (08:30)
[2021-10-26] MEDS: ASPIRIN 81 MG TAB.CHEW CHEWED SCH (08:30)
[2021-10-26] MEDS: TAMSULOSIN 0.4 MG CAPSULE PO SCH (08:30)
[2021-10-26] MEDS: DILTIAZEM 180 MG CAP.XL.24H PO SCH (08:31)
[2021-10-26] MEDS: ENOXAPARIN 40 MG/0.4 ML SYRINGE SQ SCH (08:31)
[2021-10-26] MEDS: CLOPIDOGREL 75 MG TABLET PO SCH (08:31)
[2021-10-26] MEDS: CARVEDILOL 6.25 MG TABLET PO SCH (08:31)
[2021-10-26] MEDS: DOCUSATE SODIUM 100 MG CAPSULE PO SCH (08:32)
[2021-10-26] MEDS: CEFEPIME 2 GM VIAL IV SCH (08:32)
[2021-10-26] MEDS ORDERED: VANCOMYCIN 1,500 MG in 0.9 % SODIUM CHLORIDE 500 ML IV SCH (16:00)
== END 2021-10-26 15:05 | disposition home health service (06) | DRG 728 ==
LOC: ED 07:23 → MEDSUR 16:47
PROVIDERS: ADMIT Student in an Organized Health Care Education/Training Program; ATTEND Student in an Organized Health Care Education/Training Program